=== PATIENT | female | born 1990 | race Hispanic/Latino ===

== ENCOUNTER 2018-08-02 14:47 | Emergency (ER) | payer BC, OTHER ==
--- OUTSIDE RECORDS SUMMARY | 2018-08-02 14:49 | XMS REPORT | Clinical Summary ---
:1990 Author Organization [facility] Address [address] [place] [address] Care Team Providers Name Role Phone StuartBitaThaddeus Pop Primary Care Provider Unavailable Allergies Active Allergy Reactions Severity Noted Date Comments Gabapentin Swelling, Rash Low 10/09/2016 Lamotrigine Rash Low 10/09/2016 Pregabalin Swelling 10/09/2016 Vancomycin 10/09/2016 Current Medications Prescription Sig. Disp. Refills Start Date End Date Status topiramate (TOPAMAX) 100 Take 100 mg by Active MG tablet mouth 2 (two) times a day. amitriptyline (ELAVIL) 50 Take 50 mg by Active MG tablet mouth nightly. cyanocobalamin 1,000 Inject 1,000 mcg Active mcg/mL injection into the shoulder, thigh, or buttocks once a week. Mondays loratadine (CLARITIN) 10 Take 10 mg by Active mg tablet mouth daily as needed for allergies. acetaminophen-codeine Take 1 tablet by Active (TYLENOL WITH CODEINE #3) mouth every 4 300-30 mg per tablet (four) hours as needed for moderate pain. cyclobenzaprine (FLEXERIL) Take 10 mg by Active 10 mg tablet mouth 3 (three) times a day as needed for muscle spasms. levETIRAcetam (KEPPRA) 500 Take 500 mg by Active MG tablet mouth 2 (two) times a day. Active Problems Problem Noted Date Periodic headache syndrome, not intractable 03/12/2017 Malfunction of ventriculo-peritoneal shunt (HCC) 03/11/2017 Numbness and tingling 12/30/2016 Neuropathy 12/28/2016 Pain in both feet 12/28/2016 Anesthesia complication 03/16/2016 Chronic intractable headache 02/26/2016 Hydrocephalus 02/13/2016 Seizure disorder, grand mal (HCC) 2015 Acute intractable headache 07/01/2015 MIND READER (ventriculoperitoneal) shunt status 07/01/2015 Shunt malfunction 02/06/2015 Pseudotumor cerebri 10/30/2013 Post-op pain 05/12/2013 Headache 05/01/2013 Overview: Overview: UPDATED BY ICD10 SNOMED/IMO UPDATES Immunizations Name Dates Previously Given Next Due Influenza Trivalent 12/11/2013 Social History Tobacco Use Types Packs/Day Years Used Date Never Smoker Alcohol Use Drinks/Week oz/Week Comments No Sex Assigned at Date Recorded Not on file Last Filed Vital Signs Not on file Plan of Treatment Health Maintenance Due Date Last Done Comments CERVICAL CANCER SCREENING 2009 INFLUENZA VACCINE 04/27/2018 12/11/2013 Results Not on fileafter 08/01/2017 Insurance Payer Benefit Plan / Group Subscriber ID Type Phone Address BCBS BCBS CHOICE PPO/FEDERAL EMPL PPO xxxxxxxxxxxx PPO Work: [id number] [phone] Home: [id number]
[2018-08-02] MEDS ORDERED: predniSONE 20 MG TAB ONE (15:26)
[2018-08-02] MEDS ORDERED: CEPHALEXIN 250 MG CAP ONE (15:26)
[2018-08-02] MEDS ORDERED: HYDROCODONE/APAP 5/325 MG TAB ONE (15:41)
[2018-08-02 15:48] LABS: BUN Blood Urea Nitrogen 15 mg/dL (7-18); Bicarbonate 26 mmol/L (21-32); Glucose Level 91 mg/dL (74-106); Potassium 3.5 mmol/L (3.5-5.1); Sodium Level 141 mmol/L (136-145)
[2018-08-02 15:51] LABS: Absolute Lymphocytes (CBC) 0.9 K/uL (0.7-4.9); Absolute Monocytes 0.4 K/uL (0.1-1.3); Absolute Neutrophil 3.4 K/uL (1.8-8.0); Basophils % 0.6 % (0-1.3); Eosinophils % 1.1 % (0-4.4); Hematocrit 39.5 % (36.0-45.0); Lymphocytes % 19.5 % (15.3-44.8); MCH 26.5 pg (27.0-35.0); MCV 78.7 fL (80-100); MPV 10.4 fL (7.6-11.3); Monocytes % 8.2 % (3.3-12.3); RBC Red Blood Cell Count 5.03 M/uL (3.86-4.86)
--- NOTE | 2018-08-02 15:58 | ER ---
Nurse's Notes [facility] Name: Hilda Christina Age: 28 yrs Sex: Female : 1990 Arrival Date: 08/02/2018 Time: 14:47 Bed 13 Private MD: Diagnosis: Dermatitis, unspecified Presentation: 08/02 14:49 Presenting complaint: Patient states: last night, a rash on my R side area, now i hj noticed its near my private part already; it is itchy and painful; denies fever and chills;. Transition of care: patient was not received from another setting of care. Onset of symptoms was August 02, 2018. Risk Assessment: Do you want to hurt yourself or someone else? Patient reports no desire to harm self or others. Initial Sepsis Screen: Does the patient meet any 2 criteria? No. Patient's initial sepsis screen is negative. Does the patient have a suspected source of infection? No. Patient's initial sepsis screen is negative. Care prior to arrival: None. 14:49 Method Of Arrival: Ambulatory 14:49 Acuity: JUDY 4 hj Triage Assessment: 14:51 General: Appears in no apparent distress. uncomfortable, Behavior is calm, cooperative, hj appropriate for age. Pain: Complains of pain in pelvis Pain currently is 8 out of 10 on a pain scale. 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 - Social history:: Smoking status: Patient/guardian denies using tobacco, Patient/guardian denies using alcohol. - Ebola Screening: : Patient negative for fever greater than or equal to 101.5 degrees Fahrenheit, and additional compatible Ebola Virus Disease symptoms Patient denies exposure to infectious person Patient denies travel to an Ebola-affected area in the 21 days before illness onset. Screenin:51 Abuse screen: Denies threats or abuse. Denies injuries from another. Nutritional hj screening: No deficits noted. Tuberculosis screening: No symptoms or risk factors identified. Fall Risk None identified. Assessment: 15:00 General: Appears uncomfortable, obese, Behavior is calm, cooperative, appropriate for tw2 age. Pain: Complains of pain in suprapubic area and anterior aspect of right upper chest and left clavicle. Neuro: Level of Consciousness is awake, alert, obeys commands, Oriented to person, place, time, situation. Cardiovascular: Denies chest pain, shortness of breath, Heart tones S1 S2 Patient's skin is warm and dry. Respiratory: Airway is patent Respiratory effort is even, unlabored, Respiratory pattern is regular, symmetrical, Breath sounds are clear bilaterally. GI: No signs and/or symptoms were reported involving the gastrointestinal system. : Reports vaginal itching, Denies vaginal discharge. EENT: No signs and/or symptoms were reported regarding the EENT system. Derm: Rash noted that is macular, papular, red, raised, on suprapubic area and anterior aspect of right upper chest and left clavicle and pelvis. Musculoskeletal: Range of motion: intact in all extremities. 16:20 Reassessment: Patient appears in no apparent distress at this time. Patient and/or tw2 family updated on plan of care and expected duration. Pain level reassessed. Patient is alert, oriented x 3, equal unlabored respirations, skin warm/dry/pink. Patient states feeling better. Vital Signs: 14:51 BP 122 / 76; Pulse 102; Resp 18; Temp 97.8(TE); Pulse Ox 98% on R/A; Weight 72.57 kg; hj Height 5 ft. 0 in. (152.40 cm); Pain 8/10; 16:09 BP 123 / 70; Pulse 85; Resp 17; Pulse Ox 97% on R/A; tw2 16:20 Pain 6/10; tw2 14:51 Body Mass Index 31.25 (72.57 kg, 152.40 cm) ED Course: 14:47 Patient arrived in ED. as 14:50 Triage completed. 14:51 Arm band placed on right wrist. 14:51 Patient has correct armband on for positive identification. Bed in low position. Call light in reach. Side rails up X 1. 14:56 Eugenie Hoff RN is Primary Nurse. tw2 15:00 Devon Langley MD is Attending Physician. gs 15:10 Inserted saline lock: 22 gauge in left antecubital area, using aseptic technique. Blood tw2 collected. 16:20 No provider procedures requiring assistance completed. IV discontinued, intact, tw2 bleeding controlled, No redness/swelling at site. Pressure dressing applied. Administered Medications: 15:28 Drug: predniSONE 40 mg Route: PO; tw2 16:20 Follow up: Response: No adverse reaction tw2 15:28 Drug: KeFLEX 1000 mg Route: PO; tw2 16:20 Follow up: Response: No adverse reaction tw2 15:40 Drug: [place] 5 mg-325 mg 1 tabs Route: PO; tw2 16:20 Follow up: Pain 6/10 Adult; Response: No adverse reaction; Pain is decreased tw2 Outcome: 15:58 Discharge ordered by . gs 16:20 Discharged to home ambulatory, with family. tw2 16:20 Condition: stable 16:20 Discharge instructions given to patient, family, Instructed on discharge instructions, follow up and referral plans. no drinking with medication, no driving heavy equipment, medication usage, Demonstrated understanding of instructions, follow-up care, medications, Prescriptions given X 3. 16:21 Patient left the ED. tw2 Signatures: Dipika Hernández Henry RN RN Eugenie Hoff RN RN tw2 Devon Langley MD MD
--- NOTE | 2018-08-02 15:58 | EDPHYS ---
Physician Documentation [facility] Name: Hilda Christina Age: 28 yrs Sex: Female : 1990 Arrival Date: 08/02/2018 Time: 14:47 Bed 13 Private MD: ED Physician Devon Langley HPI: 08/02 15:53 This 28 yrs old Female presents to ER via Ambulatory with complaints of Rash. gs 15:53 The patient's rash thought to be caused by Dermatitis. The rash is located on the gs suprapubic area. The rash can be described as erythematous, macular, raised. Onset: The symptoms/episode began/occurred yesterday. Associated signs and symptoms: Pertinent positives: itching, Pertinent negatives: fever. Severity of symptoms: At their worst the symptoms were moderate in the emergency department the symptoms are unchanged. The patient has experienced similar episodes in the past, a few times. 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 - Social history:: Smoking status: Patient/guardian denies using tobacco, Patient/guardian denies using alcohol. - Ebola Screening: : Patient negative for fever greater than or equal to 101.5 degrees Fahrenheit, and additional compatible Ebola Virus Disease symptoms Patient denies exposure to infectious person Patient denies travel to an Ebola-affected area in the 21 days before illness onset. ROS: 15:53 All other systems are negative. gs Exam: 15:53 Head/Face: Normocephalic, atraumatic. Eyes: Pupils equal round and reactive to light, gs extra-ocular motions intact. Lids and lashes normal. Conjunctiva and sclera are non-icteric and not injected. Cornea within normal limits. Periorbital areas with no swelling, redness, or edema. ENT: Nares patent. No nasal discharge, no septal abnormalities noted. Tympanic membranes are normal and external auditory canals are clear. Oropharynx with no redness, swelling, or masses, exudates, or evidence of obstruction, uvula midline. Mucous membranes moist. Neck: Trachea midline, no thyromegaly or masses palpated, and no cervical lymphadenopathy. Supple, full range of motion without nuchal rigidity, or vertebral point tenderness. No Meningismus. Chest/axilla: Normal chest wall appearance and motion. Nontender with no deformity. No lesions are appreciated. Cardiovascular: Regular rate and rhythm with a normal S1 and S2. No gallops, murmurs, or rubs. Normal PMI, no JVD. No pulse deficits. Respiratory: Lungs have equal breath sounds bilaterally, clear to auscultation and percussion. No rales, rhonchi or wheezes noted. No increased work of breathing, no retractions or nasal flaring. Abdomen/GI: Soft, non-tender, with normal bowel sounds. No distension or tympany. No guarding or rebound. No evidence of tenderness throughout. Back: No spinal tenderness. No costovertebral tenderness. Full range of motion. MS/ Extremity: Pulses equal, no cyanosis. Neurovascular intact. Full, normal range of motion. Neuro: Awake and alert, GCS 15, oriented to person, place, time, and situation. Cranial nerves II-XII grossly intact. Motor strength 5/5 in all extremities. Sensory grossly intact. Cerebellar exam normal. Normal gait. 15:53 Constitutional: The patient appears alert, awake, uncomfortable. 15:53 Skin: rash a moderate rash is noted, on the suprapubic area and anterior aspect of right upper chest and left clavicle. Vital Signs: 14:51 BP 122 / 76; Pulse 102; Resp 18; Temp 97.8(TE); Pulse Ox 98% on R/A; Weight 72.57 kg; hj Height 5 ft. 0 in. (152.40 cm); Pain 8/10; 16:09 BP 123 / 70; Pulse 85; Resp 17; Pulse Ox 97% on R/A; tw2 16:20 Pain 6/10; tw2 14:51 Body Mass Index 31.25 (72.57 kg, 152.40 cm) hj MDM: 15:11 Patient medically screened. 15:53 Differential diagnosis: allergic reaction, cellulitis, dermatitis. Data reviewed: vital gs signs, nurses notes. Response to treatment: the patient's symptoms have mildly improved after treatment, and as a result, I will discharge patient. 08/02 15:13 Order name: CBC with Diff; Complete Time: 15:53 08/02 15:13 Order name: BMP; Complete Time: 15:53 08/02 15:15 Order name: IV Start; Complete Time: 15:28 tw2 Administered Medications: 15:28 Drug: predniSONE 40 mg Route: PO; tw2 16:20 Follow up: Response: No adverse reaction tw2 15:28 Drug: KeFLEX 1000 mg Route: PO; tw2 16:20 Follow up: Response: No adverse reaction tw2 15:40 Drug: [place] 5 mg-325 mg 1 tabs Route: PO; tw2 16:20 Follow up: Pain 6/10 Adult; Response: No adverse reaction; Pain is decreased tw2 Disposition: 08/02/18 15:58 Discharged to Home. Impression: Dermatitis, unspecified. - Condition is Stable. - Discharge Instructions: Rash. - Prescriptions for Keflex 500 mg Oral Capsule - take 1 capsule by ORAL route 3 times per day for 7 days; 21 capsule. Zyrtec 10 mg Oral Tablet - take 1 tablet by ORAL route once daily As needed; 20 tablet. Prednisone 20 mg Oral Tablet - take 2 tablet by ORAL route once daily for 5 days; 10 tablet. - Work release form, Medication Reconciliation Form, Thank You Letter, Antibiotic Education, Prescription Opioid Use form. - Follow up: Private Physician; When: 1 - 2 days; Reason: Re-evaluation by your physician. Signatures: Dispatcher [employer] EDMO Elpidio Perez RN RN Eugenie Hoff RN RN 2 Devon Langley MD MD Corrections: (The following items were deleted from the chart) 16:21 15:58 08/02/2018 15:58 Discharged to Home. Impression: Dermatitis, unspecified. tw2 Condition is Stable. Forms are Medication Reconciliation Form, Thank You Letter, Antibiotic Education, Prescription Opioid Use. Follow up: Private Physician; When: 1 - 2 days; Reason: Re-evaluation by your physician.
[2018-08-02 16:34] VITALS: TEMP 97.8
[2018-08-02 16:35] VITALS: BP 123/70; O2SAT 97
== END 2018-08-02 16:21 | disposition home or self-care (01) ==
LOC: ER 14:47
DX: L30.9 Dermatitis, unspecified (principal)
CPT/HCPCS: 36415; 80048; 85025; 99284; J7512

== ENCOUNTER 2021-01-26 20:47 | Emergency (ER) | payer BC ==
[2021-01-26] MEDS ORDERED: NA CHLORIDE 0.9% 1,000 ML ONE (23:52)
[2021-01-26] MEDS ORDERED: ONDANSETRON 4 MG/2 ML VIAL ONE (23:55)
[2021-01-26] MEDS ORDERED: HYDROMORPHONE HCL 1 MG/ML INJ ONE (23:55)
[2021-01-27 00:10] LABS: Absolute Lymphocytes (CBC) 2.4 K/uL (0.7-4.9); Basophils % 0.6 % (0-1.3); Hematocrit 36.6 % (36.0-45.0); Lymphocytes % 33.1 % (15.3-44.8); MPV 10.5 fL (7.6-11.3); RBC Red Blood Cell Count 4.73 M/uL (3.86-4.86)
[2021-01-27 00:12] LABS: Protime INR 1.16
[2021-01-27 00:23] LABS: ALT/SGPT 19 U/L (12-78); AST/SGOT 9 U/L (15-37); Albumin 3.6 g/dL (3.4-5.0); Alkaline Phosphatase 67 U/L (45-117); BUN Blood Urea Nitrogen 15 mg/dL (7-18); Bicarbonate 26 mmol/L (21-32); Bilirubin Direct < 0.1 mg/dL (0-0.2); Bilirubin Total 0.3 mg/dL (0.2-1.0); Glucose Level 104 mg/dL (74-106); Potassium 3.4 mmol/L (3.5-5.1); Protein, Total 7.4 g/dL (6.4-8.2); Sodium Level 143 mmol/L (136-145)
--- NOTE | 2021-01-27 02:36 | EDPHYS ---
Physician Documentation [facility] Name: Hilda Christina Age: 30 yrs Sex: Female : 1990 Arrival Date: 01/26/2021 Time: 20:52 Bed 4 Private MD: ED Physician Patel Boyle HPI: 01/27 01:03 The patient or guardian complains of pain, that is acute. The symptoms are located at mh7 the cervical spine area. Onset: The symptoms/episode began/occurred 3 day(s) ago. Context: The problem was sustained at an unknown location, The neck injury/problem resulted from from unknown cause. 01:05 Associated signs and symptoms: Pertinent positives: headache, nausea, Pertinent mh7 negatives: chills, fever, bladder incontinence, bowel incontinence, numbness, tingling, vomiting, weakness. The pain radiates to the head. Modifying factors: The symptoms are alleviated by nothing. the symptoms are aggravated by movement. Severity of symptoms: At their worst the symptoms were moderate, 2 day(s) ago, in the emergency department the symptoms are unchanged. 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 - Social history:: Smoking status: Patient denies any tobacco usage or history of. ROS: 01/27 01:05 Constitutional: Negative for fever, chills, and weight loss, Eyes: Negative for injury, mh7 pain, redness, and discharge, ENT: Negative for injury, pain, and discharge, Cardiovascular: Negative for chest pain, palpitations, and edema, Respiratory: Negative for shortness of breath, cough, wheezing, and pleuritic chest pain, Abdomen/GI: Negative for abdominal pain, nausea, vomiting, diarrhea, and constipation, Back: Negative for injury and pain, : Negative for injury, bleeding, discharge, and swelling, MS/Extremity: Negative for injury and deformity, Skin: Negative for injury, rash, and discoloration, Psych: Negative for depression, anxiety, suicide ideation, homicidal ideation, and hallucinations, Allergy/Immunology: Negative for hives, rash, and allergies, Endocrine: Negative for neck swelling, polydipsia, polyuria, polyphagia, and marked weight changes. Exam: 01:05 Constitutional: This is a well developed, well nourished patient who is awake, alert, mh7 and in no acute distress. Head/Face: Normocephalic, atraumatic. Eyes: Pupils equal round and reactive to light, extra-ocular motions intact. Lids and lashes normal. Conjunctiva and sclera are non-icteric and not injected. Cornea within normal limits. Periorbital areas with no swelling, redness, or edema. 01:05 Chest/axilla: Normal chest wall appearance and motion. Nontender with no deformity. No lesions are appreciated. Cardiovascular: Regular rate and rhythm with a normal S1 and S2. No gallops, murmurs, or rubs. Normal PMI, no JVD. No pulse deficits. Respiratory: Lungs have equal breath sounds bilaterally, clear to auscultation and percussion. No rales, rhonchi or wheezes noted. No increased work of breathing, no retractions or nasal flaring. Abdomen/GI: Soft, non-tender, with normal bowel sounds. No distension or tympany. No guarding or rebound. No evidence of tenderness throughout. Back: No spinal tenderness. No costovertebral tenderness. Full range of motion. Skin: Warm, dry with normal turgor. Normal color with no rashes, no lesions, and no evidence of cellulitis. MS/ Extremity: Pulses equal, no cyanosis. Neurovascular intact. Full, normal range of motion. Neuro: Awake and alert, GCS 15, oriented to person, place, time, and situation. Cranial nerves II-XII grossly intact. Motor strength 5/5 in all extremities. Sensory grossly intact. Cerebellar exam normal. Normal gait. Psych: Awake, alert, with orientation to person, place and time. Behavior, mood, and affect are within normal limits. 01:05 Neck: External neck: tenderness, that is mild, of the left trapezius and right trapezius, C-spine: appears grossly normal, no vertebral tenderness, no crepitus, Thyroid: appears normal, Trachea: is midline with no obvious abnormalities, ROM/movement: is normal, Lymph nodes: no appreciated lymphadenopathy. Vital Signs: 01/26 21:20 BP 141 / 89; Pulse 86; Resp 18 S; Temp 97.1(TE); Pulse Ox 99% on R/A; Weight 70.31 kg ca1 (R); Height 5 ft. 0 in. (152.40 cm) (R); Pain 8/10; 21:20 Body Mass Index 30.27 (70.31 kg, 152.40 cm) ca1 MDM: 01/27 02:30 Differential diagnosis: arthritis, Cervical Raiculopathy Cervical Spondylosis cervical mh7 strain, fracture, Osteoarthritis Spondylolisthesis Spondylosis subluxation, torticollis. Data reviewed: vital signs, nurses notes, old medical records, lab test result(s), CBC, electrolytes, radiologic studies, CT scan, plain films. Data interpreted: Pulse oximetry: on room air is 99 %. Interpretation: normal. Counseling: I had a detailed discussion with the patient and/or guardian regarding: the historical points, exam findings, and any diagnostic results supporting the discharge/admit diagnosis, the presence of at least one elevated blood pressure reading (>120/80) during this emergency department visit, lab results, radiology results, the need for outpatient follow up, to return to the emergency department if symptoms worsen or persist or if there are any questions or concerns that arise at home. Response to treatment: the patient's symptoms have resolved after treatment, the patient's blood pressure is in an acceptable range, mental status has returned to baseline, the patient no longer shows bradycardia, the patient is not short of breath, the patient is not tachycardic, the patient's pain is gone, the patient's temperature has normalized. 02:35 Patient medically screened. [facility] 01/26 23:29 Order name: CBC with Diff; Complete Time: 02:13 [facility] 01/26 23:29 Order name: Basic Metabolic Panel; Complete Time: 02:13 [facility] 01/26 22:46 Order name: Shuntogram XRAY ea 01/26 23:29 Order name: Protime (+inr); Complete Time: 02:13 [facility] 01/26 23:29 Order name: Ptt, Activated; Complete Time: 02:13 [facility] 01/26 23:29 Order name: LFT's; Complete Time: 02:13 [facility] 01/26 23:40 Order name: Head C Spine Mpr Wo Con EDMS Administered Medications: 01/26 23:48 Drug: Zofran (Ondansetron) 4 mg Route: IVP; Site: left forearm; ea 01/27 02:00 Follow up: Response: No adverse reaction 01/26 23:49 Drug: NS 0.9% 1000 ml Route: IV; Rate: 1000 ml; Site: left forearm; ea 23:49 Drug: Dilaudid (HYDROmorphone) 1 mg Route: IVP; Site: left forearm; ea 01/27 02:00 Follow up: Response: No adverse reaction; Pain is decreased iw Disposition: 01/27/21 02:35 Discharged to Home. Impression: Neck pain, Headache. - Condition is Stable. - Discharge Instructions: Recurrent Migraine Headache, [id number], Cervical Radiculopathy, [id number]. - Prescriptions for Zofran ODT 4 mg Oral tablet,disintegrating - place 1 tablet by TRANSLINGUAL route every 8 hours As needed; 10 tablet. Ibuprofen 800 mg Oral Tablet - take 1 tablet by ORAL route every 8 hours As needed take with food; 15 tablet. - Work release form, Medication Reconciliation Form, Thank You Letter, Antibiotic Education, Prescription Opioid Use form. - Follow up: Private Physician; When: 1 - 2 days; Reason: If symptoms return, Worsening of condition, Recheck today's complaints, Continuance of care, Re-evaluation by your physician. Follow up: Eriberto Arreguin MD; When: 1 - 2 days; Reason: Worsening of condition, Recheck today's complaints, Continuance of care, Re-evaluation by your physician. - Problem is an acute exacerbation. - Symptoms have improved. Signatures: Dispatcher [employer] EDAissatou Gross RN RN iw Antunez, Elena, RN RN ea Acob, Cheryl, RN RN ca1 Holmes, Maurice, MD MD mh7 Corrections: (The following items were deleted from the chart) 01/26 23:40 23:30 Head Brain Wo Cont+CT.RAD.BRZ ordered. EDMS EDMS 23:41 23:32 C Spine Wo Con+CT.RAD.BRZ ordered. EDPR EDMS 01/27 02:51 02:35 01/27/2021 02:35 Discharged to Home. Impression: Neck pain; Headache. Condition iw is Stable. Forms are Medication Reconciliation Form, Thank You Letter, Antibiotic Education, Prescription Opioid Use. Follow up: Private Physician; When: 1 - 2 days; Reason: If symptoms return, Worsening of condition, Recheck today's complaints, Continuance of care, Re-evaluation by your physician. Follow up: Eriberto Arreguin; When: 1 - 2 days; Reason: Worsening of condition, Recheck today's complaints, Continuance of care, Re-evaluation by your physician. Problem is an acute exacerbation. Symptoms have improved. mh7
--- NOTE | 2021-01-27 02:36 | ER ---
Nurse's Notes [facility] Name: Hilda Christina Age: 30 yrs Sex: Female : 1990 Arrival Date: 01/26/2021 Time: 20:52 Bed 4 Private MD: Diagnosis: Neck pain;Headache Presentation: 01/26 21:20 Chief complaint: Patient states: Severe neck pain, hurts to move x 3 days. Been waking ca1 up migraines, severe early in the morning. Denies injury to the neck. Has shunt in the head. Coronavirus screen: Client denies travel out of the [place] in the last 14 days. At this time, the client does not indicate any symptoms associated with coronavirus-19. Ebola Screen: Patient negative for fever greater than or equal to 101.5 degrees Fahrenheit, and additional compatible Ebola Virus Disease symptoms Patient denies exposure to infectious person. Patient denies travel to an Ebola-affected area in the 21 days before illness onset. No symptoms or risks identified at this time. Initial Sepsis Screen: Does the patient meet any 2 criteria? No. Patient's initial sepsis screen is negative. Does the patient have a suspected source of infection? No. Patient's initial sepsis screen is negative. Risk Assessment: Do you want to hurt yourself or someone else? Patient reports no desire to harm self or others. Onset of symptoms was January 26, 2021. 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 - Social history:: Smoking status: Patient denies any tobacco usage or history of. Screenin:10 Abuse screen: Denies threats or abuse. Nutritional screening: No deficits noted. ea Tuberculosis screening: No symptoms or risk factors identified. Fall Risk None identified. Assessment: 22:30 General: Appears uncomfortable, Behavior is calm, cooperative. rv 22:30 Pain: Complains of pain in head, neck. Neuro: Level of Consciousness is awake, alert, rv obeys commands, Oriented to person, place, time, situation. Cardiovascular: Patient's skin is warm and dry. Respiratory: Airway is patent Respiratory effort is even, unlabored, Breath sounds are clear bilaterally. Derm: Skin is intact. 01/27 02:45 Reassessment: Patient appears in no apparent distress at this time. Patient and/or iw family updated on plan of care and expected duration. Pain level reassessed. Patient is alert, oriented x 3, equal unlabored respirations, skin warm/dry/pink. Patient states feeling better. Patient states symptoms have improved. Vital Signs: 01/26 21:20 BP 141 / 89; Pulse 86; Resp 18 S; Temp 97.1(TE); Pulse Ox 99% on R/A; Weight 70.31 kg ca1 (R); Height 5 ft. 0 in. (152.40 cm) (R); Pain 8/10; 21:20 Body Mass Index 30.27 (70.31 kg, 152.40 cm) ca1 ED Course: 20:52 Patient arrived in ED. bp1 21:22 Triage completed. ca1 21:23 Arm band placed on right wrist. ca1 22:21 Matti Paulino, GISSEL is Primary Nurse. rv 23:08 Patel Boyle MD is Attending Physician. mh7 23:29 Patient has correct armband on for positive identification. Pulse ox on. NIBP on. rv 23:49 Initial lab(s) drawn, by tn, sent to lab. Inserted saline lock: 20 gauge in left rv forearm, using aseptic technique. Blood collected. 01/27 00:17 Head C Spine Mpr Wo Con In Process Unspecified. EDMS 01:35 Shuntogram XRAY In Process Unspecified. EDMS 02:33 Eriberto Arreguin MD is Referral Physician. mh7 02:50 No provider procedures requiring assistance completed. IV discontinued, intact, iw bleeding controlled, No redness/swelling at site. Pressure dressing applied. Administered Medications: 01/26 23:48 Drug: Zofran (Ondansetron) 4 mg Route: IVP; Site: left forearm; ea 01/27 02:00 Follow up: Response: No adverse reaction iw 01/26 23:49 Drug: NS 0.9% 1000 ml Route: IV; Rate: 1000 ml; Site: left forearm; ea 23:49 Drug: Dilaudid (HYDROmorphone) 1 mg Route: IVP; Site: left forearm; ea 01/27 02:00 Follow up: Response: No adverse reaction; Pain is decreased iw Outcome: 02:35 Discharge ordered by MD. klein 02:51 Discharged to home ambulatory, with family. iw 02:51 Condition: good 02:51 Discharge instructions given to patient, Instructed on discharge instructions, follow up and referral plans. medication usage, Demonstrated understanding of instructions, follow-up care, medications, Prescriptions given X 2. 02:51 Patient left the ED. iw Signatures: Dispatcher [employer] EDAissatou Gross RN RN iw Antunez, Elena, RN RN ea Vicente, Ronaldo, RN RN rv Acob, Cheryl, RN RN ca1 Paniauga, Brittany bp1 Holmes, Maurice, MD MD 7
[2021-01-27 02:56] VITALS: BP 141/89; TEMP 97.1; O2SAT 99
--- NOTE | 2021-01-27 15:59 | RAD REPORT ---
EXAM DESCRIPTION: Head C Spine Mpr Wo Con 01/27/2021 12:18 AM CDT CLINICAL HISTORY: 30 years, Female, HEADACHE COMPARISON: 03/10/2017. FINDINGS: Multiple transaxial tomograms of the brain were obtained from the base of the skull to the vertex without contrast. 2-D multiplanar reformats and the coronal and sagittal plane were performed and reviewed. Subsequently multiple axial CT images through the cervical spine were obtained at 2 mm slice thicknes s at 2 mm interval reconstruction. In addition 2-D multiplanar reformats and the sagittal coronal raphael ne were performed and reviewed. An individualized dose optimization technique, Automated Exposure Control, was utilized for the perfo rmed procedure. Head: Brain parenchyma as well as the leahy and white matter differentiation demonstrate to be unremar kable. Again there is a left ventriculoperitoneal shunt entering at the level of the left occipital l obe. The tip located within the posterior horn left lateral ventricle, unchanged in comparison with p rior study. There is no evidence for hydrocephalus. There is no midline shift and/or mass effect. The re is no evidence for acute hemorrhage and/or infarction. Lateral ventricles and cisterns displace normal appearance. No intra or extra axial fluid collections were seen. The calvarium is intact wit h no evidence for fracture. The visualized portions of the paranasal sinuses and orbits demonstrate t o be clear. C-spine: The alignment, vertebral body heights, and disc spaces are normal. There is no evidence of fracture or subluxation. There is no evidence for significant degenerative changes. The spinal canal demonstrate no evidence for significant stenosis. Neural foramina demonstrate to be unremarkable. Th e uncovertebral joints demonstrate to be normal. There is no prevertebral soft tissue swelling. Sag ittal coronal reformatted images demonstrate no subluxation or bony abnormalities. IMPRESSION: VENTRICULOPERITONEAL SHUNT IN PLACE. NO ACUTE INTRACRANIAL HEMORRHAGE. GROSSLY UNREMARKABLE CT SCAN OF THE HEAD WITHOUT CONTRAST. CT CERVICAL SPINE NEGATIVE FOR FRACTURE OR SUBLUXATION. Electronically signed by: Jan Astorga MD 01/27/2021 12:23 AM CDT Due to temporary technical issues with the PACS/Fluency reporting system, reports are being signed by the in house radiologists without review as a courtesy to insure prompt reporting. The interpreting radiologist is fully responsible for the content of the report.
--- NOTE | 2021-01-27 16:00 | RAD REPORT ---
EXAM DESCRIPTION: Shuntogram 01/27/2021 2:02 AM CDT CLINICAL HISTORY: 30 years, Female, headache COMPARISON: None. FINDINGS: Frontal and lateral views of the skull, frontal and lateral views of the cervical spine, f rontal view of the chest, frontal view of the abdomen were performed. No prior films are available this time for comparison. There is a left occipital ventriculoperitoneal shunt with the tip along the posterior left of the midline as was described and recent CT scan of th e head. Noted is the presence of a ventriculoperitoneal shunt [employer] strata. Difficult to visualiz e the dial/radiodense markers for determination of P/L. There is continues tubing along the left posterior and lateral cervical spine entering along the left anterior chest and the catheter entering within the left upper abdomen tip within the pelvis. Incide ntally is noted the presence of a retrievable IVC filter. At the level of the chest there is noted th e presence of a discontinuous tubing right chest suggesting a most likely prior shunt tubing. The res t of the soft tissue and bony structures demonstrate to be unremarkable. IMPRESSION: Left occipital ventriculoperitoneal shunt, as described above. Presumed prior shunt tubing along the right chest, clinical correlation is recommended. Retrievable IVC filter in place. Electronically signed by: Jan Astorga MD 01/27/2021 2:05 AM CDT Due to temporary technical issues with the PACS/Fluency reporting system, reports are being signed by the in house radiologists without review as a courtesy to insure prompt reporting. The interpreting radiologist is fully responsible for the content of the report.
== END 2021-01-27 02:51 | disposition home or self-care (01) ==
LOC: ER 20:47
DX: R51.9 Headache, unspecified (principal); G91.9 Hydrocephalus, unspecified; Z98.2 Presence of cerebrospinal fluid drainage device; Z88.3 Allergy status to other anti-infective agents; Z88.8 Allergy status to other drugs, medicaments and biological substances
CPT/HCPCS: 85025; 80048; 36415; 85610; 80076; 85730; 70450; 72125; 75809; 49427; J1170; J7030; J2405; 96374; 96375; 99284

== ENCOUNTER 2021-02-24 05:46 | Emergency (ER) | payer BC ==
[2021-02-24] MEDS ORDERED: METOCLOPRAMIDE 10 MG/2mL INJ ONE (07:35)
[2021-02-24] MEDS ORDERED: NA CHLORIDE 0.9% 100 ML ONE (07:36)
[2021-02-24] MEDS ORDERED: MEPERIDINE HCL 25 MG/ML SYR ONE (07:36)
[2021-02-24] MEDS ORDERED: NA CHLORIDE 0.9% 1,000 ML ONE (07:36)
--- NOTE | 2021-02-24 07:41 | RAD REPORT ---
EXAM DESCRIPTION: CT - Head Brain Wo Cont - 02/24/2021 7:27 am CLINICAL HISTORY: Headache COMPARISON: January 27, 2021 and 2017 TECHNIQUE: Computed axial tomography of the head was obtained. IV contrast was not requested. All CT scans are performed using dose optimization technique as appropriate and may include automated exposure control or mA/KV adjustment according to patient size. FINDINGS: An intracranial bleed is not seen . Low-density within the right cerebrum is unchanged and is chronic. No extra-axial fluid collection is noted. A left shunt has its tip in the left lateral ventricle. The ventricles are small and without change s angela the prior exams. Fluid within the sinuses/ mastoids is not seen. IMPRESSION: No acute intracranial abnormality is seen. If patient's symptoms persist MRI of the bra in would be recommended.
[2021-02-24] MEDS ORDERED: FENTANYL CITR 100 MCG/2 ML ONE (08:28)
--- NOTE | 2021-02-24 08:38 | ER ---
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 Arreguin a month ago and is due to see him on Wednesday but the pain got worse. Coronavirus screen: At this time, the client does not indicate any symptoms associated with coronavirus-19. Ebola Screen: Patient negative for fever greater than or equal to 101.5 degrees Fahrenheit, and additional compatible Ebola Virus Disease symptoms Patient denies exposure to infectious person. Patient denies travel to an Ebola-affected area in the 21 days before illness onset. No symptoms or risks identified at this time. Initial Sepsis Screen: Does the patient meet any 2 criteria? No. Patient's initial sepsis screen is negative. Does the patient have a suspected source of infection? No. Patient's initial sepsis screen is negative. Risk Assessment: Do you want to hurt yourself or someone else? Patient reports no desire to harm self or others. Onset of symptoms was February 16, 2021. 06:09 Method Of Arrival: Ambulatory iw 06:09 Acuity: JUDY 2 iw Triage Assessment: 06:59 Headache History: The patient has had previous headaches. General:. ll1 08:44 Pain: Also complains of nausea. 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 - Social history:: Smoking status: Patient denies any tobacco usage or history of. - Family history:: not pertinent. - Hospitalizations: : No recent hospitalization is reported. Screenin:32 Abuse screen: Denies threats or abuse. Has been threatened or abused. Nutritional rr5 screening: No deficits noted. Tuberculosis screening: No symptoms or risk factors identified. Fall Risk None identified. Total Aragon Fall Scale indicates No Risk (0-24 pts). Assessment: 06:32 General: Appears in no apparent distress. uncomfortable, Behavior is calm, cooperative, rr5 appropriate for age. Pain: Complains of pain in head Pain currently is 8 out of 10 on a pain scale. Quality of pain is described as aching, Pain began gradually, Is intermittent. Neuro: Level of Consciousness is awake, alert, obeys commands, Oriented to person, place, time, Reports headache. Cardiovascular: Capillary refill < 3 seconds Patient's skin is warm and dry. Respiratory: Airway is patent Respiratory effort is even, unlabored, Respiratory pattern is regular, symmetrical. Derm: Skin is intact, is healthy with good turgor, Skin temperature is warm. Musculoskeletal: No signs and/or symptoms reported regarding the musculoskeletal system. 07:30 Reassessment: No changes from previously documented assessment. Patient and/or family ll1 updated on plan of care and expected duration. Pain level reassessed. Patient is alert, oriented x 3, equal unlabored respirations, skin warm/dry/pink. 08:30 Reassessment: No changes from previously documented assessment. Patient and/or family ll1 updated on plan of care and expected duration. Pain level reassessed. Patient is alert, oriented x 3, equal unlabored respirations, skin warm/dry/pink. Patient states feeling better. Patient states symptoms have improved. 09:20 Reassessment: No changes from previously documented assessment. Patient and/or family ll1 updated on plan of care and expected duration. Pain level reassessed. Patient is alert, oriented x 3, equal unlabored respirations, skin warm/dry/pink. 10:37 Reassessment: Patient appears in no apparent distress at this time. No changes from vg1 previously documented assessment. Patient and/or family updated on plan of care and expected duration. Pain level reassessed. Patient is alert, oriented x 3, equal unlabored respirations, skin warm/dry/pink. Vital Signs: 06:09 BP 101 / 74; Pulse 60; Resp 16; Temp 97.6; Pulse Ox 100% on R/A; Weight 70.76 kg; iw Height 5 ft. 0 in. (152.40 cm); Pain 8/10; 07:42 BP 109 / 94; Pulse Ox 97% on R/A; ll1 08:05 BP 112 / 62; Pulse 58; Pulse Ox 99% ; ll1 08:29 BP 85 / 50; Pulse 57; Resp 15; Pulse Ox 95% on R/A; Pain 6/10; ll1 08:43 BP 98 / 45; Pulse Ox 100% on R/A; ll1 09:12 BP 87 / 46; Pulse 61; Resp 15; Pulse Ox 100% ; ll1 09:28 BP 87 / 54; Pulse 55; Pulse Ox 100% ; ll1 09:47 BP 96 / 55; Pulse 57; Resp 15; Pulse Ox 97% ; ll1 10:37 BP 97 / 75; Pulse 88; Resp 14; Pulse Ox 100% on R/A; vg1 06:09 Body Mass Index 30.47 (70.76 kg, 152.40 cm) iw 08:29 Dr. Rangel informed. IV fluids infusing. Patient states low BP is normal for her. ll1 [place] Coma Score: 08:35 Eye Response: spontaneous(4). Verbal Response: oriented(5). Motor Response: obeys rn commands(6). Total: 15. ED Course: 05:49 Patient arrived in ED. es 05:49 Pop Travis MD is Private Physician. es 06:11 Triage completed. iw 06:12 Arm band placed on. iw 06:32 Patient has correct armband on for positive identification. Bed in low position. Call rr5 light in reach. 06:56 Patrick Rangel MD is Attending Physician. rn 06:59 Vane Chase, GISSEL is Primary Nurse. ll1 07:09 Missed attempt(s): 22 gauge in right antecubital area. Bleeding controlled, band aid ll1 applied, catheter tip intact. 07:19 Inserted saline lock: 24 gauge in right hand, using aseptic technique. ll1 07:26 CT Head Brain wo Cont In Process Unspecified. EDMS 08:44 No provider procedures requiring assistance completed. ll1 Administered Medications: 07:35 Drug: NS 0.9% 1000 ml Route: IV; Rate: 1000 ml; Site: right hand; ll1 10:36 Follow up: IV Status: Completed infusion; IV Intake: 1000ml vg1 07:41 Drug: Reglan (metoCLOPramide) 10 mg Route: IVP; Site: right hand; 1 08:13 Follow up: Response: No adverse reaction; Nausea is decreased; RASS: Alert and Calm (0) ll1 07:41 Drug: Demerol (meperidine) 25 mg Route: IVP; Site: right hand; ll1 08:14 Follow up: Response: No adverse reaction; Pain is decreased; RASS: Alert and Calm (0) ll1 08:13 Drug: fentaNYL (PF) 50 mcg Route: IVP; Site: right hand; 1 08:42 Follow up: Response: No adverse reaction; Pain is decreased; RASS: Alert and Calm (0) 1 Intake: 10:36 IV: 1000ml; Total: 1000ml. vg1 Outcome: 08:38 Discharge ordered by . rn 10:37 Patient left the ED. 1 Signatures: Dispatcher [employer] Laura Najrea Irene RN RN iw Patrick Rangel MD MD rn Roque, Raymond RN RN rr5 Sabrina Bravo RN RN vg1 Vane Chase RN RN ll1 Corrections: (The following items were deleted from the chart) 06:14 06:09 Pulse 60bpm; Resp 16bpm; Pulse Ox 100% RA; Temp 97.6F; 70.76 kg; Height 5 ft. 0 iw in.; BMI: 30.4; Pain 8/10; iw 08:30 08:29 BP 85 / 50; Pulse 57bpm; Resp 15bpm; Pulse Ox 95% RA; Pain 6/10; ll1 ll1
--- NOTE | 2021-02-24 08:38 | EDPHYS ---
Physician Documentation [facility] Name: Hilda Christina Age: 30 yrs Sex: Female : 1990 Arrival Date: 02/24/2021 Time: 05:49 Bed 16 Private MD: Pop Travis ED Physician Patrick Rangel HPI: 02/24 07:10 This 30 yrs old Female presents to ER via Ambulatory with complaints of rn Headache, Vomiting. 07:10 The patient complains of pain to the top of head and neck. The patient describes the rn headache as aching. Onset: The symptoms/episode began/occurred "weeks ago". Associated signs and symptoms: Pertinent positives: nausea, vomiting, Pertinent negatives: altered mental status, fever, rash, vision changes, vision loss, weakness, vertigo. Severity of symptoms: At its worst the pain was moderate, "similar to past headaches", in the emergency department the pain is unchanged. Headache History: The patient has had previous headaches and this one is similar to previous episodes. The symptoms are alleviated by nothing. the symptoms are aggravated by nothing. The patient has experienced similar episodes in the past. The patient has been recently seen by a physician:. Reports headache and neck pain, present for "weeks", has seen Dr. Arreguin for this, states put on low dose medication that is only helping a little. No fever, no vision changes, no recent trauma. Reports pain similar to previous headaches, just not improving so came in because tired of the pain. No focal weakness or neuro complaints. . PLEXIGLAS FORMER: 08:44 LMP N/A - control method ll1 Historical: - Allergies: 06:12 Lamictal; iw 06:12 Vancomycin; iw 06:12 Neurontin; iw - Home Meds: 06:13 baclofen 10 mg Oral tab 1 tab 3 times per day [Active]; topiramate 25 mg oral CSpX iw nightly [Active]; - PMHx: 06:12 Hydrocephalus; Seizures; iw - PSHx: 06:12 CRYSTAL SLICER shunt; iw - Immunization history:: Adult Immunizations Adult Immunizations up to date, Client reports receiving the 2nd dose of the Covid vaccine. - Social history:: Smoking status: Patient denies any tobacco usage or history of. - Family history:: not pertinent. - Hospitalizations: : No recent hospitalization is reported. ROS: 07:10 Constitutional: Negative for fever, chills, and weight loss, Eyes: Negative for injury, rn pain, redness, and discharge, ENT: Negative for injury, pain, and discharge, Neck: Negative for injury, and swelling, Cardiovascular: Negative for chest pain, palpitations, and edema, Respiratory: Negative for shortness of breath, cough, wheezing, and pleuritic chest pain, Abdomen/GI: Negative for abdominal pain, diarrhea, and constipation, Back: Negative for injury and pain, : Negative for injury, bleeding, discharge, and swelling, MS/Extremity: Negative for injury and deformity, Skin: Negative for injury, rash, and discoloration, Neuro: Negative for weakness, numbness, tingling, and seizure. Exam: 07:10 Constitutional: This is a well developed, well nourished patient who is awake, alert, rn and in no acute distress. Head/Face: Normocephalic, atraumatic. Eyes: Pupils equal round and reactive to light, extra-ocular motions intact. Lids and lashes normal. Conjunctiva and sclera are non-icteric and not injected. Cornea within normal limits. Periorbital areas with no swelling, redness, or edema. Neck: Trachea midline, no masses palpated, no vertebral point tenderness. No Meningismus. Cardiovascular: Regular rate and rhythm. No pulse deficits. Respiratory: No increased work of breathing, no retractions or nasal flaring. Skin: Warm, dry, no rash MS/ Extremity: Pulses equal, no cyanosis. Neuro: Awake and alert, GCS 15, oriented to person, place, time, and situation. Cranial nerves II-XII grossly intact. Motor strength 5/5 in all extremities. Sensory grossly intact. Cerebellar exam normal. Vital Signs: 06:09 BP 101 / 74; Pulse 60; Resp 16; Temp 97.6; Pulse Ox 100% on R/A; Weight 70.76 kg; iw Height 5 ft. 0 in. (152.40 cm); Pain 8/10; 07:42 BP 109 / 94; Pulse Ox 97% on R/A; ll1 08:05 BP 112 / 62; Pulse 58; Pulse Ox 99% ; ll1 08:29 BP 85 / 50; Pulse 57; Resp 15; Pulse Ox 95% on R/A; Pain 6/10; ll1 08:43 BP 98 / 45; Pulse Ox 100% on R/A; ll1 09:12 BP 87 / 46; Pulse 61; Resp 15; Pulse Ox 100% ; ll1 09:28 BP 87 / 54; Pulse 55; Pulse Ox 100% ; ll1 09:47 BP 96 / 55; Pulse 57; Resp 15; Pulse Ox 97% ; ll1 10:37 BP 97 / 75; Pulse 88; Resp 14; Pulse Ox 100% on R/A; vg1 06:09 Body Mass Index 30.47 (70.76 kg, 152.40 cm) iw 08:29 Dr. Rangel informed. IV fluids infusing. Patient states low BP is normal for her. ll1 Carlos Coma Score: 08:35 Eye Response: spontaneous(4). Verbal Response: oriented(5). Motor Response: obeys rn commands(6). Total: 15. MDM: 06:56 Patient medically screened. rn 08:35 Differential diagnosis: migraine, tension headache, shunt malfunction. Data reviewed: rn vital signs, nurses notes, old medical records, radiologic studies, CT scan, and as a result, I will discharge patient. Counseling: I had a detailed discussion with the patient and/or guardian regarding: the historical points, exam findings, and any diagnostic results supporting the discharge/admit diagnosis, radiology results, the need for outpatient follow up, to return to the emergency department if symptoms worsen or persist or if there are any questions or concerns that arise at home. Response to treatment: the patient's symptoms have mildly improved after treatment, and as a result, I will discharge patient. Special discussion: I discussed with the patient/guardian in detail that at this point there is no indication for admission to the hospital. It is understood, however, that if the symptoms persist or worsen the patient needs to return immediately for re-evaluation. ED course: CT shows small ventricles, no seizure, afebrile, nonfocal exam, and present for a few weeks at least, has appt with neuro tomorrow, will defer further treatment to Dr. Arreguin. Pain improved. BP dropped after 2 pain medication doses, patient states always has low BP and this has happened before, will observe with IV fluids until BP comes back up.. 02/24 07:03 Order name: CT Head Brain wo Cont; Complete Time: 07:42 rn 02/24 07:03 Order name: IV Start; Complete Time: 07:24 rn Administered Medications: 07:35 Drug: NS 0.9% 1000 ml Route: IV; Rate: 1000 ml; Site: right hand; ll1 10:36 Follow up: IV Status: Completed infusion; IV Intake: 1000ml vg1 07:41 Drug: Reglan (metoCLOPramide) 10 mg Route: IVP; Site: right hand; ll1 08:13 Follow up: Response: No adverse reaction; Nausea is decreased; RASS: Alert and Calm (0) ll1 07:41 Drug: Demerol (meperidine) 25 mg Route: IVP; Site: right hand; ll1 08:14 Follow up: Response: No adverse reaction; Pain is decreased; RASS: Alert and Calm (0) ll1 08:13 Drug: fentaNYL (PF) 50 mcg Route: IVP; Site: right hand; ll1 08:42 Follow up: Response: No adverse reaction; Pain is decreased; RASS: Alert and Calm (0) ll1 Disposition: 02/24/21 08:38 Discharged to Home. Impression: Headache, Migraine. - Condition is Stable. - Discharge Instructions: Migraine Headache. - Medication Reconciliation Form, Thank You Letter, Antibiotic Education, Prescription Opioid Use form. - Follow up: Private Physician; When: As needed; Reason: Recheck today's complaints, Re-evaluation by your physician. - Problem is an ongoing problem. - Symptoms have improved. Signatures: Dispatcher [employer] EDMS Aissatou Brewer RN RN Patrick Rangel MD MD rn Garcia, Victoria, RN RN 1 Vane Chase RN RN ll1 Corrections: (The following items were deleted from the chart) 08:38 08:35 ED course: CT shows small ventricles, no seizure, afebrile, nonfocal exam, and rn present for a few weeks at least, has appt with neuro tomorrow, will defer further treatment to Dr. Arreguin. Pain improved. . rn 08:48 08:38 02/24/2021 08:38 Discharged to Home. Impression: Headache; Migraine. Condition is ll1 Stable. Forms are Medication Reconciliation Form, Thank You Letter, Antibiotic Education, Prescription Opioid Use. Follow up: Private Physician; When: As needed; Reason: Recheck today's complaints, Re-evaluation by your physician. Problem is an ongoing problem. Symptoms have improved. rn 10:37 08:48 02/24/2021 08:38 Discharged to Home. Impression: Headache; Migraine. Condition is vg1 Stable. Discharge Instructions: Migraine Headache. Forms are Medication Reconciliation Form, Thank You Letter, Antibiotic Education, Prescription Opioid Use. Follow up: Private Physician; When: As needed; Reason: Recheck today's complaints, Re-evaluation by your physician. Problem is an ongoing problem. Symptoms have improved. ll1
[2021-02-24 10:48] VITALS: TEMP 97.6
[2021-02-24 11:11] VITALS: BP 97/75; O2SAT 100
== END 2021-02-24 10:37 | disposition home or self-care (01) ==
LOC: ER 05:46
DX: G43.909 Migraine, unspecified, not intractable, without status migrainosus (principal); G40.909 Epilepsy, unspecified, not intractable, without status epilepticus; Z98.2 Presence of cerebrospinal fluid drainage device; Z88.3 Allergy status to other anti-infective agents; Z88.8 Allergy status to other drugs, medicaments and biological substances
CPT/HCPCS: 96361; 70450; 96375; 96374; 99284; J2765; J3010; J2175; J7030

== ENCOUNTER 2022-08-10 06:25 | Emergency (ER) | payer BC, OTHER ==
--- OUTSIDE RECORDS SUMMARY | 2022-08-10 06:30 | XMS REPORT | Clinical Summary ---
:1990 Author Organization [facility] MD [facility] Address [address] [place] [address] Care Team Providers Name Role Phone Madhu Ladd MD Unavailable Joaquin Danielson MD Primary Care Provider Eriberto Arreguin MD Unavailable Allergies Active Allergy Reactions Severity Noted Date Comments Lamotrigine Rash High 05/01/2013 Gabapentin Rash Low 10/27/2021 Vancomycin Analogues High 05/01/2013 Burning feeling all over body Medications Medication Sig Dispensed Refills Start Date End Date Status baclofen (LIORESAL) daily. 0 02/21/2021 Active 10 mg tablet cyclobenzaprine Take 10 mg by 0 Active (FLEXERIL) 10 mg mouth 3 tablet (three) times a day as needed. OXcarbazepine twice daily. 0 06/20/2021 Ac tive (TRILEPTAL) 150 mg tablet Nurtec ODT 75 mg daily. 0 08/12/2021 Ac tive TbDL venlafaxine daily. 0 08/25/2021 Active (EFFEXOR-XR) 75 mg 24 hr capsule ondansetron Dissolve 1 30 tablet 0 12/08/2021 Active (ZOFRAN-ODT) 8 mg tablet (8 mg) disintegrating on the tongue tabletIndications: every 8 Nausea (eight) hours as needed for nausea or vomiting. ondansetron daily as 0 01/27/2021 12/09/19 Discont inued (ZOFRAN-ODT) 4 mg needed. 22 (N ot Applicable) disintegrating tablet acetaminophen-codein Take 1 tablet 0 12/08 Discontinued e (TYLENOL #3) 300 by mouth 22 ( Not Applicable) mg-30 mg tablet nightly as needed. acetaminophen Take 1,000 mg 0 12/09/19 Di scontinued (TYLENOL) 500 mg by mouth 22 (No t Applicable) tablet every 6 (six) hours as needed for mild pain. ondansetron Dissolve 1 30 tablet 0 11/04/2021 11/08/19 Discon tinued (ZOFRAN-ODT) 8 mg tablet (8 mg) 22 (Reorder) disintegrating on the tongue tabletIndications: every 8 Nausea (eight) hours as needed for nausea or vomiting. oxyCODONE Take 1 tablet 5 tablet 0 11/07/2021 11/08/19 Disco ntinued (Roxicodone) 5 mg (5 mg) by 22 (T herapy immediate release mouth every 4 completed) tabletIndications: (four) hours Pelvic mass <Right as needed for side; Lower moderate quadrant; Abdominal pain. swelling, mass or lump> acetaminophen Take 2 60 tablet 0 11/07/2021 06/15/20 Disco ntinued (Tylenol Extra tablets 22 Strength) 500 mg (1,000 mg) by tabletIndications: mouth every 6 Pelvic mass <Right (six) hours. side; Lower quadrant; Abdominal swelling, mass or lump> senna-docusate Take 1 tablet 60 tablet 0 11/07/2021 06/15/20 Discontinued (SENOKOT-S) 8.6 by mouth 22 mg-50 mg twice daily. tabletIndications: Pelvic mass <Right side; Lower quadrant; Abdominal swelling, mass or lump> ibuprofen Take 1 tablet 30 tablet 0 11/07/2021 06/15/20 Disco ntinued (ADVIL,MOTRIN) 800 (800 mg) by 22 mg mouth every 8 tabletIndications: (eight) Pelvic mass <Right hours. side; Lower quadrant; Abdominal swelling, mass or lump> oxyCODONE Take 1 tablet 10 tablet 0 11/08/2021 06/15/20 Disco ntinued (Roxicodone) 5 mg (5 mg) by 22 immediate release mouth every 4 tabletIndications: (four) hours Postoperative pain as needed for moderate pain. ondansetron Dissolve 1 30 tablet 0 11/08/2021 12/09/19 Discon tinued (ZOFRAN-ODT) 8 mg tablet (8 mg) 22 (Reorder) disintegrating on the tongue tabletIndications: every 8 Nausea (eight) hours as needed for nausea or vomiting. LORazepam (ATIVAN) Take 1 tablet 10 tablet 0 11/25/2021 Discontinued 0.5 mg (0.5 mg) by 22 (Reorder ) tabletIndications: mouth every 8 Endometrioid (eight) hours adenocarcinoma, NOS as needed for of ovary <Right>, anxiety (or Nausea without nausea). vomiting LORazepam (ATIVAN) Take 1 tablet 10 tablet 0 12/08/2021 Discontinued 0.5 mg (0.5 mg) by 22 tabletIndications: mouth every 8 Endometrioid (eight) hours adenocarcinoma, NOS as needed for of ovary <Right>, anxiety (or Nausea without nausea). vomiting Active Problems Problem Noted Date Nausea without vomiting 11/25/2021 Malignant neoplasm of right ovary 11/25/2021 Cancer Staging: Clinical stage from 12/05: Stage IA (Primary) - Signed by Joaquin Danielson MD on 11/25/2021 Migraine 10/27/2021 Overview: Added automatically from request for margo jina [id number] Simple partial seizure with autonomic dysfunction 09/29 Overview: Added automatically from request for margo jina [id number] Ventricular shunt in situ 10/27/2021 Overview: Added automatically from request for margo jina [id number] Pelvic mass 10/26/2021 Ventriculoperitoneal shunt malfunction 03/11/2017 Hydrocephalus 02/13/2016 Mechanical complication of device 02/06/2015 Encounters Date Type Specialty Care Team Description 06/15/2022 Office Visit Gynecology Joaquin Danielson, Malignant tiffany plasm of right ovary (Primary Dx) 06/15/2022 Travel 03/16/2022 Office Visit Gynecology Joaquin Danielson, Malignant tiffany plasm of right ovary (Primary Dx); Endometrioid adenocarcinoma, 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> Yolanda Grey PA 03/16/2022 Travel 01/08/2022 Orders Only Gynecology Ulysses Grande, Oral contrac eptive PA prescription (Primary Dx) 12/19/2021 Telemedicine Genetics Ulysses Grande, Pelvic mass <Right side; Lower quadrant; Abdominal swelling, mass or lump>; PA Endometrioid adenocarcinoma, 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> Brandy Vera I 12/08/2021 Office Visit Gynecology Joaquin Danielson, Endometrioid adenocarcinoma, 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> (Primary Dx); Pelvic mass <Right side; Lower quadrant; Abdominal swelling, mass or lump>; Ulysses Grande, Nausea witho ut vomiting; PA Nausea; Menorrhagia 12/08/2021 Travel 11/25/2021 Telephone Surgical Oncology Ella Hassan RN 11/25/2021 Orders Only Gynecology Joaquin Danielson, Endometrioid adenocarcinoma, 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> (Primary Dx); Nausea without vomiting 11/19/2021 Telemedicine Gynecology Joaquin Danielson, Pelvic mass < Right side; Lower quadrant; Abdominal swelling, mass or lump>; Ventricular diamond nt in situ 11/18/2021 Orders Only Gynecology Yolanda Grey PA Pelvic mass <Right side; Lower quadrant; Abdom inal swelling, mass or lump> (Primary Dx) 11/08/2021 Orders Only Gynecology King Do Postoperative pain (Primary Dx); MD Robbin Nausea 11/08/2021 [facility] MD Anaid 11/08/2021 Telephone Magy Campos RN 11/07/2021 Surgery Joaquin Danielson, LAPAROSCOPY W [facility] [place] REMOVAL OF ADNE XAL STRUCTURES (PAR TIAL OR TOTAL OOPHERECTOMY AN D/OR SALPINGECTOMY 11/07/2021 Anesthesia Event Casper Cerna MD 11/07/2021 Hospital Encounter Joaquin Danielson, Pelvic mass <Right side; Lower quadrant; Abdominal swelling, mass or lump> (Primary Dx); Hydrocephalus, not otherwise specified; Migraine, not o therwise specified; Simple partial seizure with autonomic dysfunction; Ventricular diamond nt in situ 11/07/2021 Travel 11/06/2021 Anesthesia Event Anesthesiology Teri Kenny, GISSEL 11/05/2021 Telephone Gynecology Joaquin Danielson, speak with te am (Pt MD was told that s he needs a letter of clearance for h er surgery on 11/07 and her doctor's of [facility] said they faxed it twice now. Pt lashay schulte wants to be margo e that it was received. Pleas e call patient alejandrina fung ) 11/03/2021 Office Visit Gynecology Joaquin Danielson, Pelvic mass < Right side; Lower quadrant; Abdominal swelling, mass or lump> (Primary Dx); Nausea; Encounter for p reprocedural examination; Gianna fields nt in situ 11/03/2021 Clinical Support Covid Yolanda Grey PA Suspected COVID-19 (Primary Dx); Julia Guzman Pelvic mass < Right side; Lower quadrant; Abdominal swelling, mass or lump> GISSEL Valera 11/03/2021 Travel 10/31/2021 Anesthesia Event Anesthesiology Porsha Stevens MA 10/31/2021 POEM Appointments Anesthesiology Joaquin Danielson MD 10/31/2021 Consult Internal Medicine Yolanda Grey P A Encounter for other preprocedural examin ation (Primary Dx); Hemant Santiago MD Pelvic mass <R ight side; Lower quadrant; Abdominal swelling, mass or lump>; Seizure, not ot herwise specified 10/31/2021 Travel 10/29/2021 Ancillary Procedure Radiology Yolanda Grey PA Pelvi c mass <Right side; Lower quadrant; Abdom inal swelling, mass or lump> 10/29/2021 Travel 10/28/2021 Telephone Nutrition Kristi Chong Nutrition C, RD Consultation Appointment (pt did not answer, not able to leave a message; sent [employer] message to patient) 10/27/2021 Ancillary Procedure Radiology Marisela Velasco MD 10/27/2021 Ancillary Procedure Radiology Marisela Velasco MD 10/27/2021 Office Visit Gynecology Joaquin Danielson, Pelvic mass < Right side; Lower quadrant; Abdominal swelling, mass or lump> (Primary Dx); MD Gianna fields nt in situ 10/27/2021 [employer] Patient Access Services 10/27/2021 Prep for Surgery Gynecology Yolanda Grey PA Pelvic m ass <Right side; Lower quadrant; Abdominal swelling, mass or lump> (Primary Dx); Hydrocephalus, not otherwise specified; Migraine, not o therwise specified; Simple partial seizure with autonomic dysfunction; Ventricular diamond nt in situ 10/27/2021 Travel after 08/10/2021 Surgical History Surgery Date Site/Laterality Comments SHUNT REVISION 09/27/2019 - X40 revisions, l ast two 09/26/2020 years ago CENTRAL SHUNT 1988 - 09/26/1989 IVC FILTER PLACEMENT TN LAP,RMV ADNEXAL 11/07/2021 Vagina /Right Procedure: LA PAROSCOPY STRUCTURE WITH REMOVAL OF ADNEXAL STRUCTURES (PART IAL OR TOTAL OOPHERECTO MY AND/OR SALPINGEC JUANA; Surgeon: Joaquin orourke MD; Location: [facility]; Service: ETHICAL HACKER - GYNECOLOGIC ONCO LOGY TN REMOVAL OF OMENTUM 11/07/2021 Abdomen/N/A Procedure: OMENTECTOMY, EPIPLOECTOMY, RE SECTION OF OMENTUM; Surg janice: Joaquin Danielson MD ; Location: MAIN O R; Service: ETHICAL HACKER - GYNECOLOGIC ONCO LOGY TN LAP,PELVIC 11/07/2021 Abdomen/Bilateral Procedure: MARGO GICAL LYMPHADENECTOMY LAPAROSCOPY WITH BILATERAL EXCISI ON OF ALL PELVIC LYMPH NODES; Surgeon: Joaquin orourke MD; Location: [facility]; Service: ETHICAL HACKER - GYNECOLOGIC ONCO LOGY Medical History Medical History Date Comments Seizure Migraine Hydrocephalus Postoperative nausea and vomiting Family History Medical History Relation Name Comments Colon cancer Maternal Aunt 4 Brain cancer Maternal Cousin Lung cancer Maternal Grandfather TOB++ Relation Name Status Comments Father Alive Maternal Aunt 1 Alive Maternal Aunt 2 Alive Maternal Aunt 3 Alive Maternal Aunt 4 (Age 58) d. colon cance rHeavy drug history; lived in [place] Maternal Cousin (Age 20s) d. brain canc er Maternal Grandfather (Age 70-75) d. can cer Maternal Grandmother (Age 70s) d. not c ancer related Maternal Uncle 1 d. COVID Maternal Uncle 2 Alive Maternal Uncle 3 Alive Maternal Uncle 4 Alive Mother Alive No cancer histor y Hysterectomy - heavy bleeding ( uterine bx - negative) Niece/Nephew 1 Alive Niece/Nephew 2 Alive Paternal Aunt 1 Alive Paternal Aunt 2 Alive Paternal Grandfather Alive Paternal Grandmother Alive Paternal Uncle 1 Alive Paternal Uncle 2 Alive Sister 1 Alive Sister 2 Alive Social History Tobacco Use Types Packs/Day Years Used Date Smoking Tobacco: Never Smokeless Tobacco: Never Alcohol Use Standard Drinks/Week Comments Never 0 (1 standard drink = 0.6 oz pure alcoho l) Alcohol Habits Answer Date Recorded How often do you have a drink containing alcohol? Never 10/27/2021 How many drinks containing alcohol do you have on a typical Not asked day when you are drinking? How often do you have six or more drinks on one occasion? No t asked Sex Assigned at Date Recorded Not on file Job Start Date Occupation Industry Not on file Not on file Not on file Obstetrics History Para Term AB IAB SAB Ectopic Multiple Living Live Births 0 0 0 0 0 0 0 0 0 0 0 Last Filed Vital Signs Vital Sign Reading Time Taken Comments Blood Pressure 122/78 06/15/2022 7:56 AM CDT Pulse 76 06/15/2022 7:56 AM CDT Temperature 36.6 C (97.9 F) 06/15/2022 7:56 AM CDT Respiratory Rate 18 06/15/2022 7:56 AM CDT Oxygen Saturation 97% 11/07/2021 5:45 PM DRAIN CLEANER Inhaled Oxygen Concentration - - Weight 79.9 kg (176 lb 2.4 oz) 06/15/2022 8:00 AM CDT Height 153 cm (5' 0.24") 10/27/2021 9:43 AM DRAIN CLEANER Body Mass Index 34.13 10/27/2021 9:43 AM DRAIN CLEANER Plan of Treatment Date Type Specialty Care Team Description 09/25/2022 Lab Lab Joaquin Danielson M D [address] [place], [place] [address] (Wo rk) 09/25/2022 Follow-Up Gynecology Joaquin Danielson M D [address] [place], [place] [id number] Michelle Villalta PA [address] [place], [place] [id number] Health Maintenance Due Date Last Done Comments COVID-19 Vaccination (2 - Pfizer series) 10/09/2021 021 Procedures Procedure Name Priority Date/Time Associated Comments Diagnosis CANCER ANTIGEN 125 Routine 06/15/2022 7:29 AM Malignant neopla sm Results for this CDT of right ovary procedure are in the results section. CANCER ANTIGEN 125 Routine 03/16/2022 9:15 AM Pelvic mass <Rig ht Results for this CDT side; Lower procedure are i n quadrant; the results Abdominal section. swelling, mass or lump> Endometrioid adenocarcinoma, 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> Nausea without vomiting PATHOLOGY SURGICAL Routine 11/07/2021 9:18 AM Pelvic mass <Rig ht Results for this INTERPRETATION DRAIN CLEANER side; Lower procedure are in quadrant; the results Abdominal section. swelling, mass or lump> Hydrocephalus, not otherwise specified Migraine, not otherwise specified Simple partial seizure with autonomic dysfunction Ventricular shunt in situ CYTOLOGY NON-ETHICAL HACKER Routine 11/07/2021 8:25 AM Pelvic mass <Right Results for this INTERPRETATION DRAIN CLEANER side; Lower procedure are in quadrant; the results Abdominal section. swelling, mass or lump> Hydrocephalus, not otherwise specified Migraine, not otherwise specified Simple partial seizure with autonomic dysfunction Ventricular shunt in situ SURGICAL LAPAROSCOPY 11/07/2021 6:14 AM Pelvic mass <R ight WITH BILATERAL EXCISION DRAIN CLEANER side; Lower OF ALL PELVIC LYMPH quadrant; NODES Abdominal swelling, mass or lump> Hydrocephalus, not otherwise specified Migraine, not otherwise specified Simple partial seizure with autonomic dysfunction Ventricular shunt in situ Special Needs [id number] right sa lpingo-oophorectomy OMENTECTOMY, 11/07/2021 6:14 AM Pelvic mass <Right nicanor e; Lower EPIPLOECTOMY, RESECTION DRAIN CLEANER quadrant; Abdomin al swelling, mass OF OMENTUM or lump> Hydrocephalus, not otherwise specified Migraine, not ot herwise specified Simple partial seizure with autonomic dysfun ction Ventricular shunt in situ Special Needs [id number] right sa lpingo-oophorectomy LAPAROSCOPY WITH REMOVAL 11/07/2021 6:14 AM Pelvic mas s <Right side; Lower OF ADNEXAL STRUCTURES DRAIN CLEANER quadrant; Abdominal swelling, mass (PARTIAL OR TOTAL or lump> OOPHERECTOMY AND/OR Hydrocephalus, not ot herwise SALPINGECTOMY specified Migraine, not ot herwise specified Simple partial seizure with autonomic dysfun ction Ventricular shunt in situ Special Needs [id number] right sa lpingo-oophorectomy TMP INTERPRETATION Routine 11/07/2021 6:11 AM Res ults for this ANTIBODY SCREEN NEGATIVE DRAIN CLEANER pro cedure are in the results section. CLOT EXPIRATION DATE Routine 11/07/2021 6:11 AM R esults for this DRAIN CLEANER procedure are i n the results section. ANTIBODY SCREEN Now 11/07/2021 6:11 AM Result s for this DRAIN CLEANER procedure are i n the results section. ABORH Now 11/07/2021 6:11 AM Results f or this DRAIN CLEANER procedure are i n the results section. TYPE AND SCREEN Now 11/07/2021 6:11 AM DRAIN CLEANER URINE CULTURE Routine 11/03/2021 2:07 PM Pelvic mass Results for this DRAIN CLEANER <Right side; procedure are i n Lower quadrant; the results Abdominal section. swelling, mass or lump> URINALYSIS MICROSCOPIC Routine 11/03/2021 11:56 R esults for this AM DRAIN CLEANER procedure are i n the results section. HUMAN CHORIONIC Routine 11/03/2021 11:56 Pelvic mass Results for this GONADOTROPIN, AM DRAIN CLEANER <Right side; procedure are in QUALITATIVE, URINE Lower quadrant; the re sults Abdominal section. swelling, mass or lump> URINALYSIS WITH Routine 11/03/2021 11:56 Pelvic mass Results for this MICROSCOPIC IF INDICATED AM DRAIN CLEANER <Right side; pro cedure are in Lower quadrant; the results Abdominal section. swelling, mass or lump> MD COVID-19 (SARS-COV-2) Routine 11/03/2021 10:56 Suspected Results for this PCR ASYMPTOMATIC AM DRAIN CLEANER COVID-19 procedure a re in the results section. EKG, 12-LEAD (SCHEDULED) Routine 11/03/2021 Pelvic mass <Right side; Lower quadrant; Abdominal swelling, mass or lump> CT ABDOMEN PELVIS W Routine 10/29/2021 4:17 PM Pelvic mass Re sults for this CONTRAST DRAIN CLEANER <Right side; procedure are i n Lower quadrant; the results Abdominal section. swelling, mass or lump> CONFIRM ABORH TYPE Routine 10/27/2021 11:38 Resul ts for this AM DRAIN CLEANER procedure are i n the results section. TMP HIV 1/2 AG&AB PATH Routine 10/27/2021 11:29 R esults for this INTERP AM DRAIN CLEANER procedure are i n the results section. TMP HCVAB INTERP Routine 10/27/2021 11:29 Results for this AM DRAIN CLEANER procedure are i n the results section. CLOT EXPIRATION DATE Routine 10/27/2021 11:29 Res ults for this AM DRAIN CLEANER procedure are i n the results section. TMP INTERPRETATION Routine 10/27/2021 11:29 Resul ts for this ANTIBODY SCREEN NEGATIVE AM DRAIN CLEANER pro cedure are in the results section. ANTIBODY SCREEN Routine 10/27/2021 11:29 Pelvic mass Results for this AM DRAIN CLEANER <Right side; procedure are i n Lower quadrant; the results Abdominal section. swelling, mass or lump> ABORH Routine 10/27/2021 11:29 Pelvic mass Results for this AM DRAIN CLEANER <Right side; procedure are i n Lower quadrant; the results Abdominal section. swelling, mass or lump> FRACTIONATED BILIRUBIN Routine 10/27/2021 11:29 Pelvic mass R esults for this AM DRAIN CLEANER <Right side; procedure are i n Lower quadrant; the results Abdominal section. swelling, mass or lump> TOTAL PROTEIN Routine 10/27/2021 11:29 Pelvic mass Results fo r this AM DRAIN CLEANER <Right side; procedure are i n Lower quadrant; the results Abdominal section. swelling, mass or lump> ASPARTATE Routine 10/27/2021 11:29 Pelvic mass Results for this AMINOTRANSFERASE AM DRAIN CLEANER <Right side; procedure a re in Lower quadrant; the results Abdominal section. swelling, mass or lump> ALANINE AMINOTRANSFERASE Routine 10/27/2021 11:29 Pelvic mass Results for this AM DRAIN CLEANER <Right side; procedure are i n Lower quadrant; the results Abdominal section. swelling, mass or lump> ALKALINE PHOSPHATASE Routine 10/27/2021 11:29 Pelvic mass Res ults for this AM DRAIN CLEANER <Right side; procedure are i n Lower quadrant; the results Abdominal section. swelling, mass or lump> ALBUMIN LEVEL Routine 10/27/2021 11:29 Pelvic mass Results fo r this AM DRAIN CLEANER <Right side; procedure are i n Lower quadrant; the results Abdominal section. swelling, mass or lump> CALCIUM LEVEL TOTAL Routine 10/27/2021 11:29 Pelvic mass Resu lts for this AM DRAIN CLEANER <Right side; procedure are i n Lower quadrant; the results Abdominal section. swelling, mass or lump> .GLOMERULAR FILTRATION Routine 10/27/2021 11:29 Pelvic mass R esults for this RATE AM DRAIN CLEANER <Right side; procedure are i n Lower quadrant; the results Abdominal section. swelling, mass or lump> SERUM CREATININE Routine 10/27/2021 11:29 Pelvic mass Results for this AM DRAIN CLEANER <Right side; procedure are i n Lower quadrant; the results Abdominal section. swelling, mass or lump> ELECTROLYTE PANEL Routine 10/27/2021 11:29 Pelvic mass Result s for this AM DRAIN CLEANER <Right side; procedure are i n Lower quadrant; the results Abdominal section. swelling, mass or lump> BLOOD UREA NITROGEN Routine 10/27/2021 11:29 Pelvic mass Resu lts for this AM DRAIN CLEANER <Right side; procedure are i n Lower quadrant; the results Abdominal section. swelling, mass or lump> GLUCOSE LEVEL Routine 10/27/2021 11:29 Pelvic mass Results fo r this AM DRAIN CLEANER <Right side; procedure are i n Lower quadrant; the results Abdominal section. swelling, mass or lump> MANUAL DIFFERENTIAL Routine 10/27/2021 11:29 Pelvic mass Resu lts for this AM DRAIN CLEANER <Right side; procedure are i n Lower quadrant; the results Abdominal section. swelling, mass or lump> Results CBC Routine 10/27/2021 11:29 Pelvic mass Results for this AM DRAIN CLEANER <Right side; procedure are i n Lower quadrant; the results Abdominal section. swelling, mass or lump> FREE THYROXINE Routine 10/27/2021 11:29 Pelvic mass Results f or this AM DRAIN CLEANER <Right side; procedure are i n Lower quadrant; the results Abdominal section. swelling, mass or lump> HEPATITIS C VIRUS Routine 10/27/2021 11:29 Pelvic mass Result s for this ANTIBODY AM DRAIN CLEANER <Right side; procedure are i n Lower quadrant; the results Abdominal section. swelling, mass or lump> HIV-1/2 ANTIGEN AND Routine 10/27/2021 11:29 Pelvic mass Resu lts for this ANTIBODIES, FOURTH AM DRAIN CLEANER <Right side; procedure are in GENERATION Lower quadrant; the results Abdominal section. swelling, mass or lump> THYROID STIMULATING Routine 10/27/2021 11:29 Pelvic mass Resu lts for this HORMONE AM DRAIN CLEANER <Right side; procedure are i n Lower quadrant; the results Abdominal section. swelling, mass or lump> HEMOGLOBIN A1C Routine 10/27/2021 11:29 Pelvic mass Results f or this AM DRAIN CLEANER <Right side; procedure are i n Lower quadrant; the results Abdominal section. swelling, mass or lump> BHCG, TUMOR MARKER Routine 10/27/2021 11:29 Pelvic mass Resul ts for this AM DRAIN CLEANER <Right side; procedure are i n Lower quadrant; the results Abdominal section. swelling, mass or lump> INHIBIN B, SERUM Routine 10/27/2021 11:29 Pelvic mass Results for this AM DRAIN CLEANER <Right side; procedure are i n Lower quadrant; the results Abdominal section. swelling, mass or lump> INHIBIN A, SERUM Routine 10/27/2021 11:29 Pelvic mass Results for this AM DRAIN CLEANER <Right side; procedure are i n Lower quadrant; the results Abdominal section. swelling, mass or lump> TYPE AND SCREEN Routine 10/27/2021 11:29 Pelvic mass AM DRAIN CLEANER <Right side; Lower quadrant; Abdominal swelling, mass or lump> APTT Routine 10/27/2021 11:29 Pelvic mass Results for this AM DRAIN CLEANER <Right side; procedure are i n Lower quadrant; the results Abdominal section. swelling, mass or lump> PROTHROMBIN TIME Routine 10/27/2021 11:29 Pelvic mass Results for this AM DRAIN CLEANER <Right side; procedure are i n Lower quadrant; the results Abdominal section. swelling, mass or lump> CANCER ANTIGEN 125 Routine 10/27/2021 11:29 Pelvic mass Resul ts for this AM DRAIN CLEANER <Right side; procedure are i n Lower quadrant; the results Abdominal section. swelling, mass or lump> ALPHA FETOPROTEIN TUMOR Routine 10/27/2021 11:29 Pelvic mass Results for this MARKER AM DRAIN CLEANER <Right side; procedure are i n Lower quadrant; the results Abdominal section. swelling, mass or lump> COMPREHENSIVE METABOLIC Routine 10/27/2021 11:29 Pelvic mass PANEL AM DRAIN CLEANER <Right side; Lower quadrant; Abdominal swelling, mass or lump> COMPLETE BLOOD COUNT W/ Routine 10/27/2021 11:29 Pelvic mass DIFFERENTIAL AM DRAIN CLEANER <Right side; Lower quadrant; Abdominal swelling, mass or lump> OSI US VASCULAR Routine 10/07/2021 12:03 Cancer Results for this PM DRAIN CLEANER procedure are i n the results section. OSI CT ABDOMEN AND PELVIS Routine 10/07/2021 11:57 Cancer Results for this AM DRAIN CLEANER procedure are i n the results section. after 08/10/2021 Results CA 125 (06/15/2022 7:29 AM CDT)Only the most recent of3 resultswithin the time period is included. P athologist Signature CA 125 13.2 <=38.0 U/mL [place] Comment: Results greater than 11,500.0 U/L may no t be reliable due to matrix effect with extended dilution as it exceeds the pharmaceutical botanist s recommended limit. Caution should be exercised when interpreting such values and done in conjunction with cli nical context. Reference intervals are not available fo r male patients. Results should be interpreted in conjunction with clinical context. This test is measured by electrochemilum inescence immunoassay on Ehsan Marizol immunoassay analyzers. Results obtained in different methods are not interchangeable. Testing performed at [facility], [address] [place] [address], [place] [address] Specimen Anatomical Collection Method Collection Time Receive d Time (Source) Location / / Volume Laterality Blood 06/15/2022 7:29 AM 2 7:29 CDT AM CDT Yolanda GENTILE LAB BLOOD ORDERABLES Performing Organization Address City/State/ZIP Code [place] [address] [place] [address] Pathology Surgical Interpretation (11/07/2021 9:18 AM DRAIN CLEANER) Component Value Ref Test Analysis Performed Pathologis t Range Method Time At Signature Submitted Pelvic mass <Right side; Low er quadrant; Abdominal swelling, mass or lump> [R19.03] [facility] Clinical History Hydrocephalus, not otherwise specified [G91.9] 2 1:32 PM LABS Migraine, not otherwise specified [G43.909] DRAIN CLEANER 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 (SEE COMMENT #1 AND SYNOPTIC REPORT) 2 1:32 PM LABS signed by Fallopian tube, no tumor present. DRAIN CLEANER Salbador Phan MD on B: Lymph nodes, right, paraaortic: 11/13/2021 at Two lymph nodes, negative for metastatic carcinoma (0/2). 1:32 PM C: Right pelvic lymph node: One lymph node, negative for metastatic carcinoma (0/1). D: Omental biopsy: Mature adipose tissue, no tumor present. E: Endometrial biopsy: Predominantly blood. Rare focus of benign lower u terine segment/upper endocervical epithelium. (See Comment #2) BCL/FMT Comment Comment #1: Immunohistochemi abraham stains are performed and show the tumor cells to be positive for cytokeratin 7 (patchy), PAX-8, ER (80%, moderate) and TN (95%, strong). Per electronic medical record, th [facility] e capsule of the ovary was i ntact, with an incision made to drain the ovary within the bag, without intra-operative spillage. While the ovary measured 14.5 cm in greatest dimension, the area most consis 2 1:32 PM LABS tent with carcinoma measures approximately 2.2 cm in great est dimension. DRAIN CLEANER Comment #2: The specimen is predominantly blood and is insufficient for diagnosis. Clinical correlation is recommended. Synoptic OVARY or FALLOPIAN TUBE or PRIMARY PERITONEUM [facility] Checklist OVARY OR FALLOPIAN TUBE OR PRIMARY PERITONEUM - All Sp ecimens 2 1:32 PM LABS 8th Edition - Protocol posted: 11/22/2019 DRAIN CLEANER SPECIMEN Procedure: Resection Specimen Integrity of Right Ovary: Capsule intact Specimen Integrity of the Right Fallopian Tube: Ser selma intact TUMOR 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 Tumor Size: Greatest Dimension (Centimeters): 2.2 cm Ovarian Surface Involvement: Absent Other Tissue / Organ Involvement: Not identified Peritoneal / Ascitic Fluid: Results pending Pleural Fluid: Not submitted / unknown LYMPH NODES Regional Lymph Nodes: All lymph nodes negative for indu or cells Number of Lymph Nodes Examined: 3 Site(s): Right pelvic Site(s): Right para-aortic PATHOLOGIC STAGE CLASSIFICATION (pTNM, AJCC 8th Edition) Primary Tumor (pT): pT1a Regional Lymph Nodes (pN): pN0 Gross A: [facility] Description Right fallopian tube and rig ht ovary: Consists of an ovary (14.5 x 9.6 x 1.1 cm) with attached fimbriated fallopian tube (5.5 cm in length by 0.6 cm in diameter). 2 1:32 PM LABS DRAIN CLEANER The outer surface of the ova ry is pink-baird, smooth and has been previously incised. The ovary is further opened to demonstrate a cyst containing hemorrhagic fluid and a 2.2 x 1.7 x 1.2 cm baird-brown, francois ypoid lesion. The cyst linin g is pink-baird, smooth with a focal area of granularity. No excrescences are noted. The fallopian tube demonstra shukri unremarkable cut surfaces. Cupola Charger sections are submitted as follows: SECTION CODE: A1, represent ative section of polypoid lesion for frozen and permanent sections; A2, granular area for frozen and permanent sections; A3, cyst wall for frozen and permanent sections; A4-A 5, remainder of polypoid les ion; A6, remainder of granular area; A7-A11, A12, entire fimbriated end; A13, Fallopian tube. MF B: Lymph nodes, right, paraaort ic: Two lymph nodes ranging from 1.5 to 1.7 cm in greatest dimension. SECTION CODE: B1-B2, each contain one lymph node serially s ectioned. BM C: Right pelvic node: Consists of a 6.2 x 2.3 x 1.5 cm fatty replaced lymph node with some attached additional fat. SECTION CODE: C1-C6, entire lymph node serially sectioned. BM D: Omental biopsy: Received raj sh is a single irregular unoriented portion of yellow-red lobulated fibrofatty tissue with focal hemorrhage (10.0 x 4.4 x 1.2 cm) serially sectioned to reveal grossly unremar kable fibrofatty tissue with out definitive mass lesion or lymph node identified. Cupola Charger sections in D1-D4. PB E: Endometrial biopsy: Received fresh are multiple irregular unoriented pieces of dark red hemorrhagic tissue and admixed blood clot (2.2 x 1.8 x 0.6 cm in aggregate), entirely submitted in E1. PB Intraoperative A: [facility] Evaluation Ovary and fallopian tube, ri ght, right fallopian tube and right ovary---or1----frozen: 2 1:32 PM LABS At least endometrioid borderline tumor suspicious for carcin bradley. DRAIN CLEANER PXR/FVN Biomarker T: A5 [facility] Block(s) N: C1 2 1:32 PM LABS DRAIN CLEANER Disclaimer "Some tests reported [facility] here may have been 2 1:32 PM LABS developed and DRAIN CLEANER performance characteristics determined by [facility] Pathology and Laboratory Medicine. These tests have not been specifically cleared or approved by the U.S. Food and Drug Administration. If applicable, controls were reviewed and showed appropriate reactivity." Specimen (Source) Anatomical Collection Method Collection Time Re ceived Time Location / / Volume Laterality Tissue (Ovary and 11/07/2021 9:18 022 9:23 Fallopian Tube, AM DRAIN CLEANER AM DRAIN CLEANER Right) Tissue (Lymph 11/07/2021 10:55 11/07/2021 Node(s), Right, AM DRAIN CLEANER 12:22 PM DRAIN CLEANER Paraaortic) Tissue (Lymph 11/07/2021 11:29 11/07/2021 Node(s), Right, AM DRAIN CLEANER 12:22 PM DRAIN CLEANER Pelvic) Tissue (Other) 11/07/2021 12:05 2 PM DRAIN CLEANER 12:22 PM DRAIN CLEANER Tissue (Other) 11/07/2021 12:33 2 PM DRAIN CLEANER 12:50 PM DRAIN CLEANER Joaquin Danielson MD LAB PATHOLOGY ORDERABLES Performing Organization Address City/State/ZIP Code Phon e Number [facility] LABS [facility] [place] [address] [address] (ABNORMAL) Cytology Non-Doormaker Interpretation (11/07/2021 8:25 AM DRAIN CLEANER) Component Value Ref Test Analysis Performed Pathologis t Range Method Time At Signature Gross A: [facility] Description 0 Diff Quik; 4 Pap Stain Slides 2 11:1 0 LABS 300 ml. slightly cloudy pale pink fluid AM DRAIN CLEANER Specimen concentrated by cytocentrifugation technique 1 cell block in formalin on 11/10/2021@12:10. Major Cellular atypia (A) [facility] Electronically Classification 2 11:10 LABS niru d by Keagan Monaco MD on 11/14/2021 at 11:10 AM Diagnosis A. Pelvic washin [facility] E lectronically 2 11:10 LABS signed by Keagan Rare groups of atypical cells (see comment) ANDRIA Monaco MD on 11/14/2021 at 11:10 AM Comment Clinical and radiological co rrelation is recommended to determine the clinical significance. [facility] 2 11:10 LABS Cell block sections are contributory. AM DRAIN CLEANER Retained/Biomark SR: 4 S, 2 CB [facility] er Testing 2 11:10 LABS AM DRAIN CLEANER Informational Some tests reported [facility] Points here may have been 2 11:10 LABS developed and AM DRAIN CLEANER performance characteristics determined by [facility] Pathology and Laboratory Medicine. These tests have not been specifically cleared or approved by the U.S. Food and Drug Administration. Specimen Anatomical Collection Method Collection Time Receive d Time (Source) Location / / Volume Laterality Washing (Pelvic 11/07/2021 8:25 AM 2021 9:48 Washing) DRAIN CLEANER AM DRAIN CLEANER Joaquin Danielson MD LAB CYTOLOGY ORDERABLES Performing Organization Address City/State/ZIP Code Phon e Number [facility] LABS [address] Clot Expiration Date (11/07/2021 6:11 AM DRAIN CLEANER)Only the most recent of2 results within the time period is included. [facility] Time Signature T & S 11/10/2021 [facility] Specimen Anatomical Collection Method Collection Time Receive d Time (Source) Location / / Volume Laterality Blood 11/07/2021 6:11 AM 2 7:02 DRAIN CLEANER AM DRAIN CLEANER Yolanda GENTILE BLOOD BANK TEST ORDERABLES Performing Organization Address City/[facility] Phon e Number [facility] Unless otherwise noted, [address] all lab tests performed by: Division of Pathology and Laboratory Medicine [address] [place] [address] TMP Interpretation Antibody Screen Negative (11/07/2021 6:11 AM DRAIN CLEANER)Only the most recent of2 resultswithin the time period is included. [facility] Method Time [facility] TMP Auto Neg At the [facility] CENTER patient plasma shows no evidence of RBC alloantibodi es. Comment: MD Lizz ZELAYA [id number] Dictated by: MD Lizz ZELAYA [id number] Dictated Date/Time: 11.07.2021 9:[address] Transcribed Date/Time: 11.07.2021 9:44 AM DRAIN CLEANER Electronically Signed By: IDALIA WASSERMAN MD - [id number] on 11.07.2021 9:44 AM C Specimen Anatomical Collection Method Collection Time Receive d Time (Source) Location / / Volume Laterality Blood 11/07/2021 6:11 AM 2 7:02 DRAIN CLEANER AM DRAIN CLEANER Yolanda DoubleVerify PA BLOOD BANK TEST ORDERABLES Performing Organization Address City/[facility]/ZIP Code Phon e Number [facility] Unless otherwise noted, [address] all lab tests performed by: Division of Pathology and Laboratory Medicine [address] [place], [place] [address] ABORh (11/07/2021 6:11 AM DRAIN CLEANER)Only the most recent of2 resultswithin the time period is included. P athologist Signature ABORh. O POS [facility] Specimen Anatomical Collection Method Collection Time Receive d Time (Source) Location / / Volume Laterality Blood 11/07/2021 6:11 AM 2 7:02 DRAIN CLEANER AM DRAIN CLEANER Yolandalandy Grey PA BLOOD BANK TEST ORDERABLES Performing Organization Address [facility] Phon e Number [facility] Unless otherwise noted, [address] all lab tests performed by: Division of Pathology and Laboratory Medicine [address] [place] [address] Antibody Screen (11/07/2021 6:11 AM DRAIN CLEANER)Only the most recent of2 resultswithin the time period is included. athologist Signature ABSC. Negative ABSC [facility] Specimen Anatomical Collection Method Collection Time Receive d Time (Source) Location / / Volume Laterality Blood 11/07/2021 6:11 AM 2 7:02 DRAIN CLEANER AM DRAIN CLEANER Yolanda DoubleVer[employer] PA BLOOD BANK TEST ORDERABLES Performing Organization Address City/[facility]/ZIP [facility] Phon e Number [facility] Unless otherwise noted, [address] all lab tests performed by: Division of Pathology and Laboratory Medicine [address] [place], [place] [address] (ABNORMAL) Urine Culture (11/03/2021 2:07 PM DRAIN CLEANER) Component Value Ref Test Analysis Performed At [facility] gist Range Method Time Signature Final Report <10,000 cfu/ml Gram Negative Rods [facility] <10,000 cfu/ml Gram Negative Rods of a second type. RAY 10 - 50,000 cfu/ml Normal site antony present. [facility] Path Review - The results have been review ed and electronically signed by Pathologist: [place] Urine CLARIBEL MENDES MD #[id number] [facility] Specimen Anatomical Collection Method Collection Time Receive d Time (Source) Location / / Volume Laterality Urine, Clean 11/03/2021 2:07 PM 8:56 Catch DRAIN CLEANER PM DRAIN CLEANER Yolanda GENTILE MICROBIOLOGY - GENERAL ORDER TYRELL Performing Organization Address City/State/ZIP Code Phon e Number [place] [facility] Unless otherwise noted, [place] [address] [place] all lab tests performed by: Division of Pathology and Laboratory Medicine [address] (ABNORMAL) Urinalysis with Microscopic (11/03/2021 11:56 AM DRAIN CLEANER) athologist Signature UA WBC 5-10 (A) 0 - 2 /HPF [facility] Comment: All components of UA Microscopi c Exam performed at [facility], [address] [place] [address], [place] [address] UA RBC Rare 0 - 2 /HPF [facility] Comment: As part of the UA Microscopic E xam performed at [facility], [address] [place] [address], [place] [address] UA Mucous 1+ (A) Not Seen-Trace /HPF [facility] Comment: As part of the UA Microscopic E xam performed at [facility], [address] [place] [address], [place] [address] UA Bacteria 2+ (A) NOT SEEN /HPF [facility] Comment: As part of the UA Microscopic E xam performed at [facility], [address] [place] [address] UA Squam Epi NOT SEEN None-Occasional /HPF [facility] Comment: As part of the UA Microscopic E xam performed at [facility], [address] [place] [address], [place] [address] UA Renal Epi 1-2 (A) NOT SEEN /HPF [facility] Comment: As part of the UA Microscopic E xam performed at [facility], [address] [place] [address] Specimen Anatomical Collection Method Collection Time Receive d Time (Source) Location / / Volume Laterality Urine 11/03/2021 11:56 11/03/2021 2:08 AM DRAIN CLEANER PM DRAIN CLEANER Narrative [facility] - 11/03/2021 2:29 PM DRAIN CLEANER Some reporting parameters within the Urinalysis test have changed due to the implementation of new instrumentation in the [facility], allowing greater sensitivity of measurement. Urinalysis results rep orted by the [facility] using existing instrumentation, as well as Urinalysis t esting performed manually or by backup methodology at the [facility] will remain relatively unchanged. New reporting parameters and units will now be reported for all [facility]. Yolanda GENTILE URINE ORDERABLES Performing Organization Address City/State/ZIP Code Phon e Number [address] (ABNORMAL) Urinalysis with Microscopic (11/03/2021 11:56 AM DRAIN CLEANER) athologist Signature UA Color Light [place] [facility] Yellow ow Comment: All components of UA Macroscopi c performed at [facility], [address] [place] [address] UA Appear Clear Clear [facility] Comment: As part of the UA Macroscopic p erformed at [facility], [address] [place] [address] UA Glucose NEG NEG mg/dL [facility] Comment: As part of the UA Macroscopic p erformed at [facility], [address] [place] [address] UA Bili NEG NEG [facility] Comment: As part of the UA Macroscopic p erformed at [facility], [address] [place] [address] UA Ketones NEG NEG mg/dL [facility] Comment: As part of UA Macroscopic or as an individual orderable testing performed at [facility], [address] [place] [address] UA Spec Grav 1.020 1.003 - 1.035 [facility] Comment: As part of UA Macroscopic or as an individual orderable testing performed at [facility], [address] [place] [address] UA Blood NEG NEG [facility] Comment: As part of the UA Macroscopic p erformed at [facility], [address] [place] [address] UA pH 5.5 5.0 - 9.0 [facility] Comment: As part of UA Macroscopic or as an individual orderable testing performed at [facility], [address] [place] [address] UA Protein NEG NEG mg/dL [facility] Comment: As part of the UA Macroscopic p erformed at [facility], [address] [place] [address] UA Urobilinogen NEG NEG [facility] Comment: As part of the UA Macroscopic p erformed at [facility], [address] [place] [address] UA Nitrite NEG NEG [facility] Comment: As part of the UA Macroscopic p erformed at [facility], [address] [place] [address] UA Leuk Est Trace (A) NEG [facility] Comment: As part of the UA Macroscopic p erformed at [facility], [address] [place] [address] Specimen Anatomical Collection Method Collection Time Receive d Time (Source) Location / / Volume Laterality Urine 11/03/2021 11:56 11/03/2021 2:08 AM DRAIN CLEANER PM DRAIN CLEANER Yolanda GENTILE URINE ORDERABLES Performing Organization Address City/State/ZIP Code Phon e Number [address] [facility] [address] Urine HCG (11/03/2021 11:56 AM DRAIN CLEANER) athologist Signature U beta hCG Ql Negative Negative [facility] Comment: Very dilute urine specimens may cause fa lse negative results. Suggest repeat in 48 hours with a first morning voided urine or request quantitative serum beta HCG test. [facility] [address] [facility], [place] [address] Specimen Anatomical Collection Method Collection Time Receive d Time (Source) Location / / Volume Laterality Urine 11/03/2021 11:56 11/03/2021 2:08 AM DRAIN CLEANER PM DRAIN CLEANER Yolanda Grey SEFERINO URINE ORDERABLES Performing Organization Address City/State/[place] [address] [place] [address] [place] [address] COVID-19 (DUNCAN-CoV-2) PCR Asymptomatic (11/03/2021 10:56 AM DRAIN CLEANER) Component Value Ref Range Test Analysis Performed Pathologis t Method Time At [facility] COVID19 SARS Pre-OR Procedure UT Indication [facility] COVID19 SARS Not Detected Not [place] Result Detected [facility] COVID19 SARS SARS-CoV-2 NOT Detected. [facility] Reference Range: Not Detected [facility] Methodology: The De La Garza Real Time SARS-CoV-2 assay is a qualitative real-time reverse chainstitch pants outseamer polymerase chain reaction (executive candidate developer-PCR) test to detect RNA from SARS-CoV-2 in nasal, nasopharyngeal and oropharyngeal swabs from patients with signs and symptoms of infection who ar e suspected of COVID-19 by their health care provider. The De La Garza RealTime SARS-CoV-2 performed on the [employer] System is a dual target assay with primers and probes for the RdRp and N genes. Results must be interpreted within the context of all relevant clinical and laboratory findings, and epidemiological risk factors. Positive results are indicative of the presence of SARS-CoV-2 RNA; clinical correlation with patient history and other diagnostic information is ne cessary to determine patient infection status. Positive results do not rule out bacterial infection or co-infection with other viruses. Negative results do not preclude SARS- CoV-2 infection and should not be used as the sole basis for patient management decisions. The De La Garza RealTime SARS-CoV -2 assay is for in vitro diagnostic use under FDA Emergency Use Authorization only. Testing is limited to laboratories certified under the Clinical Laboratory Improvement Aida ndments of 1988 (CLIA), 42U.S.C. 263a, to perform high complexity tests. The T est was performed by the CLIA-certified, high- complexity Molecular Diagnostics Laboratory (MDL) at [facility] under the Food and Drug Administration (FDA) s Emergency Use Authorization. Factsheet for patients: https://www.[facility].org/AbbottFac tSheetPatients Factsheet for healthcare pro viders: https://www.[facility].org/AbbottFactSheetHCP Test performed by: [facility] [place] [facility] [address] [place] [address] Specimen (Source) Anatomical Collection Method Collection Time Re ceived Time Location / / Volume Laterality Nasopharyngeal Swab 11/03/2021 10:56 02/0 03/2022 AM DRAIN CLEANER 12:15 PM DRAIN CLEANER Joaquin Danielson MD MICROBIOLOGY - GENERAL ORDER TYRELL Performing Organization Address City/State/ZIP Code Phon e Number [facility] Unless otherwise noted, [place] [address] [place] all lab tests performed by: Division of Pathology and Laboratory Medicine [address] EKG, 12-Lead (Scheduled) (11/03/2021) Specimen (Source) Anatomical Location Collection Method / Collectio n Time Received Time / Laterality Volume Narrative This result has an attachment that is no t available. Yolanda GENTILE ECG ORDERABLES Performing Organization Address City/State/ZIP Code Phon e Number [facility]IA IECG CT Abdomen Pelvis with Contrast (10/29/2021 4:17 PM DRAIN CLEANER) Anatomical Region Laterality Modality Abdomen, Pelvis Computed Tomography Specimen (Source) Anatomical Collection Method Collection Time Re ceived Time Location / / Volume Laterality 10/30/2021 8:18 AM DRAIN CLEANER Impressions 10/30/2021 11:29 AM DRAIN CLEANER 1. Large right cystic ovarian lesion with small enhancing endocystic component. Low grade cystadenocarcinoma is not excluded. 2. No peritoneal metastases. I personally reviewed these image(s) will ng with the resident's/fellow's interpretations, certify that if a procedure was performed I was physically present, and agree with the final report. Narrative 10/30/2021 11:29 AM DRAIN CLEANER FULL RESULT: Examination: CT ABDOMEN PELVIS W CONTRAS T on 10/29/2021 4:17 PM Clinical History: 31-year-old female G0 presenting with right adnexal mass, intermittent pelvic/abdominal pain, nausea, increased urinary frequency. Patient has history of meningitis with subsequent hyd rocephalus and shunt placement with mult iple revisions. An IVC filter was placed for a clot in an unknown placed within the abdomen. CA-125 is elevated to 44.7 on 10/27/2021, reportedly previously 26 on 10/20/2021 Indication: 13 cm right adnexal mass Comparison: CT abdomen and pelvis 022 Technique: CT of the abdomen and pelvis after the administration of intravenous contrast. Findings: The lung bases are clear bilaterally. The liver is homogeneous in attenuation, without evidence of a focal mass. There is no biliary dilatation. The portal and hepatic veins are patent. There is no left gastric, cirilo hepatis, or portacaval lymphadenopathy. A 0.9 cm hypodensity is noted in the spl een, likely representing a cyst. The gallbladder, pancreas, spleen, and adrenal glands are unremarkable. The kidneys are without mass or hydronep hrosis. The right renal pelvis is slightly prominent compared to the left with the distal ureter in close proximity to the large right adnexal mass. There is no retroperitoneal lymphadenopa thy. An infrarenal IVC filter is noted. The a dmitry and IVC are within normal limits. The urinary bladder is incompletely dist ended. The uterus is anteverted. A corpus luteum is present in the left ovary measuring 1.8 x 1.5 cm. A large cystic lesion is noted in the ri ght adnexa measuring 14 x 10.8 x 13.5 cm, similar compared to the CT abdomen and pelvis obtained 1 month earlier, and appears to arise from the right ovary. A sma ll enhancing nodular component is identi fied measuring approximately 1.2 cm (series 4, image 117). No thick enhancing woodard are identified. There is no pelvic lymphadenopathy. No e nlarged inguinal lymph nodes. The colon and rectum are within normal l imits for course and caliber. The appendix is surgically absent. There are no dilated loops of small bowel. No bowel wall thickening. There is no mesenteric lymphadenopathy. Trace free fluid is noted in the right lower pelvis adjacent to the adnexal mass. No free intra-abdominal gas. Mild degenerative changes are present of the spine. No suspect osseous lesions. The ventriculoperitoneal catheter is noted along the left lower chest and anterior abdomen soft tissues ultimately termina ting in the mid abdomen, immediately adj acent to the cystic adnexal lesion. Procedure Note Omaira Vasquez MD - 10/30/2021 FULL RESULT: Examination: CT ABDOMEN PELVIS W CONTRAS T on 10/29/2021 4:17 PM Clinical History: 31-year-old female G0 presenting with right adnexal mass, intermittent pelvic/abdominal pain, nausea, increased urinary frequency. Patient has history of meningitis with subsequent hydrocephalus and shunt placement with multiple revisi ons. An IVC filter was placed for a clot in an unknown placed within the abdomen. CA-125 is elevated to 44.7 on 10/27/2021, reportedly previously 26 on 10/20/2021 Indication: 13 cm right adnexal mass Comparison: CT abdomen and pelvis 022 Technique: CT of the abdomen and pelvis after the administration of intravenous contrast. Findings: The lung bases are clear bilaterally. The liver is homogeneous in attenuation, without evidence of a focal mass. There is no biliary dilatation. The portal and hepatic veins are patent. There is no left gastric, cirilo hepatis, or portacaval lymphadenopathy. A 0.9 cm hypodensity is noted in the spl een, likely representing a cyst. The gallbladder, pancreas, spleen, and adrenal glands are unremarkable. The kidneys are without mass or hydronep hrosis. The right renal pelvis is slightly prominent compared to the left with the distal ureter in close proximity to the large right adnexal mass. There is no retroperitoneal lymphadenopa thy. An infrarenal IVC filter is noted. The a dmitry and IVC are within normal limits. The urinary bladder is incompletely dist ended. The uterus is anteverted. A corpus luteum is present in the left ovary measuring 1.8 x 1.5 cm. A large cystic lesion is noted in the ri t adnexa measuring 14 x 10.8 x 13.5 cm, similar compared to the CT abdomen and pelvis obtained 1 month earlier, and appears to arise from the right ovary. A small enhancing nodular component is identified measurin g approximately 1.2 cm (series 4, image 117). No thick enhancing woodard are identified. There is no pelvic lymphadenopathy. No e nlarged inguinal lymph nodes. The colon and rectum are within normal l imits for course and caliber. The appendix is surgically absent. There are no dilated loops of small bowel. No bowel wall thickening. There is no mesenteric lymphadenopathy. Trace free fluid is noted in the right lower pelvis adjacent to the adnexal mass. No free intra-abdominal gas. Mild degenerative changes are present of the spine. No suspect osseous lesions. The ventriculoperitoneal catheter is noted along the left lower chest and anterior abdomen soft tissues ultimately terminating in the mid abdomen, immediately adjacent to the cys tic adnexal lesion. IMPRESSION: 1. Large right cystic ovarian lesion wit h small enhancing endocystic component. Low grade cystadenocarcinoma is not excluded. 2. No peritoneal metastases. I personally reviewed these image(s) willjonathan taylor with the resident's/fellow's interpretations, certify that if a procedure was performed I was physically present, and agree with the final report. Yolanda GENTILE IMG CT ORDERABLES Confirm ABORh (10/27/2021 11:38 AM DRAIN CLEANER) athologist Signature ABORh Confirm. O POS [facility] [place] Specimen Anatomical Collection Method Collection Time Receive d Time (Source) Location / / Volume Laterality Blood 10/27/2021 11:38 10/27/2021 3:55 AM DRAIN CLEANER PM DRAIN CLEANER Yolanda GENTILE BLOOD BANK TEST ORDERABLES Performing Organization Address City/State/ZIP Code Phon e Number [facility] Unless otherwise noted, [place] [address] [place] all lab tests performed by: Division of Pathology and Laboratory Medicine [facility] [place] TMP HIV 1/2 Ag&Ab [facility] (10/27/2021 11:29 AM DRAIN CLEANER) Patholo gist Method Time Signature HIV 1/2 Ag&Ab Negative for [facility] HIV-1 antigen [facility] and HIV-1/HIV-2 antibodies. No laboratory evidence of HIV infection. If acute HIV infection is suspected, consider testing for HIV-1 RNA. Comment: ZOHRA ZACARIAS MD, PhD - [id number] Dictated by: ZOHRA ZACARIAS MD, Ph D - [id number] Dictated Date/Time: 10.28.2021 6:[address] Transcribed Date/Time: 10.28.2021 6:55 AM DRAIN CLEANER Electronically Signed By: ZOHRA ZACARIAS MD, PhD - [id number] on 10.28.2021 6:55 AM C Specimen Anatomical Collection Method Collection Time Receive d Time (Source) Location / / Volume Laterality Blood 10/27/2021 11:29 10/27/2021 6:41 AM DRAIN CLEANER PM DRAIN CLEANER Yolanda Grey PA LAB BLOOD ORDERABLES Performing Organization Address City/[facility]/ZIP Code Phon e Number [facility] [address] [place] [id number] BHCG, Tumor Marker (10/27/2021 11:29 AM DRAIN CLEANER) P athologist Signature Beta HCG, Tumor <0.6 <=0.9 [facility] Marker mIU/mL [facility]ENTER Comment: Tumor Markers [facility] Reference Range: Negative: <1.0 mIU/mL Non- pre-menopausal women: </= 1 .0 mIU/mL Post-menopausal women: </= 7.0 mIU/mL Men: < 2.0 mIU/mL Specimen Anatomical Collection Method Collection Time Receive d Time (Source) Location / / Volume Laterality Blood 10/27/2021 11:29 10/27/2021 1:46 AM DRAIN CLEANER PM DRAIN CLEANER Yolanda GENTILE LAB BLOOD ORDERABLES Performing Organization Address City/State/ZIP Code Phon e Number [facility] Unless otherwise noted, [place] [address] CENTER all lab tests performed by: Division of Pathology and Laboratory Medicine [address] [place] [address] [place] HIV-1/2 Antigen and Antibodies, Fourth Generation (10/27/2021 11:29 AM DRAIN CLEANER) Patholo gist Method Time Signature HIV 1/2 Ag & Non Reactive Non Reactive [facility] Ab, 4th Gen [facility] Comment: Performed at: [facility] [address] [place] [address] Specimen Anatomical Collection Method Collection Time Receive d Time (Source) Location / / Volume Laterality Blood 10/27/2021 11:29 10/27/2021 6:41 AM DRAIN CLEANER PM DRAIN CLEANER Yolanda Grey PA LAB BLOOD ORDERABLES Performing Organization Address City/[facility] Phon e Number [facility] [address] [place] [phone] (ABNORMAL) .Serum Creatinine (10/27/2021 11:29 AM DRAIN CLEANER) athologist Signature Creatinine 0.50 (L) 0.51 - 0.95 [facility] mg/dL Comment: Testing performed at [facility], [address] [place] [address] Specimen Anatomical Collection Method Collection Time Receive d Time (Source) Location / / Volume Laterality Blood 10/27/2021 11:29 10/27/2021 AM DRAIN CLEANER 11:49 AM DRAIN CLEANER Yolanda GENTILE LAB BLOOD ORDERABLES Performing Organization Address City/State/ZIP Code Phon e Number [address] [facility] [address] (ABNORMAL) .CBC (10/27/2021 11:29 AM DRAIN CLEANER) athologist Signature WBC 7.0 4.0 - 11.0 [facility] K/uL Comment: All components of the CBC perfo rmed at [facility], [address] [place] [address] RBC 4.93 4.00 - 5.50 M/uL [facility] Comment: As part of CBC testing performe d at [facility], [address] [place] [address] Hgb 12.1 12.0 - 16.0 gm/dL [facility] D Comment: As part of CBC or as an individ ual orderable testing performed at [facility], [address] [place] [address] Hct 37.7 37.0 - 47.0 % [facility] Comment: As part of CBC or as an individ ual orderable testing performed at [facility], [address] [place] [address] MCV 76 (L) 82 - 98 fL [facility] Comment: As part of CBC testing performe d at [facility], [address] [place] [address] MCH 24.5 (L) 27.0 - 31.0 pg [facility] Comment: As part of CBC testing performe d at [facility], [address] [place] [address] MCHC 32.1 31.0 - 36.0 gm/dL [facility] D Comment: As part of CBC testing performe d at [facility], [address] [place] [address] RDW-SD 44.1 35.1 - 46.3 fL [facility] Comment: As part of CBC testing performe d at [facility], [address] [place] [address] RDW-CV 16.3 (H) 12.0 - 15.5 % [facility] Comment: As part of CBC testing performe d at [facility], [address] [place] [address] Platelet count 216 140 - 440 K/uL [facility] AND Comment: As part of CBC or as an individ ual orderable testing performed at [facility], [address] [place] [address] MPV 11.8 (H) 4.0 - 10.4 fL [facility] Comment: As part of CBC testing performe d at [facility], [address] [place] [address] Specimen Anatomical Collection Method Collection Time Receive d Time (Source) Location / / Volume Laterality Blood 10/27/2021 11:29 10/27/2021 AM DRAIN CLEANER 11:49 AM DRAIN CLEANER Yolanda GENTILE LAB BLOOD ORDERABLES Performing Organization Address City/State/ZIP Code Phon e Number [address] TMP HCV Ab Path Interp (10/27/2021 11:29 AM DRAIN CLEANER) [facility] Method Time Signature HCV Ab Path There is NO [facility] serologic [facility] evidence of Hepatitis C virus antibody. Comment: ZOHRA ZACARIAS MD, PhD - [id number] Dictated by: ZOHRA ZACARIAS MD, Ph D - [id number] Dictated Date/Time: 10.27.2021 21:18 PM DRAIN CLEANER Transcribed Date/Time: 10.27.2021 21:18 PM DRAIN CLEANER Electronically Signed By: ZOHRA ZACARIAS MD, PhD - [id number] on 10.27.2021 21:18 PM Specimen Anatomical Collection Method Collection Time Receive d Time (Source) Location / / Volume Laterality Blood 10/27/2021 11:29 10/27/2021 6:41 AM DRAIN CLEANER PM DRAIN CLEANER Yolanda GENTILE LAB BLOOD ORDERABLES Performing Organization Address City/State/ZIP Code Phon e Number [facility] [place] [address] [place] [address] Glomerular Filtration Rate (10/27/2021 11:29 AM DRAIN CLEANER) athologist Signature eGFR-AA 147 >=60 [facility] mL/min/1.73 sq. m Comment: Normal eGFR >= 60 mL/min/1.73 m2 Note: The eGFR is calculated using the C KD-EPI equation. The eGFR declines with age. eGFR <60 mL/min/1.73 m2 is considered as "decreased". This equation should only be used for patients 18 and older. According to the National Kidney Foundat ion's Kidney Disease Outcome Quality Initiative (KDOQI) classification and 2012 Kidney Disease Improving Global Outcomes (KDIGO) Clinical Practice Guideline, the stage of CKD should be categorized based on estimated GFR. Stage Description GFR mL/min/1. 73 m2 1 Normal or high GFR >=90 2 Mildly decreased GFR 60-89 3a Mildly to moderately decreased GFR 45-59 3b Moderately to severely decreased GFR 30-44 4 Severely decreased GFR 15-29 5 Kidney failure <15 [facility], [address] [place] [address] eGFR-MARLENE 128 >=60 mL/min/1.73 sq. m [facility] [place] Comment: Normal eGFR >= 60 mL/min/1.73 m2 Note: The eGFR is calculated using the C KD-EPI equation. The eGFR declines with age. eGFR <60 mL/min/1.73 m2 is considered as "decreased". This equation should only be used for patients 18 and older. According to the National Kidney Found[employer] ion's Kidney Disease Outcome Quality Initiative (KDOQI) classification and 2012 Kidney Disease Improving Global Outcomes (KDIGO) Clinical Practice Guideline, the stage of CKD should be categorized based on estimated GFR. Stage Description GFR mL/min/1. 73 m2 1 Normal or high GFR >=90 2 Mildly decreased GFR 60-89 3a Mildly to moderately decreased GFR 45-59 3b Moderately to severely decreased GFR 30-44 4 Severely decreased GFR 15-29 5 Kidney failure <15 Testing performed at [facility], [address] [place] [address] Specimen Anatomical Collection Method Collection Time Receive d Time (Source) Location / / Volume Laterality Blood 10/27/2021 11:29 10/27/2021 AM DRAIN CLEANER 11:49 AM DRAIN CLEANER Yolanda GENTILE LAB BLOOD ORDERABLES Performing Organization Address City/State/ZIP Code Phon e Number [place] [id number] [place] [address] [place] [address] Fractionated Bilirubin (10/27/2021 11:29 AM DRAIN CLEANER) athologist Signature Bili Total 0.3 <=1.2 mg/dL [facility] Comment: Indocyanine Green (ICG) may cause falsel y elevated bilirubin results. Total and direct bilirubin must not be measured from samples containing indocyanine green. False elevation of total bilirubin can b e seen in patients with IgG concentrations above 28 g/L. Testing performed at [facility], [address] [place] [address] Bili Direct <0.2 <=0.3 mg/dL [facility] Comment: Indocyanine Green (ICG) may cause falsel y elevated bilirubin results. Total and direct bilirubin must not be measured from samples containing indocyanine green. Testing performed at [facility], [address] [place] [id number] Bili Indirect See Note 0.0 - 0.9 mg/dL [facility] Comment: Unable to calculate Indirect Bilirubin r esult due to some parameters are outside reportable range [facility] performed at [facility], [address] [place] [address] Specimen Anatomical Collection Method Collection Time Receive d Time (Source) Location / / Volume Laterality Blood 10/27/2021 11:29 10/27/2021 AM DRAIN CLEANER 11:49 AM DRAIN CLEANER Yolanda Grey PA LAB BLOOD ORDERABLES Performing Organization Address [facility] [place] [address] [place] [address] [place] [address] [place] [address] Hepatitis C Virus Antibody (10/27/2021 11:29 AM DRAIN CLEANER) [facility] Method Time Signature HCVAb. Non Reactive Non Reactive [facility] [place] Comment: Antibody detection in the immunocompromi sed and immunosuppressed population may be delayed or absent entirely. Therefore serial testing, correlation with other clinical findings, and supplemental testin g (if available) should be taken into co nsideration when interpreting the results. Performed at: [facility] Blood [facility] [address] [place] [id number] Specimen Anatomical Collection Method Collection Time Receive d Time (Source) Location / / Volume Laterality Blood 10/27/2021 11:29 10/27/2021 6:41 AM DRAIN CLEANER PM DRAIN CLEANER Yolanda GENTILE LAB BLOOD ORDERABLES Performing Organization Address City/[facility] Phon e Number [facility] DONOR [place] [id number] [place] [address] aPTT (10/27/2021 11:29 AM DRAIN CLEANER) P athologist Signature aPTT 33.4 24.7 - 36.8 [facility] second(s) Comment: Testing performed at [facility], [address] [place] [address] Specimen Anatomical Collection Method Collection Time Receive d Time (Source) Location / / Volume Laterality Blood 10/27/2021 11:29 10/27/2021 AM DRAIN CLEANER 11:49 AM DRAIN CLEANER Narrative [facility] - 10/27/2021 12:25 PM DRAIN CLEANER This lab cannot be scheduled at the [facility] locations due to collection/proccessing restrictions: [facility] and [facility]. Yolanda Grey PA LAB BLOOD ORDERABLES Performing Organization Address City/State/[place] [address] [address] [facility] [address] [address] [facility] Inhibin B (10/27/2021 11:29 AM DRAIN CLEANER) athologist Signature Inhibin B-[place] 12 pg/mL [facility] Comment: REFERENCE VALUE------ Premenopausal: <224 pg/mL (Follicular) <80 pg/mL (Luteal) Postmenopausal: <12 pg/mL ADDITIONAL INFORMATIO N Due to a change in Inhibin B assay metho dology at [facility], concentrations obta ined after 06/16/2021 average 44% higher than resul ts obtained prior to 06/17/2021. If patient is undergoing serial monitoring of inhibin B levels, rebaselining by req uesting that this sample also be run on the previous assay method for comparison purposes is strongly recommen ded. Rebaseline of this sample at no charge will be availab le until 05/17/2022 and the rebaseline result will be added to this report. Contact [facility] [employer] at [phone] to request this service. For [place] patients, call [phone]. The testing method is a manual immunoenz ymatic assay manufactured by [employer]. Values obtain ed with different assay methods or kits may be different a nd cannot be used interchangeably. If this test is being o rdered as a tumor marker, results cannot be interpreted as absolute evidence for the presence or absence of malignant disease. This test was developed and its performa nce characteristics determined by [facility] in a manner co nsistent with CLIA requirements. This test has not been antionette ared or approved by the U.S. Food and Drug Administration. Test Performed by: [facility] [place] [address] Grill Prep Cook: Simone Marques M.D. Ph. D.; CLIA# [id number] Specimen Anatomical Collection Method Collection Time Receive d Time (Source) Location / / Volume Laterality Blood 10/27/2021 11:29 10/27/2021 7:59 AM DRAIN CLEANER PM DRAIN CLEANER Yolanda GENTILE LAB BLOOD ORDERABLES Performing Organization Address City/State/ZIP Code Phon e Number [facility] Unless otherwise noted, [place] [address] CENTER all lab tests performed by: Division of Pathology and Laboratory Medicine [address] Inhibin A (10/27/2021 11:29 AM DRAIN CLEANER) athologist Signature Inhibin A 25 pg/mL [facility] Comment: REFERENCE VALUE------ <97.5 (Premenopausal) <2.1 (Postmenopausal) ADDITIONAL INFORMATIO N This test has been modified from the man ufacturer's instructions. Its performance characteri stics were determined by [facility] in a manner co nsistent with CLIA requirements. This test has not bee n cleared or approved by the U.S. Food and Drug Admin istration. The testing method is an immunoenzymatic assay manufactured by [employer] and performed on the [employer] DxI 800. Values obtained with different assay met hods or kits may be different and cannot be used inte rchangeably. Test results cannot be interpreted as ab solute evidence for the presence or absence of malignant disease. Inhibin A values are not interpretable i n females for the investigation o f malignant disease. Test Performed by: [facility] [place] [address] Grill Prep Cook: Simone Marques M.D. Ph. D.; CLIA# [id number] Specimen Anatomical Collection Method Collection Time Receive d Time (Source) Location / / Volume Laterality Blood 10/27/2021 11:29 10/27/2021 7:59 AM DRAIN CLEANER PM DRAIN CLEANER Yolanda GENTILE LAB BLOOD ORDERABLES Performing Organization Address [facility] Phon e Number [facility] Unless otherwise noted, [address] all lab tests performed by: Division of Pathology and Laboratory Medicine [facility] [place] AFP (10/27/2021 11:29 AM DRAIN CLEANER) [facility] AFP 5.4 <=8.3 ng/mL [facility] Comment: Results greater than 45,875.00 ng/mL may not be reliable due to matrix effect with extended dilution as it exceeds the pharmaceutical botanist's recommended limit. Caution should be exercised when interpreting such values and done in conjunction with clinical context. This test is measured by electrochemilum inescence immunoassay on [employer] immunoassay analyzers. Results obtained in different methods are not interchangeable. Specimen Anatomical Collection Method Collection Time Receive d Time (Source) Location / / Volume Laterality Blood 10/27/2021 11:29 10/27/2021 1:46 AM DRAIN CLEANER PM DRAIN CLEANER Yolanda GENTILE LAB BLOOD ORDERABLES Performing Organization Address [facility] Phon e Number [facility] Unless otherwise noted, [address] all lab tests performed by: Division of Pathology and Laboratory Medicine [address] [place] [address] [place] (ABNORMAL) Differential (10/27/2021 11:29 AM DRAIN CLEANER) athologist [facility] Neutrophil % 63.5 42.0 - 66.0 [facility] [place] % Comment: All components of the Different ial performed at [facility], [facility] [place] [address] Lymphocyte % 29.9 24.0 - 44.0 % [facility] [place] Comment: As part of Differential, testin g performed at [facility], [facility] [place] [address] Monocyte % 5.3 2.0 - 7.0 % [facility] [place] Comment: As part of Differential, testin g performed at [facility], [address] [place] [address] Eosinophil % 0.9 (L) 1.0 - 4.0 % [facility] [place] Comment: As part of Differential, testin g performed at [facility], [address] [place] [address] Basophil % 0.4 0.0 - 1.0 % [facility] [place] Comment: As part of Differential, testin g performed at [facility], [address] [place] [address] Neutrophil Abs 4.44 1.70 - 7.30 K/uL [facility] [place] Comment: As part of Differential, testin g performed at [facility], [address] [place] [address] Lymphocyte Abs 2.09 1.00 - 4.80 K/uL [facility] [place] Comment: As part of Differential, testin g performed at [facility], [address] [place] [address] Monocyte Abs 0.37 0.08 - 0.70 K/uL [facility] [place] [facility] Comment: As part of Differential, testin g performed at [facility], [address] [place] [address] Eosinophil Abs 0.06 0.04 - 0.40 K/uL [facility] [place] Comment: As part of Differential, testin g performed at [facility], [address] [place] [address] Basophil Abs 0.03 0.00 - 0.10 K/uL [facility] [place] [facility] Comment: As part of Differential, testin g performed at [facility], [address] [place] [address] Specimen Anatomical Collection Method Collection Time Receive d Time (Source) Location / / Volume Laterality Blood 10/27/2021 11:29 10/27/2021 AM DRAIN CLEANER 11:49 AM DRAIN CLEANER Yolanda GENTILE LAB BLOOD ORDERABLES Performing Organization Address City/State/ZIP Code Phon e Number [address] PT/INR (10/27/2021 11:29 AM DRAIN CLEANER) athologist Signature PT 13.5 11.5 - 13.9 [facility] second(s) Comment: Testing performed at [facility], [address] [place] [address], [place] [address] INR 1.07 0.90 - 1.10 [facility] Comment: Testing performed at [facility], [address] [place] [address], [place] [address] Specimen Anatomical Collection Method Collection Time Receive d Time (Source) Location / / Volume Laterality Blood 10/27/2021 11:29 10/27/2021 AM DRAIN CLEANER 11:49 AM DRAIN CLEANER Narrative [facility] - 10/27/2021 12:25 PM DRAIN CLEANER This lab cannot be scheduled at the [facility] locations due to collection/proccessing restrictions: [facility] and [facility]. Yolanda Grey PA LAB BLOOD ORDERABLES Performing Organization Address City/State/ZIP Code Phon e Number [place] [id number] [address] [place] [address] [place] [address] BUN (10/27/2021 11:29 AM DRAIN CLEANER) athologist Signature BUN 13 6 - 23 mg/dL [facility] Comment: Testing performed at [facility], [address] [place] [address] Specimen Anatomical Collection Method Collection Time Receive d Time (Source) Location / / Volume Laterality Blood 10/27/2021 11:29 10/27/2021 AM DRAIN CLEANER 11:49 AM DRAIN CLEANER Yolanda Britoke PA LAB BLOOD ORDERABLES Performing Organization Address City/State/ZIP Code Phon e Number [place] [phone] [address] [place] [address] ALT (10/27/2021 11:29 AM DRAIN CLEANER) athologist Signature ALT 11 <=33 U/L [facility] Comment: Testing performed at [facility], [address] [place], [place] [address] Specimen Anatomical Collection Method Collection Time Receive d Time (Source) Location / / Volume Laterality Blood 10/27/2021 11:29 10/27/2021 AM DRAIN CLEANER 11:49 AM DRAIN CLEANER Yolanda Unke PA LAB BLOOD ORDERABLES Performing Organization Address City/State/ZIP Code Phon e Number [place] [id number] [address] [place] [address] Aspartate Aminotransferase (10/27/2021 11:29 AM DRAIN CLEANER) P athologist Signature AST 14 <=32 U/L [facility] Comment: Testing performed at [facility], [address] [place] [address] Specimen Anatomical Collection Method Collection Time Receive d Time (Source) Location / / Volume Laterality Blood 10/27/2021 11:29 10/27/2021 AM DRAIN CLEANER 11:49 AM DRAIN CLEANER Yolanda Unke PA LAB BLOOD ORDERABLES Performing Organization Address City/State/ZIP Code Phon e Number [place] [phone] [address] [place], [place] [address] [address] [place] [address] TSH (10/27/2021 11:29 AM DRAIN CLEANER) athologist Signature TSH 3.17 0.27 - 4.20 [facility] mcunit/mL Comment: Testing performed at [facility], [address] [place], [place] [address] Specimen Anatomical Collection Method Collection Time Receive d Time (Source) Location / / Volume Laterality Blood 10/27/2021 11:29 10/27/2021 AM DRAIN CLEANER 11:49 AM DRAIN CLEANER Yolanda Unke PA LAB BLOOD ORDERABLES Performing Organization Address City/State/ZIP Code Phon e Number [place] [phone] [address] [place], [place] [address] [address] [place] [address] Free T4 (10/27/2021 11:29 AM DRAIN CLEANER) athologist Signature T4 Free 1.30 0.93 - 1.70 [facility] ng/dL Comment: Testing performed at [facility], [address] [place] [address] Specimen Anatomical Collection Method Collection Time Receive d Time (Source) Location / / Volume Laterality Blood 10/27/2021 11:29 10/27/2021 AM DRAIN CLEANER 11:49 AM DRAIN CLEANER Yolanda Grey PA LAB BLOOD ORDERABLES Performing Organization Address City/[facility]/ZIP Code Phon e Number [address] Total Protein (10/27/2021 11:29 AM DRAIN CLEANER) athologist Signature Total Protein 7.6 6.4 - 8.3 [facility] g/dL Comment: Testing performed at [facility], [address] [place], [place] [address] Specimen Anatomical Collection Method Collection Time Receive d Time (Source) Location / / Volume Laterality Blood 10/27/2021 11:29 10/27/2021 AM DRAIN CLEANER 11:49 AM DRAIN CLEANER Yolanda Grey PA LAB BLOOD ORDERABLES Performing Organization Address City/[facility]/ZIP Code Phon e Number [address] Alkaline Phosphatase (10/27/2021 11:29 AM DRAIN CLEANER) athologist Signature Alk Phos 66 35 - 104 U/L [facility] Comment: Testing performed at [facility], [address] [place], [place] [address] Specimen Anatomical Collection Method Collection Time Receive d Time (Source) Location / / Volume Laterality Blood 10/27/2021 11:29 10/27/2021 AM DRAIN CLEANER 11:49 AM DRAIN CLEANER Yolanda Unke PA LAB BLOOD ORDERABLES Performing Organization Address City/State/[place] [address] [place] [address] Hemoglobin A1c (10/27/2021 11:29 AM DRAIN CLEANER) athologist Signature A1C 4.9 4.3 - 5.6 % [facility] Comment: HbA1c values >=6.5% are diagnostic of di abetes mellitus. Diagnosis should be confirmed by repeat testing. Therapeutic Action suggested: >8.0% HbA1 c; Goal of therapy: <7.0% HbA1c Testing Performed at [facility], [address] [place] [address] Specimen Anatomical Collection Method Collection Time Receive d Time (Source) Location / / Volume Laterality Blood 10/27/2021 11:29 10/27/2021 AM DRAIN CLEANER 11:49 AM DRAIN CLEANER Yolanda GENTILE LAB BLOOD ORDERABLES Performing Organization Address City/State/ZIP Code Phon e Number [id number] [place] [address] Glucose Level (10/27/2021 11:29 AM DRAIN CLEANER) athologist Signature Glucose Level 94 70 - 99 [facility] mg/dL Comment: Effective 04/22/16, the glucose reference intervals have been updated based on [place] [employer] guidelines (Standards of Medical Care in Diabetes 2016. Diabetes Care 2016; 39: S13-S22). Fasting blood glucose: Normal: 70-99 mg/dL Impaired fasting glucose (increased risk for diabetes or pre-diabetes): 100- 125 mg/dL Diabetes mellitus: >/=126 mg/dL Random blood glucose: Normal: 70-199 mg/dL Note: Random glucose >100 mg/dL is assoc iated with increased risk for diabetes Testing performed at [facility], [address] [place] [address] Specimen Anatomical Collection Method Collection Time Receive d Time (Source) Location / / Volume Laterality Blood 10/27/2021 11:29 10/27/2021 AM DRAIN CLEANER 11:49 AM DRAIN CLEANER Yolanda Grey PA LAB BLOOD ORDERABLES Performing Organization Address City/State/[place] [address] [place], [place] [address] [address] [place] [address] Calcium Level (10/27/2021 11:29 AM DRAIN CLEANER) athologist Signature Calcium Lvl 9.3 8.4 - 10.2 [facility] mg/dL Comment: Testing performed at [facility], [address] [place] [address] Specimen Anatomical Collection Method Collection Time Receive d Time (Source) Location / / Volume Laterality Blood 10/27/2021 11:29 10/27/2021 AM DRAIN CLEANER 11:49 AM DRAIN CLEANER Yolanda Grey PA LAB BLOOD ORDERABLES Performing Organization Address City/[facility]/ZIP Code Phon e Number [place] [phone] [address] [place], [place] [address] [address] [place] [address] Albumin Level (10/27/2021 11:29 AM DRAIN CLEANER) athologist Signature Albumin Lvl 4.6 3.5 - 5.2 [facility] gm/dL Comment: Testing performed at [facility], [address] [place] [address] Specimen Anatomical Collection Method Collection Time Receive d Time (Source) Location / / Volume Laterality Blood 10/27/2021 11:29 10/27/2021 AM DRAIN CLEANER 11:49 AM DRAIN CLEANER Yolanda Grey PA LAB BLOOD ORDERABLES Performing Organization Address City/[facility]/ZIP [facility] [address] [place], [place] [address] [address] [place] [address] (ABNORMAL) Electrolyte Panel (10/27/2021 11:29 AM DRAIN CLEANER) athologist Signature Sodium Lvl 138 136 - 145 [facility] mEq/L Comment: Testing performed at [facility], [address] [place] [address], [place] [address] Potassium Lvl 4.0 3.5 - 5.1 mEq/L [facility] Comment: Testing performed at [facility], [address] [place], [place] [address] Chloride 108 (H) 98 - 107 mEq/L [facility] Comment: Testing performed at [facility], [address] [place], [place] [address] CO2 19 (L) 22 - 29 mEq/L [facility] Comment: Testing performed at [facility], [address] [place] [address] Anion Gap 11 4 - 14 mEq/L [facility] Comment: Testing performed at [facility], [address] [place] [address] Specimen Anatomical Collection Method Collection Time Receive d Time (Source) Location / / Volume Laterality Blood 10/27/2021 11:29 10/27/2021 AM DRAIN CLEANER 11:49 AM DRAIN CLEANER Yolanda GENTILE LAB BLOOD ORDERABLES Performing Organization Address City/State/ZIP Code Phon e Number [address] [facility] (10/07/2021 12:03 PM DRAIN CLEANER) Specimen (Source) Anatomical Location Collection Method / Collectio n Time Received Time / Laterality Volume Narrative Systemgenerated, Documentation - 022 12:03 PM DRAIN CLEANER Study acquired at another institution. For comparison only. No MD Ocampo originated interpretation requested or a vailable. Soumya Velasco MD IMG OUTSIDE IMAGE ORDERABLES [facility] CT Abdomen and Pelvis (10/07/2021 11:57 AM DRAIN CLEANER) Specimen (Source) Anatomical Location Collection Method / Collectio n Time Received Time / Laterality Volume Narrative Systemgenerated, Documentation - 11:57 AM DRAIN CLEANER Study acquired at another institution. For comparison only. No MD Ocampo originated interpretation requested or a vailable. 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
--- OUTSIDE RECORDS SUMMARY | 2022-08-10 06:39 | XMS REPORT | Continuity of Care Document ---
:1990 Author Organization [facility] t Address [address] [place] [address] Care Team Providers Name Role Phone [phone] Primary Care Physician Unavailable SYSTEM, PROVIDER NOT IN Attending Clinician Unavailable Eriberto Arreguin Attending Clinician Isis Haque MD Attending Clinician Joaquin Hardy MD Attending Clinician JOAQUIN HARDY Attending Clinician Unavailable YOLANDA MENDEZ Attending Clinician Unavailable Yolanda Levine Attending Clinician Ulysses Elmore Attending Clinician Unavailable Sybil Potter Attending Clinician SYBIL POTTER Attending Clinician Unavailable Brandy Vera I Attending Clinician ULYSSES CAMERON Attending Clinician Unavailable Ella Hassan RN Attending Clinician King Do MD Attending Clinician Anaid Bass MD Attending Clinician Unavailable Magy Campos RN Attending Clinician Casper Cerna MD Attending Clinician Teri Kenny RN Attending Clinician Julia Guzman RN Attending Clinician Unavailable Porsha Stevens MA Attending Clinician Unavailable Hemant Santiago MD Attending Clinician Arlette RD, Kristi C Attending Clinician Unavailable Soumya Walters MD Attending Clinician SOUMYA WALTERS Attending Clinician Unavailable SMART, CALLUM BUTCHER Attending Clinician Unavailable Smart, Callum Kedar Attending Clinician Carver Kam Ortiz Attending Clinician Jose Yen Attending Clinician Jason Reza Attending Clinician JOAQUIN HARDY Admitting Clinician Unavailable SMART, CALLUM BUTCHER Admitting Clinician Unavailable Smart, Callum Butcher Admitting Clinician Payers Payer Name Policy Type Policy Number Effective Date Expiration Date S dilia BCBSTX PPO [id number] 2003 00:00:00 2024 00: 00:00 Problems Condition Condition Condition Status Onset Resolution Last Treating Co mments Source Name Details Category Date Date Treatment Clinician Date MIGRAINES MIGRAINES Diagnosis Active 2021-12-20 Memoria Active 12-19 09:02:00 l 12/19/2021 00:00: Nayan dunbar [address] Nausea Nausea Disease Active Univers without without 3 ity of vomiting vomiting 00:00: [place] 00 MD [facility] Malignant Malignant Disease Active 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 Center Added automatic ally from request for surgery [id number] Simple Simple Disease Active Overview: Univer s partial partial 10-27 Formattin ity o f seizure seizure 00:00: g of this [place] with with 00 note autonomic autonomic might be An derso dysfunctio dysfunctio different n n n from the Cancer original. Center Added automatic ally from request for surgery [id number] Ventricula Ventricula Disease Active Overview : Univers r shunt in r shunt in 10-27 Formattin ity of situ situ 00:00: g of this note MD might be Char dickerson n from the Cancer original. Center Added automatic ally from request for surgery [id number] Pelvic Pelvic Disease Active Univers mass mass -30 ity of 00:00: MD Char dunbar [facility] Center HEADACHE HEADACHE Diagnosis Active 2021-03-10 Memoria Active 03-07 10:32:00 l 03/07/2021 00:00: Nayan dunbar [address] NAUSEA, NAUSEA, Diagnosis Active 2021-03-07 Memoria HEADACHE HEADACHE 03-07 22:45:00 l Active 00:00: Frandy 03/07/2021 [facility] H53.47 - H53.47 - Diagnosis Active 2021-03-02 Memoria HETERONYMO HETERONYMO 01-24 15:24:00 l US 00:01: Frandy BILATERAL BILATERAL 00 FIELD D FIELD D Active 01/24/2021 [facility] [place] G93.2 - G93.2 - Diagnosis Active 2018-03-15 Memoria BENIGN BENIGN 12-31 09:40:00 l INTRACRANI INTRACRANI 00:01: [place] 00 HYPERTENSI HYPERTENSI Active 12/31/2017 [facility] [place] VOMITING/N VOMITING/ Diagnosis Active 2017-03-26 Memoria AUSEA NAUSEA 03-26 16:38:00 l Active 00:00: Frandy 03/26/2017 00 [facility] Periodic Periodic Disease Active Metho di headache headache 6-16 st syndrome, syndrome, 00:00: Hosp desiree not not 00 l intractabl intractabl e e 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 6-15 st ventriculo ventriculo 00:00: Ho spita -peritonea -peritonea 00 l l shunt l shunt Numbness Numbness Disease Active Metho di and and 4-05 st tingling tingling 00:00: Hospit a 00 l Neuropathy Neuropathy Disease Active M ethodi 4-03 st 00:00: Hospita 00 l Pain in Pain in Disease Active Methodi both feet both feet 4-03 st 00:00: Hospita 00 l Anesthesia Anesthesia Disease Active M ethodi complicati complicati 6-20 st on on 00:00: Hospita 00 l Chronic Chronic Disease Active Methodi intractabl intractabl 6-01 st e headache e headache 00:00: Ho spita 00 l Hydrocepha Hydrocepha Disease Active M ethodi yvonne yvonne 5-19 st 00:00: Hospita 00 l Seizure Seizure Disease Active 2014-09 Methodi disorder, disorder, 0-20 st grand mal grand mal 00:00: Hosp desiree 00 l Acute Acute Disease Active 2014-09 Methodi intractabl intractabl 0-05 st e headache e headache 00:00: Ho spita 00 l PIG HANDLER PIG HANDLER Disease Active 2014-09 Methodi (ventricul (ventricul 0-05 st operitonea operitonea 00:00: Ho spita l) shunt l) shunt 00 l status status 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 Hemianopia Hemianopi Problem Active 2022-07-24 Memoria (finding) a 23:22:41 l (finding) [place] Active Problem 07/24/2022 [facility] Simple Simple Problem Active 2022-07-24 Clif alfie obesity obesity 23:22:41 l (disorder) (disorder) [place] aleksandra Active Problem 07/24/2022 [facility], [facility] [place] Lumbar Lumbar Problem Active 2022-07-24 Clif alfie radiculopa radiculopa 23:22:41 l thy thy Frandy (disorder) (disorder) Active Problem 07/24/2022 [facility] Cervical Cervical Problem Active 2022-07-24 Memoria radiculopa radiculopa 23:22:41 l thy thy Frandy (disorder) (disorder) Active Problem 07/24/2022 [facility] Paresthesi Paresthes Problem Active 2022-07-24 Memoria a ia 23:22:41 l (finding) (finding) Herm adenike Active Problem 07/24/2022 [facility] Adjustment Adjustmen Problem Active 2022-06-27 Memoria disorder t disorder 04:01:15 l with with Frandy depressed depressed mood mood (disorder) (disorder) Active Problem 06/27/2022 [facility], [facility] History of Past Illness Condition Condition Condition Status Onset Resolution Last Treating Co mments Source Name Details Category Date Date Treatment Clinician Date Migraine, Migraine, Problem 2021-12-22 2021-12-22 Memoria unspecifie unspecifie 12-20 21:23:27 21:23:27 l d, not d, not 12:40: Frandy intractabl intractabl 00 e, without e, without status status migrainosu migrainosu s s 12/20/2021 12/22/2021 [facility] Headache, Headache, Problem 2021-03-11 2021-03-11 Memoria unspecifie unspecifie 03-07 21:36:44 21:36:44 l d d 17:00: Frandy 03/07/2021 00 03/11/2021 [facility] Presence Presence Problem 2017-03-29 2017-03-29 Memoria of of 03-26 04:52:58 04:52:58 l cerebrospi cerebrospi 05:00: He rmann nal fluid nal fluid 00 drainage drainage device device 03/26/2017 03/29/2017 [facility] Allergies, Adverse Reactions, Alerts Allergy Allergy Status Severity Reaction(s) Onset Inactive Treating Comm ents Source Name Type Date Date Clinician GABAPENT DRUG Active Low Rash 2022-0 MD IN INGREDI 1-31 Anderso 00:00: n 00 GABAPENT DRUG Active Low Rash 2022-0 MD IN INGREDI 31 Anderso 00:00: n 00 GABAPENT DRUG Active Low Rash 2022-0 MD IN INGREDI 31 Anderso 00:00: n 00 GABAPENT DRUG Active Low Rash 2022-0 MD IN INGREDI 10-27 Anderso 00:00: n 00 GABAPENT DRUG Active Low Rash 2022-0 MD IN INGREDI 10-27 Anderso 00:00: n 00 Gabapent Propensi Active Rash 2022-0 Univer s in ty to 10-27 ity of adverse 00:00: [place] reaction 00 MD aditi Pardo n [facility] Gabapent Propensi Active Rash 2017-0 Method i in ty to 10-09 adverse 00:00: Hospita reaction 00 l s to drug Lamotrig Propensi Active Rash 2017-0 Method i ine ty to 10-09 adverse 00:00: Hospita reaction 00 l s to drug Pregabal Propensi Active Swelling 2017-0 Meth christiane in ty to 10-09 adverse 00:00: Hospita reaction 00 l s to drug Vancomyc Propensi Active 2017-0 Method i in ty to 10-09 adverse 00:00: Hospita reaction 00 l s to drug LAMOTRIG DRUG Active High Rash 2013-0 MD INE INGREDI 8-05 Anderso 00:00: n 00 VANCOMYC Drug Active High 2013-0 MD IN Class 8-05 Anderso ANALOGUE 00:00: n S 00 LAMOTRIG DRUG Active High Rash 2013-0 MD INE INGREDI 8-05 Anderso 00:00: n 00 VANCOMYC Drug Active High 2013-0 MD IN Class 8-05 Anderso ANALOGUE 00:00: n S 00 LAMOTRIG DRUG Active High Rash 2013-0 MD INE INGREDI 8-05 Anderso 00:00: n 00 Lamotrig Drug Active Rash 2013-0 Univers ine Allergy 8-05 ity of 00:00: [place] 00 MD [facility] Vancomyc Drug Active 2012- Burning Univers in Allergy 05-01 feeling ity of Analogue 00:00: all over [place] s 00 body MD [facility] VANCOMYC Drug Active High 2013-0 MD IN Class 8-05 Anderso ANALOGUE 00:00: n S 00 LAMOTRIG DRUG Active High Rash 2012-0 MD INE INGREDI 8-05 Anderso 00:00: n 00 VANCOMYC Drug Active High 2013-0 MD IN Class 8-05 Anderso ANALOGUE 00:00: n S 00 LAMOTRIG DRUG Active High Rash 2013-0 MD INE INGREDI 8-05 Anderso 00:00: n 00 VANCOMYC Drug Active High 2013-0 MD IN Class 8-05 Anderso ANALOGUE 00:00: n S 00 Lamictal Lamictal Active Memori a l [place] Neuronti Neuronti Active Memori a n n l [place] vancomyc vancomyc Active Memori a in in l Frandy Family History Family Member Diagnosis Comments Start Date Stop Date Source Natural father [facility] Maternal aunt [facility] Maternal grandfather Lung cancer Uni versity [facility] Maternal grandmother Univ ersity of [facility] Maternal uncle [facility] Natural mother [facility] Niece/nephew University o f [facility] Paternal aunt [facility] Paternal grandfather Univ ersity [facility] Paternal grandmother Univ ersity [facility] Paternal uncle [facility] Natural sister [facility] Social History Social Habit Start Date Stop Date Quantity Comments Source History SDMD University o f Alcohol Std [facility] o [facility] Binge [facility] Tobacco use and 2021-10-27 2021-10-27 Smokeless tobacco Un iversity of exposure 00:00:00 00:00:00 non-user [facility] History SDOH 2021-10-27 2021-10-27 1 University o f Alcohol Frequency 00:00:00 00:00:00 [facility] [place] Social History 2021-03-08 2021-03-08 [facility] Emilio crenshaw 07:19:46 07:19:46 Alcohol intake 2017-03-24 2017-03-24 Current [facility] 00:00:00 00:00:00 non-drinker of Hospital alcohol (finding) Sex Ass[birth year] [facility] 00:00:00 00:00:00 Hospital Smoking Status Start Date Stop Date Source Tobacco smoking status [facility] Medications Ordered Filled Start Stop Current Ordering Indication Dosage Frequency Signature Comments Components Source Medication Medication Date Date Medication? Clinician (SIG) Name Name cyclobenzap Yes 10mg Take 10 mg Univers rine 06-15 by mouth 3 ity of (FLEXERIL) 08:14: [place] 10 mg 54 times a MD tablet day as Anderso needed. [facility] Effexor XR 2021-0 Yes 75 mg = 1 Me moria 75 mg oral 9-02 cap, PO, l capsule, 20:09: Daily, # Lisa nn extended 00 90 cap, 3 release Refill(s), Pharmacy: [facility] #[id number], 152.4, cm, 05/29/22 14:48:00 CDT, Height, 79.716, kg, 05/29/22 14:48:00 CDT, Weight Effexor XR 2021-0 Yes 75 mg = 1 Me moria 75 mg oral 9-02 cap, PO, l capsule, 20:09: Daily, # Lisa nn extended 00 90 cap, 3 release Refill(s), Pharmacy: [facility] #[id number], 152.4, cm, 05/29/22 14:48:00 CDT, Height, 79.716, kg, 05/29/22 14:48:00 CDT, Weight Trileptal Yes See Memoria 300 mg oral 9- Instructio l tablet 20:08: ns, 1.5 [place] 00 tab PO BID 90 day, # 270 tab, 2 Refill(s), Pharmacy: [facility] #[id number], 152.4, cm, 05/29/22 14:48:00 CDT, Height, 79.716, kg, 05/29/22 14:48:00 CDT, Weight Nurtec ODT 2021-0 Yes See Memoria 75 mg oral 9-02 Instructio l tablet, 20:08: ns, TAKE 1 Herm adenike disintegrat 00 TABLET BY ing MOUTH ONE DOSE, # 8 tab, 1 Refill(s), Pharmacy: [facility] #[id number], 152.4, cm, 05/29/22 14:48:00 CDT, Height, 79.716, kg, 05/29/22 14:48:00 CDT, Weight Topamax 100 2021-0 Yes 100 mg = 1 Memoria mg oral 9-02 tab, PO, l tablet 20:08: BID, # 180 Lisa nn 00 tab, 3 Refill(s), Pharmacy: [facility] #[id number], 152.4, cm, 05/29/22 14:48:00 CDT, Height, 79.716, kg, 05/29/22 14:48:00 CDT, Weight Trileptal 2021-0 Yes See Memoria 300 mg oral 9-02 Instructio l tablet 20:08: ns, 1.5 Frandy 00 tab PO BID 90 day, # 270 tab, 2 Refill(s), Pharmacy: [facility] #[id number], 152.4, cm, 05/29/22 14:48:00 CDT, Height, 79.716, kg, 05/29/22 14:48:00 CDT, Weight Nurtec ODT 2021-0 Yes See Memoria 75 mg oral 9-02 Instructio l tablet, 20:08: ns, TAKE 1 Herm adenike disintegrat 00 TABLET BY ing MOUTH ONE DOSE, # 8 tab, 1 Refill(s), Pharmacy: [facility] #[id number], 152.4, cm, 05/29/22 14:48:00 CDT, Height, 79.716, kg, 05/29/22 14:48:00 CDT, Weight Topamax 100 2021-0 Yes 100 mg = 1 Memoria mg oral 9-02 tab, PO, l tablet 20:08: BID, # 180 Lisa nn 00 tab, 3 Refill(s), Pharmacy: [id number], 152.4, cm, 05/29/22 14:48:00 CDT, Height, 79.716, kg, 05/29/22 14:48:00 CDT, Weight Topamax 100 2021-0 Yes 100 mg = 1 Memoria mg oral 4-29 tab, PO, l tablet 13:22: BID, # 180 Lisa nn 00 tab, 3 Refill(s), Pharmacy: [facility] #[id number], 152.4, cm, 01/22/22 14:32:00 CDT, Height, 78.352, kg, 01/22/22 14:32:00 CDT, Weight Topamax 100 2021-0 Yes 100 mg = 1 Memoria mg oral 4-29 tab, PO, l tablet 13:22: BID, # 180 Lisa nn 00 tab, 3 Refill(s), Pharmacy: [facility] #[id number], 152.4, cm, 01/22/22 14:32:00 CDT, Height, 78.352, kg, 01/22/22 14:32:00 CDT, Weight Topamax 100 2021-0 No 100 mg = 1 Memoria mg oral 4-28 tab, PO, l tablet 19:56: BID, X 30 Nayan n 00 day, # 60 tab, 3 Refill(s), Pharmacy: [facility] #[id number], 152.4, cm, 01/22/22 14:32:00 CDT, Height, 78.352, kg, 01/22/22 14:32:00 CDT, Weight Topamax 100 2021-0 No 100 mg = 1 Memoria mg oral 4-28 tab, PO, l tablet 19:56: BID, X 30 Nayan n 00 day, # 60 tab, 3 Refill(s), Pharmacy: [facility] #[id number], 152.4, cm, 01/22/22 14:32:00 CDT, Height, 78.352, kg, 01/22/22 14:32:00 CDT, Weight Ativan 2021-0 No 1 mg, Memoria 12-20 Route: l 07:18: IVP, Drug [place] 00 form: INJ, ONCE, Dosing Weight 72.727, kg, Priority: STAT, Start date: 12/20/21 2:18:00 CDT, Stop date: 12/20/21 2:18:00 CDT Ativan 2022-0 No 1 mg, Memoria 12-20 Route: l 07:18: IVP, Drug [place] form: INJ, ONCE, Dosing Weight 72.727, kg, Priority: STAT, Start date: 12/20/21 2:18:00 CDT, Stop date: 12/20/21 2:18:00 CDT Ketorolac 2022-0 No 15 mg, Memori a 12-20 Route: l 06:12: IVP, Drug [place] 00 form: INJ, ONCE, Dosing Weight 72.727, kg, Priority: STAT, Start date: 12/20/21 1:12:00 CDT, Stop date: 12/20/21 1:12:00 CDT Magnesium 2-0 No 1 gm, Memoria Sulfate 12-20 Route: IV, l 06:12: ONCE, Rfandy 00 Dosing Weight 72.727, kg, Priority: STAT, Start date: 12/20/21 1:12:00 CDT, Stop date: 12/20/21 1:12:00 CDT Ketorolac 2022-0 No 15 mg, Memori a 12-20 Route: l 06:12: IVP, Drug Frandy 00 form: INJ, ONCE, Dosing Weight 72.727, kg, Priority: STAT, Start date: 12/20/21 1:12:00 CDT, Stop date: 12/20/21 1:12:00 CDT Magnesium 2-0 No 1 gm, Memoria Sulfate 12-20 Route: IV, l 06:12: ONCE, [place] 00 Dosing Weight 72.727, kg, Priority: STAT, Start date: 12/20/21 1:12:00 CDT, Stop date: 12/20/21 1:12:00 CDT Acetaminoph 2022-0 No 1,000 mg, M emoria en 12-20 Route: PO, l 06:01: Drug form: [place] 00 TAB, ONCE, Dosing Weight 72.727, kg, Priority: STAT, Start date: 12/20/21 1:01:00 CDT, Stop date: 12/20/21 1:01:00 CDT Acetaminoph 2022-0 No 1,000 mg, M emoria en 12-20 Route: PO, l 06:01: Drug form: [place] 00 TAB, ONCE, Dosing Weight 72.727, kg, Priority: STAT, Start date: 12/20/21 1:01:00 CDT, Stop date: 12/20/21 1:01:00 CDT Isolyte S No Notes: Memori a PH-7.4 12-20 (Same as: l (Bolus) IV 05:59: Isolyte S He rmann 00 PH7.4, Normosol-R PH 7.4, Plasma-Lyt e A ) Compazine No 10 mg, Memori a 12-20 Route: l 05:59: IVP, Drug Frandy 00 form: INJ, ONCE, Dosing Weight 72.727, kg, Priority: STAT, Start date: 12/20/21 0:59:00 CDT, Stop date: 12/20/21 0:59:00 CDT Isolyte S No Notes: Memori a PH-7.4 12-20 (Same as: l (Bolus) IV 05:59: Isolyte S He rmann 00 PH7.4, Normosol-R PH 7.4, Plasma-Lyt e A ) Compazine No 10 mg, Memori a 12-20 Route: l 05:59: IVP, Drug form: INJ, ONCE, Dosing Weight 72.727, kg, Priority: STAT, Start date: 12/20/21 0:59:00 CDT, Stop date: 12/20/21 0:59:00 CDT topiramate Yes 100 mg = 1 M emoria 100 MG Oral 3-17 tab, PO, l Tablet 20:00: Daily, # [place] [Topamax] 00 30 tab, 3 Refill(s), Pharmacy: [facility] #[id number], 154.94, cm, 12/11/21 14:41:00 CDT, Height, 76.818, kg, 12/11/21 14:41:00 CDT, Weight topiramate Yes 100 mg = 1 M emoria 100 MG Oral 3-17 tab, PO, l Tablet 20:00: Daily, # [place] [Topamax] 00 30 tab, 3 Refill(s), Pharmacy: [facility] #[id number], 154.94, cm, 12/11/21 14:41:00 CDT, Height, 76.818, kg, 12/11/21 14:41:00 CDT, Weight oxcarbazepi 2021-0 Yes See Memori a ne 300 MG 3-17 Instructio l Oral Tablet 19:59: ns, 1.5 Her bradley [Trileptal] 00 tab PO BID 90 day, # 270 tab, 2 Refill(s), Pharmacy: [facility] #[id number], 154.94, cm, 12/11/21 14:41:00 CDT, Height, 76.818, kg, 12/11/21 14:41:00 CDT, Weight Rimegepant 2021-0 Yes See Memoria 75 MG 3-17 Instructio l Disintegrat 19:59: ns, TAKE 1 Frandy ing Oral 00 TABLET BY Tablet MOUTH [Nurtec] ONE DOSE, # 8 tab, 1 Refill(s), Pharmacy: [facility] #[id number], 154.94, cm, 12/11/21 14:41:00 CDT, Height, 76.818, kg, 12/11/21 14:41:00 CDT, Weight oxcarbazepi 2021-0 Yes See Memori a ne 300 MG 3-17 Instructio l Oral Tablet 19:59: ns, 1.5 Her bradley [Trileptal] 00 tab PO BID 90 day, # 270 tab, 2 Refill(s), Pharmacy: [facility] #[id number], 154.94, cm, 12/11/21 14:41:00 CDT, Height, 76.818, kg, 12/11/21 14:41:00 CDT, Weight Rimegepant 2021-0 Yes See Memoria 75 MG 3-17 Instructio l Disintegrat 19:59: ns, TAKE 1 Frandy ing Oral 00 TABLET BY Tablet MOUTH [Nurtec] ONE DOSE, # 8 tab, 1 Refill(s), Pharmacy: [facility] #[id number], 154.94, cm, 12/11/21 14:41:00 CDT, Height, 76.818, kg, 12/11/21 14:41:00 CDT, Weight acetaminoph 2021- No 1{tbl} Take 1 U nivers en-codeine 12-08 tablet by ity of (TYLENOL 10:08: 00:00 mouth [place] #3) 300 07 :00 nightly as MD mg-30 mg needed. Anderso tablet [facility] acetaminoph 2021- No 1000mg Take 1,000 Univers en 12-08-14 mg by ity of (TYLENOL) 10:08: 00:00 mouth [place] 500 mg 04 :00 every 6 MD tablet (six) Anderso hours as n needed for Cancer mild pain. Center ondansetron Yes Nausea 8mg Dissolve 1 Univers (ZOFRAN-ODT 12-08 tablet (8 ity of ) 8 mg 00:00: mg) on the [place] disintegrat 00 tongue MD ing tablet every 8 Jaswant o (eight) n hours as Cancer needed for Center nausea or vomiting. LORazepam 2021- No Nausea .5mg Take 1 Uni vers (ATIVAN) 12-08 without tablet ity o f 0.5 mg 00:00: 00:00 [place]0.5 mg) [place] tablet 00 :00 by mouth MD every 8 Anderso (eight) n hours as Cancer needed for Center anxiety (or nausea). LORazepam 2021- No Nausea .5mg Take 1 Uni vers (ATIVAN) 11-25 without tablet ity o f 0.5 mg 00:00: 00:00 [place]0.5 mg) [place] tablet 00 :00 by mouth MD every 8 Anderso (eight) n hours as Cancer needed for Center anxiety (or nausea). oxyCODONE 2021- No Postoperati 5mg Take 1 Univers (Roxicodone 11-08 ve pain tablet (5 ity of ) 5 mg 00:00: 00:00 mg) by [place] immediate 00 :00 mouth MD release every 4 Anderso tablet (four) n hours as Cancer needed for Center moderate pain. ondansetron 2021- No Nausea 8mg Dissolve 1 Univers (ZOFRAN-ODT 2-12 03-14 tablet (8 it y of ) 8 mg 00:00: 00:00 mg) on the [employer] s disintegrat 00 :00 tongue ing tablet every 8 Jaswant o (eight) n hours as Cancer needed for Center nausea or vomiting. acetaminoph 2021- No Pelvic mass 1000mg Take 2 Univers en (Tylenol 11-07 <Right tablets it y of Extra 00:00: 00:00 side; Lower (1,000 mg) [place] Strength) 00 :00 quadrant; by mouth M D 500 mg Abdominal every 6 [place] so tablet swelling, (six) n mass or hours. Cancer lump> Center senna-docus 2021- No Pelvic mass 1{tbl} Take 1 Univers ate 11-07 <Right tablet by ity of (SENOKOT-S) 00:00: 00:00 side; Lower mouth [place] 8.6 mg-50 00 :00 quadrant; twice MD mg tablet Abdominal daily. And erso swelling, n mass or Cancer lump> Center ibuprofen 2021- No Pelvic mass 800mg Take 1 Univers (ADVIL,MOTR 11-07 <Right tablet ity of [place]) 800 mg 00:00: 00:00 side; Lower (800 mg) [place] tablet 00 :00 quadrant; by mouth MD Abdominal every 8 Anderso swelling, (eight) n mass or hours. Cancer lump> Center oxyCODONE 2021- No Pelvic mass 5mg Take 1 Univers (Roxicodone 11-07 <Right tablet (5 ity of ) 5 mg 00:00: 00:00 side; Lower mg) by Karlene hermosillo immediate 00 :00 quadrant; mouth MD release Abdominal every 4 Ochoa rso tablet swelling, (four) n mass or hours as Cancer lump> needed for Center moderate pain. ondansetron 2021- No Nausea 8mg Dissolve 1 Univers (ZOFRAN-ODT 11-04 tablet (8 it y of ) 8 mg 00:00: 00:00 mg) on the [employer] disintegrat 00 :00 tongue ing tablet every 8 Jaswant o (eight) n hours as Cancer needed for Center nausea or vomiting. 24 HR 2020-09 Yes 75 mg = 1 Memoria venlafaxine 1-29 cap, PO, l 75 MG 16:55: Daily, # Young Harris Extended 00 90 cap, 3 Release Refill(s), Capsule Pharmacy: [Effexor] [id number], 154.94, cm, 08/01/21 11:42:00 CDT, Height, 79.091, kg, 08/01/21 11:42:00 CDT, Weight 24 HR 2020-09 Yes 75 mg = 1 Memoria venlafaxine 1-29 cap, PO, l 75 MG 16:55: Daily, # [place] Extended 00 90 cap, 3 Release Refill(s), Capsule Pharmacy: [Effexor] [id number], 154.94, cm, 08/01/21 11:42:00 CDT, Height, 79.091, kg, 08/01/21 11:42:00 CDT, Weight venlafaxine 2020-09 Yes daily. Univ ers (EFFEXOR-XR 1-29 ity of ) 75 mg 24 00:00: [place] hr [facility] 00 [facility] ODT 2020-09 Yes daily. Unive rs 75 mg TbDL 1-16 ity of 00:00: [place] 00 [facility] 24 HR 2020-09 Yes 75 mg = 1 Memoria venlafaxine 1-05 cap, PO, l 75 MG 16:59: Daily, # Frandy Extended 00 30 cap, 3 Release Refill(s), Capsule Pharmacy: [Effexor] [id number], 154.94, cm, 08/01/21 11:42:00 CDT, Height, 79.091, kg, 08/01/21 11:42:00 CDT, Weight 24 HR 2020-09 Yes 75 mg = 1 Memoria venlafaxine 1-05 cap, PO, l 75 MG 16:59: Daily, # [place] Extended 00 30 cap, 3 Release Refill(s), Capsule Pharmacy: [Effexor] [id number], 154.94, cm, 08/01/21 11:42:00 CDT, Height, 79.091, kg, 08/01/21 11:42:00 CDT, Weight oxcarbazepi Yes See Memori a ne 300 MG 9-30 Instructio l Oral Tablet 18:35: ns, 1.5 Her bradley [Trileptal] 00 tab PO BID 90 day, # 270 tab, 2 Refill(s), Pharmacy: [facility] #[id number], 152.4, cm, 06/26/21 13:18:00 CDT, Height, 82.273, kg, 06/26/21 13:18:00 CDT, Weight oxcarbazepi 0 Yes See Memori a ne 300 MG 9-30 Instructio l Oral Tablet 18:35: ns, 1.5 Her bradley [Trileptal] 00 tab PO BID 90 day, # 270 tab, 2 Refill(s), Pharmacy: [facility] #[id number], 152.4, cm, 06/26/21 13:18:00 CDT, Height, 82.273, kg, 06/26/21 13:18:00 CDT, Weight OXcarbazepi Yes twice Unive rs ne 9-24 daily. ity of (TRILEPTAL) 00:00: [place] 150 mg 00 MD tablet [facility] Rimegepant Yes See Memoria 75 MG 9-07 Instructio l Disintegrat 13:16: ns, TAKE 1 Young Harris ing Oral 00 TABLET BY Tablet MOUTH [Nurtec] ONE DOSE, # 8 tab, 1 Refill(s), Pharmacy: [id number], 154.94, cm, 04/22/21 11:37:00 CDT, Height, 83.182, kg, 04/22/21 11:37:00 CDT, Weight Rimegepant 0 Yes See Memoria 75 MG 9-07 Instructio l Disintegrat 13:16: ns, TAKE 1 Young Harris ing Oral 00 TABLET BY Tablet MOUTH [Nurtec] ONE DOSE, # 8 tab, 1 Refill(s), Pharmacy: [facility] [id number], 154.94, cm, 04/22/21 11:37:00 CDT, Height, 83.182, kg, 04/22/21 11:37:00 CDT, Weight oxcarbazepi 0 Yes 300 mg = 1 Memoria ne 300 MG 7-27 tab, PO, l Oral Tablet 17:09: BID, # 180 Frandy [Trileptal] 00 tab, 2 Refill(s), Pharmacy: [id number], 154.94, cm, 04/22/21 11:37:00 CDT, Height, 83.182, kg, 04/22/21 11:37:00 CDT, Weight oxcarbazepi 2021-0 Yes 300 mg = 1 Memoria ne 300 MG 7-27 tab, PO, l Oral Tablet 17:09: BID, # 180 Frandy [Trileptal] 00 tab, 2 Refill(s), Pharmacy: [id number], 154.94, cm, 04/22/21 11:37:00 CDT, Height, 83.182, kg, 04/22/21 11:37:00 CDT, Weight oxcarbazepi 1-0 No 150 mg = 1 Memoria ne 150 MG 7-02 tab, PO, l Oral Tablet 23:08: BID, # 180 Young Harris [Trileptal] 00 tab, 2 Refill(s), Pharmacy: [facility] #[id number], 152.4, cm, 03/08/21 2:30:00 CDT, Height, 72.727, kg, 03/08/21 2:30:00 CDT, Weight oxcarbazepi 2021-0 No 150 mg = 1 Memoria ne 150 MG 7-02 tab, PO, l Oral Tablet 23:08: BID, # 180 Frandy [Trileptal] 00 tab, 2 Refill(s), Pharmacy: [facility] #[id number], 152.4, cm, 03/08/21 2:30:00 CDT, Height, 72.727, kg, 03/08/21 2:30:00 CDT, Weight oxcarbazepi 1-0 No 150 mg = 1 Memoria ne 150 MG 6-29 tab, PO, l Oral Tablet 15:01: BID, X 30 H ermann [Trileptal] day, # 60 tab, 3 Refill(s), Pharmacy: [id number], 152.4, cm, 03/08/21 2:30:00 CDT, Height, 72.727, kg, 03/08/21 2:30:00 CDT, Weight oxcarbazepi 2020-0 No 150 mg = 1 Memoria ne 150 MG 6-29 tab, PO, l Oral Tablet 15:01: BID, X 30 H ermann [Trileptal] 00 day, # 60 tab, 3 Refill(s), [id number], 152.4, cm, 03/08/21 2:30:00 CDT, Height, 72.727, kg, 03/08/21 2:30:00 CDT, Weight baclofen 10 2020-0 Yes = 1 tab, Me moria mg oral 6-23 PO, TID, l tablet 15:19: PRN Young Harris 00 NEEDED, SPASM., # 90 tab, 1 Refill(s), Pharmacy: [facility] ST[facility], 152.4, cm, 03/08/21 2:30:00 CDT, Height, 72.727, kg, 03/08/21 2:30:00 CDT, Weight Phenergan 0 Yes 25 mg = 1 Mem oria 25 mg oral 6-16 tab, PO, l tablet 23:24: Q12H, PRN Nayan n 00 Nausea, X 7 day, # 15 tab, 1 Refill(s), Pharmacy: [facility] #[id number], 152.4, cm, 03/08/21 2:30:00 CDT, Height, 72.727, kg, 03/08/21 2:30:00 CDT, Weight Phenergan 2020-0 Yes 25 mg = 1 Mem oria 25 mg oral 6-16 tab, PO, l tablet 23:24: Q12H, PRN Nayan n 00 Nausea, X 7 day, # 15 tab, 1 Refill(s), Pharmacy: [facility] #[id number], 152.4, cm, 03/08/21 2:30:00 CDT, Height, 72.727, kg, 03/08/21 2:30:00 CDT, Weight topiramate 0 Yes 50 mg = 1 Me moria 50 MG Oral 6-13 tab, PO, l Tablet 19:28: Bedtime, # Lisa nn [Topamax] 00 90 tab, 2 Refill(s), Pharmacy: [id number], 152.4, cm, 03/08/21 2:30:00 CDT, Height, 72.727, kg, 03/08/21 2:30:00 CDT, Weight baclofen 10 2020-0 Yes = 1 tab, Me moria mg oral 6-13 PO, TID, l tablet 19:28: PRN Frandy 00 NEEDED, SPASM., # 90 tab, 1 Refill(s), Pharmacy: [id number], 152.4, cm, 03/08/21 2:30:00 CDT, Height, 72.727, kg, 03/08/21 2:30:00 CDT, Weight Rimegepant 2020-0 Yes 75 mg = 1 Me moria 75 MG 6-13 tab, PO, l Disintegrat 19:28: ONCE, # 1 H ermann ing Oral 00 tab, 0 Tablet Refill(s), [[facility]] Samples: 3, Pharmacy: [id number], 152.4, cm, 03/08/21 2:30:00 CDT, Height, 72.727, kg, 03/08/21 2:30:00 CDT, Weight rizatriptan 2020-0 Yes 10 mg = 1 M emoria 10 mg oral 6-13 tab, PO, l tablet 19:28: ONCE, PRN Nayan n 00 Headache, # 6 tab, 1 Refill(s), Pharmacy: [facility] #[id number], 152.4, cm, 03/08/21 2:30:00 CDT, Height, 72.727, kg, 03/08/21 2:30:00 CDT, Weight topiramate 2020-0 Yes 50 mg = 1 Me moria 50 MG Oral 6-13 tab, PO, l Tablet 19:28: Bedtime, # Lisa nn [Topamax] 00 90 tab, 2 Refill(s), Pharmacy: [id number], 152.4, cm, 03/08/21 2:30:00 CDT, Height, 72.727, kg, 03/08/21 2:30:00 CDT, Weight baclofen 10 2020-0 Yes = 1 tab, Me moria mg oral 6-13 PO, TID, l tablet 19:28: PRN Young Harris 00 NEEDED, SPASM., # 90 tab, 1 Refill(s), Pharmacy: [id number], 152.4, cm, 03/08/21 2:30:00 CDT, Height, 72.727, kg, 03/08/21 2:30:00 CDT, Weight Rimegepant Yes 75 mg = 1 Me moria 75 MG 6-13 tab, PO, l Disintegrat 19:28: ONCE, # 1 H ermann ing Oral 00 tab, 0 [id number], 152.4, cm, 03/08/21 2:30:00 CDT, Height, 72.727, kg, 03/08/21 2:30:00 CDT, Weight rizatriptan Yes 10 mg = 1 M emoria 10 mg oral 6-13 tab, PO, l tablet 19:28: ONCE, PRN Nayan n 00 Headache, # 6 tab, 1 Refill(s), Pharmacy: [facility] #[id number], 152.4, cm, 03/08/21 2:30:00 CDT, Height, 72.727, kg, 03/08/21 2:30:00 CDT, Weight Solu-Medrol No Notes: Clif alfie 6-13 (Same l 13:47: as:Solu-ME 00 DROL, A-Methapre d) NS (Bolus) No 1,000 mL, Me moria IV 6-13 1,000 l 13:47: ml/hr, Infuse Over: 1 hr, Route: IV, 1,000, Drug form: INJ, ONCE, Priority: STAT, Dosing Weight 72.727 kg, Start date: 03/09/21 8:47:00 CDT, Stop date: 03/09/21 8:47:00 CDT, 0 Benadryl No Notes: Memoria 6-13 (Same as: l 13:47: Benadryl) Frandy Reglan No Notes: Memoria 6-13 (Same as: l 13:47: Reglan) Solu-Medrol No Notes: Clif alfie 6-13 (Same l 13:47: as:Solu-ME Young Harris 00 DROL, A-Methapre d) NS (Bolus) No 1,000 mL, Me moria IV 6-13 1,000 l 13:47: ml/hr, Infuse Over: 1 hr, Route: IV, 1,000, Drug form: INJ, ONCE, Priority: STAT, Dosing Weight 72.727 kg, Start date: 03/09/21 8:47:00 CDT, Stop date: 03/09/21 8:47:00 CDT, 0 Benadryl No Notes: Memoria 6-13 (Same as: l 13:47: Benadryl) Frandy 00 Reglan No Notes: Memoria 6-13 (Same as: l 13:47: Reglan) Ibuprofen No Notes: Memori a 6-13 (Same as: l 08:12: Motrin) Frandy "Do Not Crush" Give with food. Ibuprofen No Notes: Memori a 6-13 (Same as: l 08:12: Motrin) Frandy "Do Not Crush" Give with food. Docusate No Notes: Memoria Sodium 50 6-13 (Same as l MG / 02:00: Senokot-S) Frandy sennosides, 00 Equiv. to HALF-WAY 8.6 MG Karla-Colac Oral Tablet e. Topamax No Notes: Memoria 6-13 (Same As: l 02:00: Topamax) "Do Not Crush" Hazardous Drug Group 3:Reproduc tive risk Hazardous Drug -- Refer to safe handling procedure PPE Matrix Docusate No Notes: Memoria Sodium 50 6-13 (Same as l MG / 02:00: Senokot-S) Frandy sennosides, 00 Equiv. to HALF-WAY 8.6 MG Karla-Colac Oral Tablet e. Topamax No Notes: Memoria 6-13 (Same As: l 02:00: Topamax) Young Harris 00 "Do Not Crush" Hazardous Drug Group 3:Reproduc tive risk Hazardous Drug -- Refer to safe handling procedure PPE Matrix Ketorolac No 4 days Memor ia 6-12 l 23:18: MEDICATION WASTE Product Size: 30 mg Product Wasted: 0 mg Reglan No Notes: Memoria 6-12 (Same as: l 23:18: Reglan) Benadryl No Notes: Memoria 6-12 (Same as: l 23:18: Benadryl) Ketorolac No 4 days Memor ia 6-12 l 23:18: MEDICATION WASTE Product Size: 30 mg Product Wasted: 0 mg Reglan No Notes: Memoria 6-12 (Same as: l 23:18: Reglan) Benadryl No Notes: Memoria 6-12 (Same as: l 23:18: Benadryl) Ondansetron No Notes: Clif alfie 6-12 (Same as: l 20:44: Zofran) Ondansetron No Notes: Clif alfie 6-12 (Same as: l 20:44: Zofran) Solu-Medrol No Notes: Clif alfie 6-12 (Same l 15:07: as:Solu-ME DROL, A-Methapre d) MEDICATION WASTE Product Size: 1000 mg Product Wasted: ___ mg Solu-Medrol No Notes: Clif alfie 6-12 (Same l 15:07: as:Solu-ME Young Harris DROL, A-Methapre d) MEDICATION WASTE Product Size: 1000 mg Product Wasted: ___ mg Saline No Notes: Memoria Flush 0.9% 6-12 Same as: l 14:00: BD Posiflush Sterile Miralax No Notes: Memoria 6-12 Dissolve l 14:00: in 8 oz of Young Harris 00 water or juice. (Same as: Miralax) Saline No Notes: Memoria Flush 0.9% 6-12 Same as: l 14:00: BD Young Harris 00 Posiflush Sterile Miralax No Notes: Memoria 6-12 Dissolve l 14:00: in 8 oz of Frandy 00 water or juice. (Same as: Miralax) NIFEdipine No Notes: Memor ia 30 mg oral 6-12 (Same as: l tablet, 12:36: Adalat CC, Herm adenike extended 00 Procardia release XL) Give on empty stomach. Take 1 hour before or 2 hours after meal; "Avoid grapefruit and grapefruit juice". Do not crush NIFEdipine No Notes: Memor ia 30 mg oral 6-12 (Same as: l tablet, 12:36: Adalat CC, Herm adenike extended 00 Procardia release XL) Give on empty stomach. Take 1 hour before or 2 hours after meal; "Avoid grapefruit and grapefruit juice". Do not crush Hydralazine No Notes: Clif alfie 6-12 (Same as: l 12:35: Apresoline ) Push over 5 minutes Hydralazine No Notes: Clif alfie 6-12 (Same as: l 12:35: Apresoline ) Push over 5 minutes Labetalol No 10 mg, 2 Clif alfie 6-12 mL, Route: l 12:34: IVP, Drug form: INJ, Q15Min, Dosing Weight 72.727, kg, PRN Hypertensi on, Start date: 03/08/21 7:34:00 CDT, Duration: 3 doses or times, Stop date: Limited # of times, 0 Labetalol No 10 mg, 2 Clif alfie 6-12 mL, Route: l 12:34: IVP, Drug form: INJ, Q15Min, Dosing Weight 72.727, kg, PRN Hypertensi on, Start date: 03/08/21 7:34:00 CDT, Duration: 3 doses or times, Stop date: Limited # of times, 0 Reglan No Notes: Memoria 6-12 (Same as: l 12:11: Reglan) Young Harris 00 Reglan No Notes: Memoria 6-12 (Same as: l 12:11: Reglan) Frandy Ketorolac 0 No 4 days. Clif alfie 6-12 l 12:10: Frandy 00 Ketorolac 0 No 4 days. Clif alfie 6-12 l 12:10: Young Harris 00 Magnesium No Notes: Memori a Sulfate 6-12 WASTE: F/P l 12:09: - Sink; E Frandy - Municipal Trash Bin Magnesium No Notes: Memori a Sulfate 6-12 WASTE: F/P l 12:09: - Sink; E Frandy - Municipal Trash Bin Zofran No Notes: Memoria 6-12 (Same as: l 11:44: Zofran) Young Harris 00 MEDICATION WASTE Product Size: 4 mg Product Wasted: ___ mg Zofran No Notes: Memoria 6-12 (Same as: l 11:44: Zofran) Young Harris 00 MEDICATION WASTE Product Size: 4 mg Product Wasted: ___ mg Valproic No Notes: Memoria Acid 100 6-12 Dilute in l MG/ML 09:48: at least Frandy Injectable 00 50ml D5W Solution or NS. Infusion rate = 20 mg/min (Same As: Depacon) Hazardous Drug Group 3:Reproduc tive risk Hazardous Drug -- Refer to safe handling procedure PPE Matrix Valproic No Notes: Memoria Acid 100 6-12 Dilute in l MG/ML 09:48: at least Young Harris Injectable 00 50ml D5W Solution or NS. Infusion rate = 20 mg/min (Same As: Depacon) Hazardous Drug Group 3:Reproduc tive risk Hazardous Drug -- Refer to safe handling procedure PPE Matrix Valproate No 1,000 mg, Mem oria 6-12 10 mL, l 09:41: Route: IVPB, Drug form: INJ, ONCE, Start date: 03/08/21 4:41:00 CDT, Stop date: 03/08/21 4:41:00 CDT, 0 Valproate No 1,000 mg, Mem oria 6-12 10 mL, l 09:41: Route: IVPB, Drug form: INJ, ONCE, Start date: 03/08/21 4:41:00 CDT, Stop date: 03/08/21 4:41:00 CDT, 0 Depakote No 1,000 mg, Clif alfie 6-12 Route: IV, l 09:38: ONCE, Dosing Weight 72.727, kg, Start date: 03/08/21 4:38:00 CDT, Stop date: 03/08/21 4:38:00 CDT Depakote No 1,000 mg, Clif alfie 6-12 Route: IV, l 09:38: ONCE, Dosing Weight 72.727, kg, Start date: 03/08/21 4:38:00 CDT, Stop date: 03/08/21 4:38:00 CDT heparin No Notes: Memoria 6-12 porcine l 05:00: heparin heparin No Notes: Memoria 6-12 porcine l 05:00: heparin Baclofen No Notes: Memoria 6-12 (Same As: l 03:11: Lioresal) Baclofen No Notes: Memoria 6-12 (Same As: l 03:11: Lioresal) Saline No Notes: Memoria Flush 0.9% 12 Same as: l 03:10: BD Posiflush Sterile Insulin No Notes: Memoria regular 6-12 (Same as: l 03:10: Humulin R) Roll in palms of hands gently; Do not shake vigorously . WASTE: F/P - Black; E - Municipal Trash Bin Stable for 31 days at room temperatur e Expires in days from ____Date Dextrose No 12.5 gm, Memor ia 50% Syringe 6-12 25 mL, l (D50W) 03:10: Route: IVP, Drug Form: INJ, Dosing Weight 72.727, kg, PRN, PRN Blood Glucose Results, Start date: 03/07/21 22:10:00 CDT, Duration: 30 day, Stop date: 04/06/21 22:09:00 CDT, 0 Glucagon 2020-0 No 1 mg, Memoria 6-12 Route: IM, l 03:10: Drug form: Frandy 00 PDR/INJ, PRN, Dosing Weight 72.727, kg, PRN Blood Glucose Results, Start date: 03/07/21 22:10:00 CDT, Duration: 30 day, Stop date: 04/06/21 22:09:00 CDT, 0 Saline 2020-0 No Notes: Memoria Flush 0.9% -12 Same as: l 03:10: BD Posiflush Sterile Insulin No Notes: Memoria regular 6-12 (Same as: l 03:10: Humulin R) Roll in palms of hands gently; Do not shake vigorously . WASTE: F/P - Black; E - [employer] Trash Bin Stable for 31 days at room temperatur e Expires in days from ____Date Dextrose 2020- No 12.5 gm, Memor ia 50% Syringe 03-08 25 mL, l (D50W) 03:10: Route: IVP, Drug Form: INJ, Dosing Weight 72.727, kg, PRN, PRN Blood Glucose Results, Start date: 03/07/21 22:10:00 CDT, Duration: 30 day, Stop date: 04/06/21 22:09:00 CDT, 0 Glucagon 2020-0 No 1 mg, Memoria 6-12 Route: IM, l 03:10: Drug form: PDR/INJ, PRN, Dosing Weight 72.727, kg, PRN Blood Glucose Results, Start date: 03/07/21 22:10:00 CDT, Duration: 30 day, Stop date: 04/06/21 22:09:00 CDT, 0 Magnesium 2020-0 No 2 gm, Memoria Sulfate 6-12 Route: l 02:29: IVPB, Drug form: INJ, ONCE, Dosing Weight 72.727, kg, Total dose = 2 gm, Start date: 03/07/21 21:29:00 CDT, Stop date: 03/07/21 21:29:00 CDT Magnesium No 2 gm, Memoria Sulfate 03-08 Route: l 02:29: IVPB, Drug form: INJ, ONCE, Dosing Weight 72.727, kg, Total dose = 2 gm, Start date: 03/07/21 21:29:00 CDT, Stop date: 03/07/21 21:29:00 CDT Ketorolac 2020-0 No 4 days Memor ia 03-07 l 23:44: MEDICATION Frandy WASTE Product Size: 30 mg Product Wasted: ___ mg Ketorolac No 4 days Memor ia 03-07 l 23:44: MEDICATION Frandy WASTE Product Size: 30 mg Product Wasted: ___ mg Reglan No Notes: Memoria 6-11 (Same as: l 22:15: Reglan) Young Harris 00 NS (Bolus) No 1,000 mL, Me moria IV 03-07 1,000 l 22:15: ml/hr, Frandy 00 Infuse Over: 1 hr, Route: IV, 1,000, Drug form: INJ, ONCE, Priority: STAT, Dosing Weight 72.727 kg, Start date: 03/07/21 17:15:00 CDT, Stop date: 03/07/21 17:15:00 CDT, 0 Reglan No Notes: Memoria 6-11 (Same as: l 22:15: Reglan) Frandy 00 NS (Bolus) No 1,000 mL, Me moria IV - 1,000 l 22:15: ml/hr, Frandy 00 Infuse Over: 1 hr, Route: IV, 1,000, Drug form: INJ, ONCE, Priority: STAT, Dosing Weight 72.727 kg, Start date: 03/07/21 17:15:00 CDT, Stop date: 03/07/21 17:15:00 CDT, 0 Benadryl No Notes: Memoria 6-11 (Same as: l 22:13: Benadryl) Benadryl No Notes: Memoria 6-11 (Same as: l 22:13: Benadryl) Rimegepant Yes 75 mg = 1 Me moria 75 MG 6-01 tab, PO, l Disintegrat 20:23: ONCE, # 1 H ermann ing Oral 00 tab, 0 Tablet Refill(s), [Nurtec] Samples: 3, other Rimegepant Yes 75 mg = 1 Me moria 75 MG 6-01 tab, PO, l Disintegrat 20:23: ONCE, # 1 H ermann ing Oral 00 tab, 0 Tablet Refill(s), [Nurtec] Samples: 3, other topiramate Yes 50 mg = 1 Me moria 50 MG Oral 6-01 tab, PO, l Tablet 20:22: Bedtime, # Lisa nn [Topamax] 00 90 tab, 2 Refill(s), Pharmacy: [id number], 152.4, cm, 02/25/21 15:12:00 CDT, Height, 72.727, kg, 02/25/21 15:12:00 CDT, Weight topiramate Yes 50 mg = 1 Me moria 50 MG Oral 6- tab, PO, l Tablet 20:22: Bedtime, # Lisa nn [Topamax] 00 90 tab, 2 Refill(s), Pharmacy: [facility] #[id number], 152.4, cm, 02/25/21 15:12:00 CDT, Height, 72.727, kg, 02/25/21 15:12:00 CDT, Weight baclofen Yes daily. [facility] (LIORESAL) 5-28 ity of 10 mg 00:00: [place] tablet 00 [facility] topiramate Yes 25 mg = 1 Me moria 25 MG Oral 5-06 tab, PO, l Tablet 13:39: Bedtime, # Lisa nn [Topamax] 00 90 tab, 3 Refill(s), Pharmacy: [id number], 154.94, cm, 07/05/19 14:33:00 CDT, Height, 80, kg, 01/29/21 10:37:00 CDT, Weight topiramate 2020-0 Yes 25 mg = 1 Me moria 25 MG Oral 5-06 tab, PO, l Tablet 13:39: Bedtime, # Lisa nn [Topamax] 00 90 tab, 3 Refill(s), Pharmacy: [id number], 154.94, cm, 07/05/19 14:33:00 CDT, Height, 80, kg, 01/29/21 10:37:00 CDT, Weight topiramate 2020-0 No 25 mg = 1 Me moria 25 MG Oral 5-06 tab, PO, l Tablet 13:35: Bedtime, # Lisa nn [Topamax] 00 90 tab, 3 Refill(s), Pharmacy: [id number], 154.94, cm, 07/05/19 14:33:00 CDT, Height, 80, kg, 01/29/21 10:37:00 CDT, Weight topiramate 2020-0 No 25 mg = 1 Me moria 25 MG Oral 5-06 tab, PO, l Tablet 13:35: Bedtime, # Lisa nn [Topamax] 00 90 tab, 3 Refill(s), Pharmacy: [id number], 154.94, cm, 07/05/19 14:33:00 CDT, Height, 80, kg, 01/29/21 10:37:00 CDT, Weight topiramate 2020-0 No 25 mg = 1 Me moria 25 MG Oral 5-05 tab, PO, l Tablet 16:04: Bedtime, X Lisa nn [Topamax] 00 30 day, # 30 tab, 2 Refill(s), Pharmacy: [id number], 154.94, cm, 07/05/19 14:33:00 CDT, Height, 80, kg, 01/29/21 10:37:00 CDT, Weight baclofen 10 2020-0 Yes 10 mg = 1 M emoria mg oral 5-05 tab, PO, l tablet 16:04: TID, PRN Frandy 00 Spasms, # 90 tab, 0 Refill(s), Pharmacy: [id number], 154.94, cm, 07/05/19 14:33:00 CDT, Height, 80, kg, 01/29/21 10:37:00 CDT, Weight topiramate 2020-0 No 25 mg = 1 Me moria 25 MG Oral 5-05 tab, PO, l Tablet 16:04: Bedtime, X Lisa nn [Topamax] 00 30 day, # 30 tab, 2 Refill(s), Pharmacy: [id number], 154.94, cm, 07/05/19 14:33:00 CDT, Height, 80, kg, 01/29/21 10:37:00 CDT, Weight baclofen 10 Yes 10 mg = 1 M emoria mg oral 5-05 tab, PO, l tablet 16:04: TID, PRN Young Harris 00 Spasms, # 90 tab, 0 Refill(s), Pharmacy: [id number], 154.94, cm, 07/05/19 14:33:00 CDT, Height, 80, kg, 01/29/21 10:37:00 CDT, Weight ondansetron 0 2- No daily as U nivers (ZOFRAN-ODT 5-03 03-14 needed. ity of ) 4 mg 00:00: 00:00 [place] disintegrat 00 :00 MD johnny pinon [facility] rizatriptan 0 Yes 10 mg = 1 M emoria 10 mg oral 4-19 tab, PO, l tablet 14:56: ONCE, PRN Nayan n 00 Headache, # 6 tab, 1 Refill(s), Pharmacy: [id number], 154.94, cm, 07/05/19 14:33:00 CDT, Height, 84.545, kg, 01/13/21 9:27:00 CDT, Weight rizatriptan 2020-0 Yes 10 mg = 1 M emoria 10 mg oral 4-19 tab, PO, l tablet 14:56: ONCE, PRN Nayan n 00 Headache, # 6 tab, 1 Refill(s), Pharmacy: [id number], 154.94, cm, 07/05/19 14:33:00 CDT, Height, 84.545, kg, 01/13/21 9:27:00 CDT, Weight Tylenol 2017-0 No 650 mg, Memoria 6-30 Route: PO, l 21:18: Drug form: Young Harris 00 TAB, ONCE, Dosing Weight 72.727, kg, Priority: STAT, Start date: 03/26/17 16:18:00 CDT, Stop date: 03/26/17 16:18:00 CDT Tylenol 2017-0 No 650 mg, Memoria 6-30 Route: PO, l 21:18: Drug form: Young Harris 00 TAB, ONCE, Dosing Weight 72.727, kg, Priority: STAT, Start date: 03/26/17 16:18:00 CDT, Stop date: 03/26/17 16:18:00 CDT Phenergan 2017-0 No 12.5 mg, Clif alfie 6-30 Route: l 21:17: IVPB, Young Harris 00 ONCE, Dosing Weight 72.727, kg, Priority: STAT, Start date: 03/26/17 16:17:00 CDT, Stop date: 03/26/17 16:17:00 CDT Phenergan 2017-0 No 12.5 mg, Clif alfie 6-30 Route: l 21:17: IVPB, Young Harris 00 ONCE, Dosing Weight 72.727, kg, Priority: STAT, Start date: 03/26/17 16:17:00 CDT, Stop date: 03/26/17 16:17:00 CDT topiramate 2017-0 Yes 100mg Q.5D Take 100 Me thodi (TOPAMAX) 6-[address] 100 MG 13:35: mouth 2 [facility] tablet 24 (two) l times a day. amitriptyli 2016-0 Yes 50mg QD Take 50 mg Methodi ne (ELAVIL) 6-[address] 50 MG 13:35: nightly. [facility]ospita tablet 24 l cyanocobala 2016-0 Yes 1000ug Q7D Inject Me thodi min 1,000 6-30 1,[address] mcg/mL 13:35: into the [facility]ospita injection 24 shoulder, l thigh, or buttocks once a week. Mondays loratadine Yes 10mg Q24H Take 10 mg M ethodi (CLARITIN) 6-[address] 10 mg 13:35: daily as [facility]osp[facility] tablet 24 needed for l allergies. acetaminoph 2016- Yes 1{tbl} Q4H Take 1 Me thodi en-codeine 6-[address] (TYLENOL 13:35: mouth [facility]osp[facility] WITH 24 every 4 l CODEINE #3) (four) 300-30 mg hours as per tablet needed for moderate pain. cyclobenzap Yes 10mg [id number] Take 10 mg Methodi rine 6-30 [id number] mouth [address] (FLEXERIL) 13:35: 3D (three) Hosp desiree 10 mg 24 times a l tablet day as needed for muscle spasms. levETIRAcet Yes 500mg Q.5D Take 500 M ethodi am (KEPPRA) 6-[address] 500 MG 13:35: mouth 2 [facility]osp[facility] tablet 24 (two) l times a day. Immunizations Ordered Immunization Filled Immunization Date Status Commen ts Source Name Name Hx influenza 2021-07-10 Completed [facility] bradley vaccine-unspecified 00:00:00 Hx influenza 2021-07-10 Completed [facility] bradley vaccine-unspecified 00:00:00 Influenza Trivalent 2013-12-11 [facility] Vital Sign[facility] Vital Name Observation Time Observation Value Comments Source Systolic (mm Hg) 2022-06-24 21:01:00 Clif Wise Diastolic (mm Hg) 2022-06-24 21:01:00 Karri Wise Heart Rate 2022-06-24 21:01:00 [facility] Respitory Rate 2022-06-24 21:01:00 Booker Zhong Height 2022-06-24 21:01:00 152.4 cm [facility] Weight 2022-06-24 [facility] Calculated 2022-06-24 21:01:00 Booker Zhong Body weight 2022-06-15 13:00:00 79.9 kg [facility] BMI 2022-06-15 13:00:00 34.13 kg/m2 [facility] Systolic blood 2022-06-15 12:56:11 122 mm[Hg] [facility] Diastolic blood 2022-06-15 12:56:11 78 mm[Hg] Unive rsity of pressure [facility] Heart rate 2022-06-15 12:56:11 76 /min [facility] Body temperature 2022-06-15 12:56:11 36.61 [facility] Respiratory rate 2022-06-15 12:56:11 18 [facility] Systolic (mm Hg) 2022-05-29 19:40:00 Cl[facility] Diastolic (mm Hg) 2022-05-29 19:40:00 [facility] Heart Rate 2022-05-29 19:40:00 [facility] Respitory Rate 2022-05-29 19:40:00 [facility] Height 2022-05-29 19:40:00 152.4 cm [facility] Weight 2022-05-29 19:40:00 [facility] BMI Calculated 2022-05-29 19:40:00 [facility] Systolic (mm Hg) 2022-01-22 19:32:00 [facility] Diastolic (mm Hg) 2022-01-22 19:32:00 [facility] Heart Rate 2022-01-22 19:32:00 [facility] Respitory Rate 2022-01-22 19:32:00 [facility] Height 2022-01-22 19:32:00 152.4 cm [facility] Weight 2022-01-22 19:32:00 [facility] BMI Calculated 2022-01-22 19:32:00 [facility] Systolic (mm Hg) 2021-12-20 12:49:00 Clif [facility] Diastolic (mm Hg) 2021-12-20 12:49:00 [facility] Heart Rate 2021-12-20 12:49:00 [facility] Temperature Oral (F) 2021-12-20 12:49:00 97.8 F [facility] Systolic (mm Hg) 2021-12-20 09:06:00 Clif [facility] Diastolic (mm Hg) 2021-12-20 09:06:00 [facility] Heart Rate 2021-12-20 09:06:00 [facility] Systolic (mm Hg) 2021-12-20 07:48:00 [facility] Diastolic (mm Hg) 2021-12-20 07:48:00 [facility] Heart Rate 2021-12-20 07:48:00 [facility] Respitory Rate 2021-12-20 05:10:09 [facility] Temperature Oral (F) 2021-12-20 05:09:13 98.5 F [facility] Respitory Rate 2021-12-19 22:55:16 [facility] Temperature Oral (F) 2021-12-19 22:54:51 98.6 F [facility] Height 2021-12-19 19:25:00 154.94 cm [facility] BMI Calculated 2021-12-19 19:25:00 [facility] Weight 2021-12-19 19:25:00 [facility] Respitory Rate 2021-12-19 19:25:00 [facility] Systolic (mm Hg) 2021-12-11 19:41:00 Clif rial [facility] Diastolic (mm Hg) 2021-12-11 19:41:00 Mem orial [facility] Heart Rate 2021-12-11 19:41:00 [facility] Respitory Rate 2021-12-11 19:41:00 [facility] Frandy Height 2021-12-11 19:41:00 154.94 cm [facility] Weight 2021-12-11 19:41:00 [facility] BMI Calculated 2021-12-11 19:41:00 [facility]ori al Frandy Oxygen saturation in 2021-11-07 23:45:00 97 /min [facility] Arterial blood by Caleb triplett [facility] Systolic (mm Hg) 2021-11-04 20:26:00 Clif rial [facility] Diastolic (mm Hg) 2021-11-04 20:26:00 Mem orial [facility] Heart Rate 2021-11-04 20:26:00 [facility] Respitory Rate 2021-11-04 20:26:00 [facility] al Frandy Height 2021-11-04 20:26:00 152.4 cm [facility] Weight 2021-11-04 20:26:00 [facility] BMI Calculated 2021-11-04 20:26:00 [facility] Body height 2021-10-27 15:43:00 153 cm [facility] MD Michaud [facility] Systolic (mm Hg) 2021-09-05 20:51:00 Clif rial Frandy Diastolic (mm Hg) 2021-09-05 20:51:00 Mem orial Frandy Heart Rate 2021-09-05 20:51:00 [facility] Respitory Rate 2021-09-05 20:51:00 [facility] al [facility] Height 2021-09-05 20:51:00 152.4 cm [facility] Weight 2021-09-05 20:51:00 [facility] BMI Calculated 2021-09-05 20:51:00 [facility] Fr[facility] Systolic (mm Hg) 2021-08-01 16:42:00 Clif rial [facility] Diastolic (mm Hg) 2021-08-01 16:42:00 Mem orial Frandy Heart Rate 2021-08-01 16:42:00 [facility] Respitory Rate 2021-08-01 16:42:00 [facility]ori al Frandy Height 2021-08-01 16:42:00 154.94 cm [facility] Weight 2021-08-01 16:42:00 [facility] BMI Calculated 2021-08-01 16:42:00 [facility] Frandy Systolic (mm Hg) 2021-06-26 18:03:00 Clif rial Frandy Diastolic (mm Hg) 2021-06-26 18:03:00 Mem orial [facility] Heart Rate 2021-06-26 18:03:00 [facility] Respitory Rate 2021-06-26 18:03:00 [facility] Frandy Height 2021-06-26 18:03:00 152.4 cm [facility] Weight 2021-06-26 18:03:00 [facility] BMI Calculated 2021-06-26 18:03:00 [facility] Systolic (mm Hg) 2021-04-22 16:37:00 Clif rial Frandy Diastolic (mm Hg) 2021-04-22 16:37:00 Mem orial Frandy Heart Rate 2021-04-22 16:37:00 [facility] Respitory Rate 2021-04-22 16:37:00 [facility] Frandy Height 2021-04-22 16:37:00 154.94 cm [facility] Weight 2021-04-22 16:37:00 [facility] BMI Calculated 2021-04-22 16:37:00 [facility] Temperature Oral (F) 2021-03-09 16:18:00 97.5 F [facility] Heart Rate 2021-03-09 16:18:00 [facility] Respitory Rate 2021-03-09 16:18:00 [facility] Systolic (mm Hg) 2021-03-09 16:18:00 Clif rial Frandy Diastolic (mm Hg) 2021-03-09 16:18:00 Mem orial [facility] Heart Rate 2021-03-09 12:28:00 [facility] Respitory Rate 2021-03-09 12:28:00 [facility] al Frandy Systolic (mm Hg) 2021-03-09 12:28:00 Clif rial Frandy Diastolic (mm Hg) 2021-03-09 12:28:00 Mem orial [facility] Temperature Oral (F) 2021-03-09 08:32:00 98.2 F [facility] Heart Rate 2021-03-09 08:32:00 [facility] Respitory Rate 2021-03-09 08:32:00 [facility] Systolic (mm Hg) 2021-03-09 08:32:00 Clif rial Frandy Diastolic (mm Hg) 2021-03-09 08:32:00 Mem o[facility] Temperature Oral (F) 2021-03-09 04:46:00 98.0 F [facility] Height 2021-03-08 07:30:00 152.4 cm [facility] Weight 2021-03-08 07:30:00 [facility] BMI Calculated 2021-03-08 07:30:00 [facility] Height 2021-03-07 18:28:00 152.4 cm [facility] BMI Calculated 2021-03-07 18:28:00 [facility] Weight 2021-03-07 18:28:00 [facility] Systolic (mm Hg) 2021-02-25 20:03:00 Clif rial [facility] Diastolic (mm Hg) 2021-02-25 20:03:00 Mem orial [facility] Heart Rate 2021-02-25 20:03:00 [facility] Respitory Rate 2021-02-25 20:03:00 [facility]ori al Fr[facility] Height 2021-02-25 20:03:00 152.4 cm [facility] Weight 2021-02-25 20:03:00 [facility] BMI Calculated 2021-02-25 20:03:00 [facility] Systolic (mm Hg) 2021-01-29 15:37:00 Clif rial Frandy Diastolic (mm Hg) 2021-01-29 15:37:00 Mem orial [facility] Heart Rate 2021-01-29 15:37:00 [facility] Respitory Rate 2021-01-29 15:37:00 [facility] Fr[facility] Weight 2021-01-29 15:37:00 [facility] Systolic (mm Hg) 2021-01-13 14:25:00 Clif rial [facility] Harris Diastolic (mm Hg) 2021-01-13 14:25:00 Mem orial Frandy Heart Rate 2021-01-13 14:25:00 [facility] Respitory Rate 2021-01-13 14:25:00 [facility] Weight 2021-01-13 14:25:00 [facility] Heart Rate 2017-03-27 01:00:00 [facility] Respitory Rate 2017-03-27 01:00:00 [facility] Fr[facility] Systolic (mm Hg) 2017-03-27 01:00:00 Clif rial Frandy Diastolic (mm Hg) 2017-03-27 01:00:00 Mem orial [facility] Temperature Oral (F) 2017-03-27 01:00:00 98.0 F [facility] BMI Calculated 2017-03-26 19:26:00 [facility] al [facility] Weight 2017-03-26 19:26:00 [facility] Heart Rate 2017-03-26 19:26:00 [facility] Systolic (mm Hg) 2017-03-26 19:26:00 Clif rial [facility] Diastolic (mm Hg) 2017-03-26 19:26:00 Mem orial Frandy Temperature Oral (F) 2017-03-26 19:26:00 98.2 F [facility] Respitory Rate 2017-03-26 19:26:00 Booker rodriguez [facility] Height 2017-03-26 19:26:00 152.4 cm [facility] Procedures Procedure Date / Time Performing Clinician Source Performed CANCER ANTIGEN 125 2022-06-15 12:29:34 Yolanda Mendez [facility] CANCER ANTIGEN 125 2022-03-16 14:15:43 Ulysses Cameron [facility] PATHOLOGY SURGICAL 2021-11-07 15:18:00 Joaquin Hardy [facility] INTERPRETATION [facility] [place] CYTOLOGY NON-REGISTERED PHARMACIST 2021-11-07 14:25:00 Joaquin Hardy [facility] INTERPRETATION [facility] LAPAROSCOPY WITH REMOVAL 2021-11-07 12:14:00 Joaquin Hardy [facility] OF ADNEXAL STRUCTURES MD Pardo n Cancer (PARTIAL OR TOTAL Center OOPHERECTOMY AND/OR SALPINGECTOMY OMENTECTOMY, EPIPLOECTOMY, 2021-11-07 12:14:00 Joaquin Hardy [facility] RESECTION OF OMENTUM [facility] SURGICAL LAPAROSCOPY WITH 2021-11-07 12:14:00 Joaquin Hardy [facility] BILATERAL EXCISION OF ALL MD And erson Antonio PELVIC LYMPH NODES Center TYPE AND SCREEN 2021-11-07 12:11:00 Que Yolanda [facility] ABORH 2021-11-07 12:11:00 Que [facility] ANTIBODY SCREEN 2021-11-07 12:11:00 Que [facility] CLOT EXPIRATION DATE 2021-11-07 12:11:00 Yolanda Mendez [facility] TMP INTERPRETATION 2021-11-07 12:11:00 Que Yolanda [facility] ANTIBODY SCREEN NEGATIVE MD Packer kash [facility] URINE CULTURE 2021-11-03 20:07:00 Que [facility] URINALYSIS WITH 2021-11-03 17:56:00 Que [facility] MICROSCOPIC IF INDICATED MD [facility] HUMAN CHORIONIC 2021-11-03 17:56:00 Que [facility] GONADOTROPIN, QUALITATIVE, MD [facility]INE Center URINALYSIS MICROSCOPIC 2021-11-03 17:56:00 Yolanda Mendez [facility] COVID-19 (SARS-COV-2) 2021-11-03 16:56:00 Joaquin Hardy [facility] PCR ASYMPTOMATIC [facility] EKG, 12-LEAD (SCHEDULED) 2021-11-03 00:00:00 Yolanda Mendez [facility] CT ABDOMEN PELVIS W 2021-10-29 22:17:00 Yolanda Mendez [facility] CONTRAST [facility] CONFIRM ABORH TYPE 2021-10-27 17:38:00 Yolanda Mendez [facility] COMPLETE BLOOD COUNT W/ 2021-10-27 17:29:00 Yolanda Mendez [facility] DIFFERENTIAL [facility] COMPREHENSIVE METABOLIC 2021-10-27 17:29:00 Yolanda Mendez [facility] PANEL [facility] ALPHA FETOPROTEIN TUMOR 2021-10-27 17:29:00 Que [facility] MARKER [facility] CANCER ANTIGEN 125 2021-10-27 17:29:00 Yolanda Mendez [facility] PROTHROMBIN TIME 2021-10-27 17:29:00 Que [facility] APTT 2021-10-27 17:29:00 Que [facility] TYPE AND SCREEN 2021-10-27 17:29:00 Que [facility] INHIBIN A, SERUM 2021-10-27 17:29:00 Que [facility] INHIBIN B, SERUM 2021-10-27 17:29:00 Que [facility] BHCG, TUMOR MARKER 2021-10-27 17:29:00 Unke, Yolanda [facility] HEMOGLOBIN A1C 2021-10-27 17:29:00 Yolanda Mendez [facility] THYROID STIMULATING 2021-10-27 17:29:00 Yolanda Mendez [facility] HORMONE [facility] HIV-1/2 ANTIGEN AND 2021-10-27 17:29:00 Yolanda Mendez [facility] ANTIBODIES, FOURTH [facility] C ancer [facility] Center HEPATITIS C VIRUS ANTIBODY 2021-10-27 17:29:00 [facility] FREE THYROXINE 2021-10-27 17:29:00 Yolanda Mendez [facility] Results CBC 2021-10-27 17:29:00 Yolanda Mendez [facility] MANUAL DIFFERENTIAL 2021-10-27 17:29:00 [facility] GLUCOSE LEVEL 2021-10-27 17:29:00 Yolanda Mendez [facility] BLOOD UREA NITROGEN 2021-10-27 17:29:00 [facility] ELECTROLYTE PANEL 2021-10-27 17:29:[address] [facility] SERUM CREATININE 2021-10-27 17:29:00 Que [facility] .GLOMERULAR FILTRATION 2021-10-27 17:29:00 Yolanda Mendez [facility] RATE [facility] CALCIUM LEVEL TOTAL 2021-10-27 17:29:00 Yolanda Mendez [facility] ALBUMIN LEVEL 2021-10-27 17:29:00 Yolanda Mendez [facility] ALKALINE PHOSPHATASE 2021-10-27 17:29:00 Yolanda Mendez [facility] ALANINE AMINOTRANSFERASE 2021-10-27 17:29:00 Yolanda Mendez [facility] ASPARTATE AMINOTRANSFERASE 2021-10-27 17:29:00 [facility] TOTAL PROTEIN 2021-10-27 17:29:00 Yolanda Mendez [facility] FRACTIONATED BILIRUBIN 2021-10-27 17:29:00 Yolanda Mendez [facility] [place] [facility] ABORH 2021-10-27 17:29:00 Yolanda Mendez [facility] ANTIBODY SCREEN 2021-10-27 17:29:00 Yolanda Mendez [facility] TMP INTERPRETATION 2021-10-27 17:29:00 [facility] ANTIBODY SCREEN NEGATIVE MD Ochoa borges [facility] Center CLOT EXPIRATION DATE 2021-10-27 17:29:00 Yolanda Mendez [facility] TMP HCVAB INTERP 2021-10-27 17:29:[address] [facility] TMP HIV 1/2 AG&AB PATH 2021-10-27 17:29:00 Yolanda Mendez [facility] [place] [facility] OSI US VASCULAR 2021-10-07 18:03:00 Soumya Walters [facility] OSI CT ABDOMEN AND PELVIS 2021-10-07 17:57:00 Soumya Walters [facility] Shunt of cerebral [facility] nn ventricle to extracranial site Plan of Care Planned Activity Planned Date Details Comments Source Future Scheduled 2022-08-01 HEPATITIS B VACCINES Met [facility] Test 05:02:22 (1 of 3 - 3-dose series) [code = HEPATITIS B VACCINES (1 of 3 - 3-dose series)] Future Scheduled 2022-08-01 Hepatitis C screening [facility] Test 05:02:22 (procedure) [code = 563538790] Future Scheduled 2022-08-01 Screening for [facility] Test 05:02:22 malignant neoplasm of cervix (procedure) [code = 503815616] Future Scheduled 2022-08-01 COVID-19 VACCINE (2 - [facility] Test 05:02:22 Pfizer series) [code = COVID-19 VACCINE (2 - Pfizer series)] Future Scheduled 2022-08-01 INFLUENZA VACCINE Method [facility] Test 05:02:22 [code = INFLUENZA VACCINE] Future Scheduled 2022-06-18 COVID-19 Vaccination Uni [facility] Test 07:29:41 (2 - Pfizer series) [facility] [code = COVID-19 Center Vaccination (2 - Pfizer series)] Encounters Start End Encounter Admission Attending Care Care Encounter Source Date/Time Date/Time Type Type Clinicians Facility Department ID 2021-12-22 Outpatient [facility] [id number] [place] 10:02:39 [id number] [facility] 2021-10-21 Outpatient SYSTEM, [facility] [id number] 12:36:53 PROVIDER Jaswant dunbar 2022-07-22 2022-07-22 Ambulatory nullFlavo MNA [id number] Memoria 19:15:00 19:15:00 Pre-Reg r Neurology 24 l Lincoln Young Harris 2022-07-22 2022-07-22 Outpatient MHIE FATEMEHIE [id number] Memoria 14:15:00 14:15:00 24 l Young Harris 2022-07-22 2022-07-22 Outpatient MHIE MHIE [id number] Memoria 14:15:00 14:15:00 24 l Young Harris 2022-07-22 2022-07-22 Outpatient ELOY Arreguin MHMISCHBELLA [id number] 14:15:00 14:15:00 Eriberto 24 Simone 2022-06-30 2022-06-30 Office Isis Haque 1.2.840.1 [id number] Methodi 14:30:00 15:43:57 Visit Harjinder 72151.1.[address] 3.430.2.7 Hospit a .3.676357 l .8 2022-06-30 2022-06-30 Travel 1.2.840.1 1.2.839.638 [id number] Methodi 00:00:00 00:00:[address] 3.430.2.7 0.2.7.3.698 Ho spita .3.975611 084.8 l .8 2022-06-30 2022-06-30 Outpatient ISIS HAQUE [facility] [id number] [place] 00:00:00 00:00:[address] 2022-06-24 2022-06-25 Outpatient nullFlavo MNA [id number] Memoria 21:00:00 04:59:59 r Neurology 23 l Lincoln Frandy 2022-06-24 2022-06-25 Outpatient nullFlavo MNA [id number] Memoria 21:00:00 04:59:59 r Neurology 23 l Yuly Wise 2022-06-24 2022-06-24 Outpatient FATEMEH ArreguinMICOLTON MISCHER [id number] 16:00:00 23:59:59 Eriberto 23 Simone 2022-06-24 2022-06-24 Outpatient SINGH WINTERS [id number] Memoria 16:00:00 16:00:00 23 l Frandy 2022-06-15 2022-06-15 Office Hayley 1.2.840.1 [id number] [facility] 08:00:00 08:37:36 Visit Joaquin 54562.1.1 ity of 3.412.2.7 [place] .3.827624 MD Mcnair8 [facility] 2022-06-15 2022-06-15 Outpatient MARY JO HARDY [facility] [id number] 07:29:49 08:37:36 JOAQUIN dunbar 2022-06-15 2022-06-15 Outpatient YOLANDA SOLANO [facility] [id number] 07:18:36 07:29:19 Jaswant dunbar 2022-06-15 2022-06-15 Travel 1.2.840.1 1.2.983.858 [id number] [facility] 00:00:00 00:00:00 26405.1.1 350.1.13.41 ity of 3.412.2.[place].698 [place].30[place] 084.8 MD Mcnair8 [facility] 2022-05-29 2022-05-30 Outpatient nullFlavo MNA [id number] Memoria 19:45:00 04:59:59 r Neurology 22 l Yuly Wise 2022-05-29 2022-05-30 Outpatient nullFlavo MNA [id number] Memoria 19:45:00 04:59:59 r Neurology 22 l Yuly Wise 2022-05-29 2022-05-29 Outpatient [id number] 14:45:00 23:59:59 Eriberto 22 Simone 2022-05-29 2022-05-29 Outpatient MHIE MHIE [id number] Memoria 14:45:00 14:45:00 22 ulises Wise 2022-03-24 2022-03-24 Ambulatory nullFlavo MNA [id number] Memoria 14:30:00 14:30:00 Pre-Reg r Neurology 21 l Yuly Wise 2022-03-24 2022-03-24 Ambulatory nullFlavo MNA [id number] Memoria 14:30:00 14:30:00 Pre-Reg r Neurology 21 l Yuly Wise 2022-03-24 2022-03-24 Outpatient MHIE IE [id number] Memoria 09:30:00 09:30:00 21 ulises Wise 2022-03-24 2022-03-24 [id number] 09:30:00 09:30:00 Eriberto 21 Simone 2022-03-16 2022-03-16 Office Joaquin Hardy 1.2.840.1 [id number] Univers 10:00:00 10:30:00 Visit Yolanda Mendez 65136.1.1 ity of 3.412.2.7 [place] .3.605460 MD Mcnair8 [facility] 2022-03-16 2022-03-16 Travel 1.2.840.1 1.2.621.362 [id number] Univers 00:00:00 00:00:00 04763.1.1 350.1.13.41 ity of 3.412.2.[place]7.3.698 [place].294[place] 084.8 MD Mcnair8 [facility] 2022-02-03 2022-02-03 Ambulatory nullFlavo MNA [id number] Memoria 18:45:00 18:45:00 Pre-Reg r Neurology 17 l Yuly Wise 2022-02-03 2022-02-03 Ambulatory nullFlavo MNA [id number] Memoria 18:45:00 18:45:00 Pre-Reg r Neurology 17 l Yuly Wise 2022-02-03 2022-02-03 Outpatient MHIE MHIE [id number] Memoria 13:45:00 13:45:00 17 ulises Wise 2022-02-03 2022-02-03 Outpatient Rodríguez [facility] [id number] 13:45:00 13:45:00 Eriberto 17 Simone 2022-01-22 2022-01-23 Outpatient nullFlavo MNA [id number] Memoria 19:30:00 04:59:59 r Neurology 20 l Yuly Frandy 2022-01-22 2022-01-23 Outpatient nullFlavo MNA [id number] Memoria 19:30:00 04:59:59 r Neurology 20 l Yuly Frandy 2022-01-22 2022-01-22 Outpatient Rodríguez [facility] [id number] 14:30:00 23:59:59 Eriberto 20 Simone 2022-01-22 2022-01-22 Outpatient MHIE MHIE [id number] Memoria 14:30:00 14:30:00 20 ulises Wise 2022-01-08 2022-01-08 Rei Cameron, 1.2.840.1 [id number] Univers 00:00:00 00:00:00 Only Ulysses 62982.1.1 ity of 3.412.2.7 [place] .3.831375 .8 [facility] 2021-12-19 2021-12-20 Emergency nullFlavo [facility] [id number] Memoria 19:10:55 13:23:00 r Frandy 04 [facility] 2021-12-19 2021-12-20 Emergency nullFlavo [facility] [id number] Memoria 19:10:55 13:23:00 r Frandy 04 [facility] 2021-12-19 2021-12-20 Outpatient Abbey [facility] [id number] 14:10:55 08:23:00 Sybil Arora 2021-12-19 2021-12-20 Emergency E ABBEY, [facility] [id number] [facility] 14:10:00 08:23:00 SYBIL 2021-12-19 2021-12-19 Telemedici Ulysses Cameron 1.2.840.1 [id number] [facility] 08:00:00 09:00:00 ne Brandy Vera Alli 00455.1.1 ity of 3.412.2.7 [place] .3.973211 MD [facility]air8 [facility] 2021-12-19 2021-12-19 Outpatient MARY JO CAMERON MDA MDA [id number] 08:01:34 08:01:34 ULYSSES dunbar 2021-12-11 2021-12-12 Outpatient nullFlavo MNA [id number] Memoria 19:30:00 04:59:59 r Neurology 19 l Yuly Young Harris 2021-12-11 2021-12-12 Outpatient nullFlavo MNA [id number] Memoria 19:30:00 04:59:59 r Neurology 19 l Yuly Wise 2021-12-11 2021-12-11 Outpatient ELOY Arreguin MHMISCHER [id number] 14:30:00 23:59:59 Eriberto 19 Simone 2021-12-11 2021-12-11 [id number] 14[facility]30:00 19 l Frandy 2021-12-08 2021-12-08 Office Joaquin Hardy 1.2.840.1 [id number] [facility] 10:00:00 10:45:10 Visit Ulysses Cameron 04785.1.1 ity of 3.412.2.7 [place] .3.941292 MD Dianna dunbar [facility] 2021-12-08 2021-12-08 Outpatient MARY JO HARDY MDA MDA [id number] 09:45:19 10:45:10 JOAQUIN dunbar 2021-12-08 2021-12-08 Travel 1.2.840.1 1.2.424.267 [id number] [facility] 00:00:00 00:00:00 69782.1.1 350.1.13.41 ity of 3.412.2.[place].3.698 [place].3568[place] 084.8 MD Mcnair8 [facility] 2021-11-27 2021-11-27 Ambulatory nullFlavo MNA [id number] Memoria 21:00:00 21:00:00 Pre-Reg r Neurology 18 l Lincoln Young Harris 2021-11-27 2021-11-27 Ambulatory nullFlavo MNA [id number] Memoria 21:00:00 21:00:00 Pre-Reg r Neurology 18 l Lincoln Young Harris 2021-11-27 2021-11-27 Outpatient MHIE MHIE [id number] Memoria 15:00:00 15:00:00 18 l Young Harris 2021-11-27 2021-11-27 Outpatient Rodríguez MISCHER MISCHER [id number] 15:00:00 15:00:00 Eriberto Nichols 2021-11-25 2021-11-25 Telephone Sonya, 1.2.840.1 [id number] Univers 00:00:00 00:00:00 Ella King 41538.1.1 it y of 3.412.2.7 [place] .3.430594 MD Bustamante [facility] 2021-11-25 2021-11-25 Rei Hardy 1.2.840.1 [id number] Univers 00:00:00 00:00:00 Only Joaquin 93244.1.1 ity of 3.412.2.7 [place] .3.425152 MD Bustamante [facility] 2021-11-19 2021-11-19 Telemedicalli Hardy 1.2.840.1 [id number] Univers 09:00:00 11:14:20 ne Joaquin 11370.1.1 ity of 3.412.2.7 [place] .3.649906 MD Bustamante [facility] 2021-11-19 2021-11-19 Outpatient MARY JO HARDY MDA MDA [id number] 08:06:45 11:14:20 JOAQUIN dunbar 2021-11-18 2021-11-18 Rei Yolanda Mendez 1.2.840.1 [id number] Univers 00:00:00 00:00:00 Only 58058.1.1 ity of 3.412.2.7 [place] .3.391550 MD Mcnair8 [facility] 2021-11-08 2021-11-08 Orders Hi, 1.2.840.1 [id number] Univers 00:00:00 00:00:00 Only King Siegel 94667.1.1 ity of 3.412.2.7 [place] .3.998852 MD Mcnair8 [facility] 2021-11-08 2021-11-08 Telephone Fregene, 1.2.840.1 [id number] Univers 00:00:00 00:00:00 Eyulises 34149.1.1 ity of 3.412.2.7 [place] .3.913985 MD Mcnair8 [facility] 2021-11-08 2021-11-08 Telephone Arro, 1.2.840.1 [id number] Univers 00:00:00 00:00:00 Magy Lucas 10159.1.1 i ty of 3.412.2.7 [place] .3.968957 MD Mcnair8 [facility] 2021-11-07 2021-11-07 Outpatient HAYLEY [facility] REGISTERED PHARMACIST [id number] MD 05:29:00 17:45:00 JOAQUIN [facility]cology [facility] 2021-11-07 2021-11-07 [facility], 1.2.840.1 [id number] Univers 05:29:00 17:45:00 Encounter Joaquin 37665.1.1 it y of 3.412.2.7 [place] .3.545154 MD Mcnair8 [facility] 2021-11-07 2021-11-07 Anesthesia Nehemiah, 1.2.840.1 [id number] Univers 06:50:00 13:08:00 Event Casper Ogden 76536.1.1 it y of 3.412.2.7 [place] .3.286700 MD Mcnair8 [facility] 2021-11-07 2021-11-07 Surgery Hayley, 1.2.840.1 [id number] Univers 07:00:00 10:10:00 Joaquin 77543.1.1 ity of 3.412.2.7 [place] .3.965452 MD Mcnair8 [facility] 2021-11-07 2021-11-07 Outpatient HAYLEY [facility] [id number] 05:50:21 06:09:23 JOAQUIN castillo 2021-11-07 2021-11-07 Travel 1.2.840.1 1.2.022.491 [id number] [facility] 00:00:00 00:00:00 13136.1.1 350.1.13.41 ity of 3.412.2.[place]7.3.698 [place].608[place] 084.8 MD Mcnair8 [facility] 2021-11-06 2021-11-06 Anesthesia Efraín, 1.2.840.1 [id number] Univers 23:59:59 23:59:59 Event Teri 04684.1.1 ity of 3.412.2.7 [place] .3.469008 MD Mcnair8 [facility] 2021-11-04 2021-11-05 Outpatient nullFlavo MNA [id number] Memoria 20:30:00 05:59:59 r Neurology 16 l Yuly Young Harris 2021-11-04 2021-11-05 Outpatient nullFlavo MNA [id number] Memoria 20:30:00 05:59:59 [facility] 2021-11-05 2021-11-05 [facility] Hayley 1.2.840.1 [id number] [facility] 00:00:00 00:00:00 Joaquin 28905.1.1 ity of 3.412.2.7 [place] .3.770309 MD Mcnair8 [facility] 2021-11-04 2021-11-04 Outpatient ELOY Arreguin SANDRA [id number] 14:30:00 23:59:59 Eriberto 16 Simone 2021-11-04 2021-11-04 Outpatient SINGH WINTERS [id number] Karrioria 14:30:00 14:30:00 16 ulises Wise 2021-11-03 2021-11-03 Outpatient YOLANDA SOLANO [facility] [id number] 12:07:28 14:08:47 Jaswantfrank dunbar 2021-11-03 2021-11-03 Office Tani Hardy.2.840.1 [id number] [facility] 13:00:00 13:30:00 Visit Joaquin [id number] ity of 3.412.2.7 [place] .3.029310 .8 [facility] 2021-11-03 2021-11-03 Outpatient MARY JO HARDY [facility]I [facility] [id number] 12:25:47 12:25:47 JOAQUIN dunbar 2021-11-03 2021-11-03 Clinical Yolanda Mendez 1.2.840.1 [id number] [facility] 11:00:00 11:15:00 Support Julia Guzman 80279.1.1 ity of 3.412.2.7 [place] .3.950633 MD Mcnair8 [facility] 2021-11-03 2021-11-03 Outpatient YOLANDA SOLANO ARTI [facility] [id number] 09:58:06 10:41:07 Jaswant dunbar 2021-11-03 2021-11-03 Outpatient YOLANDA SOLANO ARTI [facility] [id number] 10:39:42 10:39:42 Jaswant o manjinder 2021-11-03 2021-11-03 Travel 1.2.840.1 1.2.526.364 [id number] [facility] 00:00:00 00:00:00 72695.1.1 350.1.13.41 ity of 3.412.2.[place].698 [place] 084.8 .8 [facility] 2021-10-31 2021-10-31 Anesthesia Rodney 1.2.840.1 [id number] [facility] 23:59:59 23:59:59 Event Porsha Martin 12685.1.1 it y of 3.412.2.7 [place] .3.311268 MD Bustamante [facility] 2021-10-31 2021-10-31 PRABHUFREDRICK Hardy, 1.2.840.1 [id number] [facility] 13:00:00 14:00:00 Appointmen Joaquin 94134.1.1 i ty of ts 3.412.2.7 [place] .3.401476 [facility] 2021-10-31 2021-10-31 Outpatient YOLANDA SOLANO MDA MDA [id number] 12:00:54 12:00:54 Jaswant dunbar 2021-10-31 2021-10-31 Outpatient MARY JO HARDY MDA MDA [id number] 12:00:41 12:00:41 JOAQUIN dunbar 2021-10-31 2021-10-31 Consult Yolanda Mendez 1.2.840.1 [id number] [facility] 11:15:00 12:00:00 Hemant Santiago 91529.1.1 it y of 3.412.2.7 [place] .3.693405 MD Bustamante [facility] 2021-10-31 2021-10-31 Travel 1.2.840.1 1.2.970.897 [id number] [facility] 00:00:00 00:00:00 78700.1.1 350.1.13.41 ity of 3.412.2.7 [place].698 [place]3.87[place] 084.8 MD Dianna dunbar [facility] 2021-10-29 2021-10-29 Ancillary Yolanda Mendez 1.2.840.1 [id number] Univers 14:10:00 16:35:00 Procedure 79937.1.1 it y of 3.412.2.7 [place] .3.388670 MD Dianna dunbar [facility] 2021-10-29 2021-10-29 Outpatient YOLANDA SOLANO MDA MDA [id number] 13:45:39 13:45:39 Jaswant o n 2021-10-29 2021-10-29 Travel 1.2.840.1 1.2.310.614 [id number] [facility] 00:00:00 00:00:00 37903.1.1 350.1.13.41 ity of 3.412.2.7 [place].3.698 [place] .3.467753 084.8 .8 [facility] 2021-10-28 2021-10-28 Telephone Arlette, 1.2.840.1 [id number] [facility] 00:00:00 00:00:00 Kristi C 73830.1.1 ity of 3.412.2.7 [place] .3.744964 .8 [facility] 2021-10-27 2021-10-27 Ancillary Iliescu, 1.2.840.1 [id number] [facility] 20:05:00 20:10:00 Procedure Soumya 42398.1.1 it y of 3.412.2.7 [place] .3.082818 .8 [facility] 2021-10-27 2021-10-27 Ancillary Iliescu, 1.2.840.1 [id number] [facility] 20:00:00 20:05:00 Procedure Soumya 83818.1.1 it y of 3.412.2.7 [place] .3.971808 .8 [facility] 2021-10-27 2021-10-27 Outpatient EL YOLANDA MENDEZ MDA MDA [id number] 11:28:36 11:49:36 Jaswant dunbar 2021-10-27 2021-10-27 Outpatient EL ILIESMAX MDA MDA [id number] 10:57:19 10:57:19 SOUMYA dunbar 2021-10-27 2021-10-27 Outpatient EL ILIESCU, MDA MDA [id number] 10:57:15 10:57:15 SOUMYA dunbar 2021-10-27 2021-10-27 Office [facility], 1.2.840.1 [id number] [facility] 09:00:00 10:00:00 Visit Joaquin 20460.1.1 ity of 3.412.2.7 [place] .3.536368 MD Mcnair8 [facility] 2021-10-27 2021-10-27 Outpatient MARY JO HARDY ARTI MDA [id number] MD 09:35:48 09:35:48 JOAQUIN Garfrank castillo 2021-10-27 2021-10-27 Outpatient MARY JO CHI [facility] [id number] MD 09:17:27 09:17:36 Jaswant [facility] 2021-10-27 2021-10-27 NPR 1.2.840.1 [id number] Univers 08:30:00 09:17:36 06622.1.1 ity of 3.412.2.7 [place] .3.966191 MD Mcnair8 [facility] 2021-10-27 2021-10-27 Prep for Madison Mendezna 1.2.840.1 [id number] [facility] 00:00:00 00:00:00 Surgery 49305.1.1 ity of 3.412.2.7 [place] .3.097179 MD Mcnair8 [facility] 2021-10-27 2021-10-27 Travel 1.2.840.1 1.2.266.311 [id number] [facility] 00:00:00 00:00:00 05508.1.1 350.1.13.41 ity of 3.412.2.7 [place].3.698 [place]3.240107 084.8 MD Mcnair8 [facility] 2021-10-01 2021-10-01 Ambulatory nullFlavo MNA [id number] Memoria 20:30:00 20:30:00 Pre-Reg r Neurology 15 l Yuly Wise 2021-10-01 2021-10-01 Ambulatory nullFlavo MNA [id number] Mem[facility] 20:30:00 20:30:00 Pre-Reg r Neurology 15 l Yuly Wise 2021-10-01 2021-10-01 Outpatient MHIE MHIE [id number] [facility]oria 14:30:00 14:30:00 15 ulises Wise 2021-10-01 2021-10-01 [id number] 14:30:00 14:30:00 Eriberto 15 Simone 2021-09-05 2021-09-06 Outpatient nullFlavo MNA [id number] Mem[facility] 20:45:00 05:59:59 r Neurology 14 l Yuly Wise 2021-09-05 2021-09-06 Outpatient nullFlavo MNA [id number] Memoria 20:45:00 05:59:59 r Neurology 14 ulises Wise 2021-09-05 2021-09-05 Outpatient [facility]epa [facility] [id number] 14:45:00 23:59:59 Eriberto 14 Simone 2021-09-05 2021-09-05 Outpatient MHIE MHIE [id number] Memoria 14:45:00 14:45:00 14 ulises Wise 2021-08-01 2021-08-02 Outpatient nullFlavo MNA [id number] Memoria 16:45:00 04:59:59 r Neurology 12 l Yuly Wise 2021-08-01 2021-08-02 Outpatient nullFlavo MNA [id number] Memoria 16:45:00 04:59:59 r Neurology 12 ulises Wise 2021-08-01 2021-08-01 Outpatient Rodríguez [facility] [id number] 11:45:00 23:59:59 Eriberto 12 Simone 2021-08-01 2021-08-01 Outpatient MHIE MHIE [id number] Memoria 11:45:00 11:45:00 12 ulises Wise 2021-07-22 2021-07-22 Ambulatory nullFlavo MNA [id number] Memoria 14:45:00 14:45:00 Pre-Reg r Neurology 13 ulises Albertann 2021-07-22 2021-07-22 Ambulatory nullFlavo MNA [id number] Memoria 14:45:00 14:45:00 Pre-Reg r Neurology 13 l Yuly Albertann 2021-07-22 2021-07-22 Outpatient MHIE MHIE [id number] Memoria 09:45:00 09:45:00 13 l Frandy 2021-07-22 2021-07-22 [facility] [id number] 09:45:00 09:45:00 Eriberto 13 Simone 2021-06-26 2021-06-27 Outpatient nullFlavo MNA [id number] Mem[facility] 18:00:00 04:59:59 r Neurology 11 l Yuly Wise 2021-06-26 2021-06-27 Outpatient nullFlavo MNA [id number] Memoria 18:00:00 04:59:59 r Neurology 11 l Yuly Wise 2021-06-26 2021-06-26 Out[facility] [id number] 13:00:00 23:59:59 Eriberto 11 Simone 2021-06-26 2021-06-26 Outpatient MHIE MHIE [id number] Memoria 13:00:00 13:00:00 11 ulises Wise 2021-06-25 2021-06-25 Outpatient MHIE MHIE [id number] Memoria 14:15:00 14:15:00 10 ulises Wise 2021-06-25 2021-06-25 Outpatient MHIE MHIE [id number] Memoria 14:15:00 14:15:00 10 ulises Wise 2021-06-23 2021-06-23 Ambulatory nullFlavo MNA [id number] Memoria 19:30:00 19:30:00 Pre-Reg r Neurology 10 l Yuly Albertann 2021-06-23 2021-06-23 Out[facility] [id number] 14:30:00 14:30:00 Eriberto 10 Simone 2021-04-22 2021-04-23 Outpatient nullFlavo MNA [id number] Memoria 16:30:00 04:59:59 r Neurology 08 ulises Albertann 2021-04-22 2021-04-23 Outpatient nullFlavo MNA [id number] Memoria 16:30:00 04:59:59 r Neurology 08 l Yuly Albertann 2021-04-22 2021-04-22 Outpatient [facility] [id number] 11:30:00 23:59:59 Eriberto 08 Simone 2021-04-22 2021-04-22 Outpatient MHIE MHIE [id number] Memoria 11:30:00 11:30:00 08 ulises Frandy 2021-03-25 2021-03-25 Outpatient MHIE MHIE [id number] Memoria 17:00:00 17:00:00 09 ulises Frandy 2021-03-25 2021-03-25 Outpatient MHIE MHIE [id number] Memoria 17:00:00 17:00:00 09 ulises Young Harris 2021-03-11 2021-03-12 Outpatient nullFlavo MNA [id number] Memoria 18:00:00 04:59:59 r Neurology 07 l Yuly Young Harris 2021-03-11 2021-03-12 Outpatient nullFlavo MNA [id number] Memoria 18:00:00 04:59:59 r Neurology 07 l Lincoln Young Harris 2021-03-11 2021-03-11 Outpatient Rodríguez [facility] [id number] 13:00:00 23:59:59 Eriberto Abdon Nichols 2021-03-11 2021-03-11 Outpatient MHIE MHIE [id number] Memoria 13:00:00 13:00:00 07 ulises Young Harris 2021-03-07 2021-03-09 Observatio nullFlavo [id number] Memoria 18:23:48 19:55:00 n nora Wise 03 [facility] 2021-03-07 2021-03-09 Observatio nullFlavo [facility] [id number] Memoria 18:23:48 19:55:00 n nora Wise 03 [facility] 2021-03-07 2021-03-09 Outpatient E SMART, [id number] 22:09:00 14:55:00 CALLUM 2021-03-07 2021-03-09 Outpatient Smart, [facility] [id number] 13:23:48 14:55:00 Callum Kedar 2021-03-07 2021-03-09 Outpatient Smart, [facility] [id number] 13:23:48 14:55:00 Callum Kedar 2021-02-25 2021-02-26 Outpatient nullFlavo MNA [id number] Memoria 20:00:00 04:59:59 r Neurology 04 l Yuly Wise 2021-02-25 2021-02-26 Outpatient nullFlavo MNA [id number] Memoria 20:00:00 04:59:59 r Neurology 04 l Yuly Wise 2021-02-25 2021-02-25 [facility] [id number] 15:00:00 23:59:59 Eriberto Jimi Nichols 2021-02-25 2021-02-25 Outpatient MHIE MHIE [id number] Memoria 15:00:00 15:00:00 04 ulises Wise 2021-02-11 2021-02-11 Ambulatory nullFlavo MNA [id number] Memoria 21:00:00 21:00:00 Pre-Reg r Neurology 06 l Yuly Wise 2021-02-11 2021-02-11 Ambulatory nullFlavo MNA [id number] Memoria 21:00:00 21:00:00 Pre-Reg r Neurology 06 l Lincolnlorenzo Albertann 2021-02-11 2021-02-11 Outpatient MHIE MHIE [id number] Memoria 16:00:00 16:00:00 06 ulises AlbertYoung Harris 2021-02-11 2021-02-11 [facility] [id number] 16:00:00 16:00:00 Eriberto Vanita Nichols 2021-01-29 2021-01-30 Outpatient nullFlavo MNA [id number] Memoria 15:30:00 04:59:59 r Neurology 05 l Yuly Albertann 2021-01-29 2021-01-30 Outpatient nullFlavo MNA [id number] Memoria 15:30:00 04:59:59 r Neurology 05 l Yuly Albertann 2021-01-29 2021-01-29 [facility] [id number] 10:30:00 23:59:59 Eriberto Jocelyn Nichols 2021-01-29 2021-01-29 Outpatient MHIE MHIE [id number] Memoria 10:30:00 10:30:00 05 ulises Frandy 2021-01-13 2021-01-14 Outpatient nullFlavo MNA [id number] Memoria 14:15:00 04:59:59 r Neurology 03 l Yuly Young Harris 2021-01-13 2021-01-14 Outpatient nullFlavo MNA [id number] Memoria 14:15:00 04:59:59 r Neurology 03 l Yuly Young Harris 2021-01-13 2021-01-13 [id number] 09:15:00 23:59:59 Eriberto Marcela Nichols 2021-01-13 2021-01-13 Outpatient MHIE MHIE [id number] Memoria 09:15:00 09:15:00 03 l Young Harris 2018-01-14 2018-01-14 Ambulatory nullFlavo MNA [id number] Memoria 18:15:00 18:15:00 Pre-Reg r Neurosurger 01 l y [facility] 2018-01-14 2018-01-14 Ambulatory nullFlavo MNA [id number] Memoria 18:15:00 18:15:00 Pre-Reg r Neurosurger 01 l y [facility] 2018-01-14 2018-01-14 Outpatient MHIE MHIE [id number] Memoria 13:15:00 13:15:00 01 [facility] 2018-01-14 2018-01-14 Outpatient Kam Carver [facility] [id number] 13:15:00 13:15:00 [facility] 2018-01-07 2018-01-09 Phone nullFlavo MNA [id number] Memoria 20:33:00 04:59:59 Message r Neurosurger 09 l y [facility] 2018-01-07 2018-01-09 Phone nullFlavo MNA [id number] Memoria 20:33:00 04:59:59 Message r Neurosurger 09 l y [facility] 2018-01-07 2018-01-08 [facility] [id number] 15:33:00 23:59:59 09 2017-12-29 2017-12-31 Phone nullFlavo MNA [id number] Memoria 14:50:00 04:59:59 Message r Neurosurger 08 l y [facility] 2017-12-29 2017-12-31 Phone nullFlavo MNA [id number] Memoria 14:50:00 04:59:59 Message r Neurosurger 08 l y [facility] 2017-12-29 2017-12-31 Phone nullFlavo MNA [id number] Memoria 14:48:00 04:59:59 Message r Neurosurger 07 l y [facility] 2017-12-29 2017-12-31 Phone nullFlavo MNA [id number] Memoria 14:48:00 04:59:59 Message r Neurosurger 07 l y [facility] 2017-12-29 2017-12-30 Outpatient [facility] M[facility] [id number] 09:50:00 23:59:59 08 2017-12-29 2017-12-30 Outpatient M[facility]ER M[facility] [id number] 09:48:00 23:59:59 07 2017-12-27 2017-12-29 Phone nullFlavo MNA [id number] Memoria 13:20:00 04:59:59 Message r Neurosurger 06 l y [facility] 2017-12-27 2017-12-29 Phone nullFlavo MNA [id number] Memoria 13:20:00 04:59:59 Message r Neurosurger 06 l y [facility] 2017-12-27 2017-12-28 Outpatient [facility] M[facility] [id number] 08:20:00 23:59:59 06 2017-05-14 2017-05-15 Outpt Diag nullFlavo [facility] [id number] Memoria 20:31:00 04:59:00 Services r Outpatient 00 l Imaging [facility] 2017-05-14 2017-05-15 Outpt Diag nullFlavo [facility] [id number] Memoria 20:31:00 04:59:00 Services r Outpatient 00 l Imaging [facility] 2017-05-14 2017-05-14 [id number] 15:31:00 23:59:00 Jose Wheeler 2017-05-07 2017-05-07 Outpatient MHIE MHIE [id number] Memoria 08:30:00 08:30:00 00 ulises Wise 2017-05-07 2017-05-07 Outpatient MHIE MHIE [id number] Memoria 08:30:00 08:30:00 00 ulises Wise 2017-03-26 2017-03-27 Emergency nullFlavo [facility] [id number] [facility] 19:12:00 01:22:00 r Frandy 02 [facility] 2017-03-26 2017-03-27 [facility] [id number] Memoria 19:12:00 01:22:00 r Young Harris 02 [facility] 2017-03-26 2017-03-26 Outpatient [facility] [id number] 14:12:00 20:22:00 Jason Araya Results Test Description Test Time Test Comments Results Result Comments Source CHEM PANEL 2022-06-25 19:17:00 Test Item Value Reference Range Interpretation Comme nts BUN (test code = BUN) 20 7- [facility]2022-09-29 19:17:00 Test Item Value Reference Range Interpretation Comments Creatinine Lvl (test code = Creatinine 0.67 0.50-0.97 Lvl) [facility]2022-09-29 19:17:00 Test Item Value Reference Range Interpretation Comments eGFR (test code = eGFR) 118 [facility]2022-09-29 19:17:00 Test Item Value Reference Range Interpretation Comments B/C Ratio (test code = B/C NOT APPLICABLE 6-22 Ratio) [facility]76[facility]-70 19:17:00 Test Item Value Reference Range Interpretation Comments Sodium Lvl (test code = Sodium Lvl) 141 135-146 [facility]rrdgivETXAQWXOMWTY8668-70-27 19:17:00 Test Item Value Reference Range Interpretation Comments Potassium Lvl (test code = Potassium 3.9 3.5-5.3 Lvl) [facility]dqlqkrDWFVEMRAAQCS4676-43-67 19:17:00 Test Item Value Reference Range Interpretation Comments Chloride Lvl (test code = Chloride Lvl) 110 98-110 [place] 300112-09-29 19:17:00 Test Item Value Reference Range Interpretation Comments CO2 (test code = CO2) 24 - [facility]desjbhBSPSMKWMRS3982-53-26 19:17:00 Test Item Value Reference Range Interpretation Comments WBC X 10x3 (test code = WBC X 10x3) 6.4 3.8-10.8 [facility] CenterPigponqLRBMLCCDCI8123-04-25 19:17:00 Test Item Value Reference Range Interpretation Comments RBC X 10x6 (test code = RBC X 10x6) 4.89 3.80-5.10 [facility] CenterGhdoiquDSUQLRHRVC4021-83-62 19:17:00 Test Item Value Reference Range Interpretation Comments Hgb (test code = Hgb) 11.2 11.7-15.5 [facility] CenterBiwyxfoNRPPJOMQVQ2829-37-97 19:17:00 Test Item Value Reference Range Interpretation Comments Hct (test code = Hct) 35.3 35.0-45.0 [facility] CenterJodxkfcOLSNLVSBUM9867-45-42 19:17:00 Test Item Value Reference Range Interpretation Comments MCV (test code = MCV) 72.2 80.0-100.0 [facility] CenterIicwlbaBBWOMRMTFW2574-74-59 19:17:00 Test Item Value Reference Range Interpretation Comments MCH (test code = MCH) 22.9 pg 27.0-33.0 [facility] CenterEhwcuirQINRZWXIMM3416-38-99 19:17:00 Test Item Value Reference Range Interpretation Comments MCHC (test code = MCHC) 31.7 32.0-36.0 [facility] CenterRzqltuvYFAFWDPNKC0938-81-40 19:17:00 Test Item Value Reference Range Interpretation Comments RDW (test code = RDW) 15.7 11.0-15.0 [facility] CenterBzwgbjvMEEQTWQBRS3848-84-33 19:17:00 Test Item Value Reference Range Interpretation Comments Platelet (test code = Platelet) 274 140-400 [facility] CenterJowcaorWEZHHQBTDI5956-06-24 19:17:00 Test Item Value Reference Range Interpretation Comments MPV (test code = MPV) 11.7 7.5-12.5 [facility] CenterWftyrouIBASKFTUQX5490-75-36 19:17:00 Test Item Value Reference Range Interpretation Comments Neutrophils # (test code = Neutrophils 3654 0041-8778 #) [facility] CenterNktvftlRVBINPXBJX3602-40-55 19:17:00 Test Item Value Reference Range Interpretation Comments Lymphocytes # (test code = Lymphocytes 5283 850-3900 #) [facility] CenterYdprupkMMFELRXLGE4785-46-93 19:17:00 Test Item Value Reference Range Interpretation Comments Monocytes # (test code = Monocytes #) 390 200-950 [facility] CenterRvpqzhoPNHLGPMRQV4050-19-13 19:17:00 Test Item Value Reference Range Interpretation Comments Eosinophils # (test code = Eosinophils 70 15-500 #) [facility] CenterKrgzwzyNDBNSYHCUM8749-45-55 19:17:00 Test Item Value Reference Range Interpretation Comments Basophils # (test code 32 See_Comment [Aut omated message] The = Basophils #) system which generated this result tra nsmitted reference range : <=200. The reference r mariah was not used to int erpret this result as normal/abnormal . [facility] CenterXdvedpzVJXZILCTMT5565-03-16 19:17:00 Test Item Value Reference Range Interpretation Comments Segs (test code = Segs) 57.1 [facility] CenterWicynixWFAQAWPHZX1119-92-20 19:17:00 Test Item Value Reference Range Interpretation Comments Lymphocytes (test code = Lymphocytes) 35.2 [place] 555672-09-29 19:17:00 Test Item Value Reference Range Interpretation Comments Monocytes (test code = Monocytes) 6.1 [facility] CenterTkqzhiaXQLWKIFIZT5976-38-15 19:17:00 Test Item Value Reference Range Interpretation Comments Eosinophils (test code = Eosinophils) 1.1 [place] 555672-09-29 19:17:00 Test Item Value Reference Range Interpretation Comments Basophils (test code = Basophils) 0.5 [place] 555672-09-29 19:17:00 Test Item Value Reference Range Interpretation Comments Sed Rate (test code = Sed Rate) 11 [facility]2022-09-29 19:17:00 Test Item Value Reference Range Interpretation Comments BUN (test code = BUN) 20 7-25 [facility]2022-09-29 19:17:00 Test Item Value Reference Range Interpretation Comments Creatinine Lvl (test code = Creatinine 0.67 0.50-0.97 Lvl) [facility]2022-09-29 19:17:00 Test Item Value Reference Range Interpretation Comments eGFR (test code = eGFR) 118 [place] 255412-09-29 19:17:00 Test Item Value Reference Range Interpretation Comments B/C Ratio (test code = B/C NOT APPLICABLE 6-22 Ratio) [place] 300112-09-29 19:17:00 Test Item Value Reference Range Interpretation Comments Sodium Lvl (test code = Sodium Lvl) 141 135-146 [place] 300112-09-29 19:17:00 Test Item Value Reference Range Interpretation Comments Potassium Lvl (test code = Potassium 3.9 3.5-5.3 Lvl) [place] 300112-09-29 19:17:00 Test Item Value Reference Range Interpretation Comments Chloride Lvl (test code = Chloride Lvl) 110 98-110 [facility] HospitalRjaxsejLKNIESWTOPWI2112-94-65 19:17:00 Test Item Value Reference Range Interpretation Comments CO2 (test code = CO2) 24 20-32 [facility] CenterFfklyccDSAKYDMEXB4602-01-99 19:17:00 Test Item Value Reference Range Interpretation Comments WBC X 10x3 (test code = WBC X 10x3) 6.4 3.8-10.8 [facility] CenterRniuzinKXPMHUFNXI5760-91-92 19:17:00 Test Item Value Reference Range Interpretation Comments RBC X 10x6 (test code = RBC X 10x6) 4.89 3.80-5.10 [facility] CenterBpvozrfAZTOYKKRYT8139-95-90 19:17:00 Test Item Value Reference Range Interpretation Comments Hgb (test code = Hgb) 11.2 11.7-15.5 [facility] CenterIlopfqmCMGRFNKFLD1316-17-14 19:17:00 Test Item Value Reference Range Interpretation Comments Hct (test code = Hct) 35.3 35.0-45.0 [facility] CenterMcvenhgTCIQPOGVDW6358-71-66 19:17:00 Test Item Value Reference Range Interpretation Comments MCV (test code = MCV) 72.2 80.0-100.0 [facility] CenterYerbhbyIJEWNJXTIG5886-12-42 19:17:00 Test Item Value Reference Range Interpretation Comments MCH (test code = MCH) 22.9 pg 27.0-33.0 [facility] CenterFsmktouXBLRWAVFVW3351-49-04 19:17:00 Test Item Value Reference Range Interpretation Comments MCHC (test code = MCHC) 31.7 32.0-36.0 [facility] CenterQvpyglwWZNIHYYKND8645-46-96 19:17:00 Test Item Value Reference Range Interpretation Comments RDW (test code = RDW) 15.7 11.0-15.0 [facility] CenterEbtcpkjDYMYHTIFBL9027-88-22 19:17:00 Test Item Value Reference Range Interpretation Comments Platelet (test code = Platelet) 274 140-400 [facility] CenterUvywcrfOMXIDPXQHV6003-10-71 19:17:00 Test Item Value Reference Range Interpretation Comments MPV (test code = MPV) 11.7 7.5-12.5 [facility] CenterZednvskWMQVJJODSD0110-96-52 19:17:00 Test Item Value Reference Range Interpretation Comments Neutrophils # (test code = Neutrophils 3654 6671-8183 #) [facility] CenterPelvbwgUQPLNGZBPG7515-29-91 19:17:00 Test Item Value Reference Range Interpretation Comments Lymphocytes # (test code = Lymphocytes 2253 850-3900 #) [facility] CenterDmcuvcqDXALCMCDOW9039-11-36 19:17:00 Test Item Value Reference Range Interpretation Comments Monocytes # (test code = Monocytes #) 390 200-950 [facility] CenterPhxwhnfWTXIYRPFKF9620-26-69 19:17:00 Test Item Value Reference Range Interpretation Comments Eosinophils # (test code = Eosinophils 70 15-500 #) [facility] CenterUzgsqguBZUKAXBRLC7623-48-15 19:17:00 Test Item Value Reference Range Interpretation Comments Basophils # (test code 32 See_Comment [Aut omated message] The = Basophils #) system which generated this result tra nsmitted reference range : <=200. The reference r mariah was not used to int erpret this result as normal/abnormal . [facility] CenterPepadimBXKDZSVFFC6312-39-52 19:17:00 Test Item Value Reference Range Interpretation Comments Segs (test code = Segs) 57.1 [facility] CenterXxsrqruCFUTXDHGLS3440-97-01 19:17:00 Test Item Value Reference Range Interpretation Comments Lymphocytes (test code = Lymphocytes) 35.2 [facility] CenterWgpnowwIWDFCQXDPM3037-01-28 19:17:00 Test Item Value Reference Range Interpretation Comments Monocytes (test code = Monocytes) 6.1 [facility] CenterZbrkumcKHSDLCHILI8274-15-91 19:17:00 Test Item Value Reference Range Interpretation Comments Eosinophils (test code = Eosinophils) 1.1 [facility] CenterVkpioerHWIXBEITTQ8205-97-12 19:17:00 Test Item Value Reference Range Interpretation Comments Basophils (test code = Basophils) 0.5 [place] 555672-09-29 19:17:00 Test Item Value Reference Range Interpretation Comments Sed Rate (test code = Sed Rate) 11 [facility]2022-03-26 06:56:00 Test Item Value Reference Range Interpretation Comments Tube Num CSF (test code = Tube Num CSF) 4 1 [facility]2022-03-26 06:56:00 Test Item Value Reference Range Interpretation Comments Color CSF (test code Colorless (12/20/21 1:56 = Color CSF) AM) [facility]2022-03-26 06:56:00 Test Item Value Reference Range Interpretation Comments Clarity CSF (test code = Clear (12/20/21 1:56 Clarity CSF) AM) [place] 159142-03-26 06:56:00 Test Item Value Reference Range Interpretation Comments Supernat CSF (test Colorless (12/20/21 1:56 code = Supernat CSF) AM) [facility]2022-03-26 06:56:00 Test Item Value Reference Range Interpretation Comments Nucleated Cells CSF 2 See_Comment [Automa ana laura message] The (test code = Nucleated syste m which generated Cells CSF) this result tra nsmitted reference range : <=53. The reference r mariah was not used to int erpret this result as normal/abnormal . [facility]2022-03-26 06:56:00 Test Item Value Reference Range Interpretation Comments RBC CSF (test code = 560 See_Comment [Autom ated message] The RBC CSF) system which ge nerated this result transmit ana laura reference range : <=03. The reference range was not used to interpr et this result as lola l/abnormal. [facility]2022-03-26 06:56:00 Test Item Value Reference Range Interpretation Comments Comment CSF (test Differential not code = Comment CSF) performed on WBC count of less than 5. [facility]2022-03-26 06:56:00 Test Item Value Reference Range Interpretation Comments Tube Num CSF (test code = Tube Num CSF) 1 1 [place] 159142-03-26 06:56:00 Test Item Value Reference Range Interpretation Comments Color CSF (test code Colorless (12/20/21 1:56 = Color CSF) AM) [place] 159142-03-26 06:56:00 Test Item Value Reference Range Interpretation Comments Clarity CSF (test code = Clear (12/20/21 1:56 Clarity CSF) AM) [place] 159142-03-26 06:56:00 Test Item Value Reference Range Interpretation Comments Supernat CSF (test Colorless (12/20/21 1:56 code = Supernat CSF) AM) [place] 159142-03-26 06:56:00 Test Item Value Reference Range Interpretation Comments Nucleated Cells CSF 2 See_Comment [Automa ana laura message] The (test code = Nucleated syste m which generated Cells CSF) this result tra nsmitted reference range : <=53. The reference r mariah was not used to int erpret this result as normal/abnormal . [facility] AHRQRD0928-11-07 06:56:00 Test Item Value Reference Range Interpretation Comments RBC CSF (test code = 680 See_Comment [Autom ated message] The RBC CSF) system which ge nerated this result transmit ana laura reference range : <=03. The reference range was not used to interpr et this result as lola l/abnormal. [place] 159142-03-26 06:56:00 Test Item Value Reference Range Interpretation Comments Comment CSF (test Differential not code = Comment CSF) performed on WBC count of less than 5. [facility] [id number] 06:56:00 Test Item Value Reference Range Interpretation Comments Protein CSF (test code = Protein CSF) 110 15-45 [place] 159142-03-26 06:56:00 Test Item Value Reference Range Interpretation Comments Glucose CSF (test code = Glucose CSF) 54 45-80 [place] 159142-03-26 06:56:00 Test Item Value Reference Range Interpretation Comments Tube Num CSF (test code = Tube Num CSF) 4 1 [facility] [id number] 06:56:00 Test Item Value Reference Range Interpretation Comments Color CSF (test code Colorless (12/20/21 1:56 = Color CSF) AM) [place] 159142-03-26 06:56:00 Test Item Value Reference Range Interpretation Comments Clarity CSF (test code = Clear (12/20/21 1:56 Clarity CSF) AM) [place] 159142-03-26 06:56:00 Test Item Value Reference Range Interpretation Comments Supernat CSF (test Colorless (12/20/21 1:56 code = Supernat CSF) AM) [place] 159142-03-26 06:56:00 Test Item Value Reference Range Interpretation Comments Nucleated Cells CSF 2 See_Comment [Automa ana laura message] The (test code = Nucleated syste m which generated Cells CSF) this result tra nsmitted reference range : <=53. The reference r maraih was not used to int erpret this result as normal/abnormal . [facility] [id number] 06:56:00 Test Item Value Reference Range Interpretation Comments RBC CSF (test code = 560 See_Comment [Autom ated message] The RBC CSF) system which ge nerated this result transmit ana laura reference range : <=03. The reference range was not used to interpr et this result as lola l/abnormal. [facility] Test Item Value Reference Range Interpretation Comments Comment CSF (test Differential not code = Comment CSF) performed on WBC count of less than 5. [facility]AAIV2566[facility]-19 06:56:00 Test Item Value Reference Range Interpretation Comments Tube Num CSF (test code = Tube Num CSF) 1 1 [facility]LXYTH1275[facility]22-00 06:56:00 Test Item Value Reference Range Interpretation Comments Color CSF (test code Colorless (12/20/21 1:56 = Color CSF) AM) [facility]KXQVH1608[facility]33-28 06:56:00 Test Item Value Reference Range Interpretation Comments Clarity CSF (test code = Clear (12/20/21 1:56 Clarity CSF) AM) [facility]GYAZ7918[facility]-51 06:56:00 Test Item Value Reference Range Interpretation Comments Supernat CSF (test Colorless (12/20/21 1:56 code = Supernat CSF) AM) [facility]OMOWT4624-00-86 06:56:00 Test Item Value Reference Range Interpretation Comments Nucleated Cells CSF 2 See_Comment [Automa ana laura message] The (test code = Nucleated syste m which generated Cells CSF) this result tra nsmitted reference range : <=53. The reference r mariah was not used to int erpret this result as normal/abnormal . [facility]ASZRVK7279-35-88 06:56:00 Test Item Value Reference Range Interpretation Comments RBC CSF (test code = 680 See_Comment [Autom ated message] The RBC CSF) system which ge nerated this result transmit ana laura reference range : <=03. The reference range was not used to interpr et this result as lola l/abnormal. [facility]RRYWI4068-27-10 06:56:00 Test Item Value Reference Range Interpretation Comments Comment CSF (test Differential not code = Comment CSF) performed on WBC count of less than 5. [facility]ZRHUL9905-79-18 06:56:00 Test Item Value Reference Range Interpretation Comments Protein CSF (test code = Protein CSF) 110 15-45 [facility] XVUILR1188-37-09 06:56:00 Test Item Value Reference Range Interpretation Comments Glucose CSF (test code = Glucose CSF) 54 45-80 [facility] JYQVP6087-87-06 19:55:00 Test Item Value Reference Range Interpretation Comments Glucose Lvl (test code = Glucose Lvl) 93 70-99 [facility] EULZI4217-54-44 19:55:00 Test Item Value Reference Range Interpretation Comments BUN (test code = BUN) 9 7-22 [facility]2022-03-25 19:55:00 Test Item Value Reference Range Interpretation Comments Creatinine Lvl (test code = Creatinine 0.51 0.50-1.40 Lvl) [facility] CETMF6969-19-27 19:55:00 Test Item Value Reference Range Interpretation Comments Sodium Lvl (test code = Sodium Lvl) 141 135-145 [facility]2022-03-25 19:55:00 Test Item Value Reference Range Interpretation Comments Potassium Lvl (test code = Potassium 3.9 3.5-5.1 Lvl) [facility]2022-03-25 19:55:00 Test Item Value Reference Range Interpretation Comments Chloride Lvl (test code = Chloride Lvl) 111 95-109 [facility]2022-03-25 19:55:00 Test Item Value Reference Range Interpretation Comments CO2 (test code = CO2) 22 24-32 [facility]2022-03-25 19:55:00 Test Item Value Reference Range Interpretation Comments Calcium Lvl (test code = Calcium Lvl) 8.9 8.5-10.5 [facility]2022-03-25 19:55:00 Test Item Value Reference Range Interpretation Comments AGAP (test code = AGAP) 11.9 10.0-20.0 [facility]2022-03-25 19:55:00 Test Item Value Reference Range Interpretation Comments eGFR (test code = eGFR) 126 [facility]CjnsofwJLGSMQPUOCNHU2034-60-12 19:55:00 Test Item Value Reference Range Interpretation Comments hCG Tot (test code = hCG Tot) no gt [facility] HospitalJudighsNUPBGLFXVP2541-28-11 19:55:00 Test Item Value Reference Range Interpretation Comments WBC X 10x3 (test code = WBC X 10x3) 4.7 3.7-10.4 [place] [address]-03-25 19:55:00 Test Item Value Reference Range Interpretation Comments RBC X 10x6 (test code = RBC X 10x6) 4.91 4.20-5.40 [place] 555672-03-25 19:55:00 Test Item Value Reference Range Interpretation Comments Hgb (test code = Hgb) 11.9 12.0-16.0 [place] [address]-03-25 19:55:00 Test Item Value Reference Range Interpretation Comments Hct (test code = Hct) 36.5 36.0-48.0 [place] [address]-03-25 19:55:00 Test Item Value Reference Range Interpretation Comments MCV (test code = MCV) 74.3 80.0-98.0 [place] [address]-03-25 19:55:00 Test Item Value Reference Range Interpretation Comments MCH (test code = MCH) 24.3 pg 27.0-31.0 [facility]gjkvdpXOOQRPQXEO8171-83-10 19:55:00 Test Item Value Reference Range Interpretation Comments MCHC (test code = MCHC) 32.7 32.0-36.0 [facility] CenterSlizceqTPIZOPIRRW6255-50-48 19:55:00 Test Item Value Reference Range Interpretation Comments RDW (test code = RDW) 14.9 11.5-14.5 [facility] CenterYtxntviYHGCSYDWSM4966-61-05 19:55:00 Test Item Value Reference Range Interpretation Comments Platelet (test code = Platelet) 211 133-450 [facility] CenterQcqtqxnKBONKJYJJM5940-26-82 19:55:00 Test Item Value Reference Range Interpretation Comments MPV (test code = MPV) 9.8 7.4-10.4 [place] [address]-03-25 19:55:00 Test Item Value Reference Range Interpretation Comments Segs (test code = Segs) 59.2 45.0-75.0 [place] [address]-03-25 19:55:00 Test Item Value Reference Range Interpretation Comments Lymphocytes (test code = Lymphocytes) 33.2 20.0-40.0 [place] 555672-03-25 19:55:00 Test Item Value Reference Range Interpretation Comments Monocytes (test code = Monocytes) 5.7 2.0-12.0 [place] 555672-03-25 19:55:00 Test Item Value Reference Range Interpretation Comments Neutrophils # (test code = Neutrophils 2.8 1.5-8.1 #) [place] [address]-03-25 19:55:00 Test Item Value Reference Range Interpretation Comments Lymphocytes # (test code = Lymphocytes 1.6 1.0-5.5 #) [place] [address]-03-25 19:55:00 Test Item Value Reference Range Interpretation Comments Monocytes # (test code 0.3 See_Comment [Aut omated message] The = Monocytes #) system which generated this result tra nsmitted reference range : <=0.8. The reference r mariah was not used to int erpret this result as normal/abnormal . [place] [address]-03-25 19:55:00 Test Item Value Reference Range Interpretation Comments Microcyte (test code = 1+ *ABN*(12/19/21 Microcyte) 2:55 PM) [address]03-25 19:55:00 Test Item Value Reference Range Interpretation Comments Glucose Lvl (test code = Glucose Lvl) 93 70-99 [place] 255412-03-25 19:55:00 Test Item Value Reference Range Interpretation Comments BUN (test code = BUN) 9 7-22 [place] 255412-03-25 19:55:00 Test Item Value Reference Range Interpretation Comments Creatinine Lvl (test code = Creatinine 0.51 0.50-1.40 Lvl) [place] 255412-03-25 19:55:00 Test Item Value Reference Range Interpretation Comments Sodium Lvl (test code = Sodium Lvl) 141 135-145 [place] 255412-03-25 19:55:00 Test Item Value Reference Range Interpretation Comments Potassium Lvl (test code = Potassium 3.9 3.5-5.1 Lvl) [place] 255412-03-25 19:55:00 Test Item Value Reference Range Interpretation Comments Chloride Lvl (test code = Chloride Lvl) 111 95-109 [place] [address]-03-25 19:55:00 Test Item Value Reference Range Interpretation Comments CO2 (test code = CO2) 22 24-32 [place] 255412-03-25 19:55:00 Test Item Value Reference Range Interpretation Comments Calcium Lvl (test code = Calcium Lvl) 8.9 8.5-10.5 [facility] OSFSA0633-57-45 19:55:00 Test Item Value Reference Range Interpretation Comments AGAP (test code = AGAP) 11.9 10.0-20.0 [facility] QQYTG4960-26-13 19:55:00 Test Item Value Reference Range Interpretation Comments eGFR (test code = eGFR) 126 [facility]kleJLXRKZAEEDXVF1707-18-03 19:55:00 Test Item Value Reference Range Interpretation Comments hCG Tot (test code = hCG Tot) no gt [facility] CenterQumorknJKGKFPFTKY1977-41-29 19:55:00 Test Item Value Reference Range Interpretation Comments WBC X 10x3 (test code = WBC X 10x3) 4.7 3.7-10.4 [facility] CenterSfsekqeIDFUJRUJWS1101-83-05 19:55:00 Test Item Value Reference Range Interpretation Comments RBC X 10x6 (test code = RBC X 10x6) 4.91 4.20-5.40 [facility] CenterErnkhsgVWHPMUBAJH8932-81-31 19:55:00 Test Item Value Reference Range Interpretation Comments Hgb (test code = Hgb) 11.9 12.0-16.0 [facility] CenterEokkhisVKGRZGQLUX3404-42-53 19:55:00 Test Item Value Reference Range Interpretation Comments Hct (test code = Hct) 36.5 36.0-48.0 [facility] CenterZkamipyPRXXMJUARL3882-30-03 19:55:00 Test Item Value Reference Range Interpretation Comments MCV (test code = MCV) 74.3 80.0-98.0 [facility] CenterXkjsdugNNFQPTHAPJ9927-63-11 19:55:00 Test Item Value Reference Range Interpretation Comments MCH (test code = MCH) 24.3 pg 27.0-31.0 [facility] CenterCfhbpwiZGTSJCNWJB1003-78-50 19:55:00 Test Item Value Reference Range Interpretation Comments MCHC (test code = MCHC) 32.7 32.0-36.0 [facility] CenterSolpbswSIXTEKZVXG3638-87-78 19:55:00 Test Item Value Reference Range Interpretation Comments RDW (test code = RDW) 14.9 11.5-14.5 [place] 555672-03-25 19:55:00 Test Item Value Reference Range Interpretation Comments Platelet (test code = Platelet) 211 133-450 [facility] CenterLsbttchTAUIPQPHUC3702-39-23 19:55:00 Test Item Value Reference Range Interpretation Comments MPV (test code = MPV) 9.8 7.4-10.4 [facility] CenterAvhuimdGRSAAIEYDJ7452-60-03 19:55:00 Test Item Value Reference Range Interpretation Comments Segs (test code = Segs) 59.2 45.0-75.0 [facility] CenterByoezxfCIMZEVFLPD5548-86-96 19:55:00 Test Item Value Reference Range Interpretation Comments Lymphocytes (test code = Lymphocytes) 33.2 20.0-40.0 [facility] CenterTcagmcjQHIJFRUURB1542-82-85 19:55:00 Test Item Value Reference Range Interpretation Comments Monocytes (test code = Monocytes) 5.7 2.0-12.0 [facility] CenterJiiyzsuSSYCIYPVJE9660-72-15 19:55:00 Test Item Value Reference Range Interpretation Comments Neutrophils # (test code = Neutrophils 2.8 1.5-8.1 #) [facility] CenterFavsjqxZTTGKYOISQ8518-03-34 19:55:00 Test Item Value Reference Range Interpretation Comments Lymphocytes # (test code = Lymphocytes 1.6 1.0-5.5 #) [facility] CenterExkgcyoXHLQJBUJQW0582-99-00 19:55:00 Test Item Value Reference Range Interpretation Comments Monocytes # (test code 0.3 See_Comment [Aut omated message] The = Monocytes #) system which generated this result tra nsmitted reference range : <=0.8. The reference r mariah was not used to int erpret this result as normal/abnormal . [facility] CenterFfdbjovXBSDRXWCXG3824-12-08 19:55:00 Test Item Value Reference Range Interpretation Comments Microcyte (test code = 1+ *ABN*(12/19/21 Microcyte) 2:55 PM) [facility] Stain Nkdpex1792-73-49 06:56:00 Test Item Value Reference Range Interpretation Comments Gram Stain Report Gram Stain Performed By: (test code = Gram [facility]) [facility]ram Ebepj5107-25-83 06:56:00 Test Item Value Reference Range Interpretation Comments Culture: CSF w/Gram 48 Hour Report - No Stain (test code = Growth, Holding Culture: CSF w/Gram Stain) [facility] Stain Pncbgu7661-93-84 06:56:00 Test Item Value Reference Range Interpretation Comments Gram Stain Report Gram Stain Performed By: (test code = Gram [facility] [place] Stain Report) [facility] w/Gram Ncvaw0133-47-39 06:56:00 Test Item Value Reference Range Interpretation Comments Culture: CSF w/Gram 48 Hour Report - No Stain (test code = Growth, Holding Culture: CSF w/Gram Stain) [facility] [employer] Aqubgotegeyodr2767-07-68 17:10:24 Test Item Value Reference Range Interpretation Comments Gross Description (test i3rgiDAmOLCcwAOAPPc code = 7690798514) wMFxhbnNpXHNwbHRwZ3 OkjfukAWjpLD4kSS9il NgzqIKlfLWwYC4HVKGf ZmYxXHBhcGVydzEyMjQ sVNRbnBRpkUG5UBEuBL 1hcmdsMTgwMFxtYXJnc kN8HBEdtLImL0JySFEo KK1qnatvLLX3CCwutS5 oyfNSVfuwXx7ruNEhkQ tcZjFcZmNoYXJzZXQwX UArfThzQSAmTSj6lH7Y KlqwE73se4S8Gua6JGO tVNHyG4AbPW2pRXEkyM AtY69PTfjrVXG4PYLLA zrqKNKsMS1Hn3amXFXm zNYuGSX0CPslvQMlZSF bEEEdGXt5DMUoCBrnnD KdGD2pfXvwGiyftTfic 2VjdCBcXGlkIDUxMDAy HKugCPAmZN7DFaJrSFX dAGd6OSCdOXy8UFi2RS 6GZkNrKIRiJVSlUjK4C DSsHYp9KPrzXV0OKFx5 PNFbKGT4OsW0WPY4SUR cXHQgMiBcXGYgQXJpYW wgXFxmcyAxMCBcXGZiI VokKwdkPZesN57vdKkl zK2cWyccunRaIVN9BZQ hciANClxwbGFpblxlcG ljTmVzdERvYzEgDQpcb HRycGFyXGxpbjBccmlu MCANClxsdHJjaFxjZjF cZnMyMCAwIERpZmYgUX VipizsTNUEBHNmV1Img K5kZ0vrAFGvRLJwpsYN XyVdZSPydC8nKULit2Y cJ7E4UPBxKAbye3ggYM JyYXwov9HlKKnUTDRWA P3RND2ujXT1FQxIFTYZ W8aKxCK3AgCgpML1NX0 6YZXjBGAimDHvLAjsQ4 11z6qiK0e8pZspS8ipy CB3JGvzay36IHD6SKiz KluvwGZ6NBttNebuuQ7 zdCBIWVBFUkxJTksgbm YyOZ6MWEyTJtLRPU29P f65XQIaJYTdaSOaYEok O386rIJnJKHkqQ1bn6r maWVsZHtcKlxmbGRpbn I1PTsUCLKBQAqERrCiS L9uWPbMQWAMNcE1Fu24 YMAxFPTofHPsAFurU33 0MHInKDawICc3ocCnCL Bna5HqJ8WrA2BuARDfQ gSlWCKrzDyda0vvaIWi DXfiGcgixLVeaxU9ZEa KMKGRFQmZBuZzDB5zAQ sDC3GOYyB4KuO0EtH2K XwxfXtcZmxkcnNsdCBc IeVRjB1lcTxueA6vwDS qE5pkK1RjEQYvIgCbmT WlMX7CPXPds4DrP3Z3Z FAxATfio5ikNTNvENye t5GgPTvWSNUKGA9NXG4 ccFV1CQwJAOQVA6lXoH I5JpGfvTG2P656LUEjB QZurHZzZGfnD804W2Br C6fvKQ3eK39nW7HtsOZ wzZBpUAD0EKR9uY0vXB 90sgpraJgduZfbkjQ8M JWxcuzpiYM0FMFdKJrx w3dyDYMjWPizm1GhTTi JOUPUXI9EHP7jxEL3GF zLSWRHXDnaPZT6TUmvc NM1l8mynQMfw8f2THbd VJF8kAzpuIGomyhdrMO jaFxjZjFcZnMyMFxwYX IgDQoxIGNlbGwgYmxvY 9bicU7yRl5vpJBcnF1x c22zDXUvLYDcJqSkYgR pUpjwPJ5STtn6CNWNXB DSJFnBYA1NVMNYESVFB M0FULrZQnYoYCA3GUpc WFx3UhVbFaU8SfG4Yl6 oARMUTSRGDUlKCG4ZQI MTRYCIMX4JKmFiD2lFT ENBUkRfTUVUQURBVEFf OnZJNK4bDvy6qFEyVNC tyW8zM6eGTAEGXjJtDU SKPCDLHWTrFU2TLJHXZ BDJOE6NKEAIY28SNJDJ ZOGZA3SLL1bGFRKms7M evNotEpH9HdTlYK6kFN wAr78fXL56srB2iN9wE PPlC4ickTG6AWsoZCI5 SQs3NJMNTJXSVZ6NOUF FP51GACWNSTLCY2NNBL DDVcPGZXAVH90VOWCIZ KUEM6ZZB0wAXFJELmGG RCMJO88YAASPIAXOR8Q ORCBBVVRPUkVGUkVTSF 8BTMGKSRQSFT3QKNsHN wAsEXIAN1SGMiZPG5xa GHVOAQCKMFNrAP6GLYo lOFJhT01co5EAr7GiQA Kxh7oibWzog9YcjYKeB WjiIQCldEWbCLlcsK8d HxBzm2oknJu2QEmtdpU 6IVJncm4rvHjueF8eTU lnj2wyNFP4YEDfmQVjm LUrRFbekZxstU0wTgDo Ymj7EBpsKHThE2XgG9Y nrzT1QMZoYZveLRYrRE YgDQp9 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) Diagnosis (test code = 34) a5shmBNaVZGpvBI3JnJ kZJEop0ssb0BkyWMizC PzRSezdUBntmJhmp03o WF3jJ63FB4mVVBhXsW3 XKKbzuE8Dyj4NWQgBIT eiZPcH752d2gzv8cwyv ZkiCA6JSUmPFEmQ3XpR F3rNJXstAHgY51zgSOf SRD2SEOeDOLnhXZrSWL wWUD6JDLexIVaT5vgBM RoOM2dlzduOGlyQCthM JNcoJO2FHPgbJLeL6Hp TOPkVAamTBQsxyu6RkQ xBi2ssAVieWzqEKduM1 rugU5rLvG7RHscX3ixf S0sLIw0UMmaIJDibGO0 kaD5MGAeqFYsM5LffY9 hMDQbZZ3reig6p8vtUA L4KSisUFQtToZ0cgH5V DBccGFyZFxwbGFpblxm czIwXGNmMSBBLiBQZWx 2qKEqd4VpfActDjheoF EkKICnHhdwHGZrtOg9A qKwVwq4YkYkIqFqMPTi rw80zNIvh8DqZTQ3bZf qSFfzE3PdeHYvMRFpPH Nkp95jMT64JOpiSOZ6 Comment (test code = 9835) p8uxcAZfLADkhAT2HrK pLMWoi0xfz5ExpTRboT CoAGndpHSxdsFsmc36l VI2zB06KD4vJHBzXsE8 BVOwueG8Mcn0MOBpXRA msNZzS451s5rqb7iijc XtyAO2fXwyPFWggncsA mO2ROasJLDfmlwsRUf7 FEmtWSCytPB6WDNccOS zG4LiNRYuXU3oxlp2KB D4SJvcCBCeEuL6FOQyr KVzBIGisNhlXKqlz240 PMT9CuEsCKVxjiQibPc euL5gDpQyAIZXeTsdnP StxBWgbrTwetMkgG5eo 7hvQ8QiQUOsceQulGJ7 eW6yKXlsOSWbK98fbRQ uZGVkIHRvIGRldGVybW hyLJW8rFZoH3aflkefE Uxio0kbmdsrtTAujpSg LiBccGFyXHBhciBDZWx cFSNkp9JnRRWeX2Qcx6 7iIZBlCFBer067dvmnh XRvcnkuIFxwYXJ9 Retained/Biomarker Testing f8jimCLmIMJzsRA3BaY (test code = 9838) oRBNtj8zzp4XbcPWggM HsKTdbrPDccwPimv00d PG9iG43UG9qTASiNbF1 TEGnwiA6Zwj1VRDkSTC kiWLbS113s7hoa3bqex TfzJO1eNpoAVEolwouW gH3BDuzZZQkfzhiTXq1 OUbcVGQtcEZ5YHIyfGU iJ7TyJNJyNG4ppqx1VB G5GYmzLPImBdZ4TBVsl QImQAUhxWjyJSuyz981 CWD5KkYrRZZofcKarIi maF9fCqYlKGGTLhopGM BTLCAyIENCXHBhcn0= Informational Points (test m0lkiZZaCEDyxTRyAoQ code = 9836) nBAGwVWOcd3qmXCOxjO FuZzEwMzNcZnRuYmpcd FWbFUIrCcErf8vql458 zQTds7qxWSEmQdN2pIG cCIDgcOVtL209EXCaBE kal1lsa2FgDEYofXJyq 2Y9VQGEGDozTJKWRFj0 w4cfKkKmItN8kZTqVQy nR1edhxOgbDCbYCXmWV z5bT62KDDbaY4eySPmP WnacnJsLgJ9UTdhFABl DrC8MMWmcPJbGPEwA0d yZWQwXGdyZWVuMFxibH WdRYB3wLjnu3Z4cYOrt GVldHtcZjBcZnMyMiBO b9HjLHv1uKwjK8VaTDF uGkV3xDThAAQpNFqnQY NhVGQnjlF7sO76NCorl dZ6vATag3Hnt66ly654 lV9uqIZgYWV4YQMnJKV bnTRkXVQyAAB7ZYVjtR WoO6ozTDTgNX3ykpjmS LriHQfuAKFtsXW8XUDw kGWpY9NuRBDkNWzlCOJ ioaa7FlNrYw3xaTMtnJ naSZenx4vuu5sudJFkQ yb4DOLzUdMiHtheEXsq v2Arz8taAPJcca4vGDV 4zSOnyVlsb0E5kKSuRL SlpRFcljIyRMWtNmN8S QjnEY6nqc02GRZfAHY5 rq0eqPCbyRdpitQxxPA aGGweH6QeMDBkx451PU OwT8UeLRXkf9S7yzKsJ tHwZNTcuVM3abA5YILv VCv6nEPdmlP6olHehRI hL5gjiJ3tMNXoRX6ukx xdn3fmNWkrSAerQRPyf PV0omJ0RXMztOHoZ7Uv gW3pXJBtDDvsFXXpgcu 9LnIfCf1syQQvjIyjHD xzYmtwYWdlXHBnbmNvb nRccGduZGVjXHBsYWlu XHBsYWluXGYwXGZzMjR onQwpzEtxxY4xZmLxEg WaRQfnHN8hZIDsA1mwg IGhILDvQOYxA0emChIy yS4qcSxfXWhvhjD9GWu bV09pRFL5UWH0jlZsKF PjcuBvXECpGLAfFS2uu NMoQUOcUHDvAT7jEJE3 ZWxvcGVkIGFuZCBwZXJ av3LeQW2xCFWruELyUN F3MNGgi2HyY9FzLXJ0W NYlaA9sRFKdeAGCBLHG RCBBbmRlcnNvbiBQYXR zt6jpJ7woHK0fLKocCj 9yYXRvcnkgTWVkaWNpb uCoETAoUFHlABAka2Ds GNpfacKuth79WKAdUC3 cu9UkG0xxaCBaoTz9FM HmCKPeYTXef7TjKYKnq m03JJZaZjjugJqiAZLc Cv5jDm2kDQVcaaYpOPV 5UyWEKR0bysyoeUCvpP kxfb8jHMChLTxyTIPyO GZzMjJcbGFuZzEwMzNc aGljaFxmMlxkYmNoXGY aIAajN1lsNiDlOaCbHu xwYXJ9 Lab Interpretation (test Abnormal code = 72430-1) [facility] Interpretation 2021-11-13 19:32:52 Test Item Value Reference Range Interpretation Comments Submitted Clinical l9vvqKLdAHUhb0imLXNobVE History (test code = uZzEwMzNcZnRuYmpcdWMxIH 88824) lnvjPdCFcqj3DbG4ZyGbBiT FxhbnNpXGRlZmxhbmcxMDMz YCD4mlVrNDMiIVgrJVQmXZd sEw5gqEChwLuzGaUnPPGxk0 tnsvHDoignnZk4l0mnZGNaN xC1zNUdZXigL3esxiVrkXOq LPFwDYy8gW68UMSfmR1lnYC aOKjzlaAcQbZ4FTgeGPNaZr M7MYJeuMOkVVQeM1zuRPHfQ TwoIEPhAArmuCKjOLM7hPni r1X1dTSyjERflYimDwHyAuD vWmZMp6JjSUh2zWktX5XrWQ MoGmK5fJAaXVBgPQbnRCYcG OEruaD6xH58KLuuljU4kKGd g1Mlr16kx089hL6xtPPwRMU 3URBwHYLqsKJdBXUeQFY6TB LqmNQrP6rxAUHmYL3mkrzqN LkeEVtrZHHgfEM8YQSzgKOd S3HwSCIpAHetQWRoeji8UwZ uKx6slGXcpJlhPXxkp8ihq2 qfyHZdLxc8LFCxCjNeAlovX Otnz5Myd2jcRVStsh9xYME8 vSSkwGtlb0H6jQCgFLEhzDZ omuUgFBJoRyA4SFehRI8ppu 91PQMaZNS3bf3qzTSfpEvgo rGsvNUtHZqzT5KuLDLhv559 SNBfP4IoFNScx1Y1ciEhPxH aXPQtfNW5diC6SWSnPGa1pL ZzneY6qoHqjDCuW7jxjG0rH GNmZW3eknbvh2xhWRqwIIvt WICaiHW2xrT0ZEGvvPWtV3R llP8eZXSvIKowVONspje2Bo MnRb9uuJWtfKabRAutMmgiQ WdlXHBnbmNvbnRccGduZGVj XHBsYWluXHBsYWluXGYwXGZ dNhNnvPgmeOnofB5ySlImUw PrGPbjEK5qNRVbT0gfeNAsU XUkTCMvY4ycGeEqpT4jeGkr MVxmczIwIFBlbHZpYyBtYXN zIDxSaWdodCBzaWRlOyBMb3 dlciBxdWFkcmFudDsgQWJkb 09lebJtALR0SMonpV7bOWEq ULQhUX5vGEo5yVO+IFtSMTk dUZFaXNWhtpROhMIsi3NvoP alvNWuRIVmv9Smy4UqTIY5d XNlIHNwZWNpZmllZCBbRzkx LjldXHBhciBNaWdyYWluZSw per88DR30lKNlf0gaUZFvaV AmxSGpESOoX8b4Cr47KYktD HCtvkUJjR6eoZEchKHsxQkg vBRsVQr6qZOoPHpioDekLVL 9y35gzMfwCWV9f1Z9djA6hW 2eTXhQJRIoOVD2BNupNBUjJ iBqwBGdZ7DeUXNuk9s7gbJh uT5bt1i7kBPsSfm8FzVdUHE sYWluXGYxXGZzMjJcbGFuZz EwMzNcaGljaFxmMVxkYmNoX EHxFTwxI4hcSbYwAhJfGoca YXJ9fQ== Diagnosis (test code = z6xxxGFzAHXtvPI3KcKyUHT 34) cy9ajb5OorZTzzPXwZEbspZ OfquWled52rYL6sK66HI5oQ HNfVsU1VKNazuZ5Dbj6YCCl YBXovTRoE957l1alo5nrwoE yzDR3UHGmZDOpD4UtUQ4hQI LvgIQmB80ibGIfUNW5IJZrE ZDldTPlVROqEOR8LDDjjNHl L5lkUCCbEL7cmfhaRPpzIDs aGHGjvNQ8FYYnmXYqE0FsCI TjNDijPBTnwak5LpDuIg3cw GVyeTcyMFxwYXJkXHBsYWlu RTPyGcSjO0GkYYV0SQFeB0n 1WRNfsIgfaNlqxaN9uFWbQE FuZCByaWdodCBvdmFyeTpcc GFyXGxpNzIwXGxpbjcyMFxj RsRoL8RUJclnUNCNFJ7LTPF WNA5EWVFCHSWIL2TCEwNFTc 9NQSwgRklHTyBHUkFERSAxI HuFQXonP9HWDK0XRBZhVIJO AGSGBYEJBQctNKDBU4nGSaV WWyZBL3WHV9zFKGdVSrUYCQ QGPIHEYA9HKTOZTZ2JTRBWF 6DNVWRFOM1NYIFUAA5WSOVL APVKR4ORQBDYHaJUG5QWFsP oO9aUAFDMVqAKSJAOVkxIE7 sJWfBrB5VPROYACX6TTsUoA kHjJW8HPAOCBp8NHPfLQFQZ AA6HGKjohEKoIDAxjLpkeGn uqaF4xPGwWNBzwpF2jC3tfy WjglOqTK24TdIdxHYpFCKeh vBfnFYtARZhYQWGPpTXaU0f hEWxy7FqudetkaakiAQpYBX ndiKhx8C5eCG3MVJereagrM uoPThhbN42QpIwE2VjCVV8n oTafU9tnOUqx3MdjycomvCv ZBFajdJtXr4gOR8dlYMtzMA 1hJTyX2BkL7zfv48rUQrfOs IpLlxwYXJcbGkwXGxpbjBcc GFyXGNmMSBDOiBSaWdodCBw VSg7wILvcWtftSqnni6sOVz ccGFyXGxpNzIwXGxpbjcyMF oiCjIdX58aEJx3tEUqEU2sP PPzUN5cX2I1dPKxDBLeeuWl NWHne5LsuJcaMFQuccDvdq0 lESNcVT9lZL9qmWKwDNVyzf RccGFyXGNmMSBEOiBPbWVud EXpQUTuj2KjvXcugUOmHKwc NzIwXGxpbjcyMFxjZjAgTWF 9iRXvYJMdyFCqr3HrkFoec0 SaJBMawgJ9rI7mvgMnxlUqV D23DyvfPIStsNncLTkcmkTw cGFyXGNmMSBFOiBFbmRvbWV 7jitwbGYpyQ8vl2e4HKTbfp eugVgvJMiorM75IdRlW0ImL RJmLNUuaVjnLQ90vVfhSfjv m5TbMDKvvpBKCZAzGSOcX7V oBO8dTWSgtnsfszWop5qlbb Y3xTGffY0rNROdJ63onzZut ELmHRHwJU1zw0DzovSuV2Ff OPZwvJEhVIlaqQ6qYDkLQOI fH58vmLHhfMLtDycgtGXoRN ZstquuTEOkMGAsdhJXE3msL j9CPMWdph4= Comment (test code = o5sfzRXdGRPwvMT5NxVoXOX 9835) lh1rcp6CjcKLsdZVyOXsouI GpgjWdex03kRA5dU47IA4vA PEhNiI1QUXtdjP5Qgt9OMLz GODurUJhZ854r7enj5kajgK cvJI5dPkyFVRcfbbeIqZ0MK bzZQEozvguJBz9QJccQLXeb ON5PFTcdOFbO9GsELNmSG7y noj9IVX5EExfIFUuDeQ3NFV bsLZmKJHlvSmmDIbtn800LO R4EyWuYIIrceGikJamzN3eW fEnFYZEs77sEX92DIZzIhVI qD21ez6svIG6a7RkIY0uE1O vJIN5BKklocHngtYxxBTqPm 1qwUPaPAThWBZggU70TWQuB KE8rH2doqIgZLbqaaK5llNi OIPjl9ReqFx7UKQfs9LuO8l 4w2urwoN9aR1zBdMooEW2V1 k3DPetCOGWDCvdINGGEYa1S ILqXW6yMHPyXJLmEZJydqKy OTIlCHk7BKxrn7Uby10rOH0 sGYXnOZSuUOZ2tq0fdYWcxF VkaWNhbCByZWNvcmQsIHRoZ VXpYEWwgPlpOA9dJXOlAZXq meKmjVB9IRPpkW70QZM0DPP 5bVBpURNrLQjmR8pgsK9yIX 8mJWUczB6iSPAtpP9gfDmqZ A05WPD3TVwgeApillQ7pPQy LgLsSIR9nZNxi4T3SHbjfOD uOE6fEXFyvSo0CQAokHusnB WsYH8eO0dhgBAtpSddAH22V FD7QN0rBEB4rrYsVEU1EcKc G99xkB9aJ3IpCQIav4XxAWw bJG8egB0aKBT2xVZpFFTlKN Cng4Y2OAXyelLew1IjziPer 0w2eCNgNRBrjU9paBBqpIRc t8GfRSBoMQPbkg60dD7deYZ yiGDuGqCtU32emU8iI1TnIH Hvb6SjFWhkZS6wrR6dNfRuy SEtCXAgxrWFw81vVL90TPHh TsCHuEEat9KjD7qpLB0nuBL biDAlOV0xlV8rokRbwHBneZ 8eDPUclwHjgHYkyR8ogJAqh ZZuFT78AEPjzdFoaZTszm3t yNKiNLTxtO8rW3MwEEYyvvQ lyOH1qE9rCSyjSPFcN35mlS VuZGVkLiBccGFyfQ== Synoptic Checklist OVARY or FALLOPIAN TUBE (test code = 9864) or PRIMARY PERITONEUMOVARY OR FALLOPIAN TUBE OR PRIMARY PERITONEUM - All Alarxrsid8vt Edition - Protocol posted: 11/22/2019 SPECIMEN Procedure: Resection Specimen Integrity of Right Ovary: Capsule intact Specimen Integrity of the Right Fallopian Tube: Serosa intact TUMOR 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 Tumor Size: Greatest Dimension (Centimeters): 2.2 cm Ovarian Surface Involvement: Absent Other Tissue / Organ Involvement: Not identified Peritoneal / Ascitic Fluid: Results pending Pleural Fluid: Not submitted / unknown LYMPH NODES Regional Lymph Nodes: All lymph nodes negative for tumor cells Number of Lymph Nodes Examined: 3 Site(s): Right pelvic Site(s): Right para-aortic PATHOLOGIC STAGE CLASSIFICATION (pTNM, AJCC 8th Edition) Primary Tumor (pT): pT1a Regional Lymph Nodes (pN): pN0 Gross Description h0fuuTIfDBOccTRRIJwrCYy (test code = eijSjWOZzwGRbN3EfhbpqLP [id number]) pyMA4pKC5xcWosnCThcJLbJ N5VOCLgStNiIJHmiBTnabCn LiQdNEWbeDJtvCI5SSCzVD4 ffpmkUQfxUSqeYYAtpyQ0DB WdmIFlM0EzTCVmSO9ohxrrN SY4ODepwG9lopHOItleRb8w dHRibHtcZjFcZmNoYXJzZXQ kUERwfNjcDUKlVIu0nQ3ZTh ekB39ob3M1Xky7EHDwMBQqL 8YaJT8xXSSoaGBiH91MGvig OED0ZIJFFqqvDXJbVO6Oy6g cZGAqvKKuULM6XIbsiWUtRV ZyIULrREa6PYAcOYsbhTYcZ O2uiEtrXhttyGbsa4DdlAVp XGlkIDUxMDAyIFxcZGIgIE9 YUoWaEGLoDFp7AaXbPMl2BR y7ZQ6IPqSmSXZwYRCbRxN7I gMkMVz0WPkvLA5ENEc0CXVu TCT0BBM1GJE4URNpKGEiNrS cXGYgQXJpYWwgXFxmcyAxMC EgGVKmXKxqJtlsBYcbG97bf MgsoU7zSijovoCdBSE6CPQs ciANClxwbGFpblxlcGljTmV zdERvYzEgDQpcbHRycGFyXG xpbjBccmluMCANClxsdHJja IbaQEOlKDbhqgVuGBUrV8n0 WRVvcRwgsQhchzL4kORqLII uZCByaWdodCBvdmFyeVxjZj EbWfjuGFDvL14rr4bqoXPrz 3CaMM6lf0SnybrqSWT3CpAm mWE8McNykVWcAfCoG04eLNn dnFtzXRA3LBQbLVXtLrdpUd NiGCPyDSIhTQvir7WaRA0vs BDeEOMpHV97MHMrTNkoBGwi wwf5sFFmwWIvJdBkR77tkD6 yXIhioLS1ZTAjUuypNVIkTU opaDJeWE9HMJipSL99kKLdN FS4jvCfQ2Nue8MuhUnyPN62 ECV1BEgjMOUtvntckGEcTAA xvF1zcOvrZN4kXZygtlBcUB JiYHGsGULhi9YnuWlfgI7ga IQuTY1iUZxfBI59WHB5ZJer PPX7xoEiWGYwa2ZcyfCsWCT jQVFezG4ct4EsPDQwFPKzT9 axeAWif667POihjL7mJKkur O3ntrujZ9pcPRNxwAtuVHRi ASMuFAEbNvL5QYGkEsZ7DHJ vFbTccFK9BN0vCiFvb94cIT NcxMakj9rxWQtww0tedh0wP WjmPVW9a2VanAooxD7tYBrd VBSrvdpxtDHeHGFdlU0paDt kp3f1wPSgXLPzA7XkOHUvEP Qmh3AaH1TpttFdBRLwkJszN V8kIAY0V4Wsl4ZcdbDghvPo epIgdg76SNRaZEumBUXbBDs lzBGtOT1BFEjgAVNahLetqJ vgquD2zQBlTHQveK3mp0AlD HKkeqY9udQegSYtp0JvgKDd G0I8AHN0spArP0VdPkLSUJJ gPHYfizDuuJc9CCKuOMD8cL 1fwfTqwnWkr1HzvUf9cNDuF OHvNECcaTxbt9I2KXFtfpLR ZnjyOEMpNGnoeYJqRACSH7E FS22cI94PXJcgJSPaDLZwqR Sve2HutWX1yEGtXXNkB4Vtj 89jv2CalN1gwFSjoBRvmFMb sR5nKHNnydUhcr39LT9dDA3 jZOPwfp0qscKxtRPpKZX5tE 2crbnhTHNzCQcrFD95yQQkL VPsLKDfTu2ePHOmb1itsiQn cqWucINnjQBpDA02OYZwA6C zn32pVlLHMgbpS6ubvHW5EO rmSYYafbOymm26LL8bJX3kP VUqkr9wtdSmxOEsVUH1aN2c czsgQTQtQTUsIHJlbWFpbmR wihWpRvLvu1f5nY3fLDXpTR Hin941JQV3IADzIB5rpM7tA BHqm5BqA7TdzfNhQYMfIANt YTsgQTctQTExLCBBMTIsIGV juOgoDZAiwM2gwiezlXLmYQ PbAXevFYPyXYPGDQjmh3WpN L8ywCAjVX3kFRAlc5FqP0C8 FJKuODsqp6uiOYFnGDnan5J eLXoNXQOKOO3HBS4tyBS8GY jTZ1EOF7bErAZsBVZ3wUM4J GBRKbspvRI2uAU7uF12YMEq XHRywRXiWVuaX644ZSY3DOE gBRfdi6urKPWwZPxjp5LjGA hJMPMHNK5RAQ5nyXI7SXhIH 5WMAHiqJFAtPuwfcGYFFZK7 IVyjqOyxaBy0u8abrOEmk5n 5JEkzIAB3eCxaqSHqvckzsO TftDfukpZoAK3IFNCyfCNZF OA3LR6nTBc9BZmfGEGcU5Vp X0WuvwVgdSSmAQRzhdLmh8u yHJR3CCYufDJjdRYmZgDqUm blFAQ5JYQvMDwkOP2Fg3hmK IYkzZJzYXG1LGipbHUzOUYx WOQvFEltUvCxW4LQHLJxLbO 2ILG9QiFnNLh7IZevW6GZJU ErVZT8KAY1LnF6PwF4GJx2K DUQZl6kUAShZsX2BuR0PMY5 MzgwIFxcdCAyIFxcZiBBcml hbCBcXGZzIDEwIFxcZmIgXF lgjXNtWS2rnJjgoPEiduutO HHoGcZjFxrzbGPhGQ9AAVPp YWioXDMzrTGOIFT5WP4kUSP NClxsdHJwYXJcbGluMFxyaW 6nII6KLTt7ejHbIZQgB0OcU QXeUgDyKJgncRsvcz3aTNNh JXEtD7w2MNEdMBBoUZ6fuUm zFMJbJIA7ZEViYRTWq56puO ibdVfxhk0cHJClryEmQ6hpP yFubb4cIYQkZWO9stZrJwhu X01lgL1hM6HnYEBab6BwBVp vTF1aqR9tHvssVYMyEWgjcW CoNYAKC9CHX98eO66DXWqjX vPyaZjxOPLjUUg1HgKqMTTr NVZhIERlhvVwqL1yp75oQRu 8qJUmGR5cUTJyb3KluHLktH dnz1FwrFpjxtQmHkVdsCVdk KPuePzmIlgfcOB3XTuvOcwh iJ5rcECLWZNOQnbZTqpshdV fNZ4OHF6RXdYFPK82KsUlIQ Y4HVvGN4ICwQL8Coi1OPv3a HffZyrckcSutYDvKiBQkU6A FUlhQybxkBG1ZPdpEsvfcR9 zdCBIWVBFUkxJTksgbmFtZT 3CTI5OHX7DlCSlSLG2aBO1C VISRmmdkTH6mPG0gA67CFRw OTJxoLKiKCiyS830ZIQjUSp kNPp9kaUfBJUiDsSdMKrrZA XeG22yv0ISd6BbCFNyb4qgr Llne0ZjkSUtYZtpLPHhnJUk EFmtsL7wAuNjt9abbWy8HUf dgkR3NGMzsw8qxUuhjQ3aFL d5UWciYOPxQ7LsH3VtQZxjG OC0IVTpRxQsQQOoJRQMXeJz QoYRNoN9IaskArX1KEo8YBF JXaQjNgJhVIKgOWZ2DnJyNE h0GSh1HCnKJpX7VqW9JXe2G IfiKAIfQCDfNCr1CZZwTUkb IEFyaWFsIFxcZnMgMTAgXFx gFdVtDCYyYLnyiuS3TIXtPX luXGJcZnMyMCBDOlxwYXIgD GsflHpoxX8sDCOcK76sp4FV h0YkGU8HTDl4svAcbwlihC7 dSDNccpHsRArczJStP3ykMf xjZjFcZnMyMCBSaWdodCBwZ Ed0tEYawx2dBJkcLnClAjyg ERSkC55yx7vjdCVuh2LbBLA 1AgUeqEHpUbYqkDOsJaKbF2 0kYeT2iIymkpPqrAQgKPPjx QfouDbqud0pOUX4wKHzCEZk vZRuLZF7CJTxXPHgRJVjnNA oq69iqAQpLBPjKGAinqMZVz x3YVSxV7EPBJqWDoOEJ1FON oNHFO7LHokxQI44sLTmNEd3 lQDvMS8zAFYvb3JgqNActUs gj1TzhHwhnyJuJrUtlMJwgM RqeGfrVafbdTZ3NJooQknot K7bqJASANODYkeSGjydxgGb QD3BYR3KKzKQJF24NmCvJSP 9YCoVH1GUxDN0Lwh8YLy8fP tgGiunglQoxDYpLaOPcF7FW LaaKitaoVN0NJwkQilgbD2f dCBIWVBFUkxJTksgbmFtZT1 RSG0DFT1RlMEgMHA0hBX0DV MDYdvjpIW5vTN0bE06KRPjD VRaqXSfRVttL872LVFgXYnl MSw3wyJsQSXxMzNhRMwzOHY dP20ly5RYq3CiPVUqs1tnaQ bhy0GetHOaDQfgGQXsdLKlF GwqtQ9ySuMcj2kfrOa8SFrb woX2NCPxwu8agSfyrV0tBCd 8PVvhYNEbA6AkO3FiILhzPK W8DNVzIcPmISTcLSXPNvJqG oZDOiC2XxwjMhJ2CHa3DHZJ RkYlNsXpRNNgXIS1OUdlIEe 1ZTe6NDnJZsM7GzT3OPG3Jk BtMBJiCCJfNGq5KBVoYMjoK EFyaWFsIFxcZnMgMTAgXFxm NmIdDDEhOUrmklF0RERuPTx uXGJcZnMyMCBEOlxwYXIgDQ tzhBiyoB8wQUPrT12lm0GTz 8FcJM0HSPb6caOwlztcvN0y ZYFdquVkZBzyrOJvP8loGou jZjFcZnMyMCBPbWVudGFsIG Ycw7DbtOpoInUeLtqlLSIwV nKaTYg3JELtXgTmr2wunSLx MREicY6vjCSsmWKuHQx9dPR jWOLwv3GrAB66NOVcvO3avW cavyMjNiR5IEsbj1khevFhH NhaJuFnBMJeEAUfmWMtp8Gt gEA4ZBObu3U4XFT2yNPnYMX kW0GjSPelaQ2atneuF4LsFB HeIqJpwWD8WaIzlBNwCyIlT 52tRGBsjstkkRp4PRKbQ7Ao c64lCSM4idHcXFNcCFbwY9V es8EgzKK6rmEzrRWxf0LtkR GyTrksjt8sDGW8nNL3hYEjq VJtx9h3zZ80wIOnJQCpvab1 jGGaYA1xu6SsuHWvvW2dVU3 kLHk0kXIaSD1qVEEvqDCjvu IdLbmpDD4uIXIvtMAup8Jyt HU6aKGaEQOqW4Mez14cURqb HKYqBLJ0HrjaDTAyOUhnyGM mRU6KQHUlp6NnE3P5LITjHY tqe9fhDFEcXXjjn2KpEEaDK MLAFO0EXZ8urUV6LFdJX1JW G1qSaUIpXXG2tZH9MEFGWjn cbLL6pAC9aO57GTNsYWEmzF DhUUvkM800GDX6FRKuPGdgf 6qzIXFqCFofz7FoFHwMFEJC LW3EEC2yfWE4SHdLE1WWUSl bZGCuGiqkhZTFYJD5FKdiqE ayvBk9y8gyhYZis4q9FEkoU YA3qOngyYSxbkuocZBmfHom loPvLG2CEWYeoQAGRIX1PQ7 rNMw5SRmtEHTnF3BeA9Siai WdaGPeDRYcrdExq8wpOBM4M HNsbXVsdDBcZnMxNlxwYXJ9 ASVbIRxwVY4Tc4zaZPUdjHL iJOL0TMlbeDGpXKQgQBBoIZ hwEiBeK9ZSOJBsIkD0CEZ9J dYtWMj5SNnhO8YUNNSrTBB3 IRG0PCE5GlZ2FNu4RRNNKe7 jTFCwDjE5HAF5LRY5OlbxMP xcdCAyIFxcZiBBcmlhbCBcX GZzIDEwIFxcZmIgXFxmbCBc AX7ldBvsbHThgvmcPNUxEtV tMLsvsQApQP8DQLThUDvlOW HvbQYAYWB3SC6yMNYOVkhxr HElYNIxoZmwBYnmaQ5hLT5N TSs9nzZgFSWvV4CsWEXlXyC jSL4dw70iiEInQMszHcmciC M9SafcWEtyYeTaOFCpJ5Xmw mVkIGZyZXNoIGFyZSBtdWx0 mHHxHSPjqaIiC5ZlADFihG5 vcmllbnRlZCBwaWVjZXMgb2 GxGMLtjqSnOXAzoNXab0Llp SXvuGLggAmll2HdYLTvLTVu GE0mhWIeEAJrw60fHGKyd7V qEHAoWfX1QFHpRKN6NDYaEn BtoSGmskGsK2npJAddlAVcG CBlbnRpcmVseSBzdWJtaXR0 EDCfjB0jWPWfGEEtkCOlnUE ooZwaSihxwPQ6GNkyQryviB 5zdCBIWVBFUkxJTksgbmFtZ U0NRA7NZtYIOU51VxSqOUL4 QEmPU8QQaQZ6Gls1MXm8vWl jOatjonBkiWWiXuXYlC7SQq skPjchdQY1SSncQewswE9rz LDRMPQEFvvYKbcozgThMZ3L YE3PZT6VyHTeNJM2wAB5HLE KArgbnHL0pFR5xV95VJAgTU VcmXWhHMnaL611UZEjERraH Aw7erUwCQJfEhHlPLhaIUPf P33qy5UDw5PkSRGzz6evgLl ao6UoyXJnRHysMBSxzGVsGC jyrL7vQvPbq7wwnPq1UHmpe lJ8EMCprt6ncEhevE2gPCpc d3yrLFQ8RDNruALnlKAvIJj ruMzkcY6mEdQvOza3NGzrBD ReP7OrB5GndkX9SBZiLOvvZ GZzMTYgDQp9 Intraoperative q1vdfDVwOLJsjWMNIBhoDEc Evaluation (test code autLgMERteMJiW8BpudfoWJ = [id number]) nuGT0nUJ3oaAofrLCyvLCfK N5XFFRsZhIwXWGbeXRhtaRl YgQwARUypFBjiKT9PSHkKG2 tilemWBxfXXekXJLrktH1CX UmsWCjQ7FaELJfDW3rkxxrX YC4DIqcgQ4zieHIZgnlJy9s dHRibHtcZjFcZmNoYXJzZXQ aLTQwnAudCBDhHCx0jB7UHj oiJBU5VDWSPnreTGBaCG8Ht 7ahEAYfqCNbFUU7URwesFLc VXWvILUpCKx2OWQaDCoifRI pWT8kvOntRrgxwFcco6CerR BcXGlkIDUxMDAyIFxcZGIgI A9EHjDgEQDpSYy2SuSpORr9 SXe9UM9XWmJcJHTnRMOwVeM 3AkReXEt0RFspEM0YDGs1SC IlIeS4JKK3CDL1XCFqWYRyM iBcXGYgQXJpYWwgXFxmcyAx YFXkQKXgPUlbGunyQAywW49 dsXijcI0cXijfoxBoWRT2LR BhciANClxwbGFpblxlcGljT mVzdERvYzEgDQpcbHRycGFy XGxpbjBccmluMCANClxsdHJ tmBynXBBuRlYrI7VqktjvZG 8dSHByzOqhwIjjnlD8oWUkZ CByaWdodCwgcmlnaHQgZmFs bV2gqTXvTRV5ZnPfEF1lNCX gM0w7PX47BTE6YG4ax8KeBK 2iLYLli0shzjpzgIKiUQ2MT GxpNzIwXGxpbjcyMCANClxi MCBBdCBsZWFzdCBlbmRvbWV 7wmogwCRiWr5fHULlrLnkNF C3yV5oayQpsMWceIPdf6FpC BXxiwXdVJKpxY6ojXFtQGKv ciANClxwYXIgDQpcbGkwXGx pbjAgDQpQWFIvRlZOXHBhci NWInzqXRBjDLa2eySgpzYGM lxlcGljTmVzdERvYzBcdjB7 JPRcqBQuGSC4PL9pABBwybh jNQAxURDxBYZ6FOhpmZ71dJ QwXGZzMTZccGFyfVxwbGFpb wXRFiebjZ9bIlVhi9pthXx6 WCVDEwtqjFYgemiplbN7WPU ma1ionEoxf2UdvWRnLE4fdY pubY3oWiBiHzEADr9= Biomarker Block(s) g3msbGXhLAFwqBM1RdQtOMF (test code = 9841) di6gkv6OvwIYcmEBtXVbjrQ UzspQuhr92rNK3gQ06YB8fZ EIdLzP3YOMgvqN4Ugq1IXUy ZGQbyMJcX440r2rjh0oaoqY kaHG5hIeyQZWisdpeLzB1WI plJHObeswvRTt5MHjzQUZpx XH2XXCatKNzZ6CeHXNtFA4r rjm5VGR0IUbhWQCsDoP2ATG iiUImQQRegKbaBPbok403QL D6RpPtXRXqxcUeiJlkqB3aE nMyMCBUOiBBNVxwYXIgTjog QzFccGFyfQ== Disclaimer (test code x9emvFWtKAHjbFRlYxQhIUW = 9844) iYIUiv1jtBQUsgHIyVnObKn NcZnRuYmpcdWMxXGRlZmYwe 1jmx938yBLol7nuAHRcFqA8 iJQlVMWraBAjH050ZHRqVJp cp0rjz4QhDOInvBOkl6I9PU IRjxofaEa6tCahR91lk2Y7H oeeH5geSGKjDZCjZ4LqGN4h VSUeOci8ALW8KOS3HVShICR tC2LbEO5nIHDmgPDaEFf8x2 jvmNzfETAoOJC0p8gzMUrsi mSoWR6doe8dhQe2k7ywjqYd QRSxPSWslKTZSNObO1AioDd gTb3tgWb8lKirLbedCYV0Mg o6IV1ukf41sbv4tAxfJTYrf xziAsG9PTuhHETvpgbcRTb1 EUfhSJVfbZW1QQQerZPtH9N aHUEfSF2esrr6PAF3GFzsFY MzMlX5DYVlkCNyQSBezGefO Xnxj816IYJ6EiVsUD8rR2Dc p3F3aW4gpWHsAAOtwOXsKfD eABRicm4jlDIrWUigv6IlCF O6wsB6mMJjmOXxINNfYY90F vvpl8YeSnizEEG6YWFoiwBi c1Mnc2qmOrBcdwPzO3opX5F yZHJoZWFkXHBnYnJkcmZvb3 Wxp2ZmdRLriUd5z4jvMLDjV QBlaXfoc9zlADS1FIFsD2O8 oADln0lhMOxtJFDwoEH5uvW 1EYFvxJZiQ8SnvS8iSUIzTT 0eoyz2x8tjGQS8IEnbOZYgH kT5rnL0ZMTmeTEiHORajDth GIrld718ICG8KkEgUZVig7N dA7HgzGreR59uhNixI73vDR RbwTuztL5fzClnrJ4lDdVvL nMyNFxxbFxwbGFpblxmMVxm dnV7JQwpdpllFQHyYQpnV5a gOuBkKIUrhGgxNLkjc0GpEF ZmJQHyUrsykxD7EYRJi89pD WPww7UgOIEbqS0aoVXyHEmp tkEqiCK0JKfgahVpLeWugpA oLJFlhT2kBCZzPD8hFCSozb Neqp7txxNfCLWcVTPnK0Zys btdiPlaamMsMUXvui0jvcCd LUF3DKMMNC6MPUUeEUWwx48 rRCIheRaluZ4saAWuixOoTR Iyn8LspK3szKLKZLMpY9bzN D7yQJmom3WhnCEijJTxqBF4 STMpz1FnXcOexyRgrIYpjFG eG5EzwOwlA4xoQZZzZAVqdh LydFEns8WwZVAmsRR3gKGzQ Y8DWsRVd75vARUiNMSEbgMw GZFryLvnnIJ8fkR1rY6qTmO JZiBhcHBsaWNhYmxlLCBjb2 23ga2wxoM1NYPuJYPltmdwy 4CoEFHuPHZmiS90XGPmMYCd ve8ipjzkrGUdqhGrD0Enqpx 7iJ2kOVVyVAxcJSEeKJBtRv JcbGFuZzEwMzNcaGljaFxmM DihZyRwXNRbVMldL1soPwXo ZnMyMlxwYXJ9 [facility] Interpretation Antibody Screen Ojiyuhce4230-72-92 15:44:58 Test Item Value Reference Range Interpretation Comments TMP Auto Neg At the present ABSC Interp time, patient (test code = plasma shows no ERIK WASSERMAN MD 6355) evidence of RBC - 09813Qzphi ana laura by: alloantibodies. 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 (test code = 890-4) Negative ABSC [facility] 14:05:59 Test Item Value Reference Range Interpretation Comments ABORh. (test code = 882-1) O POS [facility] CenterCl[facility] Expiration Uepm3307-77-16 14:05:58 Test Item Value Reference Range Interpretation Comments T & S Expiration (test code = 11/10/2021 5318) [facility] (DUNCAN-CoV-2) PCR Itysndiludte5390-38-13 03:44:41 Test Item Value Reference Interpretation Comments Range COVID19 SARS Pre-OR Procedure Indication (test code = 36330) COVID19 SARS Result Not Detected Not Detected (test code = 52902-4) COVID19 SARS SARS-CoV-2 NOT Detected. Interpretation (test Reference Range: Not code = 94670) Detected Methodology: The [employer] RealTime SARS-CoV-2 assay is a qualitative real-time reverse die cleaner polymerase chain reaction (time clock inspector-PCR) test to detect RNA from SARS-CoV-2 in nasal, nasopharyngeal and oropharyngeal swabs from patients with signs and symptoms of infection who are suspected of COVID-19 by their health care provider. The [employer] RealTime SARS-CoV-2 performed on the [employer][email or web address] System is a dual target assay with primers and probes for the RdRp and N genes. Results must be interpreted within the context of all relevant clinical and laboratory findings, and epidemiological risk factors. Positive results are indicative of the presence of SARS-CoV-2 RNA; clinical correlation with patient history and other diagnostic information is necessary to determine patient infection status. Positive results do not rule out bacterial infection or co-infection with other viruses. Negative results do not preclude SARS-CoV-2 infection and should not be used as the sole basis for patient management decisions. The [employer] RealTime SARS-CoV-2 assay is for in vitro diagnostic use under FDA Emergency Use Authorization only. Testing is limited to laboratories certified under the Clinical Laboratory Improvement Amendments of 1988 (CLIA), 42U.S.C. 263a, to perform high complexity tests. The Test was performed by the CLIA-certified, high-complexity Molecular Diagnostics Laboratory (MDL) at [facility] under the Food and Drug Administration (FDA) s Emergency Use Authorization. Factsheet for patients: https://www.[employer][email or web address]/ AbbottFactSheetPatientsFact sheet for healthcare providers: https://www.[email or web address]/ AbbottFactSheetHCP Test performed by:[facility] [address] [place] [address] [facility] 09:03:00 Test Item Value Reference Range Interpretation Comments MCV (test code = MCV) 77.7 80.0-98.0 [facility] CenterXozhzaiRUZQLXLZJK2422-20-26 09:03:00 Test Item Value Reference Range Interpretation Comments MCH (test code = MCH) 25.3 pg 27.0-31.0 [facility] CenterLwbvaycAHLFGCQZRM2755-56-23 09:03:00 Test Item Value Reference Range Interpretation Comments MCHC (test code = MCHC) 32.6 32.0-36.0 [facility] CenterHuhnrqhWHRCVBOWDX9567-61-48 09:03:00 Test Item Value Reference Range Interpretation Comments RDW (test code = RDW) 14.5 11.5-14.5 [facility]FORPYHRD8505-05-98 09:03:00 Test Item Value Reference Range Interpretation Comments Platelet (test code = Platelet) 209 133-450 [facility] CenterDgeyrvcFRWDMRDZGD8884-94-29 09:03:00 Test Item Value Reference Range Interpretation Comments MPV (test code = MPV) 11.1 7.4-10.4 [facility] CenterKpjvzaxOUSMWNSHCT4807-55-27 09:03:00 Test Item Value Reference Range Interpretation Comments Neutrophils # (test code = Neutrophils 12.3 1.5-8.1 #) [facility] CenterIzhhcuiRCTLYQRPQE6252-61-92 09:03:00 Test Item Value Reference Range Interpretation Comments Lymphocytes # (test code = Lymphocytes 0.8 1.0-5.5 #) [place] 555671-06-13 09:03:00 Test Item Value Reference Range Interpretation Comments Monocytes # (test code 0.0 See_Comment [Aut omated message] The = Monocytes #) system which generated this result tra nsmitted reference range : <=0.8. The reference r mariah was not used to int erpret this result as normal/abnormal . [place] 555671-06-13 09:03:00 Test Item Value Reference Range Interpretation Comments Segs (test code = Segs) 93.0 45.0-75.0 [place] [address]-06-13 09:03:00 Test Item Value Reference Range Interpretation Comments Bands (test code = 1.0 See_Comment [Automat ed message] The Bands) system which ge nerated this result transmit ana laura reference range : <=11.0. The reference r mariah was not used to interpr et this result as lola l/abnormal. [facility] CenterZnnjovxJMZTWRZWGU5481-03-21 09:03:00 Test Item Value Reference Range Interpretation Comments Lymphocytes (test code = Lymphocytes) 6.0 20.0-40.0 [place] [address]-06-13 09:03:00 Test Item Value Reference Range Interpretation Comments Monocytes (test code = Monocytes) 0.0 2.0-12.0 [place] 555671-06-13 09:03:00 Test Item Value Reference Range Interpretation Comments Atypical Lymphs (test code = Atypical 0.0 Lymphs) [place] 555671-06-13 09:03:00 Test Item Value Reference Range Interpretation Comments Anisocyte (test code = 1+ *ABN*(03/09/21 Anisocyte) 4:03 AM) [place] 555671-06-13 09:03:00 Test Item Value Reference Range Interpretation Comments Microcyte (test code = 1+ *ABN*(03/09/21 Microcyte) 4:03 AM) [place] 555671-06-13 09:03:00 Test Item Value Reference Range Interpretation Comments Large Plt (test code = Large Plt) Slight [place] 255411-06-13 09:03:00 Test Item Value Reference Range Interpretation Comments Phosphorus (test code = Phosphorus) 3.4 2.5-4.5 [place] 255411-06-13 09:03:00 Test Item Value Reference Range Interpretation Comments Magnesium Lvl (test code = Magnesium 2.2 1.8-2.4 Lvl) [place] 255411-06-13 09:03:00 Test Item Value Reference Range Interpretation Comments Glucose Lvl (test code = Glucose Lvl) 123 70-99 [place] 255411-06-13 09:03:00 Test Item Value Reference Range Interpretation Comments BUN (test code = BUN) 14 7-22 [place] 255411-06-13 09:03:00 Test Item Value Reference Range Interpretation Comments Creatinine Lvl (test code = Creatinine 0.64 0.50-1.40 Lvl) [place] 255411-06-13 09:03:00 Test Item Value Reference Range Interpretation Comments Sodium Lvl (test code = Sodium Lvl) 140 135-145 [place] 255411-06-13 09:03:00 Test Item Value Reference Range Interpretation Comments Potassium Lvl (test code = Potassium 4.3 3.5-5.1 Lvl) [place] 255411-06-13 09:03:00 Test Item Value Reference Range Interpretation Comments Chloride Lvl (test code = Chloride Lvl) 115 95-109 [place] 255411-06-13 09:03:00 Test Item Value Reference Range Interpretation Comments CO2 (test code = CO2) 18 24-32 [place] 255411-06-13 09:03:00 Test Item Value Reference Range Interpretation Comments Calcium Lvl (test code = Calcium Lvl) 9.0 8.5-10.5 [place] 255411-06-13 09:03:00 Test Item Value Reference Range Interpretation Comments AGAP (test code = AGAP) 11.3 10.0-20.0 [place] 255411-06-13 09:03:00 Test Item Value Reference Range Interpretation Comments eGFR (test code = eGFR) 118 [facility] CenterSvpcbyqZXAGYFWKWD3616-30-58 09:03:00 Test Item Value Reference Range Interpretation Comments WBC (test code = WBC) 13.1 3.7-10.4 [place] 555671-06-13 09:03:00 Test Item Value Reference Range Interpretation Comments RBC (test code = RBC) 4.74 4.20-5.40 [place] 555671-06-13 09:03:00 Test Item Value Reference Range Interpretation Comments Hgb (test code = Hgb) 12.0 12.0-16.0 [facility] CenterRcvlivfZBAHXSCSFG5038-20-67 09:03:00 Test Item Value Reference Range Interpretation Comments Hct (test code = Hct) 36.8 36.0-48.0 [facility] CenterKhzkwqmPBDESWURGT5004-86-04 09:03:00 Test Item Value Reference Range Interpretation Comments MCV (test code = MCV) 77.7 80.0-98.0 [facility] CenterStoqkyxNRVPAENVOA6271-61-86 09:03:00 Test Item Value Reference Range Interpretation Comments MCH (test code = MCH) 25.3 pg 27.0-31.0 [facility] CenterUhccqozYIECBNZISQ8730-73-50 09:03:00 Test Item Value Reference Range Interpretation Comments MCHC (test code = MCHC) 32.6 32.0-36.0 [facility] CenterWoyjmasPQXJPKGKIQ5208-60-06 09:03:00 Test Item Value Reference Range Interpretation Comments RDW (test code = RDW) 14.5 11.5-14.5 [place] 555671-06-13 09:03:00 Test Item Value Reference Range Interpretation Comments Platelet (test code = Platelet) 209 133-450 [facility] CenterSbaetloYWDEAGTTEF2606-35-85 09:03:00 Test Item Value Reference Range Interpretation Comments MPV (test code = MPV) 11.1 7.4-10.4 [place] 555671-06-13 09:03:00 Test Item Value Reference Range Interpretation Comments Neutrophils # (test code = Neutrophils 12.3 1.5-8.1 #) [facility] CenterAqajfriATOOLCTCLS3564-97-03 09:03:00 Test Item Value Reference Range Interpretation Comments Lymphocytes # (test code = Lymphocytes 0.8 1.0-5.5 #) [facility] CenterHslhxvwZKRROWXEAZ7294-12-14 09:03:00 Test Item Value Reference Range Interpretation Comments Monocytes # (test code 0.0 See_Comment [Aut omated message] The = Monocytes #) system which generated this result tra nsmitted reference range : <=0.8. The reference r mariah was not used to int erpret this result as normal/abnormal . [facility] CenterJalmnmpDDPWWGMLVD5164-08-22 09:03:00 Test Item Value Reference Range Interpretation Comments Segs (test code = Segs) 93.0 45.0-75.0 [facility] CenterHqshbptEEUUGFPYFZ1965-84-22 09:03:00 Test Item Value Reference Range Interpretation Comments Bands (test code = 1.0 See_Comment [Automat ed message] The Bands) system which ge nerated this result transmit ana laura reference range : <=11.0. The reference r mariah was not used to interpr et this result as lola l/abnormal. [facility] CenterYdvjqlsFAWNSCGJNV1500-68-36 09:03:00 Test Item Value Reference Range Interpretation Comments Lymphocytes (test code = Lymphocytes) 6.0 20.0-40.0 [facility] CenterWvlqukhFMKEUETHAC7279-38-27 09:03:00 Test Item Value Reference Range Interpretation Comments Monocytes (test code = Monocytes) 0.0 2.0-12.0 [facility] CenterNwlupolFVOGKIMVTQ1792-67-56 09:03:00 Test Item Value Reference Range Interpretation Comments Atypical Lymphs (test code = Atypical 0.0 Lymphs) [facility] CenterJwunpmuJGTNZFEDCM3115-90-49 09:03:00 Test Item Value Reference Range Interpretation Comments Anisocyte (test code = 1+ *ABN*(03/09/21 Anisocyte) 4:03 AM) [facility] CenterGyyejveBHGOSTIYGA2142-14-22 09:03:00 Test Item Value Reference Range Interpretation Comments Microcyte (test code = 1+ *ABN*(03/09/21 Microcyte) 4:03 AM) [facility] CenterGtzauaqPNEOURWEIV5938-48-07 09:03:00 Test Item Value Reference Range Interpretation Comments Large Plt (test code = Large Plt) [facility] ALMDD3082-89-56 09:03:00 Test Item Value Reference Range Interpretation Comments Phosphorus (test code = Phosphorus) 3.4 2.5-4.5 [facility] BJBCI5342-71-75 09:03:00 Test Item Value Reference Range Interpretation Comments Magnesium Lvl (test code = Magnesium 2.2 1.8-2.4 Lvl) [place] 255411-06-13 09:03:00 Test Item Value Reference Range Interpretation Comments Glucose Lvl (test code = Glucose Lvl) 123 70-99 [place] 255411-06-13 09:03:00 Test Item Value Reference Range Interpretation Comments BUN (test code = BUN) 14 7-22 [place] 255411-06-13 09:03:00 Test Item Value Reference Range Interpretation Comments Creatinine Lvl (test code = Creatinine 0.64 0.50-1.40 Lvl) [place] 255411-06-13 09:03:00 Test Item Value Reference Range Interpretation Comments Sodium Lvl (test code = Sodium Lvl) 140 135-145 [place] 255411-06-13 09:03:00 Test Item Value Reference Range Interpretation Comments Potassium Lvl (test code = Potassium 4.3 3.5-5.1 Lvl) [place] 255411-06-13 09:03:00 Test Item Value Reference Range Interpretation Comments Chloride Lvl (test code = Chloride Lvl) 115 95-109 [place] 255411-06-13 09:03:00 Test Item Value Reference Range Interpretation Comments CO2 (test code = CO2) 18 24-32 [place] 255411-06-13 09:03:00 Test Item Value Reference Range Interpretation Comments Calcium Lvl (test code = Calcium Lvl) 9.0 8.5-10.5 [place] 255411-06-13 09:03:00 Test Item Value Reference Range Interpretation Comments AGAP (test code = AGAP) 11.3 10.0-20.0 [place] 255411-06-13 09:03:00 Test Item Value Reference Range Interpretation Comments eGFR (test code = eGFR) 118 [place] 555671-06-13 09:03:00 Test Item Value Reference Range Interpretation Comments WBC (test code = WBC) 13.1 3.7-10.4 [place] 555671-06-13 09:03:00 Test Item Value Reference Range Interpretation Comments RBC (test code = RBC) 4.74 4.20-5.40 [place] 555671-06-13 09:03:00 Test Item Value Reference Range Interpretation Comments Hgb (test code = Hgb) 12.0 12.0-16.0 [facility] [id number] 09:03:00 Test Item Value Reference Range Interpretation Comments Hct (test code = Hct) 36.8 36.0-48.0 [facility] [id number] 12:20:00 Test Item Value Reference Range Interpretation Comments UA Sq Epi (test code = UA Sq Epi) Many /LPF [facility] [id number] 12:20:00 Test Item Value Reference Range Interpretation Comments UA WBC (test code = 10 See_Comment [Automa ana laura message] The UA WBC) system which ge nerated this result transmit ana laura reference range : <=5. The reference range was not used to interpr et this result as lola l/abnormal. [facility] [id number] 12:20:00 Test Item Value Reference Range Interpretation Comments UA RBC (test code = 1 See_Comment [Automa ana laura message] The UA RBC) system which ge nerated this result transmit ana laura reference range : <=2. The reference range was not used to interpr et this result as lola l/abnormal. [facility] [id number] 12:20:00 Test Item Value Reference Range Interpretation Comments UA Bacteria (test code = UA Occasional /HPF Bacteria) [facility] [id number] 12:20:00 Test Item Value Reference Range Interpretation Comments UA Mucus (test code = UA Mucus) Few /LPF [facility] [id number] 12:20:00 Test Item Value Reference Range Interpretation Comments UA Hyal Cast (test 1 See_Comment [Automat ed message] The code = UA Hyal Cast) system which generated this result transmit ana laura reference range : <=2. The reference range was not used to interpr et this result as lola l/abnormal. [facility] [id number] 12:20:00 Test Item Value Reference Range Interpretation Comments UA Color (test code = Yellow *NA*(03/08/21 UA Color) 7:20 AM) [facility] [id number] 12:20:00 Test Item Value Reference Range Interpretation Comments UA Turbidity (test code = Clear (03/08/21 7:20 UA Turbidity) AM) [facility] [id number] 12:20:00 Test Item Value Reference Range Interpretation Comments UA Spec Grav (test code = UA Spec 1.020 1 Grav) [facility] [id number] 12:20:00 Test Item Value Reference Range Interpretation Comments UA pH (test code = UA pH) 7.0 1 5.0-8.0 [facility] [id number] 12:20:00 Test Item Value Reference Range Interpretation Comments UA Protein (test code Negative (03/08/21 7:20 = UA Protein) AM) [facility] [id number] 12:20:00 Test Item Value Reference Range Interpretation Comments UA Glucose (test code Negative (03/08/21 7:20 = UA Glucose) AM) [facility] [id number] 12:20:00 Test Item Value Reference Range Interpretation Comments UA Ketones (test code Negative *NA*(03/08/21 = UA Ketones) 7:20 AM) [facility] [id number] 12:20:00 Test Item Value Reference Range Interpretation Comments UA Bili (test code = Negative *NA*(03/08/21 UA Bili) 7:20 AM) [facility] [id number] 12:20:00 Test Item Value Reference Range Interpretation Comments UA Blood (test code = Negative (03/08/21 7:20 UA Blood) AM) [facility] [id number] 12:20:00 Test Item Value Reference Range Interpretation Comments UA Urobilinogen (test code = UA 0.2 0.1-1.0 Urobilinogen) [facility] [id number] 12:20:00 Test Item Value Reference Range Interpretation Comments UA Nitrite (test code Negative (03/08/21 7:20 = UA Nitrite) AM) [facility] [id number] 12:20:00 Test Item Value Reference Range Interpretation Comments UA Leuk Est (test code Trace *ABN*(03/08/21 = UA Leuk Est) 7:20 AM) [facility] [id number] 12:20:00 Test Item Value Reference Range Interpretation Comments U Preg (test code = U Negative (03/08/21 7:20 Preg) AM) [facility] [id number] 12:20:00 Test Item Value Reference Range Interpretation Comments UA Sq Epi (test code = UA Sq Epi) Many /LPF [facility] [id number] 12:20:00 Test Item Value Reference Range Interpretation Comments UA WBC (test code = 10 See_Comment [Automa ana laura message] The UA WBC) system which ge nerated this result transmit ana laura reference range : <=5. The reference range was not used to interpr et this result as lola l/abnormal. [facility] [id number] 12:20:00 Test Item Value Reference Range Interpretation Comments UA RBC (test code = 1 See_Comment [Automa ana laura message] The UA RBC) system which ge nerated this result transmit ana laura reference range : <=2. The reference range was not used to interpr et this result as lola l/abnormal. [facility] [id number] 12:20:00 Test Item Value Reference Range Interpretation Comments UA Bacteria (test code = UA Occasional /HPF Bacteria) [facility] [id number] 12:20:00 Test Item Value Reference Range Interpretation Comments UA Mucus (test code = UA Mucus) Few /LPF [facility] [id number] 12:20:00 Test Item Value Reference Range Interpretation Comments UA Hyal Cast (test 1 See_Comment [Automat ed message] The code = UA Hyal Cast) system which generated this result transmit ana laura reference range : <=2. The reference range was not used to interpr et this result as lola l/abnormal. [facility] [id number] 12:20:00 Test Item Value Reference Range Interpretation Comments UA Color (test code = Yellow *NA*(03/08/21 UA Color) 7:20 AM) [facility] [id number] 12:20:00 Test Item Value Reference Range Interpretation Comments UA Turbidity (test code = Clear (03/08/21 7:20 UA Turbidity) AM) [facility] [id number] 12:20:00 Test Item Value Reference Range Interpretation Comments UA Spec Grav (test code = UA Spec 1.020 1 Grav) [facility] [id number] 12:20:00 Test Item Value Reference Range Interpretation Comments UA pH (test code = UA pH) 7.0 1 5.0-8.0 [facility] [id number] 12:20:00 Test Item Value Reference Range Interpretation Comments UA Protein (test code Negative (03/08/21 7:20 = UA Protein) AM) [facility] [id number] 12:20:00 Test Item Value Reference Range Interpretation Comments UA Glucose (test code Negative (03/08/21 7:20 = UA Glucose) AM) [facility] [id number] 12:20:00 Test Item Value Reference Range Interpretation Comments UA Ketones (test code Negative *NA*(03/08/21 = UA Ketones) 7:20 AM) [facility] [id number] 12:20:00 Test Item Value Reference Range Interpretation Comments UA Bili (test code = Negative *NA*(03/08/21 UA Bili) 7:20 AM) [facility] AND [id number] 12:20:00 Test Item Value Reference Range Interpretation Comments UA Blood (test code = Negative (03/08/21 7:20 UA Blood) AM) [facility] AND [id number] 12:20:00 Test Item Value Reference Range Interpretation Comments UA Urobilinogen (test code = UA 0.2 0.1-1.0 Urobilinogen) [facility] AND [id number] 12:20:00 Test Item Value Reference Range Interpretation Comments UA Nitrite (test code Negative (03/08/21 7:20 = UA Nitrite) AM) [facility] AND [id number] 12:20:00 Test Item Value Reference Range Interpretation Comments UA Leuk Est (test code Trace *ABN*(03/08/21 = UA Leuk Est) 7:20 AM) [facility] [id number] 12:20:00 Test Item Value Reference Range Interpretation Comments U Preg (test code = U Negative (03/08/21 7:20 Preg) AM) [id number] 06:48:00 Test Item Value Reference Range Interpretation Comments Coronavirus (COVID-19) Not Detected (03/08/21 MARLENE (test code = 1:48 AM) Coronavirus (COVID-19) MARLENE) [facility]gmfagvMXJWSRGMGH1353-04-27 06:48:00 Test Item Value Reference Range Interpretation Comments Coronavirus (COVID-19) Not Detected (03/08/21 MARLENE (test code = 1:48 AM) Coronavirus (COVID-19) MARLENE) [facility]2021-06-12 04:04:00 Test Item Value Reference Range Interpretation Comments Total Protein (test code = Total 6.8 6.4-8.4 Protein) [facility]2021-06-12 04:04:00 Test Item Value Reference Range Interpretation Comments Albumin Lvl (test code = Albumin Lvl) 3.2 3.5-5.0 [facility]2021-06-12 04:04:00 Test Item Value Reference Range Interpretation Comments Globulin (test code = Globulin) 3.6 2.7-4.2 [facility]2021-06-12 04:04:00 Test Item Value Reference Range Interpretation Comments A/G Ratio (test code = A/G Ratio) 0.9 1 0.7-1.6 [facility]2021-06-12 04:04:00 Test Item Value Reference Range Interpretation Comments ASPARTATE TRANSAMINASE 34 See_Comment [Aut omated message] (test code = ASPARTATE The s ystem which TRANSAMINASE) generated this result transmitted ref erence range: <=37. Th e reference range was not used to interpr et this result as normal/abnormal . [facility]2021-06-12 04:04:00 Test Item Value Reference Range Interpretation Comments Alk Phos (test code = Alk Phos) 63 39-136 [facility]2021-06-12 04:04:00 Test Item Value Reference Range Interpretation Comments Bili Total (test code = Bili Total) 0.6 0.2-1.3 [place] 255411-06-12 04:04:00 Test Item Value Reference Range Interpretation Comments Bili Direct (test code no gt See_Comment [Aut omated message] The = Bili Direct) system which generated this result tra nsmitted reference range : <=0.3. The reference r mariah was not used to int erpret this result as lola l/abnormal. [facility] [id number] 04:04:00 Test Item Value Reference Range Interpretation Comments Bili Indirect Unable to See_Comment [Automated (test code = Bili Calculate message] T he system Indirect) which generated this result transmitted reference range : <=1.0. The reference range was not used to interpret this result as normal/abnormal . [place] 255411-06-12 04:04:00 Test Item Value Reference Range Interpretation Comments ALANINE AMINOTRANSFERASE 19 See_Comment [A utomated message] (test code = ALANINE The sys tem which AMINOTRANSFERASE) generated this result transmitted ref erence range: <=65. Th e reference range was not used to int erpret this result as normal/abnormal . [place] 555671-06-12 04:04:00 Test Item Value Reference Range Interpretation Comments PTT (test code = PTT) 35.2 s 22.9-35.8 [place] [address]-06-12 04:04:00 Test Item Value Reference Range Interpretation Comments PT (test code = PT) 14.8 s 12.0-14.7 [place] 48[address]-06-12 04:04:00 Test Item Value Reference Range Interpretation Comments INR (test code = INR) 1.18 1 0.85-1.17 [place] 255411-06-12 04:04:00 Test Item Value Reference Range Interpretation Comments Total Protein (test code = Total 6.8 6.4-8.4 Protein) [place] 255411-06-12 04:04:00 Test Item Value Reference Range Interpretation Comments Albumin Lvl (test code = Albumin Lvl) 3.2 3.5-5.0 [place] 255411-06-12 04:04:00 Test Item Value Reference Range Interpretation Comments Globulin (test code = Globulin) 3.6 2.7-4.2 [place] 255411-06-12 04:04:00 Test Item Value Reference Range Interpretation Comments A/G Ratio (test code = A/G Ratio) 0.9 1 0.7-1.6 [place] 255411-06-12 04:04:00 Test Item Value Reference Range Interpretation Comments ASPARTATE TRANSAMINASE 34 See_Comment [Aut omated message] (test code = ASPARTATE The s ystem which TRANSAMINASE) generated this result transmitted ref erence range: <=37. Th e reference range was not used to interpr et this result as normal/abnormal . [facility] [employer] [id number] 04:04:00 Test Item Value Reference Range Interpretation Comments Alk Phos (test code = Alk Phos) 63 39-136 [facility] System[facility] [id number] 04:04:00 Test Item Value Reference Range Interpretation Comments Bili Total (test code = Bili Total) 0.6 0.2-1.3 [facility] [id number] 04:04:00 Test Item Value Reference Range Interpretation Comments Bili Direct (test code no gt See_Comment [Aut omated message] The = Bili Direct) system which generated this result tra nsmitted reference range : <=0.3. The reference r mariah was not used to int erpret this result as lola l/abnormal. [facility] [employer] [id number] 04:04:00 Test Item Value Reference Range Interpretation Comments Bili Indirect Unable to See_Comment [Automated (test code = Bili Calculate message] T he system Indirect) which generated this result transmitted reference range : <=1.0. The reference range was not used to interpret this result as normal/abnormal . [facility] [employer] [id number] 04:04:00 Test Item Value Reference Range Interpretation Comments ALANINE AMINOTRANSFERASE 19 See_Comment [A utomated message] (test code = ALANINE The sys tem which AMINOTRANSFERASE) generated this result transmitted ref erence range: <=65. Th e reference range was not used to int erpret this result as normal/abnormal . [facility] HospitalAqzneksMDCOXNYUAT5393-05-80 04:04:00 Test Item Value Reference Range Interpretation Comments PTT (test code = PTT) 35.2 s 22.9-35.8 [facility] SystemHhpvulfSHUVIILLFI6606-27-10 04:04:00 Test Item Value Reference Range Interpretation Comments PT (test code = PT) 14.8 s 12.0-14.7 [facility] HospitalKdcsqofBETUUUZBRH0785-67-95 04:04:00 Test Item Value Reference Range Interpretation Comments INR (test code = INR) 1.18 1 0.85-1.17 [facility] [id number] 01:50:00 Test Item Value Reference Range Interpretation Comments Tube Num CSF (test xxxxxxx (03/07/21 8:50 code = Tube Num CSF) PM) [facility] [id number] 01:50:00 Test Item Value Reference Range Interpretation Comments Color CSF (test code Colorless (03/07/21 8:50 = Color CSF) PM) [facility] [id number] 01:50:00 Test Item Value Reference Range Interpretation Comments Clarity CSF (test code = Clear (03/07/21 8:50 Clarity CSF) PM) [facility] [id number] 01:50:00 Test Item Value Reference Range Interpretation Comments Supernat CSF (test Colorless (03/07/21 8:50 code = Supernat CSF) PM) [facility]2021-06-12 01:50:00 Test Item Value Reference Range Interpretation Comments Nucleated Cells CSF 3 See_Comment [Automa ana laura message] The (test code = Nucleated syste m which generated Cells CSF) this result tra nsmitted reference range : <=53. The reference r mariah was not used to int erpret this result as normal/abnormal . [facility]2021-06-12 01:50:00 Test Item Value Reference Range Interpretation Comments RBC CSF (test code = 7 See_Comment [Autom ated message] The RBC CSF) system which ge nerated this result transmit ana laura reference range : <=03. The reference range was not used to interpr et this result as lola l/abnormal. [facility]2021-06-12 01:50:00 Test Item Value Reference Range Interpretation Comments Comment CSF (test Differential not code = Comment CSF) performed on WBC count of less than 5. [facility] [id number] 01:50:00 Test Item Value Reference Range Interpretation Comments Glucose CSF (test code = Glucose CSF) 53 45-80 [facility] [id number] 01:50:00 Test Item Value Reference Range Interpretation Comments Protein CSF (test code = Protein CSF) 114 15-45 [facility] [id number] 01:50:00 Test Item Value Reference Range Interpretation Comments Gram Stain Report Gram Stain Performed By: (test code = Gram [facility] w[facility]ram [id number] 01:50:00 Test Item Value Reference Range Interpretation Comments Culture: CSF w/Gram 72 Hour Report - No Stain (test code = Growth, Holding Culture: CSF w/Gram Stain) [facility]2021-06-12 01:50:00 Test Item Value Reference Range Interpretation Comments Tube Num CSF (test xxxxxxx (03/07/21 8:50 code = Tube Num CSF) PM) [facility]2021-06-12 01:50:00 Test Item Value Reference Range Interpretation Comments Color CSF (test code Colorless (03/07/21 8:50 = Color CSF) PM) [facility]2021-06-12 01:50:00 Test Item Value Reference Range Interpretation Comments Clarity CSF (test code = Clear (03/07/21 8:50 Clarity CSF) PM) [facility]2021-06-12 01:50:00 Test Item Value Reference Range Interpretation Comments Supernat CSF (test Colorless (03/07/21 8:50 code = Supernat CSF) PM) [facility]2021-06-12 01:50:00 Test Item Value Reference Range Interpretation Comments Nucleated Cells CSF 3 See_Comment [Automa ana laura message] The (test code = Nucleated syste m which generated Cells CSF) this result tra nsmitted reference range : <=53. The reference r mariah was not used to int erpret this result as normal/abnormal . [facility]2021-06-12 01:50:00 Test Item Value Reference Range Interpretation Comments RBC CSF (test code = 7 See_Comment [Autom ated message] The RBC CSF) system which ge nerated this result transmit ana laura reference range : <=03. The reference range was not used to interpr et this result as lola l/abnormal. [facility]2021-06-12 01:50:00 Test Item Value Reference Range Interpretation Comments Comment CSF (test Differential not code = Comment CSF) performed on WBC count of less than 5. [facility]2021-06-12 01:50:00 Test Item Value Reference Range Interpretation Comments Glucose CSF (test code = Glucose CSF) 53 45-80 [facility]2021-06-12 01:50:00 Test Item Value Reference Range Interpretation Comments Protein CSF (test code = Protein CSF) 114 15-45 [facility] [id number] 01:50:00 Test Item Value Reference Range Interpretation Comments Gram Stain Report Gram Stain Performed By: (test code = Gram [facility] Stain Report) [facility] w/Gram [id number] 01:50:00 Test Item Value Reference Range Interpretation Comments Culture: CSF w/Gram 72 Hour Report - No Stain (test code = Growth, Holding Culture: CSF w/Gram Stain) [facility]2021-06-11 20:54:22 Test Item Value Reference Range Interpretation Comments Glucose Lvl (test code = Glucose Lvl) 94 70-99 [facility]2021-06-11 20:54:22 Test Item Value Reference Range Interpretation Comments BUN (test code = BUN) 13 7-22 [facility]2021-06-11 20:54:22 Test Item Value Reference Range Interpretation Comments Creatinine Lvl (test code = Creatinine 0.57 0.50-1.40 Lvl) [facility]2021-06-11 20:54:22 Test Item Value Reference Range Interpretation Comments Sodium Lvl (test code = Sodium Lvl) 143 135-145 [facility]2021-06-11 20:54:22 Test Item Value Reference Range Interpretation Comments Potassium Lvl (test code = Potassium 3.7 3.5-5.1 Lvl) [facility]2021-06-11 20:54:22 Test Item Value Reference Range Interpretation Comments Chloride Lvl (test code = Chloride Lvl) 112 95-109 [facility]2021-06-11 20:54:22 Test Item Value Reference Range Interpretation Comments CO2 (test code = CO2) 22 24-32 [facility]2021-06-11 20:54:22 Test Item Value Reference Range Interpretation Comments Calcium Lvl (test code = Calcium Lvl) 8.9 8.5-10.5 [facility]2021-06-11 20:54:22 Test Item Value Reference Range Interpretation Comments AGAP (test code = AGAP) 12.7 10.0-20.0 [facility]2021-06-11 20:54:22 Test Item Value Reference Range Interpretation Comments eGFR (test code = eGFR) 123 [facility]SrviessIZWLCPBMCM7613-65-91 20:54:22 Test Item Value Reference Range Interpretation Comments WBC X 10x3 (test code = WBC X 10x3) 6.8 3.7-10.4 [facility] CenterIoezosdMGKOWIUGMI8444-09-13 20:54:22 Test Item Value Reference Range Interpretation Comments RBC X 10x6 (test code = RBC X 10x6) 4.94 4.20-5.40 [facility] CenterWpxjmebRFUKIGEHZD2668-09-80 20:54:22 Test Item Value Reference Range Interpretation Comments Hgb (test code = Hgb) 12.4 12.0-16.0 [place] 555671-06-11 20:54:22 Test Item Value Reference Range Interpretation Comments Hct (test code = Hct) 37.7 36.0-48.0 [facility] CenterUkgojtwSNWTZXSGEF5156-70-85 20:54:22 Test Item Value Reference Range Interpretation Comments MCV (test code = MCV) 76.4 80.0-98.0 [facility] CenterJfqiyicRZVYLKKJHP0998-63-51 20:54:22 Test Item Value Reference Range Interpretation Comments MCH (test code = MCH) 25.2 pg 27.0-31.0 [facility] CenterYwigjguLAPIJCNOBP0336-72-74 20:54:22 Test Item Value Reference Range Interpretation Comments MCHC (test code = MCHC) 32.9 32.0-36.0 [facility] CenterBvuxdbhTHYOIMULYI1508-20-43 20:54:22 Test Item Value Reference Range Interpretation Comments RDW (test code = RDW) 14.8 11.5-14.5 [facility] CenterZtnozzdXEOXESJWYK1940-13-69 20:54:22 Test Item Value Reference Range Interpretation Comments Platelet (test code = Platelet) 229 133-450 [facility] CenterQzejrujYAHXPQLJFM7789-92-85 20:54:22 Test Item Value Reference Range Interpretation Comments MPV (test code = MPV) 9.8 7.4-10.4 [place] 555671-06-11 20:54:22 Test Item Value Reference Range Interpretation Comments Segs (test code = Segs) 63.4 45.0-75.0 [place] 555671-06-11 20:54:22 Test Item Value Reference Range Interpretation Comments Lymphocytes (test code = Lymphocytes) 29.1 20.0-40.0 [place] 555671-06-11 20:54:22 Test Item Value Reference Range Interpretation Comments Monocytes (test code = Monocytes) 5.7 2.0-12.0 [facility] CenterHdfifibFKHXNOFMSF2207-96-13 20:54:22 Test Item Value Reference Range Interpretation Comments Eosinophils (test code = 1.1 See_Comment [A utomated message] The Eosinophils) system which ge nerated this result tra nsmitted reference range : <=4.0. The reference r mariah was not used to int erpret this result as normal/abnormal . [facility] CenterApwqqhnSCTUCIUSLK2245-72-96 20:54:22 Test Item Value Reference Range Interpretation Comments Basophils (test code = 0.7 See_Comment [Aut omated message] The Basophils) system which ge nerated this result tra nsmitted reference range : <=1.0. The reference r mariah was not used to int erpret this result as normal/abnormal . [facility] CenterHqpgywqLFGHGTZCRO4901-95-15 20:54:22 Test Item Value Reference Range Interpretation Comments Neutrophils # (test code = Neutrophils 4.3 1.5-8.1 #) [facility]XksmjwgJIPNVHMREP7287-84-99 20:54:22 Test Item Value Reference Range Interpretation Comments Lymphocytes # (test code = Lymphocytes 2.0 1.0-5.5 #) [facility] CenterGpbgzmyWFNYSKKWKH5206-80-29 20:54:22 Test Item Value Reference Range Interpretation Comments Monocytes # (test code 0.4 See_Comment [Aut omated message] The = Monocytes #) system which generated this result tra nsmitted reference range : <=0.8. The reference r mariah was not used to int erpret this result as normal/abnormal . [facility] CenterBbsxmzlKYFBLCSGUD5115-82-99 20:54:22 Test Item Value Reference Range Interpretation Comments Eosinophils # (test code 0.1 See_Comment [A utomated message] The = Eosinophils #) system whic h generated this result tra nsmitted reference range : <=0.5. The reference r mariah was not used to int erpret this result as normal/abnormal . [facility] CenterVnvirxvCQULJZATVQ6443-32-13 20:54:22 Test Item Value Reference Range Interpretation Comments Microcyte (test code = 1+ *ABN*(03/07/21 Microcyte) 3:54 PM) [facility] CenterNmbbiufCVFRQQEAWB1489-70-87 20:54:22 Test Item Value Reference Range Interpretation Comments Polychrom (test code = Polychrom) slight [place] 555671-06-11 20:54:22 Test Item Value Reference Range Interpretation Comments Large Plt (test code = Large Plt) slight [place] 255411-06-11 20:54:22 Test Item Value Reference Range Interpretation Comments Glucose Lvl (test code = Glucose Lvl) 94 70-99 [place] 255411-06-11 20:54:22 Test Item Value Reference Range Interpretation Comments BUN (test code = BUN) 13 7-22 [place] 255411-06-11 20:54:22 Test Item Value Reference Range Interpretation Comments Creatinine Lvl (test code = Creatinine 0.57 0.50-1.40 Lvl) [place] 255411-06-11 20:54:22 Test Item Value Reference Range Interpretation Comments Sodium Lvl (test code = Sodium Lvl) 143 135-145 [place] 255411-06-11 20:54:22 Test Item Value Reference Range Interpretation Comments Potassium Lvl (test code = Potassium 3.7 3.5-5.1 Lvl) [place] 255411-06-11 20:54:22 Test Item Value Reference Range Interpretation Comments Chloride Lvl (test code = Chloride Lvl) 112 95-109 [place] [address]-06-11 20:54:22 Test Item Value Reference Range Interpretation Comments CO2 (test code = CO2) 22 24-32 [place] 255411-06-11 20:54:22 Test Item Value Reference Range Interpretation Comments Calcium Lvl (test code = Calcium Lvl) 8.9 8.5-10.5 [place] 255411-06-11 20:54:22 Test Item Value Reference Range Interpretation Comments AGAP (test code = AGAP) 12.7 10.0-20.0 [place] 255411-06-11 20:54:22 Test Item Value Reference Range Interpretation Comments eGFR (test code = eGFR) 123 [place] 555671-06-11 20:54:22 Test Item Value Reference Range Interpretation Comments WBC X 10x3 (test code = WBC X 10x3) 6.8 3.7-10.4 [place] 555671-06-11 20:54:22 Test Item Value Reference Range Interpretation Comments RBC X 10x6 (test code = RBC X 10x6) 4.94 4.20-5.40 [facility] CenterFfnhgmoPHVZQOSZAR4706-89-35 20:54:22 Test Item Value Reference Range Interpretation Comments Hgb (test code = Hgb) 12.4 12.0-16.0 [facility] CenterDeyvonlKCTWACIGET3690-40-19 20:54:22 Test Item Value Reference Range Interpretation Comments Hct (test code = Hct) 37.7 36.0-48.0 [facility] CenterHyabkrlCWSQJIBDTX7417-55-30 20:54:22 Test Item Value Reference Range Interpretation Comments MCV (test code = MCV) 76.4 80.0-98.0 [place] 555671-06-11 20:54:22 Test Item Value Reference Range Interpretation Comments MCH (test code = MCH) 25.2 pg 27.0-31.0 [facility] CenterKoviaymWGDRHGGSNM6521-90-35 20:54:22 Test Item Value Reference Range Interpretation Comments MCHC (test code = MCHC) 32.9 32.0-36.0 [facility] CenterBlihkpmBOTNEJASRE8291-09-36 20:54:22 Test Item Value Reference Range Interpretation Comments RDW (test code = RDW) 14.8 11.5-14.5 [facility] CenterCbgnjdiANGPSZRWMB5203-35-22 20:54:22 Test Item Value Reference Range Interpretation Comments Platelet (test code = Platelet) 229 133-450 [facility] CenterShdpzrzEEOEBDIOSM3720-74-28 20:54:22 Test Item Value Reference Range Interpretation Comments MPV (test code = MPV) 9.8 7.4-10.4 [facility] CenterAgkkegdCJMWMEGKSC5143-15-01 20:54:22 Test Item Value Reference Range Interpretation Comments Segs (test code = Segs) 63.4 45.0-75.0 [facility] CenterEhjjgodACNOIHPTGZ5664-42-99 20:54:22 Test Item Value Reference Range Interpretation Comments Lymphocytes (test code = Lymphocytes) 29.1 20.0-40.0 [place] 555671-06-11 20:54:22 Test Item Value Reference Range Interpretation Comments Monocytes (test code = Monocytes) 5.7 2.0-12.0 [place] 555671-06-11 20:54:22 Test Item Value Reference Range Interpretation Comments Eosinophils (test code = 1.1 See_Comment [A utomated message] The Eosinophils) system which ge nerated this result tra nsmitted reference range : <=4.0. The reference r mariah was not used to int erpret this result as normal/abnormal . [facility] CenterZmlewigRJMJMHXUED5382-15-57 20:54:22 Test Item Value Reference Range Interpretation Comments Basophils (test code = 0.7 See_Comment [Aut omated message] The Basophils) system which ge nerated this result tra nsmitted reference range : <=1.0. The reference r mariah was not used to int erpret this result as normal/abnormal . [facility] CenterPzkdbxvFGGRYXDDPN6557-38-75 20:54:22 Test Item Value Reference Range Interpretation Comments Neutrophils # (test code = Neutrophils 4.3 1.5-8.1 #) [facility] CenterAqncqniWYHZKLSWXW7586-48-27 20:54:22 Test Item Value Reference Range Interpretation Comments Lymphocytes # (test code = Lymphocytes 2.0 1.0-5.5 #) [facility] CenterCqtypcyUVAMBEXRSI8989-40-74 20:54:22 Test Item Value Reference Range Interpretation Comments Monocytes # (test code 0.4 See_Comment [Aut omated message] The = Monocytes #) system which generated this result tra nsmitted reference range : <=0.8. The reference r mariah was not used to int erpret this result as normal/abnormal . [facility] CenterTxluewsVLCNOQSTAZ7038-58-37 20:54:22 Test Item Value Reference Range Interpretation Comments Eosinophils # (test code 0.1 See_Comment [A utomated message] The = Eosinophils #) system whic h generated this result tra nsmitted reference range : <=0.5. The reference r mariah was not used to int erpret this result as normal/abnormal . [facility] CenterDrdgilkDIDQUPEJXL8873-59-34 20:54:22 Test Item Value Reference Range Interpretation Comments Microcyte (test code = 1+ *ABN*(03/07/21 Microcyte) 3:54 PM) [facility] CenterSyojdufVZLXAEFIGI3843-19-99 20:54:22 Test Item Value Reference Range Interpretation Comments Polychrom (test code = Polychrom) slight [facility] CenterLjkyrigQEAMDSOHFB1507-97-33 20:54:22 Test Item Value Reference Range Interpretation Comments Large Plt (test code = Large Plt) [facility]QlhctluDBRFJEEJFSQG3437-47-53 21:10:00 Test Item Value Reference Range Interpretation Comments AGAP (test code = AGAP) 14.3 10.0-20.0 [facility]JobsyldWEKBRASLMKAR0452-62-56 21:10:00 Test Item Value Reference Range Interpretation Comments CO2 (test code = CO2) 22 24-32 [facility] HospitalGtwbwuqVCKMYSQNVFWU2531-10-23 21:10:00 Test Item Value Reference Range Interpretation Comments Calcium Lvl (test code = Calcium Lvl) 9.2 8.5-10.5 [facility] HospitalWyygmatNHOWQTBCPPUG5167-52-97 21:10:00 Test Item Value Reference Range Interpretation Comments eGFR (test code = eGFR) 119 [facility] HospitalDpqdrnaTBKHJSKJBVLZ0756-39-52 21:10:00 Test Item Value Reference Range Interpretation Comments Chloride Lvl (test code = Chloride Lvl) 109 95-109 [facility] HospitalDoxyejdEBKATGEONJWQ5708-30-67 21:10:00 Test Item Value Reference Range Interpretation Comments Sodium Lvl (test code = Sodium Lvl) 142 135-145 [facility] HospitalXokmxlvZBBUXYXEWQYO2423-24-01 21:10:00 Test Item Value Reference Range Interpretation Comments BUN (test code = BUN) 7 7-22 [facility] HospitalTcejidrARFLCHVISQGK5586-82-20 21:10:00 Test Item Value Reference Range Interpretation Comments Creatinine Lvl (test code = Creatinine 0.68 0.50-1.40 Lvl) [facility] HospitalWknbuzrOIENVXBDRUYA9266-86-73 21:10:00 Test Item Value Reference Range Interpretation Comments Potassium Lvl (test code = Potassium 3.3 3.5-5.1 Lvl) [facility] HospitalHbfzwxnAMXJSWPDHOEN9833-24-35 21:10:00 Test Item Value Reference Range Interpretation Comments Glucose Lvl (test code = Glucose Lvl) 87 70-99 [facility]UdpebuuZEYONNBFZPKDI9129-67-89 21:10:00 Test Item Value Reference Range Interpretation Comments hCG Tot (test code = hCG Tot) 1 [facility] CenterWlwkqkuTFTGBGYEWO0872-11-16 21:10:00 Test Item Value Reference Range Interpretation Comments MCH (test code = MCH) 25.2 pg 27.0-31.0 [facility] CenterKqciuswVBLYDTPNKD2944-37-93 21:10:00 Test Item Value Reference Range Interpretation Comments RDW (test code = RDW) 15.9 11.5-14.5 [facility] CenterTblqimwDJTFBAVIXY9652-79-05 21:10:00 Test Item Value Reference Range Interpretation Comments MCHC (test code = MCHC) 33.1 32.0-36.0 [facility] CenterXqrvqqpMDZLXGHLKV1908-34-04 21:10:00 Test Item Value Reference Range Interpretation Comments MCV (test code = MCV) 76.3 80.0-98.0 [facility] CenterGfpbecrSYSKDKZCYZ2491-55-62 21:10:00 Test Item Value Reference Range Interpretation Comments Hct (test code = Hct) 38.6 36.0-48.0 [facility] CenterQjzmvyfDXSHZPZXVH5428-70-49 21:10:00 Test Item Value Reference Range Interpretation Comments MPV (test code = MPV) 9.5 7.4-10.4 [facility] CenterZjofjgiLELOPDUBQX3520-80-80 21:10:00 Test Item Value Reference Range Interpretation Comments Platelet (test code = Platelet) 242 133-450 [facility] CenterJvwlrlqIFCSEYXXTP1787-07-92 21:10:00 Test Item Value Reference Range Interpretation Comments Hgb (test code = Hgb) 12.8 12.0-16.0 [facility] CenterNlsaspnLTALFIGEVP1401-83-60 21:10:00 Test Item Value Reference Range Interpretation Comments RBC (test code = RBC) 5.06 4.20-5.40 [facility] CenterFgeoyrxUJDQNYTXOW1756-90-76 21:10:00 Test Item Value Reference Range Interpretation Comments WBC (test code = WBC) 5.0 3.7-10.4 [facility] CenterXxykyuoIARAJIRHZY9358-97-03 21:10:00 Test Item Value Reference Range Interpretation Comments Basophils # (test code 0.1 See_Comment [Aut omated message] The = Basophils #) system which generated this result tra nsmitted reference range : <=0.2. The reference r mariah was not used to int erpret this result as normal/abnormal . [facility] CenterCoffpluMYLSWVKRUV3832-50-73 21:10:00 Test Item Value Reference Range Interpretation Comments Microcyte (test code = 1+ *ABN*(03/26/17 Microcyte) 4:10 PM) [facility] CenterLbllgsxJNUPOTLYSO7621-62-62 21:10:00 Test Item Value Reference Range Interpretation Comments Eosinophils # (test code 0.1 See_Comment [A utomated message] The = Eosinophils #) system whic h generated this result tra nsmitted reference range : <=0.5. The reference r mariah was not used to int erpret this result as normal/abnormal . [facility] CenterYuwjtesBTWEKYKGCL1480-92-90 21:10:00 Test Item Value Reference Range Interpretation Comments Lymphocytes (test code = Lymphocytes) 42.6 20.0-40.0 [facility] CenterKyymixlRWZDQFXTYN1126-73-46 21:10:00 Test Item Value Reference Range Interpretation Comments Segs (test code = Segs) 47.2 45.0-75.0 [facility] CenterEevirtiPOJYIODWHK8230-49-43 21:10:00 Test Item Value Reference Range Interpretation Comments Eosinophils (test code = 2.0 See_Comment [A utomated message] The Eosinophils) system which ge nerated this result tra nsmitted reference range : <=4.0. The reference r mariah was not used to int erpret this result as normal/abnormal . [facility] CenterNjbrwpbKPAZGBWUMH3230-55-17 21:10:00 Test Item Value Reference Range Interpretation Comments Basophils (test code = 1.0 See_Comment [Aut omated message] The Basophils) system which ge nerated this result tra nsmitted reference range : <=1.0. The reference r mariah was not used to int erpret this result as normal/abnormal . [facility] CenterPibogsqUYFFYZKPJD2084-86-49 21:10:00 Test Item Value Reference Range Interpretation Comments Segs-Bands # (test code = Segs-Bands #) 2.3 1.5-8.1 [facility] CenterLqqoejnXXZLGZXVII1058-29-47 21:10:00 Test Item Value Reference Range Interpretation Comments Monocytes (test code = Monocytes) 7.2 2.0-12.0 [facility] CenterLapgcpsXTLFYYMXON7342-10-48 21:10:00 Test Item Value Reference Range Interpretation Comments Monocytes # (test code 0.4 See_Comment [Aut omated message] The = Monocytes #) system which generated this result tra nsmitted reference range : <=0.8. The reference r mariah was not used to int erpret this result as normal/abnormal . [facility] CenterLfbzujeRQWOQBGPUS1217-03-60 21:10:00 Test Item Value Reference Range Interpretation Comments Lymphocytes # (test code = Lymphocytes 2.1 1.0-5.5 #) [facility] CenterKrovnbhBAZCQLNOCD7568-99-00 21:10:00 Test Item Value Reference Range Interpretation Comments INR (test code = INR) 1.02 0.85-1.17 [facility] CenterTbzhjgcIRSNIMKVXQ4120-45-25 21:10:00 Test Item Value Reference Range Interpretation Comments PTT (test code = PTT) 33.1 s 22.9-35.8 [facility] CenterZsnumvjLRNFVZVJRR1255-54-35 21:10:00 Test Item Value Reference Range Interpretation Comments PT (test code = PT) 13.6 s 12.0-14.7 [facility] HospitalNknolxhXBKSDLATPUJH4210-56-80 21:10:00 Test Item Value Reference Range Interpretation Comments AGAP (test code = AGAP) 14.3 10.0-20.0 [facility] HospitalCgebbjsWOGLWAMDKSJY7916-71-25 21:10:00 Test Item Value Reference Range Interpretation Comments CO2 (test code = CO2) 22 -32 [facility] HospitalLmbmqtvRLWYOALCBBSA3979-67-91 21:10:00 Test Item Value Reference Range Interpretation Comments Calcium Lvl (test code = Calcium Lvl) 9.2 8.5-10.5 [facility] HospitalXkovyecDINBDRSPVCTY8749-66-61 21:10:00 Test Item Value Reference Range Interpretation Comments eGFR (test code = eGFR) 119 [facility] HospitalPwbrughIYRIKYENOHZG5766-47-42 21:10:00 Test Item Value Reference Range Interpretation Comments Chloride Lvl (test code = Chloride Lvl) 109 95-109 [facility] HospitalPtrasooJUMDGLTVTQGC0843-21-50 21:10:00 Test Item Value Reference Range Interpretation Comments Sodium Lvl (test code = Sodium Lvl) 142 135-145 [facility] HospitalWjyhkdmEFWGGHYOKJQO8374-36-51 21:10:00 Test Item Value Reference Range Interpretation Comments BUN (test code = BUN) 7 7-22 [facility] HospitalTvjcpxaICEOCJYTKCJP1724-46-95 21:10:00 Test Item Value Reference Range Interpretation Comments Creatinine Lvl (test code = Creatinine 0.68 0.50-1.40 Lvl) [facility] HospitalQybdudkPCMDYPIUWXZY4896-23-58 21:10:00 Test Item Value Reference Range Interpretation Comments Potassium Lvl (test code = Potassium 3.3 3.5-5.1 Lvl) [facility] HospitalLkfkazbQYMCUDWNCDIT7421-57-27 21:10:00 Test Item Value Reference Range Interpretation Comments Glucose Lvl (test code = Glucose Lvl) 87 70-99 [facility]EbagllcEKCZMAIVBOJGB0689-00-76 21:10:00 Test Item Value Reference Range Interpretation Comments hCG Tot (test code = hCG Tot) 1 [facility] CenterGfbacxxCWCEEAZFNQ9989-49-94 21:10:00 Test Item Value Reference Range Interpretation Comments MCH (test code = MCH) 25.2 pg 27.0-31.0 [facility] CenterUzahpgsNOBVRAKNOU9215-10-96 21:10:00 Test Item Value Reference Range Interpretation Comments RDW (test code = RDW) 15.9 11.5-14.5 [facility] CenterNxqxfeaTJFQXBFYKD0549-17-14 21:10:00 Test Item Value Reference Range Interpretation Comments MCHC (test code = MCHC) 33.1 32.0-36.0 [facility] CenterWrbcejbUVYRTEWGAH4437-51-26 21:10:00 Test Item Value Reference Range Interpretation Comments MCV (test code = MCV) 76.3 80.0-98.0 [facility] CenterYonenzePSPFPIQLGX9611-71-85 21:10:00 Test Item Value Reference Range Interpretation Comments Hct (test code = Hct) 38.6 36.0-48.0 [facility] CenterTnhxzepFOLQJRJEZS3810-29-43 21:10:00 Test Item Value Reference Range Interpretation Comments MPV (test code = MPV) 9.5 7.4-10.4 [facility] CenterBicfawwYSKCRCQLWQ3146-63-98 21:10:00 Test Item Value Reference Range Interpretation Comments Platelet (test code = Platelet) 242 133-450 [facility] CenterSyovzklWEDOELEEJL6733-25-65 21:10:00 Test Item Value Reference Range Interpretation Comments Hgb (test code = Hgb) 12.8 12.0-16.0 [facility] CenterCotiitoZTHLRLVGCW6856-45-78 21:10:00 Test Item Value Reference Range Interpretation Comments RBC (test code = RBC) 5.06 4.20-5.40 [facility] CenterTqmzguiEPAEISKAOJ4143-19-34 21:10:00 Test Item Value Reference Range Interpretation Comments WBC (test code = WBC) 5.0 3.7-10.4 [facility] CenterCijkhxyNWUBBISOMC4966-36-54 21:10:00 Test Item Value Reference Range Interpretation Comments Basophils # (test code 0.1 See_Comment [Aut omated message] The = Basophils #) system which generated this result tra nsmitted reference range : <=0.2. The reference r mariah was not used to int erpret this result as normal/abnormal . [facility] CenterOsjosvlMPKWOSELQL5216-95-20 21:10:00 Test Item Value Reference Range Interpretation Comments Microcyte (test code = 1+ *ABN*(03/26/17 Microcyte) 4:10 PM) [facility] CenterJxfugrhLMRSNAZPJW8697-85-54 21:10:00 Test Item Value Reference Range Interpretation Comments Eosinophils # (test code 0.1 See_Comment [A utomated message] The = Eosinophils #) system wh h generated this result tra nsmitted reference range : <=0.5. The reference r mariah was not used to int erpret this result as normal/abnormal . [facility] CenterSekyatkGXOZWZUARA7894-45-78 21:10:00 Test Item Value Reference Range Interpretation Comments Lymphocytes (test code = Lymphocytes) 42.6 20.0-40.0 [facility] CenterDrarbmbYPFDMHKZTB8450-20-90 21:10:00 Test Item Value Reference Range Interpretation Comments Segs (test code = Segs) 47.2 45.0-75.0 [facility] CenterGheqbyxYYEEXZESGO5842-48-87 21:10:00 Test Item Value Reference Range Interpretation Comments Eosinophils (test code = 2.0 See_Comment [A utomated message] The Eosinophils) system which ge nerated this result tra nsmitted reference range : <=4.0. The reference r mariah was not used to int erpret this result as normal/abnormal . [facility] CenterTyfsbvhRFOTRNURPW6664-23-82 21:10:00 Test Item Value Reference Range Interpretation Comments Basophils (test code = 1.0 See_Comment [Aut omated message] The Basophils) system which ge nerated this result tra nsmitted reference range : <=1.0. The reference r mariah was not used to int erpret this result as normal/abnormal . [facility] CenterAycatgwFAMSMLYGOK5245-68-17 21:10:00 Test Item Value Reference Range Interpretation Comments Segs-Bands # (test code = Segs-Bands #) 2.3 1.5-8.1 [facility] CenterBttxpsvESGVKQBWWL5636-55-90 21:10:00 Test Item Value Reference Range Interpretation Comments Monocytes (test code = Monocytes) 7.2 2.0-12.0 [facility] CenterQdudcheVHCDVQXURX9681-86-46 21:10:00 Test Item Value Reference Range Interpretation Comments Monocytes # (test code 0.4 See_Comment [Aut omated message] The = Monocytes #) system which generated this result tra nsmitted reference range : <=0.8. The reference r mariah was not used to int erpret this result as normal/abnormal . [facility] CenterVvmseohHIDMKLMFDP4643-19-42 21:10:00 Test Item Value Reference Range Interpretation Comments Lymphocytes # (test code = Lymphocytes 2.1 1.0-5.5 #) [facility] CenterPnekmpcKRQHFZZWKR7255-51-14 21:10:00 Test Item Value Reference Range Interpretation Comments INR (test code = INR) 1.02 0.85-1.17 [facility] CenterXowrkatGHQZIAYSSG9901-84-31 21:10:00 Test Item Value Reference Range Interpretation Comments PTT (test code = PTT) 33.1 s 22.9-35.8 [facility] CenterHczbmwaYZUIRURKUZ6133-20-67 21:10:00 Test Item Value Reference Range Interpretation Comments PT (test code = PT) 13.6 s 12.0-14.7 [facility]
[2022-08-10 07:24] LABS: Absolute Lymphocytes (CBC) 1.2 K/uL (0.7-4.9); Lymphocytes % 14.7 % (15.3-44.8); MPV 9.6 fL (7.6-11.3); RBC Red Blood Cell Count 4.99 M/uL (3.86-4.86)
[2022-08-10] MEDS ORDERED: MORPHINE 4 MG/ML SYR ONE (07:32)
[2022-08-10] MEDS ORDERED: ONDANSETRON 4 MG/2 ML VIAL ONE (07:32)
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
[2022-08-10 08:06] LABS: Urine Blood 1+ (Negative); Urine Glucose Negative (Negative); Urine Protein Negative (Negative); Urine Specific Gravity <=1.005 (1.005-1.030)
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
--- NOTE | 2022-08-10 10:04 | RAD REPORT ---
EXAM DESCRIPTION: RAD - Shoulder Left 2 View - 08/10/2022 9:54 am CLINICAL HISTORY: Left shoulder pain FINDINGS: No fracture or dislocation is seen.
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
[2022-08-10 10:32] VITALS: O2SAT 100
[2022-08-10 10:38] VITALS: BP 118/71; TEMP 97.8
== END 2022-08-10 10:27 | disposition home or self-care (01) ==
LOC: ER 06:25
DX: S16.1XXA Strain of muscle, fascia and tendon at neck level, initial encounter (principal); S40.012A Contusion of left shoulder, initial encounter; S60.221A Contusion of right hand, initial encounter; V59.40XA Driver of pick-up truck or van injured in collision with unspecified motor vehicles in traffic accident, initial encounter; Z88.1 Allergy status to other antibiotic agents; Z88.8 Allergy status to other drugs, medicaments and biological substances
CPT/HCPCS: 85025; 80048; 36415; 86900; 86850; 86901; 81003; 70450; 72125; 71260; 74177; 73130; 73030; 96375; 96374; 99284; Q9967; J2405

== ENCOUNTER 2024-12-25 13:42 | Emergency (ER) | payer BC, OTHER ==
--- OUTSIDE RECORDS SUMMARY | 2024-12-25 13:47 | XMS REPORT | Clinical Summary ---
Author Name Unknown Organization [facility] [place] Address [address] [place] [address] Care Team Providers Care Software Tester Name Role Phone Madhu Ladd MD Unavailable [phone] Joaquin Danielson MD Primary Care Provider [phone] Eriberto Arreguin MD Unavailable [phone] Hemant Santiago MD Unavailable Shirlene Quick MD Unavailable Allergies Active Allergy Reactions Criticality Noted Date Comments Lamotrigine Rash High 05/01/2013 Gabapentin Rash Low 10/27/2021 Vancomycin Analogues High 05/01/2013 Burning feeling all over body Medications * This document contains information received from the source organization and may not represent a complete record from that organization. OXcarbazepine (TRILEPTAL) 150 mg tablet 1 tablet (150 mg) twice daily. 06/20/20 21 Active Nurtec ODT 75 mg TbDL daily. 08/12/20 21 Active ondansetron (ZOFRAN-ODT) 8 mg disintegrating tabletIndications: Nausea Dissolve 1 tablet (8 mg) on the tongue every 8 (eight) hours as needed for nausea or vomiting. 30 tablet 12/09/19 22 Active levETIRAcetam (KEPPRA) 500 mg tablet Take 1 tablet (500 mg) by mouth twice daily. Active cefdinir (OMNICEF) 300 mg capsule Take 1 capsule (300 mg) by mouth twice daily. 08/31/20 24 Active cyclobenzaprine (FLEXERIL) 10 mg tablet Take 1 tablet (10 mg) by mouth 3 (three) times a day as needed. 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 10/27/2021 Overview (10/27/2021): Added automatically from request for surgery [id number] Ventricular shunt in situ 10/27/2021 Overview (10/27/2021): Added automatically from request for surgery [id number] Pelvic mass 10/26/2021 Ventriculoperitoneal shunt malfunction 7 Hydrocephalus 02/13/2016 Mechanical complication of device 02/06/2015 Resolved Problems Problem Noted Date Diagnosed Date Resolved Date Nausea 07/31/2024 07/31/2024 Encounters Date Type Department Care Team Description 12/15/2024 Telephone MD [facility] [place] - Genetics [address] [facility] [address] [place] [address] Brandy Vera I Genetic Test Results 12/01/2024 11:30 AM DELI BAKERY CLERK Follow-Up MD [facility] in [place] - Gynecology [address] [place] [address] Yolanda Grey PA Malignant neoplasm of right ovary (Primary Dx); Lesion of vulva 12/01/2024 9:00 AM DELI BAKERY CLERK Ancillary Procedure General Ultrasound [address] [facility], 5th [place] [address] Mario Carey APRN Malignant neoplasm of right ovary; Abnormal vaginal bleeding, not otherwise specified 12/01/2024 Travel 09/05/2024 Orders Only MD [facility] in [address] [address] [facility], RN 08/29/2024 Orders Only MD [facility] in [address] [address] Mario Carey, TIME STUDY TECHNOLOGIST Frequency of micturition (Primary Dx) 08/08/2024 Orders Only MD [facility] in [address] [address] Mario Carey, TIME STUDY TECHNOLOGIST 08/07/2024 Orders Only MD [facility] in [address] [address] Mario Carey, TIME STUDY TECHNOLOGIST 07/31/2024 3:00 PM DELI BAKERY CLERK Follow-Up MD [facility] in [address] [address] Joaquin Danielson MD Abnormal vaginal bleeding, not otherwise specified (Primary Dx); Nausea without vomiting; Headache, not otherwise specified; Malignant neoplasm of right ovary 07/31/2024 Travel 07/28/2024 Orders Only MD [facility] in [address] [address] Mario Carey, TIME STUDY TECHNOLOGIST Malignant neoplasm of right ovary (Primary Dx) 07/28/2024 Telephone MD [facility] in [address] [address] [facility], RN 07/26/2024 Telephone MD [facility] in [address] [address] [facility], RN 07/26/2024 Telephone Gynecologic Oncology Center [address] [place] [address], 6th [place] [address] Joaquin Danielson MD Appointment (Patient is calling for his about some female concerns and would like to schedule an appointment TIMO.) 06/02/2024 11:00 AM CDT Follow-Up MD [facility] in [address] [place] [address] Darion Katz MD Unke, Jenna, PA Malignant neoplasm of right ovary (Primary Dx); Lesion of vulva 06/02/2024 8:15 AM CDT Ancillary Procedure Diagnostic Imaging in [facility] [address] [facility] [place] [address] Joaquin Danielson MD Malignant neoplasm of right ovary 06/02/2024 Orders Only MD [facility] [address] [place] [address] Brandy Vera I Malignant neoplasm of right ovary (Primary Dx) 06/02/2024 Travel 05/11/2024 Telephone MD [facility] in [place] - Surgical Oncology [address] [place] [address] [facility] RN 01/31/2024 1:30 PM CDT Telemedicine MD [facility] [address] [place] [address] Brandy Vera I Malignant neoplasm of right ovary 01/10/2024 11:30 AM CDT Follow-Up MD [facility] in [place] - Gynecology [address] [place] [address] Darion Katz MD Rucker, Erika, PA Malignant neoplasm of right ovary (Primary Dx); Screening for malignant cervical neoplasm; Lesion of vulva 01/10/2024 Travel after 12/26/2023 Surgical History Surgery Date Site/Laterality Comments SHUNT REVISION 09/27/2019 - 09/26/2020 X40 revisions, last two years ago CENTRAL SHUNT 1988 - 09/26/1989 IVC FILTER PLACEMENT MD LAPAROSCOPY W/RMVL ADNEXAL STRUCTURES 11/07/2021 Vagina /Right Procedure: LAPAROSCOPY WITH REMOVAL OF ADNEXAL STRUCTURES (PARTIAL OR TOTAL OOPHERECTOMY AND/OR SALPINGECTOMY; Surgeon: Joaquin Danielson MD; Location: MAIN OR; Service: MANAGER PRIMARY - GYNECOLOGIC ONCOLOGY MD OMNTC EPIPLOECTOMY RESCJ OMENTUM SPX 11/07/2021 Abdomen/N/A Procedure: OMENTECTOMY, EPIPLOECTOMY, RESECTION OF OMENTUM; Surgeon: Joaquin Danielson MD; Location: MAIN OR; Service: MANAGER PRIMARY - GYNECOLOGIC ONCOLOGY MD LAPS SURG BILATERAL TOTAL PELVIC LMPHADECTOMY 11/07/2021 Abdomen/Bilateral Procedure: SURGICAL LAPAROSCOPY WITH BILATERAL EXCISION OF ALL PELVIC LYMPH NODES; Surgeon: Joaquin Danielson MD; Location: MAIN OR; Service: MANAGER PRIMARY - GYNECOLOGIC ONCOLOGY Medical History Medical History Date Comments Seizure Migraine Hydrocephalus Postoperative nausea and vomiting Family History Medical History Relation Name Comments Lung cancer Maternal Grandfather TOB++ Relation Name Status Comments Father Alive Maternal Aunt 1 Alive Maternal Aunt 2 Alive Maternal Aunt 3 (Age 58) d. COVI D Maternal Grandfather (Age 70-75) d. cancer Maternal Grandmother (Age 70s) d . not cancer related Maternal Uncle 1 d. COVID Maternal Uncle 2 Alive Maternal Uncle 3 Alive Maternal Uncle 4 Alive Mother Alive No cancer histo ry Hysterectomy - heavy bleeding (uterine bx - negative)Diverticulitis Niece/Nephew 1 Alive Niece/Nephew 2 Alive Paternal Aunt 1 Alive Paternal Aunt 2 Alive Paternal Grandfather Alive Paternal Grandmother Alive Paternal Uncle 1 Alive Paternal Uncle 2 Alive Sister 1 Alive [facility] genetic testing -MUTYH + Sister 2 Alive Social History Tobacco Use Types Packs/Day Years Used Date Smoking Tobacco: Never Smokeless Tobacco: Never Alcohol Use Standard Drinks/Week Comments Never 0 (1 standard drink = 0.6 oz pur e alcohol) Comments No Sex and Gender Information Value Date Recorded Sex Assigned at Not on file Legal Sex Female 12:00 PM DELI BAKERY CLERK Gender Identity Not on file Sexual Orientation Not on file Obstetrics History Para Term AB IAB SAB Ectopic Multiple Livin g Live Births 0 0 0 0 0 0 0 0 0 0 0 Last Filed Vital Signs Vital Sign Reading Time Taken Comments Blood Pressure 126/86 12/01/2024 11:17 AM DELI BAKERY CLERK Pulse 82 12/01/2024 11:17 AM DELI BAKERY CLERK Temperature 36.7 C (98.1 F) 12/01/2024 11:[address] Respiratory Rate 18 12/01/2024 11:17 AM DELI BAKERY CLERK Oxygen Saturation - - Inhaled Oxygen Concentration - - Weight 86.4 kg (190 lb 7.6 oz) 12/01/2024 11:17 AM DELI BAKERY CLERK Height 154 cm (5' 0.63") 07/31/2024 2:07 PM DELI BAKERY CLERK Body Mass Index 36.43 07/31/2024 2:07 PM DELI BAKERY CLERK Plan of Treatment Upcoming Encounters Date Type Department Care Team (Late st Contact Info) Description 06/04/2025 9:00 AM CDT Appointment Diagnostic Laboratory Center [address] [place] [address] Yolanda Grey PA [address] [place] [address] [email or web address] 06/04/2025 9:30 AM CDT Ancillary Procedure General Ultrasound [address] [facility], 5th [place] [address] Yolanda Grey PA [address] [place] [address] [email or web address] 06/04/2025 1:30 PM CDT Follow-Up MD [facility] in [place] - Gynecology [address] [place] [address] Joaquin Danielson MD [address] [place], [place] [id number] [email or web address] Health Maintenance Due Date Last Done Comments COVID-19 Vaccine (2023-2 5 season) 2024 09/18/2021 Influenza Vaccine (#1) 2024 12/11/2013 Pneumococcal Vaccine Aged Out No long er eligible based on patient's age to complete this topic Procedures Procedure Name Priority Date/Time Associated Diagnosis Comments URINALYSIS MICROSCOPIC EXAM Routine 12/01/2024 11:26 AM DELI BAKERY CLERK Malignant neoplasm of right ovary URINALYSIS WITH MICROSCOPIC IF INDICATED Routine 12/01/2024 11:26 AM DELI BAKERY CLERK Malignant neoplasm of right ovary URINALYSIS WITH MICROSCOPIC IF INDICATED Routine 12/01/2024 11:26 AM DELI BAKERY CLERK Malignant neoplasm of right ovary URINE CULTURE Routine 12/01/2024 11:26 AM DELI BAKERY CLERK Malignant neoplasm of right ovary ZINVITAE Routine 12/01/2024 10:48 AM DELI BAKERY CLERK Malignant neoplasm of right ovary CANCER ANTIGEN 125 Routine 12/01/2024 10 :48 AM DELI BAKERY CLERK Malignant neoplasm of right ovary US TRANSVAGINAL Routine 12/01/2024 9:29 AM DELI BAKERY CLERK Malignant neoplasm of right ovary Abnormal vaginal bleeding, not otherwise specified CANCER ANTIGEN 125 Routine 06/02/2024 10 :00 AM CDT Malignant neoplasm of right ovary US TRANSVAGINAL Routine 06/02/2024 9:19 AM CDT Malignant neoplasm of right ovary CYTOLOGY HPV 16/18 GENOTYPING AND HIGH RISK POOL Routine 01/10/2024 11:52 AM CDT Screening for malignant cervical neoplasm CYTOLOGY MANAGER PRIMARY INTERPRETATION Routine 01/10/2024 11:52 AM CDT Screening for malignant cervical neoplasm CANCER ANTIGEN 125 Routine 01/10/2024 10 :18 AM CDT Malignant neoplasm of right ovary after 12/26/2023 Results * Urinalysis w/Microscopic if Indicated (12/01/2024 11:26 AM DELI BAKERY CLERK) Pathologist [facility] Urine Appearance Clear Clear 12/02/19 11:52 AM DELI BAKERY CLERK [place] Urine Color Yellow Colorless, Straw, Light Yellow, Yellow, Dark Yellow, Straw-Yellow 12/01/2024 11:52 AM DELI BAKERY CLERK [place] Urine Specific Zeigler 1.020 1.003 - 1.035 12/01/2024 11:52 AM DELI BAKERY CLERK [place] Urine pH 6.0 5.0 - 8.0 12/01/2024 11:52 AM DELI BAKERY CLERK [place] Urine Glucose Negative Negative mg/dL 12/01/2024 11:52 AM DELI BAKERY CLERK [place] Urine Ketones Negative Negative mg/dL 12/01/2024 11:52 AM DELI BAKERY CLERK [place] Urine Blood Negative Negative 12/01/2024 11:52 AM DELI BAKERY CLERK [facility] Urine Protein Negative Negative mg/dL 12/01/2024 11:52 AM DELI BAKERY CLERK [place] Urine Bilirubin Negative Negative 11:52 AM [facility] Urine Urobilinogen Negative Negative 12/01/2024 11:52 AM [facility] Urine Nitrite Negative Negative 12/01/2024 11:52 AM [facility] Urine Leukocyte Esterase Negative Negative 12/01/2024 11:52 AM [facility] Urine Voided urine specimen / Unknown Non-blood Collection / Unknown 12/01/2024 11:26 AM DELI BAKERY CLERK 12/01/2024 11:30 AM DELI BAKERY CLERK [facility] [place] - 12/01/2024 11:52 AM DELI BAKERY CLERK Some reporting parameters within the Urinalysis test have changed due to the implementation of new instrumentation in the Main [place], allowing greater sensitivity of measurement. Urinalysis results reported by the [facility] using existing instrumentation, as well as Urinalysis testing performed manually or by back-up methodology at the main [place], will remain relatively unchanged. New reporting parameters and units will now be reported for all campuses. No microscopic exam performed; physiochemical findings are negative us Yolanda GENTILE URINE ORDERABLES Final Result [facility] [address] [facility], [address] [place] [address] * (ABNORMAL) Urinalysis Microscopic Exam (12/01/2024 11:26 AM DELI BAKERY CLERK) Urine WBC 0-2 None Seen, Rare, 0-2, <1 /HPF 12/01/2024 11:52 AM [facility] Urine RBC 0-2 None Seen, Rare, 0-2, <1 /HPF 12/01/2024 11:52 AM [facility] Urine Mucous Trace Not Seen, Trace /HPF 12/01/2024 11:52 AM [facility] Urine Bacteria OCC(A) Not Seen /HPF 12/01/2024 11:52 AM [facility] Urine Squamous Epithelial Cells Rare Not Seen, OCC, Rare /HPF 12/01/2024 11:52 AM [facility] Urine Voided urine specimen / Unknown Non-blood Collection / Unknown 12/01/2024 11:26 AM DELI BAKERY CLERK 12/01/2024 11:30 AM DELI BAKERY CLERK Yolanda GENTILE LAB BLOOD ORDERABLES Final Resul t Performing Organization Address [facility] Co de Phone Number [facility] [address] [facility], [address] [place] [address] * Urine Culture (12/01/2024 11:26 AM DELI BAKERY CLERK) Urine Culture Normal site antony present. Generally of low significance. Correlate with clinical data and culture history. 12/03/2024 8:00 AM CDT [facility] Urine Voided urine specimen / Unknown Non-blood Collection / Unknown 12/01/2024 11:26 AM DELI BAKERY CLERK 12/01/2024 11:30 AM DELI BAKERY CLERK Yolanda GENTILE MICROBIOLOGY - GENERAL ORDERABLE S Final Result Performing Organization Address [facility] Co de Phone Number [facility] Unless otherwise noted, all lab tests performed by: Division of Pathology and Laboratory Medicine [address] [place] [id number] * SOY (12/01/2024 10:48 AM DELI BAKERY CLERK) [facility] See Note 12/04/2024 8:20 AM CDT [facility] Comment:Specimen for Genetic testing was obtained, processed and sent out to the Performing Reference Laboratory. Refer to the performing lab for results. Blood Peripheral blood specimen / Unknown Venipuncture / Unknown 12/01/2024 10:48 AM DELI BAKERY CLERK 12/01/2024 10:49 AM DELI BAKERY CLERK Yolanda GENTILE LAB BLOOD ORDERABLES Final Resul t Performing Organization Address City/[facility]/ZIP Co de Phone Number [facility] [address] [place] [address], * [place] 125 (12/01/2024 10:48 AM DELI BAKERY CLERK) Only the most recent of3 resultswithin the time period is included. Cancer Antigen 125 12.7 <=38.0 U/mL 12/01/2024 11:23 AM DELI BAKERY CLERK [place] Blood Peripheral blood specimen / Unknown Venipuncture / Unknown 12/01/2024 10:48 AM DELI BAKERY CLERK 12/01/2024 10:49 AM DELI BAKERY CLERK Narrative [place] - 12/01/2024 11:23 AM DELI BAKERY CLERK Results greater than 11,500.0 U/mL may not be reliable due to matrix effect with extended dilution as it exceeds the washer cutter's recommended limit. Caution should be exercised when interpreting such values and done in conjunction with clinical context. This test is measured by electrochemiluminescence immunoassay on [employer] Mar[employer] immunoassay analyzers. Results obtained in different methods are not interchangeable. Reference intervals are not available for male patients. Results should be interpreted in conjunction with clinical context. us Yolanda GENTILE LAB BLOOD ORDERABLES Final Resul t [facility] [address] [facility], [address] [place] [address] * US Transvaginal (12/01/2024 9:29 AM DELI BAKERY CLERK) Only the most recent of2 resultswithin the time period is included. Anatomical Region Laterality Modality Pelvis Ultrasound 12/01/2024 9:44 AM DELI BAKERY CLERK Impressions 12/01/2024 9:48 AM DELI BAKERY CLERK The endometrium is thickened measuring 1.3 cm. This could be normal if the patient is in the secretory phase. Clinical correlation recommended. Normal left ovary. The right ovary surgically absent. No right adnexal mass. ACTIONABLE ITEMS/RECOMMENDATIONS*: None. *An Actionable Finding is a finding that may be unrelated to the original reason for imaging but potentially actionable, meaning further investigation may be necessary. The Actionable Findings Vigilance Unit (AFVU) assists medical providers with responding to additional radiologic findings that are unexpected and potentially actionable. Narrative 12/01/2024 9:48 AM DELI BAKERY CLERK Examination: US TRANSVAGINAL on 12/01/2024 9:29 AM. Clinical History: Malignant neoplasm of right ovary Abnormal vaginal bleeding, not otherwise specified. Indication: Bleeding. Comparison: 06/02/2024 TECHNIQUE: Transvaginal grayscale and color Doppler ultrasound of the pelvis was performed. FINDINGS: Uterus: The uterus is normal in size measuring 6.2 x 3.7 x 2.4 cm. No myometrial masses. Endometrium: The endometrium is thickened measuring 1.3 cm. This is consistent with the secretory phase. Left Ovary: The left ovary is normal in echogenicity and size measuring 3.4 x 1.7 x 1.8 cm. Normal physiologic cysts are seen. Right Ovary: Surgically absent. No right adnexal mass. Fluid: There is physiologic free fluid Procedure Note Maikel Conley MD - 12/01/2024 Examination: US TRANSVAGINAL on 12/01/2024 9:29 AM. Clinical History: Malignant neoplasm of right ovary Abnormal vaginal bleeding, not otherwise specified. Indication: Bleeding. Comparison: 06/02/2024 TECHNIQUE: Transvaginal grayscale and color Doppler ultrasound of thepelvis was performed. FINDINGS: Uterus: The uterus is normal in size measuring 6.2 x 3.7 x 2.4 cm. Nomyometrial masses. Endometrium: The endometrium is thickened measuring 1.3 cm. This isconsistent with the secretory phase. Left Ovary: The left ovary is normal in echogenicity and size measuring3.4 x 1.7 x 1.8 cm. Normal physiologic cysts are seen. Right Ovary: Surgically absent. No right adnexal mass. Fluid: There is physiologic free fluid IMPRESSION: The endometrium is thickened measuring 1.3 cm. This could be normal if thepatient is in the secretory phase. Clinical correlation recommended. Normal left ovary. The right ovary surgically absent. No right adnexalmass. ACTIONABLE ITEMS/RECOMMENDATIONS*: None. *An Actionable Finding is a finding that may be unrelated to the originalreason for imaging but potentially actionable, meaning furtherinvestigation may be necessary. The Actionable Findings Vigilance Unit(AFVU) assists medical providers with responding to additional radiologicfindings that are unexpected and potentially actionable. Mario Carey APRN [facility] [place] ORDERABLES Final Result * Cytology HPV 16/18 Genotyping and High Risk Pool (01/10/2024 11:52 AM CDT) HPV Type 16 Negative Negative, Indetermi steven, Invalid 01/13/2024 6:26 PM CDT [facility] HPV Type 18 Negative Negative, Indetermi steven, Invalid 01/13/2024 6:26 PM CDT [facility] HPV High Risk Non-16/18 Negative Negative, Indetermi steven, Invalid 01/13/2024 6:26 PM CDT [facility] Informational Points The marizol HPV Test ([employer], [place], [place]) is a qualitative in vitro diagnostic test for the detection of Human Papillomavirus in cervical specimens collected in [employer]. The test utilizes amplification of target DNA by the Polymerase Chain Reaction (PCR) and nucleic acid hybridization for the detection of 14 high-risk (HR) HPV types in a single analysis. The test specifically identifies types HPV16 and HPV18 while concurrently detecting the other high risk types (31, 33, 35, 39, 45, 51, 52, 56, 58, 59, 66, and 68). The performance characteristics of this test were validated and determined by the [facility] cytology laboratory. These validation analyses have confirmed the accurate performance of the assay of the washer cutter s stated limit of detection for the target of the test in various specimen types. The [facility] cytology laboratory is authorized under Clinical Laboratory Improvement Amendments (CLIA) to perform high-complexity testing. The [facility] Department of Pathology is accredited by the [employer] (CAP). 01/13/2024 6:26 PM CDT [facility] Swab (Cervix, ThinPrep, Liquid Based Preparation) Non-blood Collection / Unknown 01/10/2024 11:52 AM CDT 01/11/2024 1:51 PM CDT us Michelle GENTILE LAB CYTOLOGY ORDERABLES Final Re sult [facility] [place] [address] [place] [address], * Cytology MANAGER PRIMARY Interpretation (01/10/2024 11:52 AM CDT) Gross Description 1 ThinPrep vial received 01/13/2024 6:54 AM CDT [facility] Specimen Information Cervix, ThinPrep, Liquid Based Preparation, Swab, 01/13/2024 6:54 AM CDT [facility] Specimen Adequacy Satisfactory for evaluation 01/13/2024 6:54 AM CDT [facility] TZ/Endocervical Endocervical/[place] sformation zone component present 01/13/2024 6:54 AM CDT [facility] Diagnosis Negative for intraepithelial lesion or malignancy 01/13/2024 6:54 AM CDT [facility] 12/27/2023 01/13/2024 6:54 AM CDT [facility] HPV Reflex for Accountant Clerk Yes 01/13/2024 6:54 AM CDT [facility] Informational Points Cervicovaginal cytology is a screening procedure subject to false negatives and false positives. Results are more reliable when a satisfactory sample is obtained on a regular repetitive basis and should be interpreted together with past and current clinical data. Some tests reported here may have been developed and performance characteristics determined by [facility] Pathology and Laboratory Medicine. These tests have not been specifically cleared or approved by the U.S. Food and Drug Administration. 01/13/2024 6:54 AM CDT [facility] Swab (Cervix, ThinPrep, Liquid Based Preparation) Non-blood Collection / Unknown 01/10/2024 11:52 AM CDT 01/11/2024 1:51 PM CDT us Michelle GENTILE LAB CYTOLOGY ORDERABLES Final Re sult [facility] [address] [place] [address], after 12/26/2023 Insurance [facility] Care Teams Software Tester Relationship Specialty Start Date End Date Madhu Ladd MD [address] [place] [phone] [email or web address] PCP - External Referring Obstetrics/Gynecology 10/21/21 Joaquin Danielson MD [address] [place] [phone] [email or web address] PCP - General Gynecological Oncology 10/21/21 Eriberto Arreguin MD [address] [place] [phone] [email or web address] Consulting Physician [email or web address] 12/08/21 Hemant Santiago MD [address] [place] [phone] [email or web address] Consulting Physician Internal Medicine 10/31/21 Shirlene Quick MD [address] [place] [address] [email or web address] Consulting Physician Gynecologic Medical Oncology 07/08/23
[2024-12-25 14:27] LABS: Specific Gravity 1.027 (1.005-1.030)
[2024-12-25] MEDS ORDERED: ONDANSETRON 4 MG/2 ML VIAL ONE (14:27)
[2024-12-25] MEDS ORDERED: NA CHLORIDE 0.9% 1,000 ML ONE (14:27)
[2024-12-25] MEDS ORDERED: MORPHINE 4 MG/ML SYR ONE (14:27)
[2024-12-25] MEDS ORDERED: KETOROLAC 30 MG/ML INJ ONE (14:27)
[2024-12-25 14:28] LABS: Specific Gravity 1.027 (1.005-1.030); Urine Bilirubin NEGATIVE (Negative); Urine Blood Negative (Negative); Urine Clarity Clear (Clear); Urine Color Light-Yellow (Yellow); Urine Glucose NEGATIVE (Negative); Urine Ketones NEGATIVE (Negative); Urine Microscopic Reflex YN NO UMIC; Urine Nitrite NEGATIVE (Negative); Urine Protein NEGATIVE (Negative); Urine Urobilinogen Normal (Normal)
[2024-12-25 15:02] LABS: Absolute Eosinophils 0.1 K/uL (0-0.5); Absolute Lymphocytes (CBC) 2.3 K/uL (0.7-4.9); Absolute Monocytes 0.4 K/uL (0.1-1.3); Absolute Neutrophil 4.3 K/uL (1.8-8.0); Basophils % 0.6 % (0-1.3); Eosinophils % 1.1 % (0-4.4); Hematocrit 37.2 % (36.0-45.0); Hemoglobin 12.5 g/dL (12.0-15.0); MCH 25.5 pg (27.0-35.0); MCHC 33.7 g/dL (32.0-36.0); MCV 75.7 fL (80-100); MPV 10.3 fL (7.6-11.3); Monocytes % 5.8 % (3.3-12.3); Neutrophils % 60.5 % (41.7-73.7); Nucleated Red Blood Cells % 0.1 % (0-0); Platelets 247 thou/uL (152-406); RBC Red Blood Cell Count 4.91 M/uL (3.86-4.86); Red Cell Distribution Width 15.3 % (12.1-15.2)
[2024-12-25 15:13] LABS: Albumin 3.9 g/dL (3.4-5.0); Albumin/Globulin Ratio 0.9 (1.1-1.8); Anion Gap 8.6 mEq/L (5.0-15.0); Bilirubin Total 0.3 mg/dL (0.2-1.0); Globulin 4.2 g/dL (2.3-3.5); Protein, Total 8.1 g/dL (6.4-8.2)
[2024-12-25 15:17] LABS: Potassium 3.6 mEq/L (3.5-5.1)
--- NOTE | 2024-12-25 15:27 | RAD REPORT ---
EXAMINATION: Stone Protocol CLINICAL INDICATION: Female, 34 years old.FLANK PAIN TECHNIQUE: CT abdomen and pelvis was performed, without IV contrast, as per department protocol. Axia l, sagittal and coronal reconstructions were obtained. One or more of the following dose reduction techniques were used: Automated exposure control, adjustment of the mA and/or kV according to the pat ient size, and/or iterative reconstruction. Unless otherwise specified, incidental findings do not require dedicated imaging follow-up. [id number]. IV CONTRAST: Not administered. COMPARISON: None FINDINGS: The lack of intravenous contrast limits the sensitivity of this exam for evaluation of solid visceral organs, vascular structures, and retroperitoneum. LOWER CHEST: No acute process identified.No significant pericardial effusion. UPPER GI: No significant abnormality. LIVER: No significant focal abnormality. GALLBLADDER/BILE DUCTS: No biliary ductal dilatation.? PANCREAS: No mass, ductal dilation, or fauzia-pancreatic fluid. SPLEEN: Unremarkable. ADRENALS: No adrenal masses. KIDNEYS AND URETERS: No hydronephrosis.No suspicious renal mass.Nonobstructing renal calculi. ABDOMINAL AORTA AND OTHER VESSELS: IVC filter. PERITONEUM: No abnormal free fluid. No free air. LYMPH NODES: No pathologic lymphadenopathy. ABDOMINAL WALL: SPORTS COMPLEX ATTENDANT shunt. SMALL BOWEL/COLON: Small bowel has normal course and caliber. No colonic wall thickening or pericolon ic inflammatory changes.Appendix absent. Mild diverticulosis without diverticulitis. Mild formed stool burden. URINARY BLADDER: Underdistended but grossly unremarkable. REPRODUCTIVE ORGANS: No pathologic process. MUSCULOSKELETAL: No acute or suspicious osseous abnormality. ADDITIONAL FINDINGS: None. IMPRESSION: No acute findings within the abdomen or pelvis. No urinary tract calculi.
--- NOTE | 2024-12-25 15:28 | RAD REPORT ---
EXAMINATION: Shuntogram VIEWS: As above CLINICAL INDICATION: Female, 34 years old. PAIN COMPARISON: No prior exam. IMPRESSION: Left ENERGY TRADING ANALYST shunt present. The tip overlies the left lateral ventricle. The shunt tubing is intact within the neck, left chest wall, and abdomen where it terminates overlying the lower pelvis. Abandoned shunt tubing in the right chest. IVC filter.
--- NOTE | 2024-12-25 15:39 | ER ---
Nurse's Notes [facility] Name: Hilda Christina Age: 34 yrs Sex: Female : 1990 Arrival Date: 12/25/2024 Time: 13:42 Bed 17 Private MD: Diagnosis: Low back pain;Headache Presentation: 12/25 13:49 Coronavirus screen: Client denies travel out of the [place] in the last 14 days. At this ll1 time, the client does not indicate any symptoms associated with coronavirus-19. Ebola Screen: Patient denies travel to an Ebola-affected area in the 21 days before illness onset. 13:49 Method Of Arrival: Ambulatory ll1 13:51 Chief complaint: Patient states: Confusion for 1 week. Severe R lower back pain also. ll1 Initial Sepsis Screen: Does the patient meet any 2 criteria? No. Patient's initial sepsis screen is negative. Does the patient have a suspected source of infection? No. Patient's initial sepsis screen is negative. Risk Assessment: Do you want to hurt yourself or someone else? Patient reports no desire to harm self or others. Onset of symptoms was December 18, 2024. 13:51 Acuity: JUDY 3 ll1 Triage Assessment: 13:52 General: Appears uncomfortable, Behavior is calm, cooperative, appropriate for age, ll1 Reports fatigue for. Pain: Complains of pain in R lower back Pain currently is 8 out of 10 on a pain scale. Neuro: Reports weakness confusion. : Reports pain in right in lower back. 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 - Infectious Disease History:: Denies. - Social history:: Smoking status: Patient denies any tobacco usage or history of. - Family history:: not pertinent. Screenin:08 [facility] ED Fall Risk Assessment (Adult) History of falling in the last 3 months, cm10 including since admission No falls in past 3 months (0 pts) Confusion or Disorientation No (0 pts) Intoxicated or Sedated No (0 pts) Impaired Gait No (0 pts) Mobility Assist Device Used No (0 pt) Altered Elimination No (0 pt) Score/Fall Risk Level 0 - 2 = Low Risk Oriented to surroundings, Maintained a safe environment, Hourly rounding (assess needs \T\ fall precautionary measures) done. Abuse screen: Denies threats or abuse. Denies injuries from another. Nutritional screening: No deficits noted. Tuberculosis screening: No symptoms or risk factors identified. Assessment: 14:07 General: Appears uncomfortable, Behavior is calm, cooperative. Pain: Complains of pain cm10 in right low back Pain currently is 8 out of 10 on a pain scale. Quality of pain is described as sharp, Pain began 2-3 days ago. Neuro: No deficits noted. Level of Consciousness is awake, alert, Oriented to person, place, time, situation, Appropriate for age. Respiratory: No deficits noted. Airway is patent Respiratory effort is even, unlabored, Respiratory pattern is regular, symmetrical. Musculoskeletal: Range of motion: intact in all extremities. 16:05 Reassessment: Patient appears in no apparent distress at this time. Patient and/or cm10 family updated on plan of care and expected duration. Pain level reassessed. Patient is alert, oriented x 3, equal unlabored respirations, skin warm/dry/pink. Vital Signs: 13:49 BP 136 / 90; Pulse 73; Resp 17; Temp 97.7; Pulse Ox 100% ; Weight 77.11 kg; Height 5 ll1 ft. 1 in. ; Pain 8/10; 14:59 BP 119 / 68; Pulse 60; Resp 15; Pulse Ox 99% ; cm10 15:49 BP 115 / 67; Pulse 65; Resp 15; Pulse Ox 98% ; cm10 13:49 Body Mass Index 32.12 (77.11 kg, 154.94 cm) ll1 13:49 Pain Scale: Adult ll1 ED Course: 13:43 Patient arrived in ED. im 13:49 Brayan Ocampo MD is Attending Physician. [facility] 13:52 Triage completed. ll1 13:52 Arm band placed on Patient placed in an exam room, on a stretcher. ll1 13:56 Shawnee Hernández, GISSEL is Primary Nurse. cm10 14:08 Patient has correct armband on for positive identification. Bed in low position. Call cm10 light in reach. 14:14 Test, Urine Sent. cm10 14:14 Urinalysis w/ reflexes Sent. cm10 14:15 Patient requests pain medication. cm10 14:26 ED physician to see patient. cm10 14:40 Initial lab(s) drawn, by me, sent to lab. Missed attempt(s): 22 gauge in right cm10 antecubital area. Bleeding controlled, band aid applied, catheter tip intact. 14:57 Accessed peripheral vein via ultrasound, utilizing dynamic ultrasound technique Clean \T\ cm10 dry. Dressing intact. Good blood return. Flushes easily. 20g right forearm. 14:[address] via stretcher. cm10 15:10 CT Stone Protocol In Process Unspecified. EDMS 15:24 Shuntogram XRAY In Process Unspecified. EDMS 15:39 Leander Pete MD is Referral Physician. [facility] 16:04 No provider procedures requiring assistance completed. IV discontinued, intact, cm10 bleeding controlled, No redness/swelling at site. Pressure dressing applied. 16:05 Provided Education on: follow-up instructions. cm10 Administered Medications: 14:58 Drug: NS 0.9% IV 1000 ml IV at 1000 ml once; to be given as a bolus over 60 minutes cm10 Route: IV; Rate: 1000 ml; Site: right forearm; 16:05 Follow up: Response: No adverse reaction; IV Status: Completed infusion; IV Intake: cm10 300ml 14:58 Drug: morphine IVP or IV 4 mg IVP once over 4 mins Route: IVP; Infused Over: 4 mins; cm10 Site: right forearm; 15:23 Follow up: Response: No adverse reaction cm10 14:58 Drug: Ondansetron IVP 4 mg IVP once; over 2 minutes Route: IVP; Site: right forearm; cm10 15:23 Follow up: Response: No adverse reaction cm10 14:58 Drug: Ketorolac IVP 30 mg IVP once Route: IVP; Site: right forearm; cm10 15:23 Follow up: Response: No adverse reaction cm10 Medication: 14:08 VIS not applicable for this client. cm10 Intake: 16:05 IV: 300ml; Total: 300ml. cm10 Outcome: 15:39 Discharge ordered by . immanuel 16:05 Discharged to home ambulatory, with family, cm10 16:05 Condition: good 16:05 Discharge instructions given to patient, Instructed on discharge instructions, follow up and referral plans. medication usage, Demonstrated understanding of instructions, follow-up care, medications, Prescriptions given X 2, 16:05 Patient left the ED. cm10 Addendum: 12/28/2024 13:44 Addendum: Culture Results: Positive urine culture. Phone call Attempt #1 left message. l l1 Signatures: Dispatcher [employer] EDBrayan Reyes MD MD cha Lewis, Lynsay, RN RN ll1 Faviola Flowers Clarissa, RN RN cm10
--- NOTE | 2024-12-25 15:39 | EDPHYS ---
Physician Documentation [facility] Name: Hilda Christina Age: 34 yrs Sex: Female : 1990 Arrival Date: 12/25/2024 Time: 13:42 Bed 17 Private MD: ED Physician Brayan Ocampo HPI: 12/25 14:32 This 34 yrs old Female presents to ER via Ambulatory with complaints of immanuel Confusion, Low Back Pain. 14:32 The patient presents with pain that is acute, with no known mechanism of injury. The immanuel symptoms are located in the low back. Location: lumbar area and right low back. The problem was sustained from unknown cause. Onset: The symptoms/episode began/occurred today. Modifying factors: The patient symptoms are alleviated by nothing, the patient symptoms are aggravated by any movement. Associated signs and symptoms: Pertinent positives: headache, nausea. Severity of symptoms: At their worst the symptoms were moderate, in the emergency department the symptoms are unchanged. The patient has not experienced similar symptoms in the past. 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 - Infectious Disease History:: Denies. - Social history:: Smoking status: Patient denies any tobacco usage or history of. - Family history:: not pertinent. ROS: 14:32 Constitutional: Negative for fever, chills, and weight loss, Eyes: Negative for injury, immanuel pain, redness, and discharge, ENT: Negative for injury, pain, and discharge, Neck: Negative for injury, pain, and swelling, Cardiovascular: Negative for chest pain, palpitations, and edema, Respiratory: Negative for shortness of breath, cough, wheezing, and pleuritic chest pain, Abdomen/GI: Negative for abdominal pain, nausea, vomiting, diarrhea, and constipation, : Negative for injury, bleeding, discharge, and swelling, MS/Extremity: Negative for injury and deformity, Skin: Negative for injury, rash, and discoloration, Psych: Negative for depression, anxiety, suicide ideation, homicidal ideation, and hallucinations, Allergy/Immunology: Negative for hives, rash, and allergies, Endocrine: Negative for neck swelling, polydipsia, polyuria, polyphagia, and marked weight changes, Hematologic/Lymphatic: Negative for swollen nodes, abnormal bleeding, and unusual bruising, 14:32 Back: Positive for pain at rest, pain with movement, 14:32 Neuro: Positive for dizziness, headache, weakness, Exam: 14:35 Constitutional: This is a well developed, well nourished patient who is awake, alert, immanuel and in no acute distress. Head/Face: Normocephalic, atraumatic. Eyes: Pupils equal round and reactive to light, extra-ocular motions intact. Lids and lashes normal. Conjunctiva and sclera are non-icteric and not injected. Cornea within normal limits. Periorbital areas with no swelling, redness, or edema. ENT: Nares patent. No nasal discharge, no septal abnormalities noted. Tympanic membranes are normal and external auditory canals are clear. Oropharynx with no redness, swelling, or masses, exudates, or evidence of obstruction, uvula midline. Mucous membranes moist. Neck: Trachea midline, no thyromegaly or masses palpated, and no cervical lymphadenopathy. Supple, full range of motion without nuchal rigidity, or vertebral point tenderness. No Meningismus. Chest/axilla: Normal chest wall appearance and motion. Nontender with no deformity. No lesions are appreciated. Cardiovascular: Regular rate and rhythm with a normal S1 and S2. No gallops, murmurs, or rubs. Normal PMI, no JVD. No pulse deficits. Respiratory: Lungs have equal breath sounds bilaterally, clear to auscultation and percussion. No rales, rhonchi or wheezes noted. No increased work of breathing, no retractions or nasal flaring. Abdomen/GI: Soft, non-tender, with normal bowel sounds. No distension or tympany. No guarding or rebound. No evidence of tenderness throughout. Skin: Warm, dry with normal turgor. Normal color with no rashes, no lesions, and no evidence of cellulitis. MS/ Extremity: Pulses equal, no cyanosis. Neurovascular intact. Full, normal range of motion., bilateral aka Neuro: Awake and alert, GCS 15, oriented to person, place, time, and situation. Cranial nerves II-XII grossly intact. Motor strength 5/5 in all extremities. Sensory grossly intact. Cerebellar exam normal. Normal gait. Psych: Awake, alert, with orientation to person, place and time. Behavior, mood, and affect are within normal limits. 14:35 Back: pain, that is moderate, of the lumbar area and right low back, ROM is normal, normal spinal alignment noted, CVA tenderness, is absent, muscle spasm, is not present, 14:35 Musculoskeletal/extremity: DVT Exam: No signs of deep vein thrombosis. no pain, no swelling, no tenderness, negative Homans' sign noted on exam, no appreciated bluish discoloration, no erythema, no increased warmth, Vital Signs: 13:49 BP 136 / 90; Pulse 73; Resp 17; Temp 97.7; Pulse Ox 100% ; Weight 77.11 kg; Height 5 ll1 ft. 1 in. ; Pain 8/10; 14:59 BP 119 / 68; Pulse 60; Resp 15; Pulse Ox 99% ; cm10 15:49 BP 115 / 67; Pulse 65; Resp 15; Pulse Ox 98% ; cm10 13:49 Body Mass Index 32.12 (77.11 kg, 154.94 cm) ll1 13:49 Pain Scale: Adult ll1 MDM: 13:49 Medical Screening Exam initiated immanuel 14:36 Differential diagnosis: arthritis, strain, fracture, sciatica, contusion, Herniated immanuel disc UTI. Data reviewed: vital signs, nurses notes, lab test result(s), radiologic studies, CT scan, plain films. Consideration of Admission/Observation Escalation of care including admission/observation considered. I considered the following discharge prescriptions or medication management in the emergency department Medications were administered in the Emergency Department. See MAR. Independent interpretation of the following test(s) in the Emergency Department CT Scan: My interpretation is ct head. Historians other than the Patient: Family Member: mom and sister well informed. Care significantly affected by the following chronic conditions: hydroceph , sz. 12/25 14:07 Order name: Test, Urine; Complete Time: 14:31 cm10 12/25 14:07 Order name: Urinalysis w/ reflexes; Complete Time: 14:31 cm10 12/25 14:31 Order name: CBC with Diff; Complete Time: 15:34 immnauel 12/25 14:31 Order name: Comprehensive Metabolic Panel; Complete Time: 15:34 immanuel 12/25 14:31 Order name: Urine Culture [facility] 12/25 14:31 Order name: Shuntogram XRAY; Complete Time: 15:34 [facility] 12/25 14:31 Order name: CT Stone Protocol; Complete Time: 15:34 immanuel Administered Medications: 14:58 Drug: NS 0.9% IV 1000 ml IV at 1000 ml once; to be given as a bolus over 60 minutes cm10 Route: IV; Rate: 1000 ml; Site: right forearm; 16:05 Follow up: Response: No adverse reaction; IV Status: Completed infusion; IV Intake: cm10 300ml 14:58 Drug: morphine IVP or IV 4 mg IVP once over 4 mins Route: IVP; Infused Over: 4 mins; cm10 Site: right forearm; 15:23 Follow up: Response: No adverse reaction cm10 14:58 Drug: Ondansetron IVP 4 mg IVP once; over 2 minutes Route: IVP; Site: right forearm; cm10 15:23 Follow up: Response: No adverse reaction cm10 14:58 Drug: Ketorolac IVP 30 mg IVP once Route: IVP; Site: right forearm; cm10 15:23 Follow up: Response: No adverse reaction cm10 Disposition Summary: 12/25/24 15:39 Discharge Ordered Notes: Location: Home immanuel Problem: new immanuel Symptoms: have improved immanuel Condition: Stable immanuel Diagnosis - Low back pain immanuel - Headache immanuel Followup: immanuel - With: Private Physician - When: 2 - 3 days - Reason: Recheck today's complaints, Continuance of care, Re-evaluation by your physician Followup: immanuel - With: Leander Pete MD - When: 2 - 3 days - Reason: Recheck today's complaints, Re-evaluation by your physician Discharge Instructions: - Discharge Summary Sheet immanuel - Acute Back Pain, Adult immanuel - General Headache Without Cause immanuel - Musculoskeletal Pain immanuel - General Headache Without Cause, [id number] immanuel Forms: - Medication Reconciliation Form immanuel - Antibiotic Education immanuel - Prescription Opioid Use immanuel - Patient Portal Instructions [facility] - Leadership Thank You Letter [facility] Prescriptions: - diclofenac sodium 50 mg Oral tablet, delayed release (enteric coated) - take 1 tablet ORAL route 3 times per day; 21 tablet; Refills: 0, Product immanuel Selection Permitted - ondansetron 4 mg Oral Tablet,disintegrating - take 1 tablet ORAL route every 6 to 8 hours as needed for nausea and vomiting; immanuel 20 tablet; Refills: 0, Product Selection Permitted Signatures: Dispatcher [employer] EDBrayan Reyes MD MD cha Lewis, Lynsay RN RN ll1 Shawnee Hernández RN RN cm10 Corrections: (The following items were deleted from the chart) 14: 14:07 Test, Urine+UC.LAB.BRZ ordered. EDMS EDMS 14: 14:07 Urinalysis+U.LAB.BRZ ordered. EDMS EDMS
[2024-12-25 16:23] VITALS: TEMP 97.7
[2024-12-25 16:35] VITALS: BP 115/67; O2SAT 98
== END 2024-12-25 16:05 | disposition home or self-care (01) ==
LOC: ER 13:42
DX: M54.50 Low back pain, unspecified (principal); R51.9 Headache, unspecified
CPT/HCPCS: 96361; 87088; 85025; 87086; 36415; 81025; 81003; 80053; 76377; 74176; 75809; 49427; 96375; 96374; 99285; J2405; J7030; 87077; 87186